=== PATIENT | female | born 1940 | race Caucasian/White ===

== ENCOUNTER → 2017-01-12 | Outpatient (CLI) | payer OTHER ==
--- NOTE | 2017-01-13 07:55 | MAMMOGRAPHY REPORT ---
BILATERAL DIGITAL SCREENING MAMMOGRAM WITH CAD: 01/12/2017 CLINICAL HISTORY: Routine screening. Patient has no complaints. TECHNIQUE: Bilateral CC and MLO views were obtained. Current study was also evaluated with a Comput er Aided Detection (CAD) system. COMPARISON: Comparison is made to exams dated: 11/05/2015 ultrasound, 11/05/2015 mammogram, 10/29/2015 mammogram, 10/28/2014 ultrasound, 10/28/2014 mammogram, and 05/17/2014 mammogram - [facility]. BREAST COMPOSITION: There are scattered areas of fibroglandular density in both breasts. FINDINGS: There is a possible 8 mm mass in the lower inner middle one third of the left breast, for which additional spot compression tomosynthesis views and possibly ultrasound are recommended. Thi s is seen in an area of prior cyst aspiration and could possibly represent reaccumulation, however a dditional workup is needed. There is a stable ribbon shaped metallic biopsy marker in the upper outer anterior left breast. A f ew scattered benign-appearing microcalcifications. No other suspicious mass, architectural distortio n or cluster of microcalcifications is seen. IMPRESSION: ACR BI-RADS CATEGORY 0: INCOMPLETE EVALUATION: NEED ADDITIONAL IMAGING EVALUATION The possible 8 mm mass in the left breast needs additional evaluation. The patient will be called to schedule an appointment. Approximately 10% of breast cancers are not detected with mammography. A negative mammographic repor t should not delay biopsy if a clinically suggestive mass is present. Eusebia Silveira M.D. ay/:01/12/2017 17:07:12 Water Resource Manager: Hayde LOPEZ(Lavelle)([place]), [facility] letter sent: Addl Imaging 0 BI-RADS Code: ACR BI-RADS Category 0: Incomplete Evaluation: Need Additional Imaging Evaluation
== END | disposition home or self-care (01) ==
LOC: C.MAMM 10:28
PROVIDERS: ATTEND Family Medicine
DX: Z12.31 Encounter for screening mammogram for malignant neoplasm of breast (principal); R92.8 Other abnormal and inconclusive findings on diagnostic imaging of breast

== ENCOUNTER → 2017-01-24 | Outpatient (CLI) | payer OTHER ==
--- NOTE | 2017-01-24 15:16 | MAMMOGRAPHY REPORT ---
UNILATERAL LEFT DIGITAL DIAGNOSTIC MAMMOGRAM TOMOSYNTHESIS AND TARGETED LEFT ULTRASOUND: 01/24/2017 CLINICAL HISTORY: 76 year-old woman called back from screening mammography for an increasingly promi nent mass in the 6:00 to 7:00 left breast. Patient has a history of previous left breast cyst aspir ation and ultrasound-guided core biopsy. TECHNIQUE: Spot compression CC and MLO 2-D digital and tomosynthesis images of the left breast were obtained. Full field left CC and MLO 2-D digital and tomosynthesis images were also obtained. COMPARISON: Comparison is made to exams dated: 01/12/2017 mammogram, 11/13/2015 aspiration, 11/05/2015 u ltrasound, 11/05/2015 mammogram, 10/29/2015 mammogram, and 10/28/2014 ultrasound - [facility]. BREAST COMPOSITION: There are scattered areas of fibroglandular density in the left breast. FINDINGS: Spot compression views of the left breast demonstrate persistence of an oval circumscribe d 8.6 x 6.1 x 7.2 mm mass in the 6:30 to 7:00 middle one third of the left breast. No associated ar chitectural distortion or microcalcification. Further characterization with ultrasound was performe d. Also incidentally seen in the anterior left breast on the additional tomosynthesis views are ano ther round circumscribed 7.7 x 7.3 x 6.9 mm mass in the approximate 3:00 anterior breast. No other definite mass or focal area of architectural distortion is seen. Real-time high-resolution ultrasound was performed in the left breast. In the 7:00 axis, 2 cm from the nipple in the area of previously aspirated cyst, a predominantly anechoic benign cyst is again i dentified measuring 8.3 x 4.3 x 5.6 mm. This is compatible with reaccumulation of the previously as pirated cyst and is benign. In the 5:00 periareolar left breast, another anechoic simple cyst is id entified measuring 5.6 x 4.8 x 5.9 mm. This likely correlates with the other circumscribed mass ruma ser to the nipple seen on the spot compression views. There is an isoechoic to slightly hypoechoic area in the 3:00 periareolar left breast that is conspicuous in real-time scanning. It has slightly angular borders measuring approximately 5.4 x 4.0 x 6.9 mm. This partially effaces in the cinegrap hic video clip and could represent stromal fibrosis. I did not initially think that this correlated with the biopsied lesion in the 1:30 left breast. However, for confirmation a skin BB was placed o verlying this abnormality and repeat full field left CC and MLO views were obtained. The skin BB do es not align with the biopsy marker clip. Then additional ultrasound was performed in the 1:30 left breast and the previously biopsied microlobulated hypoechoic lesion is again seen and does not appe ar significantly different compared to the time the ultrasound, which yielded benign pathology resul ts. Overall, given the partial effacement of this 3:00 lesion and real-time ultrasound, and lack of a suspicious mammographic correlate, a short interval follow-up is recommended to ensure stability in 6 months. IMPRESSION: ACR-BI-RADS CATEGORY 3: PROBABLY BENIGN, TARGETED ULTRASOUND ACR-BI-RADS CATEGORY 3: OK OBABLY BENIGN 1. The increasingly prominent circumscribed oval mass in the 7:00 left breast correlates with a olamide ign cyst on ultrasound. This was previously aspirated to resolution and represents reaccumulation o f the cyst. No further workup is needed at this time. 2. Incidentally seen is a subcentimeter isoechoic to hypoechoic lesion in the 3:00 periareolar left breast that could represent stromal fibrosis are normal breast tissue given partial effacement in r eal-time scanning. However, a short interval follow-up diagnostic left mammogram and repeat targete d ultrasound is recommended to ensure stability in 6 months. These results and recommendations were discussed with the patient at the time of the exam. She tent atively scheduled the follow-up appointment prior to leaving our department. Approximately 10% of breast cancers are not detected with mammography. A negative mammographic repor t should not delay biopsy if a clinically suggestive mass is present. Eusebia Silveira M.D. ay/:01/24/2017 14:32:22 Radiation Therapist: Kylee Lopez, [facility] letter sent: Follow Up Recommended 3 BI-RADS Code: ACR-BI-RADS Category 3: Probably Benign Ultrasound BI-RADS: ACR-BI-RADS Category 3: P robably Benign
== END | disposition home or self-care (01) ==
LOC: C.MAMM 09:30
PROVIDERS: ATTEND Family Medicine
DX: N63 Unspecified lump in breast (principal)

== ENCOUNTER → 2017-07-27 | Outpatient (CLI) | payer OTHER ==
--- NOTE | 2017-07-28 07:49 | MAMMOGRAPHY REPORT ---
UNILATERAL LEFT DIGITAL DIAGNOSTIC MAMMOGRAM TOMOSYNTHESIS WITH CAD AND TARGETED LEFT ULTRASOUND: CLINICAL HISTORY: Six-month follow-up of left 3:00 lesion seen on ultrasound. The patient reports no current complaints. TECHNIQUE: Breast tomosynthesis in addition to standard 2D mammography was performed. Current study was also evaluated with a Computer Aided Detection (CAD) system. Left CC and MLO 2-D and tomosynthes is images were obtained. COMPARISON: Comparison is made to exams dated: 01/24/2017 ultrasound, 01/24/2017 mammogram, 01/12/2017 m ammogram, 11/13/2015 aspiration, 11/05/2015 ultrasound, and 11/05/2015 mammogram - [facility]. BREAST COMPOSITION: There are scattered areas of fibroglandular density in the left breast. FINDINGS: In the left slightly medial breast on the cc view middle depth, there is an area of subtle architectural distortion with an associated coarse calcification (slice 28/57), which likely project s slightly superiorly on the MLO view (slice 3363). The remainder of the left breast is stable mamm ographically compared to prior exams, without suspicious masses, calcifications, or areas of architec tural distortion noted. The previously seen circumscribed masses in the left lower inner quadrant an d left lateral anterior breast are stable and were shown to represent benign cysts on a prior ultraso und exam. A biopsy marker clip is again noted in the left upper outer quadrant. Targeted ultrasound was performed of the area of the previously seen lesion for which follow-up was r ecommended. In the left 3:00 periareolar breast, again noted is a circumscribed anechoic 7 mm mass, consistent with a benign cyst. In the left 3:00 periareolar breast, there is also an isoechoic to sl ightly hypoechoic ill-defined region which largely effaces on radial scanning, and does not appear si gnificantly changed compared to the January 2017 exam, and may represent normal breast tissue or stroma l fibrosis. Targeted ultrasound was performed of the region of the questionable architectural distor tion, in the left central and slightly medial breast, which shows no clear sonographic correlate. IMPRESSION: ACR BI-RADS CATEGORY 4: SUSPICIOUS, TARGETED ULTRASOUND ACR BI-RADS CATEGORY 4: SUSPICIO US 1. Area of focal architectural distortion in the left medial breast mammographically, with an associ ated coarse calcification. No clear sonographic correlate is evident. The distortion is indetermina te and stereotactic biopsy is recommended for further evaluation. This likely represents a radial sc ar although malignancy is not entirely excluded. 2. Stable isoechoic to slightly hypoechoic lesion in the left 3:00 periareolar breast, that is proba celso benign and may represent normal breast tissue or stromal fibrosis. Recommend follow-up diagnosti c tomosynthesis and possible ultrasound of the left breast in 6 months to confirm longer stability. Routine mammography of the right breast will be due at that time. A phone call was made to the physician's office to confirm faxed results were received. The patient has been verbally notified of the results. She tentatively scheduled the biopsy before leaving the d epartment. I will leave it up to her referring physician if she can safely discontinue Coumadin prio r to the procedure. Approximately 10% of breast cancers are not detected with mammography. A negative mammographic report should not delay biopsy if a clinically suggestive mass is present. Clover Rhodes M.D. ah/:07/27/2017 12:16:25 Director Of Casino Marketing: Kylee LOPEZ(Lavelle)(Thomas), [facility] letter sent: Abnormal 4/5 BI-RADS Code: ACR BI-RADS Category 4: Suspicious Ultrasound BI-RADS: ACR BI-RADS Category 4: Suspici ous
== END | disposition home or self-care (01) ==
LOC: C.MAMM 10:27
PROVIDERS: ATTEND Family Medicine
DX: N64.89 Other specified disorders of breast (principal); R92.1 Mammographic calcification found on diagnostic imaging of breast

== ENCOUNTER 2023-04-20 12:40 | Inpatient (IN) ==
--- NOTE | 2023-04-20 13:42 | Emergency Department Note ---
Impression & Plan Acute hyponatremia, Nausea ED Provider Note NAME: JENI JAVIER AGE: 83 SEX: F : 1940 ARRIVES VIA: Walk-In INFORMANT: Patient, ED PROVIDER(S): Kelvin Patricia MD CHIEF COMPLAINT: Nausea, low sodium, outpatient referral MEDICAL DECISION MAKING: Patient was an outpatient referral due to concern for nausea and low sodium. IV was established blood work is obtained along with urine and serum awesome's as well as urine electrolytes. Patient was ordered IV fluids and Zofran. The patient's sodium was 118. I did reassess the patient the patient was feeling improved after Zofran and small mount of IV fluids. I did speak with Vaishali Jones PA-C and the patient was admitted by [facility] Dr. Berny Mendosa. Prior /Outside records reviewed: Did review a wound care visit note with Dahlia Montesnios from April 14. Patient does have a history of chronic venous insufficiency and delayed wound healing from a traumatic wound. Patient had 2 wounds 1 of which has healed the other which was stable to improved. I did review the patient's blood work from April 18 and which showed hyponatremia of 123 and 120 respectively. Also associated hypochloremia. This is an acute change from January with the patient's sodium was 136. Differential diagnosis: Infection, dehydration, metabolic abnormality, hypo/hyperglycemia, electrolyte disturbance, anemia, SIADH, medication side effect among others were considered Diagnostics, as interpreted by me: ECG: Sinus with pacing, rate of 64 wide QRS left bundle branch block pattern. Cardiac monitoring: An order was placed for continuous cardiac monitoring. The monitor shows a rate of 72 with paced rhythm. Patient was placed on pulse oximetry Medical decision rules: None Imaging studies: See below HPI: patient presents due to concern for this fatigue nausea and low sodium and she did have blood work completed yesterday and the day before. Patient was t old about her results and referred here for further evaluation treatment. The patient had been on Lasix up until Tuesday. The patient did seeing her outpatient physician due to concerns for weakness associated fatigue and nausea. No vomiting or diarrhea. Patient denies any chest pains or shortness of breath. No falls or trauma. Patient does admit to decreased appetite. The patient does follow with wound care for chronic left lower extremity wounds. Patient denies any acute issues with that at this time PAST MEDICAL HISTORY: See Below PAST SURGICAL HISTORY: See Below SOCIAL HISTORY: See Below HOME MEDICATIONS: See Below ALLERGIES: See Below VITALS: See Below PHYSICAL EXAMINATION: GENERAL: NAD, non-toxic. EYE EXAM: Normal conjunctiva. PERRL, no anisocoria and EOM's grossly intact w/o pain. NECK: Supple, no nuchal rigidity, no adenopathy, non-tender. No signs of meningismus. FROM of the neck with good chin to chest and neck extension. No stridor. LUNGS: Clear to auscultation. Normal chest wall mechanics. HEART: NSR, no MRG. ABDOMEN: Abdomen soft, non-tender, no masses, no rebound or guarding. BACK: No CVA TTP. SKIN: No rashes and no bruising. UPPER EXTREMITIES: Upper extremities are grossly normal. LOWER EXTREMITIES: Left greater than right lower extremity edema currently wrapped in a dressing. NEURO EXAM: A&O x3, cranial nerves II-XII grossly intact, normal speech, moves all 4 extremities. Past Med/Surg History Medical History Artificial cardiac pacemaker Atrial fibrillation on warfarin Chronic anticoagulation FHx: mitral valve repair GERD (gastroesophageal reflux disease) Hyperlipidemia Hypertension Mitral valve prolapse Osteoporosis Pathologic fracture Pericarditis age 18 Pulmonary HTN PASP 47mmhg Tachy-gomez syndrome Tricuspid valve prolapse Surgical History H/O tricuspid valve repair History of appendectomy History of bilateral tubal ligation History of breast biopsy left (benign) History of cardiac cath 30 YEARS AGO= NO STENTS History of cholecystectomy History of colonoscopy History of open reduction and internal fixation (ORIF) procedure LEFT WRIST History of tonsillectomy Status post endovenous radiofrequency ablation of saphenous vein [place] teeth removed Family History Brother Family hx of colon cancer Daughter FHx: breast cancer Mother FHx: breast cancer Grandmother FHx: breast cancer Aunt FHx: breast cancer Social History Smoking Status: Never smoker Second Hand Exposure: Yes ( A CHILD); Do You Dip or Chew Tobacco: No; Hx Alcohol Use: No Hx Substance Use: No Preferred Language: Armenian Communication Ability: Effective Visual Impairment: No Limitations Hearing Ability: Normal [place] Former Machine Operator Required: No Beliefs That Will Affect Care: None Current Living Situation: Spouse Feels Safe at Home: Yes Safety Concerns: Feels Safe At This Time Diet Comment: Low fat caffeine: No Do you think of yourself as: straight/heterosexual Gender Identity: Female Assistive Devices: CPAP Allergies Allergies Allergy/AdvReac Type Severity Reaction Status Date / Time Penicillins Allergy Severe RASH, RESP Verified 04/20/23 14:36 DISTRESS codeine Allergy Intermediate LIPS Verified 04/20/23 14:36 NUMBNESS hoff Allergy Mild Nausea = Verified 04/20/23 18:26 GARBANZO HOFF sulfamethoxazole Allergy Mild Nausea Unverified 04/20/23 14:42 [From Bactrim] trimethoprim [From Bactrim] Allergy Mild Nausea Unverified 04/20/23 14:42 Iodinated Contrast Media Allergy Rash Verified 04/20/23 14:36 Home Meds Home Medications Medication Instructions Recorded Confirmed cholecalciferol (vitamin D3) 50 2,000 unit PO [facility] 01/16/19 04/20/23 mcg (2,000 unit) capsule (Vitamin D3) rosuvastatin 5 mg tablet 5 mg PO 01/16/19 04/20/23 losartan 50 mg tablet 50 mg PO [facility] 05/05/20 04/20/23 clindamycin HCl 300 mg capsule 600 mg PO DIRECTED PRN Other 05/27/20 04/20/23 aspirin 81 mg tablet,delayed 81 mg PO MOWEFR 03/10/22 04/20/23 release famotidine 20 mg tablet 20 mg PO 03/10/22 04/20/23 calcium carbonate 500 mg calcium 500 mg PO [facility] 02/21/23 04/20/23 (1,250 mg) tablet warfarin 5 mg tablet 5 mg PO SUMOTUWETHFR@1600 02/21/23 04/20/23 metoprolol succinate 25 mg 25 mg PO 04/20/23 04/20/23 tablet,extended release 24 hr warfarin 2.5 mg tablet 2.5 mg PO SA@1600 04/20/23 04/20/23 Results & Data (ED) Vital Signs Vital Signs - 24 hr 04/20/23 14:15 Pulse Rate 60 Home Medications Current Medication List: was personally reviewed by me Laboratory Data Attestation: I reviewed the patient's lab results. 04/20/23 13:50 04/20/23 13:50 Lab Results 04/20/23 04/20/23 04/20/23 Range/Units 13:50 13:50 13:50 WBC 6.38 (4.8-10.8) K/ul RBC 4.51 (4.20-5.40) M/uL Hgb 13.4 (12.0-16.0) g/dl Hct 38.2 (37.0-47.0) % MCV 84.7 (80.0-100.0) fL MCH 29.7 (25.0-34.0) pg MCHC 35.1 (32.0-36.0) g/dL RDW Std Deviation 44.8 (36.4-46.3) fL RDW Coeff of Demarco 14.6 H (11.5-14.5) % Plt Count 201 (130-400) K/uL MPV 11.3 (9.4-12.4) fL Immature Gran % (Auto) 0.5 % Neut % (Auto) 65.8 % Lymph % (Auto) 21.3 % Leake % (Auto) 11.8 % Eos % (Auto) 0.3 % Baso % (Auto) 0.3 % Neut # (Auto) 4.20 (1.40-6.50) K/uL Lymph # (Auto) 1.36 (1.2-3.4) K/uL Leake # (Auto) 0.75 H (0.11-0.59) K/uL Eos # (Auto) 0.02 (0-0.50) K/uL Baso # (Auto) 0.02 (0-0.2) K/uL Immature Gran # (Auto) 0.03 (0.01-0.20) K/uL PT (9.0-12.0) Seconds INR (0.9-1.1) Sodium 118 L* (136-145) mmol/L Potassium 4.2 (3.5-5.1) mmol/L Chloride 87 L (98-107) mmol/L Carbon Dioxide 24 (21-32) mmol/L Anion Gap 7 (3-11) BUN 24 H (6-23) mg/dl Creatinine 1.19 (0.6-1.2) mg/dl Est Cr Clr Drug Dosing 34.7 ml/min Est GFR ( Amer) 49.6 ml/min Est GFR (Non-Af Amer) 42.8 ml/min BUN/Creatinine Ratio 20.2 H (10-20) Glucose 107 H (70-99(Fasting)) mg/dl Osmolality 258 L (280-300) mOsm/kg Calcium 9.5 (8.6-10.3) mg/dl Magnesium 1.8 (1.7-2.4) mg/dl Total Bilirubin 1.5 H (0.2-1.0) mg/dl AST 25 (13-39) U/L ALT 16 (7-52) U/L Alkaline Phosphatase 60 (34-104) U/L Total Protein 7.7 (6.0-8.3) gm/dl Albumin 4.5 (3.4-5.0) gm/dl Globulin 3.2 (2.5-4.0) gm/dl Albumin/Globulin Ratio 1.4 (0.9-2) Urine Osmolality (500-800) mOsm/kg Urine Sodium mmol/L Urine Potassium mmol/L Urine Chloride mmol/L 04/20/23 04/20/23 04/20/23 Range/Units 13:50 14:06 14:06 WBC (4.8-10.8) K/ul RBC (4.20-5.40) M/uL Hgb (12.0-16.0) g/dl Hct (37.0-47.0) % MCV (80.0-100.0) fL MCH (25.0-34.0) pg MCHC (32.0-36.0) g/dL RDW Std Deviation (36.4-46.3) fL RDW Coeff of Demarco (11.5-14.5) % Plt Count (130-400) K/uL MPV (9.4-12.4) fL Immature Gran % (Auto) % Neut % (Auto) % Lymph % (Auto) % Leake % (Auto) % Eos % (Auto) % Baso % (Auto) % Neut # (Auto) (1.40-6.50) K/uL Lymph # (Auto) (1.2-3.4) K/uL Leake # (Auto) (0.11-0.59) K/uL Eos # (Auto) (0-0.50) K/uL Baso # (Auto) (0-0.2) K/uL Immature Gran # (Auto) (0.01-0.20) K/uL PT 18.8 H (9.0-12.0) Seconds INR 1.8 H (0.9-1.1) Sodium (136-145) mmol/L Potassium (3.5-5.1) mmol/L Chloride (98-107) mmol/L Carbon Dioxide (21-32) mmol/L Anion Gap (3-11) BUN (6-23) mg/dl Creatinine (0.6-1.2) mg/dl Est Cr Clr Drug Dosing ml/min Est GFR ( Amer) ml/min Est GFR (Non-Af Amer) ml/min BUN/Creatinine Ratio (10-20) Glucose (70-99(Fasting)) mg/dl Osmolality (280-300) mOsm/kg Calcium (8.6-10.3) mg/dl Magnesium (1.7-2.4) mg/dl Total Bilirubin (0.2-1.0) mg/dl AST (13-39) U/L ALT (7-52) U/L Alkaline Phosphatase (34-104) U/L Total Protein (6.0-8.3) gm/dl Albumin (3.4-5.0) gm/dl Globulin (2.5-4.0) gm/dl Albumin/Globulin Ratio (0.9-2) Urine Osmolality 425 L (500-800) mOsm/kg Urine Sodium 31 mmol/L Urine Potassium 51.3 mmol/L Urine Chloride 35 mmol/L Administered Medications Aspirin (Aspirin 81 Mg Ectab) 81 mg PO MoWeFr@0900 [facility] Stop: 05/20/23 18:18 Last Admin: 04/20/23 20:19 Dose: 81 mg Documented By: LMP Calcium Carbonate (Calcium Carbonate 1250mg Tab) 1,250 mg PO QA NORMA Stop: 05/21/23 08:59 Last Admin: 04/21/23 08:32 Dose: 1,250 mg Documented By: JLA Famotidine (Famotidine 20 Mg Tab) 20 mg PO HS [facility] Stop: 05/20/23 20:59 Last Admin: 04/20/23 20:21 Dose: 20 mg Documented By: PAULA Dextrose (D5w) 1,000 mls @ 80 mls/hr IV .[id number] [facility] Stop: 05/21/23 10:14 Last Admin: 04/21/23 10:13 Dose: 80 mls/hr Documented By: AMIRA Losartan Potassium (Losartan Potassium 50 Mg Tab) [facility]: 05/21/23 08:59 Last Admin: 04/21/23 08:32 Dose: 50 mg Documented By: AMIRA Metoprolol Succinate (Metoprolol Succ 25mg Ext Rel Tab) 25 mg PO [facility] Stop: 05/20/23 20:59 Last Admin: 04/20/23 20:19 Dose: 25 mg Documented By: PAULA Rosuvastatin Calcium (Rosuvastatin Calcium 5 Mg Tab) 5 mg PO [facility] Stop: 05/20/23 20:59 Last Admin: 04/20/23 20:21 Dose: 5 mg Documented By: PAULA Urea (Urea (Urea-Na) 15 Gm Pack) 15 gm PO BID [facility] Stop: 05/20/23 20:59 Last Admin: 04/21/23 08:32 Dose: 15 gm Documented By: Admin: 04/20/23 20:21 Dose: 15 gm Documented By: PAULA Vitamin D (Cholecalciferol 1,000 Units 25 Mcg Tab) 2,000 units PO [facility] Stop: 05/21/23 08:59 Last Admin: 04/21/23 08:32 Dose: 2,000 units Documented By: AMIRA Warfarin Sodium (Warfarin Sod 5 Mg Tab) 5 mg PO SUMOTUWETHFR@1600 [facility] Stop: 05/20/23 18:18 Last Admin: 04/20/23 20:18 Dose: 5 mg Documented By: PAULA Discontinued Medications Sodium Chloride (Nss 1000ml) 1,000 mls @ 999 mls/hr IV .Q1H1M ONE Stop: 04/20/23 14:52 Last Infusion: 04/20/23 15:04 Dose: 0 mls/hr Documented By: Admin: 04/20/23 14:03 Dose: 999 mls/hr Documented By: MATTHEW Sodium Chloride (Nss 1000ml) 1,000 mls @ 75 mls/hr IV .[id number] [facility] Stop: 05/20/23 18:18 Last Admin: 04/21/23 08:43 Dose: Not Given Documented By: Infusion: 04/21/23 08:32 Dose: 0 mls/hr Documented By: Admin: 04/20/23 20:24 Dose: 75 mls/hr Documented By: PAULA Dextrose (D5w) 500 mls @ 80 mls/hr IV .[id number] [facility] Stop: 05/21/23 09:59 Last Admin: 04/21/23 10:13 Dose: Not Given Documented By: AMIRA Ondansetron HCl (Ondansetron Inj 2 Mg/Ml 2 Ml Vial) 4 mg IV NOW STA Stop: 04/20/23 13:53 Last Admin: 04/20/23 14:03 Dose: 4 mg Documented By: MATTHEW Discharge Plan Visit Data Chief Complaint: Illness Stated Complaint: LOW SODIUM LEVELS ED Provider: Kelvin Patricia Discharge Problem: Acute hyponatremia, Nausea Patient Disposition: Admitted As Inpatient Discharge Instructions Interventions: ED Discharge Assessment Last Done: 04/20/23 17:49
[2023-04-20] MEDS ORDERED: SODIUM CHLORIDE 0.9% 1000ML 1,000 ML IV ONE (13:52)
[2023-04-20] MEDS ORDERED: ONDANSETRON INJ 2 MG/ML 2 ML VIAL IV STA (13:52)
[2023-04-20 14:06] LABS: Basophils # (auto) 0.02 K/uL (0-0.2); Basophils % (auto) 0.3 %; Eosinophils # (auto) 0.02 K/uL (0-0.50); Eosinophils % (auto) 0.3 %; Hematocrit (blood only) 38.2 % (37.0-47.0); Hemoglobin 13.4 g/dl (12.0-16.0); Immature Granulocytes # (auto) 0.03 K/uL (0.01-0.20); Immature Granulocytes % (auto) 0.5 %; Lymphocytes # (auto) 1.36 K/uL (1.2-3.4); Lymphocytes % (auto) 21.3 %; Mean Corpuscular Hemoglobin 29.7 pg (25.0-34.0); Mean Corpuscular Hgb Conc 35.1 g/dL (32.0-36.0); Mean Corpuscular Volume 84.7 fL (80.0-100.0); Mean Platelet Volume 11.3 fL (9.4-12.4); Monocytes # (auto) 0.75 K/uL (0.11-0.59); Monocytes % (auto) 11.8 %; Neutrophils % (auto) 65.8 %; Platelet Count 201 K/uL (130-400); RDW Coefficient of Variation 14.6 % (11.5-14.5); RDW Standard Deviation 44.8 fL (36.4-46.3); Red Blood Count 4.51 M/uL (4.20-5.40); White Blood Count 6.38 K/ul (4.8-10.8)
[2023-04-20 14:31] LABS: Albumin Globulin Ratio 1.4 (0.9-2); Albumin Level 4.5 gm/dl (3.4-5.0); BUN Creatinine Ratio 20.2 (10-20); Bilirubin,Total 1.5 mg/dl (0.2-1.0); Calcium 9.5 mg/dl (8.6-10.3); Creatinine Clr Calc Pharmacy 34.7 ml/min; Est GFR (African American) 49.6 ml/min; Est GFR (Non-African American) 42.8 ml/min; Globulin 3.2 gm/dl (2.5-4.0); Magnesium 1.8 mg/dl (1.7-2.4); Potassium 4.2 mmol/L (3.5-5.1); Total Protein 7.7 gm/dl (6.0-8.3)
--- NOTE | 2023-04-20 14:58 | History & Physical Report ---
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 Pt recently treated with oral Bactrim DS x 1 week 2/2 LLE wound. Completed on 04/18. 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 Goode will treat like SIADH urine/serum osm not helpful in setting of HCTZ use pt finished bactrim 04/11-04/18; also HCTZ was stopped, last dose 04/18 FR @ 1200ml IV NSS @ 75cc/hr UREA 15g bid if pt tolerates repeat bmp at 1700 and 2100 goal Na 124 by tomorrow a.m. Chronic Atrial Fib HTN S/P MV repair Pacemaker in place continue warfarin, INR 1.8 today continue metoprolol, losartan, statin follows [employer] daily INR BASSEM CPAP at HS DVT ppx: Warfarin Dispo: admit to tele, consult PT/OT, d/c to home when pt sodium improved FULL CODE PCP: Dr. De La Cruz Pt was seen and examined in collaboration with Dr. Diallo, please see addendum Insert A total of 85 was spent coordinating, documenting, and providing care for this patient excluding time spent in the performance of separately billed services. This included personally viewing all current laboratories and imaging studies, medication reconciliation, outpatient chart review, and discussion with specialists. History of Present Illness Chief Complaint: nausea x 1 week. 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 Patient has been following at the wound clinic secondary to a slow healing wound to her left lower extremity. She was recently started on Bactrim and completed a 7-day course which completed on 04/18/2023. The day after starting Bactrim she became significantly nauseated. She was still able to tolerate diet but nausea would wax and wane. The nausea became persistent for the past 2 days. She denies any vomiting. She has been drinking liquids as normal, approximately 4-5 8 ounce glasses daily. Her PCP darell labs in the outpatient clinic on 04/18 and her sodium was noted to be 123. Due to persistent nausea PCP repeated labs today and showed a sodium of 120. She did have mild elevation in creatinine in outpatient setting at 1.5 on 04/18 and today 1.2. Previously her sodium has been around 135 and creatinine around 1.0-1.1 she also complains of feeling lightheadedness, "off balance," and generally weak. She denies any other recent illness, fever, chills, sweats, presyncope, chest pain, shortness of breath, URI symptoms, vomiting, abdominal pain, dysuria, increased urgency or frequency with urination, melena or hematochezia. She otherwise has had no medication changes. Allergies Allergy/AdvReac Type Severity Reaction Status Date / Time Penicillins Allergy Severe RASH, RESP Verified 04/20/23 14:36 DISTRESS codeine Allergy Intermediate LIPS Verified 04/20/23 14:36 NUMBNESS hoff Allergy Mild Nausea = Verified 04/20/23 18:26 GARBANZO HOFF sulfamethoxazole Allergy Mild Nausea Unverified 04/20/23 14:42 [From Bactrim] trimethoprim [From Bactrim] Allergy Mild Nausea Unverified 04/20/23 14:42 Iodinated Contrast Media Allergy Rash Verified 04/20/23 14:36 Home Medications Medication Instructions Recorded Confirmed Type cholecalciferol (vitamin D3) 50 2,000 unit PO QAM 01/16/19 04/20/23 History mcg (2,000 unit) capsule (Vitamin D3) rosuvastatin 5 mg tablet 5 mg PO HS 01/16/19 04/20/23 History losartan 50 mg tablet 50 mg PO QAM 05/05/20 04/20/23 History clindamycin HCl 300 mg capsule 600 mg PO DIRECTED PRN Other 05/27/20 04/20/23 History aspirin 81 mg tablet,delayed 81 mg PO MOWEFR 03/10/22 04/20/23 History release famotidine 20 mg tablet 20 mg PO HS 03/10/22 04/20/23 History calcium carbonate 500 mg calcium 500 mg PO QAM 02/21/23 04/20/23 History (1,250 mg) tablet warfarin 5 mg tablet 5 mg PO SUMOTUWETHFR@1600 02/21/23 04/20/23 History metoprolol succinate 25 mg 25 mg PO HS 04/20/23 04/20/23 History tablet,extended release 24 hr warfarin 2.5 mg tablet 2.5 mg PO SA@1600 04/20/23 04/20/23 History Past Med/Surg History Medical History Artificial cardiac pacemaker Atrial fibrillation on warfarin Chronic anticoagulation FHx: mitral valve repair GERD (gastroesophageal reflux disease) Hyperlipidemia Hypertension Mitral valve prolapse Osteoporosis Pathologic fracture Pericarditis age 18 Pulmonary HTN PASP 47mmhg Tachy-gomez syndrome Tricuspid valve prolapse Surgical History H/O tricuspid valve repair History of appendectomy History of bilateral tubal ligation History of breast biopsy left (benign) History of cardiac cath 30 YEARS AGO= NO STENTS History of cholecystectomy History of colonoscopy History of open reduction and internal fixation (ORIF) procedure LEFT WRIST History of tonsillectomy Status post endovenous radiofrequency ablation of saphenous vein [place] teeth removed Family History Brother Family hx of colon cancer Daughter FHx: breast cancer Mother FHx: breast cancer Grandmother FHx: breast cancer Aunt FHx: breast cancer Social History Smoking Status: Never smoker Second Hand Exposure: Yes ( A CHILD); Do You Dip or Chew Tobacco: No; Hx Alcohol Use: No Hx Substance Use: No Preferred Language: Filipino Communication Ability: Effective Visual Impairment: No Limitations Hearing Ability: Normal Crematory Attendant Required: No Beliefs That Will Affect Care: None Current Living Situation: Spouse Feels Safe at Home: Yes Safety Concerns: Feels Safe At This Time Diet Comment: Low fat caffeine: No Do you think of yourself as: straight/heterosexual Gender Identity: Female Assistive Devices: CPAP Review of Systems Review of Systems: All systems reviewed & are unremarkable except as noted in HPI & below Physical Exam Physical Exam: Constitutional: WD/WN, vitals as above, NAD, sitting up in bed, pleasant, conversing easily Head: Normocephalic, Atraumatic Eyes: PERRL, conjunctivae normal, anicteric sclerae ENMT: external ear and nose normal, oropharynx normal Neck: trachea midline, no thyromegaly normal visual inspection Respiratory: normal respiratory effort, lungs clear to auscultation, no wheeze, rales, rhonchi. Normal insp/exp effort, no accessory muscle use Cardiovascular: RRR, no murmur, no edema, LLE dressing in place Vessels: no JVD or carotid bruit Chest: normal inspection of chest Abdomen: normal bowel sounds, soft, nontender, no hepatosplenomegaly Musculoskeletal: no cyanosis or clubbing, extremities motor strength 5/5 Skin: no rashes, warm and dry normal turgor Neurologic: PERRL, EOMI, accommodation nl, no face palsy, no dysarthria CN's II-XI intact bilaterally and moves all extremities Psychiatric: A+Ox3, euthymic affect Lymphatic: no cervical or axillary lymphadenopathy : deferred Results & Data Results & Data Vital Signs (Past 12 Hours) Vital Signs Temp Pulse Resp BP Pulse Ox O2 Del Method 04/20/23 14:15 60 04/20/23 12:51 36.4 C L 64 18 117/78 99 Room Air Medications Administered Medication List Discontinued Medications Sodium Chloride (Nss 1000ml) 1,000 mls @ 999 mls/hr IV .Q1H1M ONE Stop: 04/20/23 14:52 Last Admin: 04/20/23 14:03 Dose: 999 mls/hr Documented By: MATTHEW Ondansetron HCl (Ondansetron Inj 2 Mg/Ml 2 Ml Vial) 4 mg IV NOW STA Stop: 04/20/23 13:53 Last Admin: 04/20/23 14:03 Dose: 4 mg Documented By: MATTHEW ECG Rate (beats per minute): 64 Additional Comments: 64 SR, wide QRS, previous report noted ventricular pacemaker COVID-19 Results Results COVID-19 Adm Lab Results: RBC 4.51 M/uL (4.20-5.40) 04/20/23 WBC 6.38 K/ul (4.8-10.8) 04/20/23 Hgb 13.4 g/dl (12.0-16.0) 04/20/23 Hct 38.2 % (37.0-47.0) 04/20/23 Plt Count 201 K/uL (130-400) 04/20/23 Neutrophils (%) (Auto) 65.8 % 04/20/23 Lymphocytes (%) (Auto) 21.3 % 04/20/23 Monocytes # (Auto) 0.75 K/uL (0.11-0.59) H 04/20/23 Eosinophils # (Auto) 0.02 K/uL (0-0.50) 04/20/23 Immature Granulocyte % (Auto) 0.5 % 04/20/23 Neutrophils # (Auto) 4.20 K/uL (1.40-6.50) 04/20/23 Lymphocytes # (Auto) 1.36 K/uL (1.2-3.4) 04/20/23 Monocytes # (Auto) 0.75 K/uL (0.11-0.59) H 04/20/23 Eosinophils # (Auto) 0.02 K/uL (0-0.50) 04/20/23 Basophils # (Auto) 0.02 K/uL (0-0.2) 04/20/23 Immature Granulocyte # (Auto) 0.03 K/uL (0.01-0.20) 3 Na 120 mmol/L (136-145) L 04/20/23 K 4.7 mmol/L (3.5-5.1) 04/20/23 Cl 92 mmol/L (98-107) L 04/20/23 CO2 22 mmol/L (21-32) 04/20/23 Anion Gap 6 (3-11) 04/20/23 BUN 20 mg/dl (6-23) 04/20/23 Creatinine 1.02 mg/dl (0.6-1.2) 04/20/23 BUN/Creatinine Ratio 19.6 (10-20) 04/20/23 Glucose Level 106 mg/dl (70-99(Fasting)) H 04/20/23 Ca 8.6 mg/dl (8.6-10.3) 04/20/23 Total Bilirubin 1.5 mg/dl (0.2-1.0) H 04/20/23 AST/SGOT 25 U/L (13-39) 04/20/23 ALT/SGPT 16 U/L (7-52) 04/20/23 Alkaline Phosphatase 60 U/L (34-104) 04/20/23 Total Protein 7.7 gm/dl (6.0-8.3) 04/20/23 Albumin 4.5 gm/dl (3.4-5.0) 04/20/23 Globulin 3.2 gm/dl (2.5-4.0) 04/20/23 Albumin/Globulin Ratio 1.4 (0.9-2) 04/20/23 INR 1.8 (0.9-1.1) H 04/20/23 SARS-CoV-2, RNA, NAAT NEGATIVE (NEGATIVE) 04/20/23 Code Status & VTE Plan Code Status FULL CODE VTE Prophylaxis Plan VTE Prophylaxis will be ordered: Yes Supervising Physician Co-Signing Physician Notes Patient seen and examined independently. Discussed with above provider. Patient is a 83-year-old female with above-mentioned past medical history presented with nausea. Outpatient lab work showed her serum sodium to be 122 on April 18 Patient was on hydrochlorothiazide; recently started on Bactrim for wound infection in left lower extremity Presents with a sodium of 118. Discussed with nephrology; recommended fluid restriction of 1200 cc, normal saline at 75 cc/h and urea 15 mg twice daily. Goal of correction is 6-8 meq in 24 hours. Wound care consult for left lower extremity wound. No antibiotic as patient recently completed 1 week of Bactrim.
[2023-04-20 15:08] LABS: Urine Potassium 51.3 mmol/L
[2023-04-20 15:21] LABS: INR 1.8 (0.9-1.1); Prothrombin Time 18.8 Seconds (9.0-12.0)
[2023-04-20 17:18] LABS: BUN Creatinine Ratio 19.6 (10-20); Calcium 8.6 mg/dl (8.6-10.3); Creatinine Clr Calc Pharmacy 40.5 ml/min; Est GFR (African American) 59.7 ml/min; Est GFR (Non-African American) 51.5 ml/min; Potassium 4.7 mmol/L (3.5-5.1)
[2023-04-20] MEDS ORDERED: ALUMINUM/MAGNESIUM SUSP 30 ML UDC PO PRN (18:19)
[2023-04-20] MEDS ORDERED: ACETAMINOPHEN 325 MG TAB PO PRN (18:19)
[2023-04-20] MEDS ORDERED: POLYETHYLENE (MIRALAX) 17 GM PACK PO PRN (18:19)
[2023-04-20] MEDS ORDERED: ONDANSETRON INJ 2 MG/ML 2 ML VIAL IV PRN (18:19)
[2023-04-20] MEDS ORDERED: MAGNESIUM HYDROXIDE SUSP 30 ML UDC PO PRN (18:19)
[2023-04-20] MEDS: WARFARIN SOD 5 MG TAB PO SCH (20:18)
[2023-04-20] MEDS: ASPIRIN 81 MG ECTAB PO SCH (20:19)
[2023-04-20] MEDS: METOPROLOL SUCC 25MG EXT REL TAB PO SCH (20:19)
[2023-04-20] MEDS: UREA (UREA-NA) 15 GM PACK PO SCH (20:21)
[2023-04-20] MEDS: ROSUVASTATIN CALCIUM 5 MG TAB PO SCH (20:21)
[2023-04-20] MEDS: FAMOTIDINE 20 MG TAB PO SCH (20:21)
[2023-04-20] MEDS: SODIUM CHLORIDE 0.9% 1000ML 1,000 ML IV SCH (20:24)
[2023-04-20 21:20] LABS: BUN Creatinine Ratio 24.1 (10-20); Calcium 9.2 mg/dl (8.6-10.3); Creatinine Clr Calc Pharmacy 49.8 ml/min; Est GFR (African American) 76.6 ml/min; Est GFR (Non-African American) 66.1 ml/min; Potassium 4.3 mmol/L (3.5-5.1)
[2023-04-21 01:54] LABS: BUN Creatinine Ratio 42.7 (10-20); Calcium 9.2 mg/dl (8.6-10.3); Creatinine Clr Calc Pharmacy 55.1 ml/min; Est GFR (African American) 86.6 ml/min; Est GFR (Non-African American) 74.8 ml/min; Potassium 4.2 mmol/L (3.5-5.1)
[2023-04-21 08:04] LABS: Basophils # (auto) 0.03 K/uL (0-0.2); Basophils % (auto) 0.8 %; Eosinophils # (auto) 0.03 K/uL (0-0.50); Eosinophils % (auto) 0.8 %; Hematocrit (blood only) 37.9 % (37.0-47.0); Hemoglobin 13.2 g/dl (12.0-16.0); Immature Granulocytes # (auto) 0.02 K/uL (0.01-0.20); Immature Granulocytes % (auto) 0.5 %; Lymphocytes # (auto) 0.93 K/uL (1.2-3.4); Lymphocytes % (auto) 23.5 %; Mean Corpuscular Hemoglobin 29.4 pg (25.0-34.0); Mean Corpuscular Hgb Conc 34.8 g/dL (32.0-36.0); Mean Corpuscular Volume 84.4 fL (80.0-100.0); Mean Platelet Volume 11.5 fL (9.4-12.4); Monocytes # (auto) 0.51 K/uL (0.11-0.59); Monocytes % (auto) 12.9 %; Neutrophils # (auto) 2.44 K/uL (1.40-6.50); Neutrophils % (auto) 61.5 %; Platelet Count 175 K/uL (130-400); RDW Coefficient of Variation 14.3 % (11.5-14.5); RDW Standard Deviation 44.1 fL (36.4-46.3); Red Blood Count 4.49 M/uL (4.20-5.40); White Blood Count 3.96 K/ul (4.8-10.8)
[2023-04-21 08:23] LABS: Albumin Globulin Ratio 1.5 (0.9-2); Albumin Level 3.9 gm/dl (3.4-5.0); BUN Creatinine Ratio 31.5 (10-20); Bilirubin,Total 1.3 mg/dl (0.2-1.0); Calcium 8.9 mg/dl (8.6-10.3); Creatinine Clr Calc Pharmacy 56.6 ml/min; Est GFR (African American) 89.5 ml/min; Est GFR (Non-African American) 77.2 ml/min; Globulin 2.6 gm/dl (2.5-4.0); Magnesium 1.8 mg/dl (1.7-2.4); Potassium 4.4 mmol/L (3.5-5.1); Total Protein 6.5 gm/dl (6.0-8.3)
[2023-04-21] MEDS: CALCIUM CARBONATE 1250MG TAB PO SCH (08:32)
[2023-04-21] MEDS: CHOLECALCIFEROL 1,000 UNITS 25 MCG TAB PO SCH (08:32)
[2023-04-21] MEDS: UREA (UREA-NA) 15 GM PACK PO SCH (08:32)
[2023-04-21] MEDS: LOSARTAN POTASSIUM 50 MG TAB PO SCH (08:32)
[2023-04-21 08:39] LABS: Prothrombin Time 20.8 Seconds (9.0-12.0)
[2023-04-21] MEDS: SODIUM CHLORIDE 0.9% 1000ML 1,000 ML IV SCH (08:43)
[2023-04-21] MEDS ORDERED: DEXTROSE 5% 500 ML IV SCH (10:00)
[2023-04-21] MEDS ORDERED: DEXTROSE 5% 1,000 ML IV SCH (10:15)
[2023-04-21 10:28] LABS: BUN Creatinine Ratio 31.5 (10-20); Calcium 8.9 mg/dl (8.6-10.3); Creatinine Clr Calc Pharmacy 56.6 ml/min; Est GFR (African American) 89.5 ml/min; Est GFR (Non-African American) 77.2 ml/min; Potassium 4.4 mmol/L (3.5-5.1)
--- NOTE | 2023-04-21 11:08 | Nephrology Consultation ---
Date of Consultation April 21, 2023 Assessment & Plan (1) Acute hyponatremia: Hyponatremia in the setting of nausea and chronic hydrochlorothiazide use. However it is worth noting that she has been on hydrochlorothiazide for many years and did not have hyponatremia so I would not call this as caused by hydr ochlorothiazide. 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 However the sodium improved really fast with normal saline and some fluid restrict so could just be a case of hypovolemic hyponatremia. The rate of sodium correction is somewhat faster than ideal so we will give her 500 mL of D5 water and check her sodium again in she might need more D5 water after the result of the laboratory test. The goal is to correct about 18 mEq in around 48 hours and about 9 mEq in 24 hours. Continue to hold Bactrim and hydrochlorothiazide In fact I would not use hydrochlorothiazide even as an outpatient and would consider using alternate blood pressure regimen. For now blood pressure seems perfectly fine (2) Nausea: Triggered by Bactrim. Currently feels better History of Present Illness Reason for Consultation: Hyponatremia Attending Physician: Woodrow Benavides MD History of Present Illness 83-year-old female who was sent over to the hospital by her PCP because of abnormal outpatient labs showing hyponatremia. On admission serum sodium was 118 and since then has received normal saline and in about 15 hours time sodium has gone up to 129. Patient felt weak yesterday but feels significantly stronger today. She had wound infection and was prescribed Bactrim recently after which she has been having nausea poor appetite. Patient has been on hydrochlorothiazide for multiple years and did not have significant hyponatremia in the past. Nausea seems to be less today. Patient is otherwise asymptomatic and was admitted exclusively for abnormal lab. Review of system-----positive for nausea poor appetite since Bactrim started. However denied any diarrhea or abdominal pain. Denies chest pain shortness of breath orthopnea PND headache body ache pain or any other symptoms. Total of 12 systems reviewed Allergies Allergy/AdvReac Type Severity Reaction Status Date / Time Penicillins Allergy Severe RASH, RESP Verified 04/20/23 14:36 DISTRESS codeine Allergy Intermediate LIPS Verified 04/20/23 14:36 NUMBNESS hoff Allergy Mild Nausea = Verified 04/20/23 18:26 GARBANZO HOFF sulfamethoxazole Allergy Mild Nausea Unverified 04/20/23 14:42 [From Bactrim] trimethoprim [From Bactrim] Allergy Mild Nausea Unverified 04/20/23 14:42 Iodinated Contrast Media Allergy Rash Verified 04/20/23 14:36 Home Medications Medication Instructions Recorded Confirmed Type cholecalciferol (vitamin D3) 50 2,000 unit PO QAM 01/16/19 04/20/23 History mcg (2,000 unit) capsule (Vitamin D3) rosuvastatin 5 mg tablet 5 mg PO HS 01/16/19 04/20/23 History losartan 50 mg tablet 50 mg PO QAM 05/05/20 04/20/23 History clindamycin HCl 300 mg capsule 600 mg PO DIRECTED PRN Other 05/27/20 04/20/23 History aspirin 81 mg tablet,delayed 81 mg PO MOWEFR 03/10/22 04/20/23 History release famotidine 20 mg tablet 20 mg PO HS 03/10/22 04/20/23 History calcium carbonate 500 mg calcium 500 mg PO QAM 02/21/23 04/20/23 History (1,250 mg) tablet warfarin 5 mg tablet 5 mg PO SUMOTUWETHFR@1600 02/21/23 04/20/23 History metoprolol succinate 25 mg 25 mg PO HS 04/20/23 04/20/23 History tablet,extended release 24 hr warfarin 2.5 mg tablet 2.5 mg PO SA@1600 04/20/23 04/20/23 History Patient History Medical History Artificial cardiac pacemaker Atrial fibrillation on warfarin Chronic anticoagulation FHx: mitral valve repair GERD (gastroesophageal reflux disease) Hyperlipidemia Hypertension Mitral valve prolapse Osteoporosis Pathologic fracture Pericarditis age 18 Pulmonary HTN PASP 47mmhg Tachy-gomez syndrome Tricuspid valve prolapse Surgical History H/O tricuspid valve repair History of appendectomy History of bilateral tubal ligation History of breast biopsy left (benign) History of cardiac cath 30 YEARS AGO= NO STENTS History of cholecystectomy History of colonoscopy History of open reduction and internal fixation (ORIF) procedure LEFT WRIST History of tonsillectomy Status post endovenous radiofrequency ablation of saphenous vein [place] teeth removed Family History Brother Family hx of colon cancer Daughter FHx: breast cancer Mother FHx: breast cancer Grandmother FHx: breast cancer Aunt FHx: breast cancer Social History Smoking Status: Never smoker Second Hand Exposure: Yes ( A CHILD); Do You Dip or Chew Tobacco: No; Hx Alcohol Use: No Hx Substance Use: No Preferred Language: Croatian Communication Ability: Effective Visual Impairment: No Limitations Hearing Ability: Normal Ruffling Machine Operator Required: No Beliefs That Will Affect Care: None Current Living Situation: Spouse Feels Safe at Home: Yes Safety Concerns: Feels Safe At This Time Diet Comment: Low fat caffeine: No Do you think of yourself as: straight/heterosexual Gender Identity: Female Assistive Devices: CPAP Physical Exam Physical Exam: Very pleasant elderly female who looks quite vibrant and healthy. Awake alert oriented x3. Normal speech Neck: Supple. No JVD Respiratory: Bilateral clear to auscultation Cardiovascular: Regular rate and rhythm no murmurs rubs or gallop Gastrointestinal (Abdomen): Soft nontender Skin: No rash Results & Data Vital Signs (Past 12 Hours) Vital Signs Temp Pulse Pulse Pulse Resp BP Pulse Ox 04/21/23 06:32 60 04/21/23 07:45 36.5 C 60 18 125/78 96 04/21/23 03:37 36.4 C L 64 18 108/68 98 04/21/23 00:00 67 04/20/23 23:29 36.4 C L 60 18 115/73 96 O2 Del Method 04/21/23 06:32 04/21/23 07:45 Room Air 04/21/23 03:37 Room Air 04/21/23 00:00 04/20/23 23:29 Room Air Laboratory Results Sodium on admission 118 and after 15 hours it was 129 this morning. Diagnostic Findings Urine osmolarity urine sodium reviewed
--- NOTE | 2023-04-21 12:11 | Electrocardiogram Report ---
Test Reason : Blood Pressure : / mmHG Vent. Rate : 064 BPM Atrial Rate : 104 BPM P-R Int : 000 ms QRS Dur : 140 ms QT Int : 428 ms P-R-T Axes : 000 -01 076 degrees QTc Int : 441 ms Sinus tachycardia with AV sequential pacing Abnormal ECG Confirmed by Julio Cash ([id number]) on 04/21/2023 12:11:00 PM Referred By: Confirmed By:Russel Cash
[2023-04-21 13:47] LABS: BUN Creatinine Ratio 45.5 (10-20); Calcium 9.8 mg/dl (8.6-10.3); Creatinine Clr Calc Pharmacy 46.9 ml/min; Est GFR (African American) 71.4 ml/min; Est GFR (Non-African American) 61.6 ml/min; Potassium 4.5 mmol/L (3.5-5.1)
[2023-04-21] MEDS: WARFARIN SOD 5 MG TAB PO SCH (15:13)
[2023-04-21 16:05] LABS: Albumin Level 4.4 gm/dl (3.4-5.0); BUN Creatinine Ratio 39.2 (10-20); Calcium 10.1 mg/dl (8.6-10.3); Creatinine Clr Calc Pharmacy 40.5 ml/min; Est GFR (African American) 59.7 ml/min; Est GFR (Non-African American) 51.5 ml/min; Phosphorus 2.7 mg/dl (2.5-4.9); Potassium 4.4 mmol/L (3.5-5.1)
--- NOTE | 2023-04-21 16:18 | Electrocardiogram Report ---
Test Reason : Blood Pressure : / mmHG Vent. Rate : 061 BPM Atrial Rate : 277 BPM P-R Int : 000 ms QRS Dur : 138 ms QT Int : 458 ms P-R-T Axes : 000 -43 042 degrees QTc Int : 461 ms Ventricular-paced rhythm Abnormal ECG When compared with ECG of 20-APR-2023 13:19, (unconfirmed) Electronic ventricular pacemaker has replaced Wide QRS rhythm Confirmed by Julio Cash ([id number]) on 04/21/2023 4:17:25 PM Referred By: Henrik De La Cruz Confirmed By:Russel Cash
--- NOTE | 2023-04-21 16:52 | Hospitalist Progress Note ---
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 Pt recently treated with oral Bactrim DS x 1 week 2/ LLE wound. Completed on 04/18. Na on 04/18 was 122 and Cr 1.5 Acute hyponatremia Likely SIADH due to nausea/Bactrim/HCTZ use -Sodium 118>129>126 Serum osmolality 258 Urine osmolality 45, urine sodium 31 IV normal saline, urea discontinued Continue to hold HCTZ Received D5 water to prevent overcorrection Appreciate nephrology input Monitor sodium levels Left leg wound Completed Bactrim course Continue wound care Follows with wound clinic as outpatient Chronic Atrial Fib Continue metoprolol On Coumadin for anticoagulation Monitor INR 2.0 today HTN Continue losartan, metoprolol HCTZ discontinued S/P MV repair Pacemaker in place Continue home medications Hyperlipidemia Continue statin BASSEM CPAP at HS DVT px: Warfarin CODE STATUS FULL CODE Admission and Anticipated Discharge Date Admission Date: April 20, 2023 Subjective Patient is seen and examined at bedside Nausea, confusion resolved Denies any leg wound pain Also denies any chest pain, dyspnea, dizziness, abdominal pain No other complaints Family at bedside Review of Systems Review of Systems: All systems reviewed & are unremarkable except as noted in Subjective Physical Exam Physical Exam: Physical Exam: Vitals signs as noted above General Appearance:Thin, no apparent distress Head: normocephalic, Atraumatic Eyes: normal inspection, EOMI Neck: supple, Trachea midline Respiratory/Chest: Normal breath sounds, CTA, No accessory muscle use Cardiovascular: S1, S2, No murmur Abdomen/GI:Soft, Non tender, Bowel sounds present Extremities/Musculoskeletal:normal inspection, no edema, Left leg wound in dressing Neurologic/Psych:AAOX3, grossly no focal neurological deficits Skin: normal color, warm Results & Data Results & Data Vital Signs (Past 12 Hours) Vital Signs Temp Pulse Pulse Resp BP Pulse Ox O2 Del Method 04/21/23 16:15 37.0 C 74 16 155/65 H 90 Room Air 04/21/23 14:01 61 04/21/23 11:25 36.4 C L 70 18 122/74 96 Room Air 04/21/23 06:32 60 04/21/23 07:45 36.5 C 60 18 125/78 96 Room Air Laboratory Results Short CBC 04/21/23 Range/Units 07:07 WBC 3.96 L (4.8-10.8) K/ul Hgb 13.2 (12.0-16.0) g/dl Hct 37.9 (37.0-47.0) % Plt Count 175 (130-400) K/uL BMP 04/20/23 04/20/23 04/21/23 16:41 20:43 01:19 Sodium 120 L 121 L 126 L Potassium 4.7 4.3 4.2 Chloride 92 L 92 L 97 L Carbon Dioxide 22 24 23 BUN 20 20 32 H Creatinine 1.02 0.83 0.75 Glucose 106 H 128 H 96 Calcium 8.6 9.2 9.2 04/21/23 04/21/23 04/21/23 07:07 07:10 12:59 Sodium 129 L 129 L 127 L Potassium 4.4 4.4 4.5 Chloride 101 101 95 L Carbon Dioxide 23 24 27 BUN 23 23 40 H Creatinine 0.73 0.73 0.88 Glucose 93 94 113 H Calcium 8.9 8.9 9.8 04/21/23 15:12 Sodium 126 L Potassium 4.4 Chloride 94 L Carbon Dioxide 26 BUN 40 H Creatinine 1.02 Glucose 115 H Calcium 10.1 Liver Function 04/21/23 04/21/23 Range/Units 07:07 15:12 Total Bilirubin 1.3 H (0.2-1.0) mg/dl AST 22 (13-39) U/L ALT 13 (7-52) U/L Alkaline Phosphatase 46 (34-104) U/L Albumin 3.9 4.4 (3.4-5.0) gm/dl
[2023-04-21] MEDS ORDERED: SODIUM CHLORIDE 0.9% 1000ML 1,000 ML IV SCH (17:15)
[2023-04-21 20:43] LABS: Calcium 9.6 mg/dl (8.6-10.3); Creatinine Clr Calc Pharmacy 31.8 ml/min; Est GFR (African American) 44.6 ml/min; Est GFR (Non-African American) 38.4 ml/min; Potassium 4.9 mmol/L (3.5-5.1)
[2023-04-21] MEDS: FAMOTIDINE 20 MG TAB PO SCH (21:44)
[2023-04-21] MEDS: ROSUVASTATIN CALCIUM 5 MG TAB PO SCH (21:44)
[2023-04-21] MEDS: METOPROLOL SUCC 25MG EXT REL TAB PO SCH (21:44)
[2023-04-22 07:57] LABS: Hematocrit (blood only) 37.4 % (37.0-47.0); Hemoglobin 12.8 g/dl (12.0-16.0); Mean Corpuscular Hemoglobin 28.9 pg (25.0-34.0); Mean Corpuscular Hgb Conc 34.2 g/dL (32.0-36.0); Mean Corpuscular Volume 84.4 fL (80.0-100.0); Mean Platelet Volume 10.8 fL (9.4-12.4); Platelet Count 161 K/uL (130-400); RDW Coefficient of Variation 14.5 % (11.5-14.5); RDW Standard Deviation 44.5 fL (36.4-46.3); Red Blood Count 4.43 M/uL (4.20-5.40); White Blood Count 4.22 K/ul (4.8-10.8)
[2023-04-22 08:14] LABS: BUN Creatinine Ratio 32.4 (10-20); Calcium 9.1 mg/dl (8.6-10.3); Creatinine Clr Calc Pharmacy 55.8 ml/min; Est GFR (African American) 88.1 ml/min; Potassium 4.2 mmol/L (3.5-5.1)
[2023-04-22 08:21] LABS: INR 2.3 (0.9-1.1); Prothrombin Time 23.8 Seconds (9.0-12.0)
[2023-04-22] MEDS: ASPIRIN 81 MG ECTAB PO SCH (08:29)
[2023-04-22] MEDS: CALCIUM CARBONATE 1250MG TAB PO SCH (08:29)
[2023-04-22] MEDS: LOSARTAN POTASSIUM 50 MG TAB PO SCH (08:29)
[2023-04-22] MEDS: CHOLECALCIFEROL 1,000 UNITS 25 MCG TAB PO SCH (08:29)
--- NOTE | 2023-04-22 09:44 | Nephrology Progress Note ---
Date of Service April 22, 2023 Assessment & Plan Admission and Anticipated Discharge Date Admission Date: April 20, 2023 Subjective Assessment & Plan (1) Acute hyponatremia: Hyponatremia in the setting of nausea and chronic hydrochlorothiazide use. However it is worth noting that she has been on hydrochlorothiazide for many years and did not have hyponatremia so I would not call this as caused by hydrochlorothiazide. 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 The rate of sodium correction was somewhat faster than ideal but after some D5 water back to appropriate rate. D/c NS--na is now 131. at this point can be managed outpt. Continue to hold Bactrim and hydrochlorothiazide at discharge also. FFR of 1500 ml per day. high protein diet. labs to be done on Tuesday outpt--nephrology nurse will put in. In fact I would not use hydrochlorothiazide even as an outpatient and would consider using alternate blood pressure regimen. For now blood pressure seems reasonable. (2) Nausea: Triggered by Bactrim. Currently feels better S--no new issues. feels fine. nauesea is less. Physical Exam Physical Exam: Very pleasant elderly female who looks quite vibrant and healthy. Awake alert oriented x3. Normal speech Neck: Supple. No JVD Respiratory: Bilateral clear to auscultation Cardiovascular: Regular rate and rhythm no murmurs rubs or gallop Gastrointestinal (Abdomen): Soft nontender Skin: No rash Results & Data Vital Signs (Past 12 Hours) Vital Signs Temp Pulse Pulse Resp BP Pulse Ox O2 Del Method 04/22/23 06:00 60 04/22/23 07:44 36.4 C L 64 18 141/73 H 97 Room Air 04/22/23 02:54 36.4 C L 60 18 126/79 96 Room Air 04/21/23 22:00 36.9 C 59 L 18 123/79 96 Room Air
--- NOTE | 2023-04-22 13:18 | Hospitalist Progress Note ---
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 Pt recently treated with oral Bactrim DS x 1 week 2/ LLE wound. Completed on 04/18. Na on 04/18 was 122 and Cr 1.5 Acute hyponatremia Likely SIADH due to nausea/Bactrim/HCTZ use -Sodium 118>129>126>131 Serum osmolality 258 Urine osmolality 45, urine sodium 31 IV normal saline, urea discontinued Continue to hold HCTZ Received D5 water to prevent overcorrection Appreciate nephrology input Monitor sodium levels Advised to get BMP on 04/25/2023 and follow-up with nephrology upon discharge Continue fluid restriction 1500 mL/day Left leg wound Completed Bactrim course Continue wound care Follows with wound clinic as outpatient Chronic Atrial Fib Continue metoprolol On Coumadin for anticoagulation Monitor INR 2.3 today HTN Continue losartan, metoprolol HCTZ discontinued S/P MV repair Pacemaker in place Continue home medications Hyperlipidemia Continue statin BASSEM CPAP at HS DVT px: Warfarin CODE STATUS FULL CODE Disposition PT OT recommends home Admission and Anticipated Discharge Date Admission Date: April 20, 2023 Subjective Patient is seen and examined at bedside States feeling tired, Otherwise feels well Sodium levels improved to 131 today No recurrence of nausea, confusion Denies any chest pain, dyspnea, dizziness, abdominal pain Plan to be discharged home today Review of Systems Review of Systems: All systems reviewed & are unremarkable except as noted in Subjective Physical Exam Physical Exam: Physical Exam: Vitals signs as noted above General Appearance:Thin, no apparent distress Head: normocephalic, Atraumatic Eyes: normal inspection, EOMI Neck: supple, Trachea midline Respiratory/Chest: Normal breath sounds, CTA, No accessory muscle use Cardiovascular: S1, S2, No murmur Abdomen/GI:Soft, Non tender, Bowel sounds present Extremities/Musculoskeletal:normal inspection, no edema, Left leg wound in dressing Neurologic/Psych:AAOX3, grossly no focal neurological deficits Skin: normal color, warm Results & Data Results & Data Vital Signs (Past 12 Hours) Vital Signs Temp Pulse Pulse Resp BP Pulse Ox O2 Del Method 04/22/23 11:02 36.6 C 61 18 113/76 96 Room Air 04/22/23 06:00 60 04/22/23 07:44 36.4 C L 64 18 141/73 H 97 Room Air 04/22/23 02:54 36.4 C L 60 18 126/79 96 Room Air Laboratory Results Short CBC 04/22/23 Range/Units 07:24 WBC 4.22 L (4.8-10.8) K/ul Hgb 12.8 (12.0-16.0) g/dl Hct 37.4 (37.0-47.0) % Plt Count 161 (130-400) K/uL BMP 04/21/23 04/21/23 04/21/23 12:59 15:12 19:56 Sodium 127 L 126 L 128 L Potassium 4.5 4.4 4.9 Chloride 95 L 94 L 94 L Carbon Dioxide 27 26 30 BUN 40 H 40 H 39 H Creatinine 0.88 1.02 1.30 H Glucose 113 H 115 H 114 H Calcium 9.8 10.1 9.6 04/22/23 07:24 Sodium 131 L Potassium 4.2 Chloride 101 Carbon Dioxide 25 BUN 24 H Creatinine 0.74 D Glucose 99 Calcium 9.1 Liver Function 04/21/23 Range/Units 15:12 Albumin 4.4 (3.4-5.0) gm/dl
--- NOTE | 2023-04-22 13:26 | Discharge Summary ---
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 Patient has been following at the wound clinic secondary to a slow healing wound to her left lower extremity. She was recently started on Bactrim and completed a 7-day course which completed on 04/18/2023. The day after starting Bactrim she became significantly nauseated. She was still able to tolerate diet but nausea would wax and wane. The nausea became persistent for the past 2 days. She denies any vomiting. She has been drinking liquids as normal, approximately 4-5 8 ounce glasses daily. Her PCP darell labs in the outpatient clinic on 04/18 and her sodium was noted to be 123. Due to persistent nausea PCP repeated labs today and showed a sodium of 120. She did have mild elevation in creatinine in outpatient setting at 1.5 on 04/18 and today 1.2. Previously her sodium has been around 135 and creatinine around 1.0-1.1 she also complains of feeling lightheadedness, "off balance," and generally weak. She denies any other recent illness, fever, chills, sweats, presyncope, chest pain, shortness of breath, URI symptoms, vomiting, abdominal pain, dysuria, increased urgency or frequency with urination, melena or hematochezia. She otherwise has had no medication changes. Admission Exam Per Admitting Provider Constitutional: WD/WN, vitals as above, NAD, sitting up in bed, pleasant, conv ersing easily Head: Normocephalic, Atraumatic Eyes: PERRL, conjunctivae normal, anicteric sclerae ENMT: external ear and nose normal, oropharynx normal Neck: trachea midline, no thyromegaly normal visual inspection Respiratory: normal respiratory effort, lungs clear to auscultation, no wheeze, rales, rhonchi. Normal insp/exp effort, no accessory muscle use Cardiovascular: RRR, no murmur, no edema, LLE dressing in place Vessels: no JVD or carotid bruit Chest: normal inspection of chest Abdomen: normal bowel sounds, soft, nontender, no hepatosplenomegaly Musculoskeletal: no cyanosis or clubbing, extremities motor strength 5/5 Skin: no rashes, warm and dry normal turgor Neurologic: PERRL, EOMI, accommodation nl, no face palsy, no dysarthria CN's II-XI intact bilaterally and moves all extremities Psychiatric: A+Ox3, euthymic affect Lymphatic: no cervical or axillary lymphadenopathy : deferred Principal Diagnosis Acute hyponatremia Left leg wound Discharge Data Allergies Allergy/AdvReac Type Severity Reaction Status Date / Time Penicillins Allergy Severe RASH, RESP Verified 04/20/23 14:36 DISTRESS codeine Allergy Intermediate LIPS Verified 04/20/23 14:36 NUMBNESS hoff Allergy Mild Nausea = Verified 04/20/23 18:26 GARBANZO HOFF sulfamethoxazole Allergy Mild Nausea Unverified 04/20/23 14:42 [From Bactrim] trimethoprim [From Bactrim] Allergy Mild Nausea Unverified 04/20/23 14:42 Iodinated Contrast Media Allergy Rash Verified 04/20/23 14:36 Consultations 04/20/23 14:18 ED Decision to Admit Stat 04/20/23 14:43 Consult Nephrology Routine Procedures Performed Laboratory Results WBC 4.22 K/ul (4.8-10.8) L 04/22/23 07:24 RBC 4.43 M/uL (4.20-5.40) 04/22/23 07:24 Hgb 12.8 g/dl (12.0-16.0) 04/22/23 07:24 Hct 37.4 % (37.0-47.0) 04/22/23 07:24 MCV 84.4 fL (80.0-100.0) 04/22/23 07:24 MCH 28.9 pg (25.0-34.0) 04/22/23 07:24 MCHC 34.2 g/dL (32.0-36.0) 04/22/23 07:24 RDW Std Deviation 44.5 fL (36.4-46.3) 04/22/23 07:24 RDW Coeff of Demarco 14.5 % (11.5-14.5) 04/22/23 07:24 Plt Count 161 K/uL (130-400) 04/22/23 07:24 MPV 10.8 fL (9.4-12.4) 04/22/23 07:24 Immature Gran % (Auto) 0.5 % 04/21/23 07:07 Neut % (Auto) 61.5 % 04/21/23 07:07 Lymph % (Auto) 23.5 % 04/21/23 07:07 Camas % (Auto) 12.9 % 04/21/23 07:07 Eos % (Auto) 0.8 % 04/21/23 07:07 Baso % (Auto) 0.8 % 04/21/23 07:07 Neut # (Auto) 2.44 K/uL (1.40-6.50) 04/21/23 07:07 Lymph # (Auto) 0.93 K/uL (1.2-3.4) L 04/21/23 07:07 Camas # (Auto) 0.51 K/uL (0.11-0.59) 04/21/23 07:07 Eos # (Auto) 0.03 K/uL (0-0.50) 04/21/23 07:07 Baso # (Auto) 0.03 K/uL (0-0.2) 04/21/23 07:07 Immature Gran # (Auto) 0.02 K/uL (0.01-0.20) 04/21/23 07:07 PT 23.8 Seconds (9.0-12.0) H 04/22/23 07:24 INR 2.3 (0.9-1.1) H 04/22/23 07:24 Sodium 131 mmol/L (136-145) L 04/22/23 07:24 Potassium 4.2 mmol/L (3.5-5.1) 04/22/23 07:24 Chloride 101 mmol/L (98-107) 04/22/23 07:24 Carbon Dioxide 25 mmol/L (21-32) 04/22/23 07:24 Anion Gap 5 (3-11) 04/22/23 07:24 BUN 24 mg/dl (6-23) H 04/22/23 07:24 Creatinine 0.74 mg/dl (0.6-1.2) D 04/22/23 07:24 Est Cr Clr Drug Dosing 55.8 ml/min 04/22/23 07:24 Est GFR ( Amer) 88.1 ml/min 04/22/23 07:24 Est GFR (Non-Af Amer) 76.0 ml/min 04/22/23 07:24 BUN/Creatinine Ratio 32.4 (10-20) H 04/22/23 07:24 Glucose 99 mg/dl (70-99(Fasting)) 04/22/23 07:24 Osmolality 258 mOsm/kg (280-300) L 04/20/23 13:50 Calcium 9.1 mg/dl (8.6-10.3) 04/22/23 07:24 Phosphorus 2.7 mg/dl (2.5-4.9) 04/21/23 15:12 Magnesium 1.8 mg/dl (1.7-2.4) 04/21/23 07:07 Total Bilirubin 1.3 mg/dl (0.2-1.0) H 04/21/23 07:07 AST 22 U/L (13-39) 04/21/23 07:07 ALT 13 U/L (7-52) 04/21/23 07:07 Alkaline Phosphatase 46 U/L (34-104) 04/21/23 07:07 Total Protein 6.5 gm/dl (6.0-8.3) 04/21/23 07:07 Albumin 4.4 gm/dl (3.4-5.0) 04/21/23 15:12 Globulin 2.6 gm/dl (2.5-4.0) 04/21/23 07:07 Albumin/Globulin Ratio 1.5 (0.9-2) 04/21/23 07:07 Urine Osmolality 425 mOsm/kg (500-800) L 04/20/23 14:06 Urine Sodium 31 mmol/L 04/20/23 14:06 Urine Potassium 51.3 mmol/L 04/20/23 14:06 Urine Chloride 35 mmol/L 04/20/23 14:06 SARS-CoV-2, RNA, NAAT NEGATIVE (NEGATIVE) 04/20/23 14:44 Hospital Course (1) Acute hyponatremia: (2) Nausea: Plan Patient is an 83 yr female who has a significant past medical history of nonobstructive coronary artery disease, severe mitral insufficiency 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 Pt recently treated with oral Bactrim DS x 1 week 2/2 LLE wound. Completed on 04/18. Na on 04/18 was 122 and Cr 1.5 Acute hyponatremia Likely SIADH due to nausea/Bactrim/HCTZ use -Sodium 118>129>126>131 Serum osmolality 258 Urine osmolality 45, urine sodium 31 IV normal saline, urea discontinued Continue to hold HCTZ Received D5 water to prevent overcorrection Appreciate nephrology input Monitor sodium levels Advised to get BMP on 04/25/2023 and follow-up with nephrology upon discharge Continue fluid restriction 1500 mL/day Left leg wound Completed Bactrim course Continue wound care Follows with wound clinic as outpatient Chronic Atrial Fib Continue metoprolol On Coumadin for anticoagulation Monitor INR 2.3 today HTN Continue losartan, metoprolol HCTZ discontinued S/P MV repair Pacemaker in place Continue home medications Hyperlipidemia Continue statin BASSEM CPAP at HS DVT px: Warfarin CODE STATUS FULL CODE Disposition PT OT recommends home Total Time Total Time Spent Total Time Spent (In Minutes): 54 minutes Discharge Plan Discharge Items Patient Disposition: Home - Self-Care Reason For Visit: HYPONATREMIA Discharge Diagnosis: Acute hyponatremia Left leg wound Activity: Per Instructions section Exercise/Sports: Gradually increase as tolerated Non-emergency contact: Primary Care Provider Call non-emergency contact if: you have any medication questions, your symptoms worsen, your pain is concerning for you and you have a fever Follow-up/Referrals: Henrik De La Cruz, [Primary Care Provider] - (Dr De La Cruz's office will call you with an appointment for follow up. ) Diet: Heart Healthy Fluids: 1500ml (6 cups) Addtl Attending Provider Instructions: Follow-up with your primary care physician Dr. De La Cruz in 1 week as advised Follow-up with your clay maker Dr. Goode as per his recommendations Follow-up with wound clinic for managing your leg wound. --- Obtain blood test (basic metabolic panel) on 04/25/2023 and follow-up with your clay maker for further recommendations. --- Continue fluid restriction 1500 mL/day as recommended by your clay maker. --Your medication-hydrochlorothiazide is discontinued as likely contributing to hyponatremia. Monitor your blood pressure regularly at home. Discuss with your primary care physician for further adjustment of blood pressure medications as needed. Seek immediate medical attention if your symptoms reoccur or worsen Please take all medications as instructed on discharge list below. Please call if you have any questions or problems. You can reach a [facility] hospitalist on duty at [facility] 24 hours a day by calling [phone] Pending Studies at Discharge: No Stand-Alone Forms: [facility], Smoking Cessation Medications and DC Order Prescriptions: Continued calcium carbonate 500 mg calcium (1,250 mg) tablet 500 mg PO QAM clindamycin HCl 300 mg Capsule 600 mg PO DIRECTED PRN (Reason: Other) Rx Instructions: take prior to denal procedure rosuvastatin 5 mg Tablet 5 mg PO HS cholecalciferol (vitamin D3) [Vitamin D3] 2,000 unit Capsule 2,000 unit PO QAM warfarin 5 mg tablet 5 mg PO SUMOTUWETHFR@1600 Rx Instructions: Sun/Mon//Wed//Fri losartan 50 mg Tablet 50 mg PO QAM warfarin 2.5 mg Tablet 2.5 mg PO SA@1600 metoprolol succinate 25 mg Tablet Extended Release 24 Hr 25 mg PO HS aspirin 81 mg Tablet,Delayed Release (Dr/Ec) 81 mg PO MOWEFR famotidine 20 mg Tablet 20 mg PO HS Discharge Orders: Discharge Order (Routine); Ordered 04/22/23 Ordered By: Woodrow Benavides Admission Data Admit Date/Time: 04/20/23 14:43 Attending Provider: Woodrow Benavides Admit Provider: Norm Diallo Primary Care Provider: Henrik De La Cruz Other Providers: Rock Goode ; Norm Diallo
--- NOTE | 2023-04-23 12:34 | Communication Note ---
Date of Service: April 23, 2023 Received a call back from patient stating that she has dizziness. Advised to check her blood pressure which she states to be low. Advised to increase oral fluids and recheck in a couple of hours, if remains low advised to come back to ED for further evaluation. Also advised to hold losartan till follow-up with primary care physician and monitor blood pressure regularly.
[2023-04-23] MEDS ORDERED: WARFARIN SOD 2.5 MG TAB PO SCH (16:00)
== END 2023-04-22 14:26 | disposition home or self-care (01) | DRG 644 ==
LOC: ED 12:40 → SUATTDRO 14:43 → EDINP 14:43 → 2W 17:49

== ENCOUNTER 2024-08-14 06:18 | Observation (INO) ==
--- NOTE | 2024-07-04 14:59 | PAT Medication Instructions ---
Medication Instructions Date of Service July 04, 2024 Home Medications cholecalciferol (vitamin D3) 50 mcg (2,000 unit) capsule (Vitamin D3) 2,000 unit PO PM rosuvastatin 5 mg tablet 5 mg PO HS losartan 50 mg tablet 25 mg PO QAM clindamycin HCl 300 mg capsule 600 mg PO DIRECTED PRN Other famotidine 20 mg tablet 20 mg PO HS calcium carbonate 500 mg PO QAM metoprolol succinate 25 mg tablet,extended release 24 hr 25 mg PO PM warfarin 2.5 mg tablet 2.5 mg PO SA@1600 warfarin 5 mg tablet 5 mg PO SUMOTUWETHFR@1600 Germanium Oil 1 dose topical BID acetaminophen 325 mg tablet (Tylenol) 325 mg PO QID PRN Pain conjugated estrogens 0.625 mg/gram vaginal cream 0.625 mg vaginal 3XWK glucosamine sulf dipot chlr,msm,chond 550 mg-C 30 mg-cyndee 1 mg capsule (Glucosamine Chondroitin) 1 cap PO DAILY MEDICATION INSTRUCTIONS: Continue as directed clindamycin HCl 300 mg capsule 600 mg PO DIRECTED PRN Other conjugated estrogens 0.625 mg/gram vaginal cream 0.625 mg vaginal 3XWK ASK your prescriber and surgeon warfarin 2.5 mg tablet 2.5 mg PO SA@1600 warfarin 5 mg tablet 5 mg PO SUMOTUWETHFR@1600 STOP taking 2 weeks before surgery glucosamine sulf dipot chlr,msm,chond 550 mg-C 30 mg-cyndee 1 mg capsule (Glucosamine Chondroitin) 1 cap PO DAILY Germanium Oil 1 dose topical BID DO NOT take the morning of surgery losartan 50 mg tablet 25 mg PO QAM calcium carbonate 500 mg PO QAM Take morning of surgery With a small sip of water, OTHERWISE NOTHING TO EAT OR DRINK AFTER MIDNIGHT: acetaminophen 325 mg tablet (Tylenol) 325 mg PO QID PRN Pain Take evening before surgery metoprolol succinate 25 mg tablet,extended release 24 hr 25 mg PO PM famotidine 20 mg tablet 20 mg PO HS cholecalciferol (vitamin D3) 50 mcg (2,000 unit) capsule (Vitamin D3) 2,000 unit PO PM rosuvastatin 5 mg tablet 5 mg PO HS acetaminophen 325 mg tablet (Tylenol) 325 mg PO QID PRN Pain Other Notes If you have any questions please call us at [phone] or [phone] or [phone] or [phone]
--- NOTE | 2024-07-13 10:43 | Anesthesiology Consultation ---
Date of Service July 13, 2024 Assessment & Plan (1) Encounter for pre-operative examination: - Check coags AM DOS (Perioperative warfarin instructions provided by [facility] AC clinic to patient- "Lovenox bridge is not indicated") - Infectious disease screening: Per assessment on 07/13/24: No known recent infectious disease contacts or current infectious disease symptoms. - Outpatient joint assessment: Pt currently scheduled for inpatient pathway. If surgeon requests review for outpatient joint pathway, patient is not recommended candidate for outpatient joint program from anesthesia standpoint based on available information. - Cardiology visit (06/01/2024): "Nonobstructive coronary artery disease. May 27, 2020 coronary angiography at [facility] (Dr. Wallace) with mild luminal irregularities. Asymptomatic. Continue appropriate medical management. 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 Status post 07/22/2020 mitral valve repair with quadrangular resection of P2 and 28 mm Physio 2 annuloplasty ring (Serial number [id number]), tricuspid valve repair with annuloplasty Tri-Ad 30 mm band (Serial number [id number]), Maze procedure with left atrial appendage clip by Dr. Foley. Peripheral edema. Multifactorial in etiology. Options of management discussed. Via shared decision-making, we will continue furosemide as prescribed for now. Amlodipine will be decreased from 5 mg/day to 2.5 mg/day. We will resume losartan at 25 mg/day for blood pressure. Patient to update me via [employer] in a couple of weeks at which time we may consider stopping amlodipine and increasing losartan to 50 mg/day.. Chronic atrial fibrillation. Rate controlled. Chronic coumadin anticoagulation.. Easy bruising, epistaxis, transient thrombocytopenia. ASA discontinued in December 2023 with considerable improvement. Referral for [facility] at [facility] with Dr. Lara to look at the left atrial appendage clip and consider discontinuation of anticoagulation discussed once again and deferred by the patient for now. Risks and benefits of anticoagulation discussed today in detail. Recommend resumption of aspirin if/when anticoagulation discontinued.. Status post March 10, 2022 single chamber rate responsive permanent pacemaker.. Device interrogation on May 28, 2024 demonstrated appropriate function. Remaining longevity: 11.9 years. Mode: VVIR. Lower rate 60 bpm, upper sensor rate 130 bpm. Ventricular paced 99.1% of the time.. History of pulmonary hypertension. No evidence of pulmonary hypertension via October 07, 2023 resting echocardiogram. Mild to moderate obstructive sleep apnea, CPAP use encouraged.. Preoperative cardiology consultation. Options discussed. Risks explained. Patient felt to be a moderate acceptable risk. Further cardiac testing at this time would not likely reduce perioperative risk.. Ok to hold anticoagulation without Lovenox bridge. Standard pacemaker precautions" Chart Review Chart Review: Acceptable Risk for Surgery and Patient seen in Pre Admission Testing Teaching & Discussion Pre-Anesthesia Teaching/Discussion Notes: Instructed NPO after midnight before surgery,except medications with 15 cc of water. Medication instructions provided according to the PAT guidelines. History Surgery Operation Date: 08/01/24 10:40 Proposed Procedures p Left Total Knee Arthroplasty - Servando Cramer MD Height/Weight Height: 5 ft 6 in Weight: 63.3 kg Allergies Allergy/AdvReac Type Severity Reaction Status Date / Time Penicillins Allergy Severe Rash, Verified 07/10/24 09:21 respiratory distress codeine Allergy Intermediate Lip Verified 07/10/24 09:21 numbness Iodinated Contrast Media Allergy Intermediate Rash Verified 07/04/24 12:18 hoff Allergy Mild Nausea Verified 07/10/24 09:21 (Garbanzo hoff) sulfamethoxazole Allergy Mild Nausea Verified 07/04/24 12:18 [From Bactrim] trimethoprim [From Bactrim] Allergy Mild Nausea Verified 07/04/24 12:18 Medications Home Medications Medication Instructions Recorded Confirmed Last Taken cholecalciferol (vitamin D3) 50 2,000 unit PO PM 01/16/19 07/04/24 04/19/23 mcg (2,000 unit) capsule (Vitamin D3) rosuvastatin 5 mg tablet 5 mg PO HS 01/16/19 07/04/24 04/19/23 losartan 50 mg tablet 25 mg PO QAM 05/05/20 07/04/24 04/20/23 clindamycin HCl 300 mg capsule 600 mg PO DIRECTED PRN Other 05/27/20 07/04/24 Unknown famotidine 20 mg tablet 20 mg PO HS 03/10/22 07/04/24 04/19/23 calcium carbonate 500 mg PO QAM 02/21/23 07/04/24 04/19/23 metoprolol succinate 25 mg 25 mg PO PM 04/20/23 07/04/24 Unknown tablet,extended release 24 hr warfarin 2.5 mg tablet 2.5 mg PO SA@1600 05/20/23 07/04/24 Unknown warfarin 5 mg tablet 5 mg PO SUMOTUWETHFR@1600 05/20/23 07/04/24 Unknown Germanium Oil 1 dose topical BID 07/04/24 07/04/24 Unknown acetaminophen 325 mg tablet 325 mg PO QID PRN Pain 07/04/24 07/04/24 Unknown (Tylenol) conjugated estrogens 0.625 mg/gram 0.625 mg vaginal 3XWK 07/04/24 07/04/24 Unknown vaginal cream glucosamine sulf dipot 1 cap PO DAILY 07/04/24 07/04/24 Unknown chlr,msm,chond 550 mg-C 30 mg-cyndee 1 mg capsule (Glucosamine Chondroitin) meclizine 1 tab PO DAILY PRN Dizziness 07/13/24 07/13/24 Unknown Past Medical History Medical History Presence of pessary Valvular heart disease MV repair + TV repair (2019) Echo 09/2023 Coronary artery disease Non-obstructive (per [facility] cardio records) Chronic venous insufficiency Bilateral primary osteoarthritis of knee Pulmonary HTN Noted per remote records Most recent Echo 09/2023: "There is no evidence of pulmonary hypertension" History of pericarditis age 18 Hypertension Atrial fibrillation Follows with [facility] cardio Artificial cardiac pacemaker Implanted 2022, Medtronic per [facility] cardio records Follows with [facility] cardio Tachy-gomez syndrome Osteoporosis GERD (gastroesophageal reflux disease) Hyperlipidemia Exercise / Class Metabolic Activity II 4-5 Yardwork/Stairs/Walk up hill (one FS: No CP, no SOB) Past Family History Family History Brother Family hx of colon cancer Daughter FHx: breast cancer Mother FHx: breast cancer Grandmother FHx: breast cancer Aunt FHx: breast cancer Past Surgical History Surgical History Hx of mitral valve repair 2019 > [place] H/O tricuspid valve repair 2019 > [place] Status post endovenous radiofrequency ablation of saphenous vein left leg [place] teeth removed History of open reduction and internal fixation (ORIF) procedure Left wrist History of cholecystectomy History of breast biopsy left (benign) History of bilateral tubal ligation History of appendectomy History of colonoscopy History of tonsillectomy History of cardiac cath 2019- no stents Past Anesthesia History No Hx of Anesthesia Complications and No Family Hx of Anesthesia Complications History of PONV No Hx of PONV and Hx of Motion Sickness (Mild) Social History Smoking Status: Never smoker Do You Dip or Chew Tobacco: No Hx Alcohol Use: No Hx Substance Use: No substance use type: does not use Review of Systems Patient denies chest pain, shortness of breath, dyspnea on exertion, fever, chills, cough, wheezing, palpitations. Physical Exam Vital Signs BP 114/68 P 70 TEMP 98.1 SP02 97%RA RESP 18 Physical Full cervical extension range of motion. Full TMJ range of motion. TMD 3 finger breaths Mallampati Score II Dentition: intact Lungs: clear throughout to auscultation Cardiac: regular rate and rhythm, no murmurs noted Spine: normal Carotid arteries: negative bruit Extremities: no LE edema Lab Results Anesthesia Preop Results Results Anesthesia Widget: PT 18.9 Seconds (9.0-12.0) H 07/13/24 PTT 35 Seconds (21-31) H 07/13/24 INR 1.8 (0.9-1.1) H 07/13/24 Blood Type O Negative 07/13/24 Antibody Screen NEGATIVE 07/13/24 Testing Laboratory Results 06/18/24 WBC 4.48 H/H 12.8/40.9 PLATELETS 130 07/03/24 SODIUM 140 POTASSIUM 3.9 CHLORIDE 101 CO2 28 BUN 20 CREATININE 0.9 GLUCOSE 100 Electrocardiogram Date: 07/13/24 Ventricular-paced rhythm at 64bpm. Chest X-Ray Date: 07/13/24 FINDINGS: A left subclavian pacer, prosthetic cardiac valves and left atrial appendage occluder device are noted. There is moderate cardiomegaly without evidence for pulmonary edema. No pneumothorax or pleural effusion is present. There is no consolidation to suggest pneumonia. IMPRESSION: No acute cardiopulmonary findings. Cardiomegaly. Echocardiogram Date: 10/07/23 LVEF 55-59%. LV wall motion is normal. Atrial fibrillation during the exam. AllSevere LAE. Mild LESLY. There is evidence of prior mitral valve repair and ring annuloplasty. Mitral stenosis is absent. Significant MR is absent. Mild TR. No evidence of pulmonary hypertension. Stress Test Date: 03/31/20 Type: exercise (Stress echo) Resting EF: 55 to 59% Resting LV Function: normal A. fib was present at rest and persisted throughout the study. Her response was bluntedMPHR =82% (target heart rate was not achieved). Flattening of the intraventricular septum during diastole was noted at rest suggestive of right ventricular pressure/volume overload. LV wall motion was otherwise normal at rest. Post exercise there was appropriate increase in the left ventricular systolic function without regional wall motion abnormalities. Equivocal 0.5 [address] segment depression was noted in the inferior and lateral leads at peak exercise. Estimated RVSP =50 mmHg at rest and increased to 70 mmHg post exercise. Resting echo: Left atrium severely enlarged. Right atrium moderately enlarged. At least moderate bileaflet mitral valve prolapse present. Moderate to severe MR. Moderate to severe TR. Severe pulmonary hypertension presentestimated PASP 65 mmHg. Trivial posterior loculated pericardial effusion is present. Cardiac tamponade is absent. Cardiac Catheterization Date: 05/27/20 Coronary Anatomy Dominant: Right Left Main (% Stenosis): Mid (Mild luminal irregularities) LAD (% Stenosis): Normal D1 (% Stenosis): Proximal (Large high diagonal vessel with mild luminal irregularities) Circumflex (% Stenosis): Normal OM1 (% Stenosis): Normal L PL1 (% Stenosis): Normal (Small) RCA (% Stenosis): Ostial (Upward takeoff without disease) and Normal R PDA (% Stenosis): Normal R PL1 (% Stenosis): Normal (Small) Ramus (% Stenosis): Proximal (Modest caliber vessel which bifurcates with mild luminal irregularities at its origin) Left Ventricular Angiography: EF (%): 65-70. Mitral Regurgitation: 3+. Recommendations: Valve Replacement (Referral for possible mitral valve repair) > Subsequent MV + TV repair performed. Other Testing Pacer check Date: 05/28/24 [employer]. Battery longevity 11.9 years. Mode VVIR. Lower rate 60 bpm, upper sensor rate 130 bpm. Ventricular paced 99.1% of the time. Per 06/01/24 cardiology office visit note, "Device interrogation on May 28, 2024 demonstrated appropriate function."
--- NOTE | 2024-07-23 19:15 | History & Physical Report ---
Date of Service July 23, 2024 Assessment & Plan (1) Bilateral primary osteoarthritis of knee: 84-year-old female with advanced bilateral knee DJD left side more symptomatic than the right. She has failed conservative measures. She would like to proceed with a left knee replacement. Plan: Orgran proceed with left total knee replacement. The risk and benefit of this procedure have been explained. He is on Coumadin she will need to hold that 5 days preop. She apparently does not need to be on a Lovenox bridge. She is planned be discharged to home with her 's assistance. She will home health as well. DVT prophylaxis will be thigh-high teds, SCDs, Coumadin. (2) Chronic venous insufficiency: (3) Coronary artery disease: (4) Valvular heart disease: (5) Hypertension: (6) Chronic venous insufficiency: History of Present Illness Chief Complaint: . Bilateral knee pain and discomfort left side greater than the right. Primary Care Provider: Henrik De La Cruz DO . The patient is an 84-year-old female who presents for surgical treatment of her left knee. The she has a several year history increasing bilateral knee pain discomfort left side greater than the right. He has been managed through [facility]. Describes mostly medial sided knee pain. She has been through extensive conservative treatment which just been unsuccessful. She had multiple shots of which become less successful over time. She is ready to have her left knee replaced. Allergies Allergy/AdvReac Type Severity Reaction Status Date / Time Penicillins Allergy Severe Rash, Verified 07/10/24 09:21 respiratory distress codeine Allergy Intermediate Lip Verified 07/10/24 09:21 numbness Iodinated Contrast Media Allergy Intermediate Rash Verified 07/04/24 12:18 hoff Allergy Mild Nausea Verified 07/10/24 09:21 (Garbanzo hoff) sulfamethoxazole Allergy Mild Nausea Verified 07/04/24 12:18 [From Bactrim] trimethoprim [From Bactrim] Allergy Mild Nausea Verified 07/04/24 12:18 Home Medications Medication Instructions Recorded Confirmed Type cholecalciferol (vitamin D3) 50 2,000 unit PO PM 01/16/19 07/04/24 History mcg (2,000 unit) capsule (Vitamin D3) rosuvastatin 5 mg tablet 5 mg PO HS 01/16/19 07/04/24 History losartan 50 mg tablet 25 mg PO QAM 05/05/20 07/04/24 History clindamycin HCl 300 mg capsule 600 mg PO DIRECTED PRN Other 05/27/20 07/04/24 History famotidine 20 mg tablet 20 mg PO HS 03/10/22 07/04/24 History calcium carbonate 500 mg PO QAM 02/21/23 07/04/24 History metoprolol succinate 25 mg 25 mg PO PM 04/20/23 07/04/24 History tablet,extended release 24 hr warfarin 2.5 mg tablet 2.5 mg PO SA@1600 05/20/23 07/04/24 History warfarin 5 mg tablet 5 mg PO SUMOTUWETHFR@1600 05/20/23 07/04/24 History Germanium Oil 1 dose topical BID 07/04/24 07/04/24 History acetaminophen 325 mg tablet 325 mg PO QID PRN Pain 07/04/24 07/04/24 History (Tylenol) conjugated estrogens 0.625 mg/gram 0.625 mg vaginal 3XWK 07/04/24 07/04/24 History vaginal cream glucosamine sulf dipot 1 cap PO DAILY 07/04/24 07/04/24 History chlr,msm,chond 550 mg-C 30 mg-cyndee 1 mg capsule (Glucosamine Chondroitin) meclizine 1 tab PO DAILY PRN Dizziness 07/13/24 07/13/24 History Past Med/Surg History Problem List Chronic venous insufficiency (Chronic) Abnormal ankle brachial index ([place]) (Acute) Encounter for pre-operative examination Hypertension (Acute) Medical History Presence of pessary Valvular heart disease MV repair + TV repair (2019) Echo 09/2023 Coronary artery disease Non-obstructive (per [facility] cardio records) Chronic venous insufficiency Bilateral primary osteoarthritis of knee Pulmonary HTN Noted per remote records Most recent Echo 09/2023: "There is no evidence of pulmonary hypertension" History of pericarditis age 18 Hypertension Atrial fibrillation Follows with [facility] cardio Artificial cardiac pacemaker Implanted 2022, [employer]tr[employer] per [facility] cardio records Follows with [facility] cardio Tachy-gomez syndrome Osteoporosis GERD (gastroesophageal reflux disease) Hyperlipidemia Surgical History Hx of mitral valve repair 2019 > [place]ian[place] H/O tricuspid valve repair 2019 > [place] Status post endovenous radiofrequency ablation of saphenous vein left leg [place] teeth removed History of open reduction and internal fixation (ORIF) procedure Left wrist History of cholecystectomy History of breast biopsy left (benign) History of bilateral tubal ligation History of appendectomy History of colonoscopy History of tonsillectomy History of cardiac cath 2020- no stents Family History Brother Family hx of colon cancer Daughter FHx: breast cancer Mother FHx: breast cancer Grandmother FHx: breast cancer Aunt FHx: breast cancer Social History Smoking Status: Never smoker Second Hand Exposure: No; Do You Dip or Chew Tobacco: No; Hx Alcohol Use: No Hx Substance Use: No Preferred Language: Estonian Communication Ability: Effective Visual Impairment: No Limitations Hearing Ability: Normal Finding Fastener Required: No Beliefs That Will Affect Care: None Current Living Situation: Spouse Feels Safe at Home: Yes Diet Comment: Low fat caffeine: No Do you think of yourself as: straight/heterosexual Gender Identity: Female Assistive Devices: Glasses Review of Systems All systems reviewed & are unremarkable except as noted in HPI & below. Physical Exam . Physical examination is a pleasant healthy-appearing female. Examination of both knees reveal patient ambulates independently. Examination of left knee reveals a varus aligned knee. She is tender with medial joint line. Small knee effusion. Range of motion is 10 degrees short of full extension about 115 degrees of flexion. There is no instability. No particular pain with hip motion. Constitutional WD/WN, vitals as above Neck trachea midline, no thyromegaly Respiratory normal respiratory effort, lungs clear to auscultation Cardiovascular RRR, no murmur, no edema Gastrointestinal (Abdomen) normal bowel sounds, soft, nontender, no hepatosplenomegaly Results & Data Results & Data Laboratory Results . Diagnostic Findings . PG Care Time/CCT Total # of Minutes Spent Total Time Spent with Patient: Total time spent is greater than 50% in coordination of care (as documented) at patient's floor/unit and/or counseling patient: Coding Level of Care Code None Diagnoses Bilateral primary osteoarthritis of knee M17.0 Chronic venous insufficiency I87.2 Coronary artery disease I25.10 Valvular heart disease I38 Hypertension I10
[~2024-08-14 06:18] MED LIST: ACETAMINOPHEN 500 MG TAB PO SCH; CeleBREX 200 MG CAP PO SCH; FAMOTIDINE 20 MG TAB PO SCH; LR 500ML BOLUS, THEN 15ML/HR IV SCH; LR 60ML/HR IV SCH; METOCLOPRAMIDE HCL 10 MG TABLET PO SCH; ROPIV 0.5% 246mg, Ketorolac 30mg, EPINEPHrine 0.5mg in NSS INFIL SCH; TRANEXAMIC ACID 1,000 MG **IV Intra-op IV SCH; ceFAZolin 2000MG 2,000 MG/15 ML SYR IV SCH
--- NOTE | 2024-08-14 06:37 | History & Physical Bridge Note ---
Date of Service August 14, 2024 History & Physical Bridge Note I have examined the patient, reviewed the History & Physical and in the interval since the performance of the History & Physical I have noted the following changes of clinical significance: no changes noted
[2024-08-14] MEDS: LR 500ML BOLUS, THEN 15ML/HR IV SCH (07:03)
[2024-08-14] MEDS: LR 60ML/HR IV SCH (07:05)
[2024-08-14] MEDS ORDERED: ROPIVACAINE 0.5% 5 MG/ML 30 ML VIAL ONE (07:17)
[2024-08-14] MEDS ORDERED: BUPIVACAINE 0.5 % 5 MG/1 ML PF 10ML VIAL ONE (07:17)
[2024-08-14] MEDS ORDERED: MIDAZOLAM HCL 1 MG/ML 2ML VIAL ONE (07:24)
[2024-08-14] MEDS ORDERED: fentaNYL citrate PF 100 MCG/2 ML VIAL ONE (07:24)
[2024-08-14] MEDS ORDERED: PROPOFOL IV EMULSION 10 MG/ML 20 ML VIAL IV ONE (07:24)
[2024-08-14] MEDS: METOCLOPRAMIDE HCL 10 MG TABLET PO SCH (07:28)
[2024-08-14] MEDS: ACETAMINOPHEN 500 MG TAB PO SCH ×2 (07:28→13:30)
[2024-08-14] MEDS: CeleBREX 200 MG CAP PO SCH (07:28)
[2024-08-14] MEDS: FAMOTIDINE 20 MG TAB PO SCH ×2 (07:28→20:32)
[2024-08-14] MEDS: dexAMETHasone**PF** 10 MG/ML VIAL IV ONE (07:29)
[2024-08-14] MEDS ORDERED: fentaNYL citrate PF 100 MCG/2 ML VIAL IV PRN (07:53)
[2024-08-14] MEDS ORDERED: ePHEDrine sulfate 50 MG/ML AMP IV PRN (07:53)
[2024-08-14] MEDS ORDERED: ATROPINE SULFATE 0.1 MG/ML 10ML SYR IV PRN (07:53)
[2024-08-14] MEDS ORDERED: ONDANSETRON INJ 2 MG/ML 2 ML VIAL IV PRN ×2 (07:53→12:17)
[2024-08-14 08:23] LABS: INR 1.1 (0.9-1.1); Partial Thromboplastin Time 27 Seconds (21-31); Prothrombin Time 11.4 Seconds (9.0-12.0)
[2024-08-14] MEDS ORDERED: BUPIVACAINE 0.25% PF 30 ML VIAL ONE (08:41)
[2024-08-14] MEDS: ceFAZolin 2000MG 2,000 MG/15 ML SYR IV SCH (08:59)
[2024-08-14] MEDS ORDERED: DEXAMETHASONE SOD INJ 4 MG/ML VIAL ONE (09:26)
[2024-08-14] MEDS ORDERED: ONDANSETRON INJ 2 MG/ML 2 ML VIAL ONE (09:26)
[2024-08-14] MEDS: ROPIV 0.5% 246mg, Ketorolac 30mg, EPINEPHrine 0.5mg in NSS INFIL SCH (09:39)
[2024-08-14] MEDS: ORTHO JOINT ANESTHETIC ONE (09:39)
[2024-08-14] MEDS: TRANEXAMIC ACID 1,000 MG **IV Intra-op IV SCH (09:55)
--- NOTE | 2024-08-14 11:01 | Operative Report ---
PG Post Operative Report Pre & Post Diagnosis Operation Date: 08/14/24 08:50 Pre-Op Diagnosis: Left Knee Degenerative Joint Disease Post-Op Diagnosis: Left Knee Degenerative Joint Disease I identified the patient and participated in the time-out.: Yes Procedure Operation Date: 08/14/24 08:50 Actual Procedures p Left Total Knee Arthroplasty, Cemented(Left) - Servando Cramer MD Surgeon Servando Cramer MD Surgical Assistant Mich Holcomb PA-C Estimated Blood Loss 50 Findings Consistent with Post-Op Diagnosis Operative findings revealed advanced left knee tricompartment DJD. She had extensive grade 4 wcsq-oz-xwza disease in all 3 compartments. She had a fairly stiff knee with about 105 degrees of flexion. She had osteophytes in all 3 compartments. Fairly diffuse osteopenia. Large varicose veins. Specimens Left knee sent for pathology. Anesthesia Type Spinal MAC Complications none Disposition Accompanied Patient To Recovery: No Indications The patient is an 84-year-old female whose had a long history of bilateral knee pain discomfort left side greater than the right. She been through extensive conservative treatments became less successful over time. She became more more limited by her knee pain and discomfort. She elected proceed with left total knee arthroplasty. Description of Procedure Operative implants consists of: 1 Biomet Vanguard size 65 left posterior stabilized femoral component. 2. Biomet size 67 tibial tray. 3. 14 mm post stabilized polyethylene insert. 4. 28 x 8 all poly patella. The patient was taken to the operating, identified, placed on the operating table in the supine position. All conductors were appropriately padded. IV antibiotics fibra anesthesia team. Spinal anesthetic and adductor canal block had been Weida in the holding area. A Valenzuela catheter was placed in sterile fashion for the left side turn was then placed in the left lower extremity was then prepped and draped in usual sterile fashion. The left leg was elevated and exsanguinated with use of an Esmarch and the tourniquet was placed at 300 mmHg. An anterior approach left knee was then performed to longitudinal incision centered over the patella. Sharp dissection was Through subcutaneous tissue down the extensor mechanism. A medial parapatellar arthrotomy incision was made. Some subperiosteal dissection was ca rried out medially. The fat pad was resected from Neath patella tendon. Lateral patellofemoral ligament was released. Patella subluxated laterally. The knee was flexed. The osteophytes taken off distal femur. The ACL and PCL were then released from distal femur and the tibia subluxated anteriorly. The external tibial alignment jig was then placed on the anterior face the tibia and adjusted 14 mm medially. Proximal tibial cut was made in about 2 mm of bone from the medial side. Tibia sized to size 67. Attention drawn the femur. The distal femur was entered with a sharp drill. Intramedullary canal was suction. A left 5 degree valgus cutting guide was placed. This femoral cutting block was pinned in place. This femoral cut was made to take an additional 3 mm of bone off distal femur. The femur was then sized to a size 65. The AP cutting block was pinned parallel to the epicondylar axis which was 5 degrees of external rotation. The anterior cut, anterior chamfer, posterior cut, posterior chamfer cuts were made. The box cutting guide was placed and just slight lateral and the box cut was made. The knee was flexed. The remnants of the medial and lateral menisci were excised. The osteophytes taken off the posterior aspect the femur. A trial femoral component was placed. The tibial tray was pinned in Sadaf external rotation and the drill and stem punch were used to create defect in proximal tibia for the tibial tray. The knee was then trialed and the 14 mm insert fit most appropriately. Attention drawn the patella. The patella was cleaned of all soft tissues. Some large osteophytes were removed. The patella thickness measured 16 mm in thickness and was cut down to 11. That she had quite a bit of wear of the patella. The patella was sized to a size 28. The locals were drilled for the 28 patella. The lateral osteophytes removed. Patella button was placed. Knee was taken through range of motion patella tracked nicely with no thumbs test. Attention was then drawn toward placing the permanent components. All trial components were removed. Bone plug was placed in the distal femur limit blood loss. A double batch Palacos G cement was mixed. A Biomet Vanguard size 65 left posterior stabilized femoral component, a size 67 tibial tray, 14 mm posterior stabilized polyethylene insert, and a 28 x 8 all poly patella was then cemented in place. The knee was brought out into full extension till cement hardened. Final cement check was then performed. The pericapsular tissues were injected with a total of 100 cc of Ortho mix. Patient did receive 1 g tranexamic acid. The tourniquet was then let down for final tourniquet time of 53 minutes. Hemostasis assured with electrocautery. Extensor Metros then closed with combination 1 PDS suture #1 Vicryl suture in a sspkha-cd-pwhpi fashion. Extensor mechanism were checked and found to be intact. She did have several large varicose veins that we spent quite a bit of time coagulating near the surface of the skin. In doing this I created a little bit of skin necrosis. We debrided this slightly. We then closed the subcutaneous tissues and the majority the wound with 2-0 Dexon suture in a buried interrupted fashion. In this area of skin necrosis we reapproximated the skin edges with #1 Prolene suture in a simple fashion. Leg was then cleaned and dried and sterile dressed with Xeroform, 4 x 4's, ABD, sterile cast padding, Lee bandage. The patient was then transferred to the recovery room in stable condition. Patient tolerated the procedure well and there were no complications. Mich Holcomb, my physician marketing assistant, was present for the entire procedure. His assistance was essential and required for appropriate patient positioning, prepping and draping, surgical exposure, performing the technical details of the operation, placement the implants, closure of the wound, and placement of the sterile bandage. I attest to the content of the Intraoperative Record and any orders documented therein. Any exceptions are noted below.
--- OUTSIDE RECORDS SUMMARY | 2024-08-14 12:16 | External Medical Summary | Summary of Care ---
Author Name Unknown Organization [facility] Address [address] [place] [address] Phone [phone] Care Team Providers Care Face Hardener Name Role Phone Henrik De La Cruz DO Primary Care Provider [phone] Reason for Visit * Reason Onset Date Comments Advice 08/03/2024 Coumadin Encounter Details Date Type Department Care Team (Late st Contact Info) Description 08/03/2024 Telephone Family Practice [address] [facility] [address] [place] [id number] Henrik De La Cruz DO [address] [place], [place] [id number] Advice (Coumadin) Allergies Active Allergy Reactions Criticality Noted Date Comments Sulfamethoxazole-Trimethopri m Other (Please comment) High 05/02/2023 Hyponatremia Codeine Nausea/vomiting Low 10/27/2000 Food (See Comments) Other (Please comment) Medium 10/19/2012 Garbanzo beans cause lip numbness Hydrochlorothiazide Other (Please comment) High 05/02/2023 Hyponatremia Iodinated Contrast Media Rash Medium 05/29/[address] Lara, 05/29/20 Nitrofurantoin Rash Medium 12/14/2021 Penicillins Rash Medium 07/27/2000 documented as of this encounter (statuses as of 08/06/2024) Medications Medication Sig Dispensed Refills Start Date End Date Status VITAMIN D 2000 UNIT PO CAPS 1 CAPSULE DAILY 09/14/2010 Active CALCIUM 500 500 MG PO TABS Take 1 Tablet by mouth in the morning. Active GLUCOSAMINE SULFATE 1000 MG PO CAPS Take 1 Tablet by mouth in the morning. Active Acetaminophen 500 MG Oral Tablet (TYLENOL) Take 1 Tablet by mouth every 4 hours as needed for Pain, Moderate. 07/26/2020 Active Furosemide 20 MG Oral Tablet (Lasix)Indications: Bilateral leg edema Take 1 Tablet by mouth in the morning. 100 Tablet 3 07/18/2023 Active Geranium Oil Oil Administer into nostril 2 times a day. Active Rosuvastatin Calcium 5 MG Oral Tablet (Crestor)Indication s:Dyslipidemia, goal to be determined TAKE ONE TABLET BY MOUTH EVERY DAY 90 Tablet 3 09/12/2023 09/14/2024 Active Clindamycin HCl 300 MG Oral CapsuleIndications: Mitral valve prolapse,SBE (subacute bacterial endocarditis) prophylaxis candidate Two capsules by mouth 30-60 minutes prior to dental work. 2 Capsule 4 11/23/2023 Active Famotidine 20 MG Oral Tablet (Pepcid) TAKE ONE TABLET BY MOUTH AT BEDTIME 90 Tablet 3 01/09/2024 01/08/2025 Active Estrogens Conjugated 0.625 MG/GM Vaginal Cream (Premarin)Indicatio ns:Vaginal atrophy,Uterine procidentia Administer into the vagina daily. 60 g 1 02/06/2024 Active Metoprolol Succinate ER 25 MG Oral Tablet Extended Release 24 Hour (toPROL XL)Indications:Athe rosclerosis of [place] coronary artery of [place] heart without angina pectoris,S/P mitral valve repair,S/P tricuspid valve repair,Permanent atrial fibrillation (HCC),HTN, goal below 140/90 TAKE ONE TABLET BY MOUTH EVERY DAY IN THE MORNING 90 Tablet 3 06/05/2024 06/05/2025 Active Losartan Potassium 50 MG Oral Tablet (Cozaar)Indications :S/P mitral valve repair,S/P tricuspid valve repair,HTN, goal below 140/90,Atherosclero sis of [place] coronary artery of [place] heart without angina pectoris Take 1 Tablet by mouth in the morning. 100 Tablet 3 06/21/2024 Active Warfarin Sodium 5 MG Oral Tablet (Coumadin)Indicatio ns:Permanent atrial fibrillation (HCC) TAKE ONE-HALF TABLET BY MOUTH ON TUESDAY AND TUESDAY AND ONE WHOLE TABLET ALL OTHER DAYS 100 Tablet 4 07/03/2024 07/03/2025 Active Meclizine HCl 25 MG Oral Tablet (Antivert)Indicatio ns:Vertigo Take 1 Tablet by mouth daily as needed for Dizziness. 100 Tablet 1 07/17/2024 Active documented as of this encounter (statuses as of 08/06/2024) Active Problems Problem Noted Date Diagnosed Date Primary osteoarthritis of one knee, left 024 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 pacemaker in situ 03/10/2022 S/P mitral valve repair 01/05/2022 S/P tricuspid valve repair 01/05/2022 Pulmonary hypertension 12/03/2021 Atherosclerosis of [place] co ronary artery without angina pectoris 06/02/2021 Gastro-esophageal reflux disease without esophag itis 02/09/2021 Mitral valve regurgitation 07/22/2020 Tricuspid valve disease 07/22/2020 Age-related osteoporosis wit hout current pathological fracture 06/13/2019 HTN, goal below 140/90 10/19/2018 Dyslipidemia 10/19/2018 Uterovaginal prolapse 01/10/2007 [facility] current use of anticoagulant therapy 0 11/01/2003 Permanent atrial fibrillation 04/26/2002 Rosacea 03/27/2002 Mitral valve prolapse documented as of this encounter (statuses as of 08/06/2024) Resolved Problems Problem Noted Date Diagnosed Date Resolved Date Skin ulcer of calf, limited to breakdown of skin, left 01/25/2023 10/26/2023 Prediabetes 08/17/2021 02/22/2024 Overview: Per Prediabetes protocol Other atherosclerosis of donato anca arteries of extremities, bilateral legs 02/09/2021 12/03/2021 Hypertensive kidney disease with stage 3a chronic kidney disease 01/30/2021 05/16/2023 Major depressive disorder, s darryl episode, unspecified 10/17/2019 07/31/2020 Fracture, Colles, left, closed 06/27/2019 09/02/2020 SBE (subacute bacterial endo carditis) prophylaxis candidate 08/11/2015 10/19/2018 Other osteoporosis without c urrent pathological fracture 06/22/2011 06/13/2019 Overview: ICD-10 update of inactive term HTN, goal below 130/80 09/01/200910/19 Overview: Modified per [facility] protocol #16. Benign neoplasm of colon 06/10/200907/2019 Overview: hyperplastic polyps, f/u in 5 yrs Primary localized osteoarthrosis, lower leg 04/16/2008 02/06/2019 HYPERLIPIDEMIA NEC/NOS(aka LIPIDS) 07/28/2004 10/19/2018 lesion --rt muslim 05/31/2002 9 Anticoagulation management encounter 04/26/2002 09/02/2020 Other dermatitis due to solar radiation 03/27/2002 10/19/2018 Herpes simplex virus infection 03/27/2002 10/19/2018 HYPERTENSION NOS 09/01/2009 Overview: Modified per [facility] protocol #16. FEM STRESS INCONTINENCE 10/10 Esophagitis 09/01/2021 Overview: ICD-10 update of inactive term documented as of this encounter (statuses as of 08/06/2024) Immunizations Name Administration Dates Next Due COVID-19 mRNA, LNP-s, No Pre serve, 2-Dose Series (Moderna) 12/10/2020,11/12/2020 COVID-19, LNP-s, No Preserve , Blue-sucrose, Ages 12+ (Pfizer) 03/02/2022 COVID-19, MRNA-LNP, 23-24, P F, 30 MCG/0.3 mL, 12 YRS AND ABOVE, IM (Med-Tek-Comirnaty) 08/02/2023 COVID-19, MRNA-LNP, 24-25, P R, 30MCG/0.3ML, IM, 12YRS AND ABOVE (Fundera-Comirnaty) 07/17/2024 COVID-19, mRNA, LNP-s, PF, B ooster, 100mcg/0.5mg (Moderna) 08/15/2021 Covid-19, Mrna, Lnp-s, Pf, B ivalent, 30 Mcg, IM, 12 yrs and above (Pfizer) 01/28/2023,09/07/2022 Pneumococcal Conjugate Vacc, 13 Valent (Prevnar) 04/25/2015 Pneumococcal Conjugate Vacci ne, 20-valent (Ndtomac05) 07/17/2024 Pneumococcal Polysaccharide PPV23 (Pneumovax) 08/13/2008,08/13/2008 RSV Vac., Bivalent, Perfusio n F, Pf,0.5 Ml (Abrysvo) 12/08/2023 Season Influenza, Quad, PF, Adjuvanted, 65+ Yrs, IM (FLUAD) 06/19/2020 Seasonal Influenza Vac., MDV , IM, 0.5 mL (Fluzone) 07/13/2014,06/25/2013,07/05/2012,07/01,07/22/2010,06/20/2009,08/13/2008 ,08/13/2008,08/14/2007,09/06/2006 Seasonal Influenza, High Dos e, Trivalent, PF, IM (Fluzone HD) 06/14/2024 Seasonal Influenza, PF, 6 M & above, IM , (FluLaval or Fluzone) 07/13/2018,07/19/2017 Seasonal Influenza, Quadriva lent Hd (Fluzone Hd) 07/21/2023,08/03/2022,07/08/2021 Seasonal Influenza, Quadriva lent, No Preserve, IM 07/05/2016 Seasonal Influenza, Trivalen t, Adjuvanted, 65+ YRS, PF, (Fluad) 07/23/2019 TDAP (age 10 and older)(Boostrix) 08/24/2022, Varicella Zoster Vaccine (Adult) 07/12/2007 Zoster Vaccine Recombinant (Shingrix) 06/11/2020 ,08/15/2019 documented as of this encounter Social History Tobacco Use Types Packs/Day Years Used Date Smoking Tobacco: Never Passive Smoke Exposure: Past Smokeless Tobacco: Never Alcohol Use Standard Drinks/Week Comments No 0 (1 standard drink = 0.6 oz pur e alcohol) PHQ-2 Answer Date Recorded PHQ Adult Total Score 0 10/26/2023 Hunger Vital Sign Answer Date Recorded Within the past 12 months, y ou worried that your food would run out before you got the money to buy more. Never true 09/15/20 23 Within the past 12 months, t he food you bought just didn't last and you didn't have money to get more. Never true 09/15/2023 Sex and Gender Information Value Date Recorded Sex Assigned at Female 02/06/2019 8:54 AM EDT Gender Identity Female 02/06/2019 8:54 AM EDT Sexual Orientation Straight 02/06/2019 8: 54 AM EDT Job Start Date Occupation Industry Not on file Not on file Not on file documented as of this encounter Functional Status Functional Status Response Date of Assess ment Are you deaf or do you have serious difficulty h earing? No 07/22/2020 Are you blind or do you have serious difficulty seeing, even when wearing glasses? No 07/22/2020 Do you have serious difficul ty walking or climbing stairs? (5 years old or older) No 07/22/2020 Do you have difficulty dress ing or bathing? (5 years old or older) No 07/22/2020 Because of a physical, menta l, or emotional condition, do you have difficulty doing errands alone such as visiting a doctor s office or shopping? (15 years old or older) No 07/22/20 20 Cognitive Status Response Date of Assessm ent Because of a physical, menta l, or emotional condition, do you have serious difficulty concentrating, remembering, or making decisions? (5 years old or older) No 07/22/2020 documented as of this encounter Miscellaneous Notes * Telephone Encounter - Sandra Peterson RPh - 08/06/2024 12:00 PM EDT Returned patient's call. Reviewed anticoagulation plan with patient previously outlined by pharmacist, as patient wanted to confirm last date of warfarin, and when/how to resume after her TKA. Next INR is scheduled for 08/17, however patient does not think she will be able to make that appt due to the surgery. Appreciate clinic pharmacist to when to schedule and follow-up with patient. Sandra Peterson, PharmD, BCPS Clinical Pharmacist- Motor Patrol Operator Medication Therapy Disease Management 08/06/2024 12:03 PM * Telephone Encounter - Maryse Suero OSA - 08/06/2024 10:17 AM EDT Pt called back and lmom to talk to Eusebia * Telephone Encounter - Eusebia Zarco [facility] - 08/03/2024 3:22 PM EDT Patient is having a TKA on 08/14/24. Diagosis for coumadin therapy is atrial fibrillation. No hx of recent DVT, PE, MVR, OK or CVA. CHADS-VASc score of 5 (Age, HTN, Vasc, Female). Lovenox bridge is not indicated. Patient will take their last dose of coumadin 08/08, then restart coumadin the evening after the procedure with 7.5 mg for 2 days, then resume previous dose 2.5mg MWF, 5 mg all other days. Patient to be admitted for 1 night - so no instructions given for 08/01. Repeat pt/inr 2 weeks after procedure. Contacts Contact Date/Time Type Contact Phone/Fax 08/03/2024 03:23 PM EDT Phone (Outgoing) Kiran Moreno (Self) [phone] (H) Left Message No answer. Left message on VM requesting patient call the clinic to discuss upcoming surgery. Eusebia Zarco, Pharm D, [facility] Clinical Pharmacist Megan [address] [facility] 08/03/2024, 3:25 PM * Telephone Encounter - Liz Vicente OSA - 08/03/2024 2:22 PM EDT Surgery is 5th will need off coumadin Wants to speak to Ellie Please call documented in this encounter Plan of Treatment Upcoming Encounters Date Type Department Care Team (Late st Contact Info) Description 08/17/2024 11:00 AM EST Anticoagulation Family Practice [address] [place] [phone] College, Pharmacist [address], [place] [address] 08/22/2024 11:30 AM EST Office Visit Otolaryngology [facility] [address] [facility] [place] [address] Melyssa Paris PA-C [address] [facility] [place] [address] 11/19/2024 11:20 AM EST Office Visit Family Practice [address] [place] [address] [address] [facility], [place] [address] Henrik De La Cruz DO [address] [facility], [place] [address] 12/07/2024 2:00 PM EST Office Visit Cardiology, [facility] [address] [facility] [place] [address] Khurram Mcbride, PAMaryuriC [address] [facility] [place] [address] 02/14/2025 1:40 PM EDT Office Visit Dermatology [facility] [address] [facility] [place] [address] Dina Wong PA-C [address] [facility] [place] [address] Scheduled Procedures Name Priority Associated Diagnoses Date/Ti va ROBOTIC ARTHROPLASTY KNEE TOTAL Primary osteoarthritis of one knee, left Health Maintenance Due Date Last Done Comments DXA Scan 11/10/2023 11/10/2021, 10/2021, 11/06/2018, Additional history exists Adult Wellness Visit 03/26/2025 03/26/2024, 03/24/2023, 03/23/2022 Depression Screening 03/26/2025 03/26/2024, 05/25/2016 (Discussed) GFR 07/17/2025 07/17/2024, 06/11, 09/15/2023, Additional history exists Albumin/Creatinine Ratio 01/15/2027 024, 09/07/2022, 08/13/2021 DTap/Tdap Vaccines (3 - Td or Tdap) 08/24/2032 08/24/2022, 08/23/2012, 01/14/2003, Additional history exists RETIRED - COLONOSCOPY-EVERY 5 YRS AGES 18-100 Discontinued 10/31/2014, 10/31/2014, 07/09/2009, Additional history exists *BISPHONATE OR OTHER ACCEPTABLE MEDICATION NEEDED FOR OSTEOPOROSIS (REFER TO SMARTSET #1146) Addressed 05/25/2016 (Not indicated) Overridden with the intention of not completing the topic Zoster Vaccines Completed 06/11/2020, 03/2019, 07/12/2007 VITAMIN D LEVEL ONCE IN A LIFETIME-USE SMARTSET# 18148 Completed 11/11/2021, 06/13/2019, 06/05/2012, Additional history exists Influenza Vaccine (FLU shot) Completed 06/14/2024, 06/14/2024, 07/21/2023, Additional history exists COVID-19 Vaccine Completed 07/17/2024, , 01/28/2023, Additional history exists Pneumococcal Vaccine: 65+ Years Completed 07/17/2024, 04/25/2015, 08/13/2008, Additional history exists HPV (Gardasil) Vaccine Aged Out No lo nger eligible based on patient's age to complete this topic Hepatitis B Vaccine Aged Out No longe r eligible based on patient's age to complete this topic MENINGOCOCCAL (MENACTRA/MENVEO) Aged Out No longer eligible based on patient's age to complete this topic documented as of this encounter Medical Devices Implanted Type Area Celery Wrapper Device Identifier Shelf Expiration Date Model / Serial / Lot Jayden Variax 2 Wrist Tray: Volar Distal Radius Plate 49mm Intermediate Implanted:Qty: 1 on 07/06/2019 by Sawyer Garcia MD at OR [facility] Left: Wrist [id number] / / Description:left radius [place] Variax 2 Wrist Tray: 2.7mm Non-Locking Screw 16mm Implanted:Qty: 1 on 07/06/2019 by Sawyer Garcia MD at OR [facility] Left: Wrist [id number] / / [place] Variax 2 Wrist Tray: 2.7mm Locking Screw 12mm Implanted:Qty: 1 on 07/06/2019 by Sawyer Garcia MD at OR [facility] Left: Wrist [id number] / / Jayden Variax 2 Wrist Tray: 2.7mm Locking Screw 16mm Implanted:Qty: 1 on 07/06/2019 by Sawyer Garcia MD at OR [facility] Left: Wrist [id number] / / Jayden Variax 2 Wrist Tray: 2.7mm Locking Screw Implanted:Qty: 2 on 07/06/2019 by Sawyer Garcia MD at OR [facility] Left: Wrist [id number] / / Description:18mm [place] Variax 2 Wrist Tray: 2.7mm Locking Screw 20mm Implanted:Qty: 2 on 07/06/2019 by Sawyer Garcia MD at OR [facility] Left: Wrist [id number] / / [place] Variax 2 Wrist Tray: 2.7mm Non-Locking Screw 14mm Implanted:Qty: 1 on 07/06/2019 by Sawyer Garcia MD at OR [facility] Left: Wrist [id number] / / Ring Ewa Physioii 28mm [id number] - [id number] - [id number] Implanted:Qty: 1 on 07/22/2020 by Rui Foley MD [place] [facility] [place]A: Heart [employer] 12/09/2024 [id number] / [id number] / [id number] 30mm Ats Tri-Ad 2.0 Adrian Tricuspid Band Implanted:Qty: 1 on 07/22/2020 by Rui Foley MD [place] [facility] [place]: Heart [employer] : CARDIAC SURGERY [id number] 09/20/2024 [id number] / [id number] / [id number] Suture Steel 6 B&S19 M654g - [id number] Implanted:Qty: 4 on 07/22/2020 by Rui Foley MD [place] [facility] [place]/A: Sternum JNJ : [employer] 02/06/2025 [id number] / / [id number] Clip Occl Atri Flex V 40mm - [id number] Implanted:Qty: 1 on 07/22/2020 by Rui Foley MD [place] [facility] [place]/A: Heart [employer] [id number] 11/10/2022 [id number] documented as of this encounter Advance Directives * Full Code (Latest Code Status on File) Date Activated Date Inactivated Comments 07/22/2020 12:27 PM 07/26/2020 4:43 PM This orde r reflects the patients wishes and were consensually agreed upon. Care Teams Face Hardener Relationship Specialty Start Date End Date Henrik De La Cruz DO [address] [place] [address] PCP - General Internal Medicine 03/22/24 documented as of this encounter
--- OUTSIDE RECORDS SUMMARY | 2024-08-14 12:16 | External Medical Summary | Summary of Care ---
Author Name Unknown Organization [facility] Address [address] [place] [address] Phone [phone] Care Team Providers Care Home Security Alarm Installer Name Role Phone Henrik De La Cruz DO Primary Care Provider [phone] Reason for Visit * Reason Onset Date Comments Advice 08/03/2024 Coumadin Encounter Details Date Type Department Care Team (Late st Contact Info) Description 08/03/2024 Telephone Family Practice 65 [facility] [address] [place] [phone] Henrik De La Cruz DO [address] [place], [place] [phone] Advice (Coumadin) Allergies Active Allergy Reactions Criticality [...] as of this encounter (statuses as of 08/07/2024) Medications Medication Sig Dispensed Refills Start Date [...] Release 24 Hour (toPROL XL)Indications:Athe rosclerosis of [place] coronary artery of [place] heart without angina pectoris,S/P mitral valve repair,S/P tricuspid valve repair,Permanent atrial fibrillation (HCC),HTN, goal below 140/90 TAKE ONE TABLET BY MOUTH EVERY DAY IN THE MORNING 90 Tablet 3 06/05/2024 06/05/2025 Active Losartan Potassium 50 MG Oral Tablet (Cozaar)Indications :S/P mitral valve repair,S/P tricuspid valve repair,HTN, goal below 140/90,Atherosclero sis of [place] coronary artery of [place] heart without angina pectoris Take 1 Tablet [...] as of this encounter (statuses as of 08/07/2024) Active Problems Problem Noted Date Diagnosed Date Primary osteoarthritis of one knee, left 024 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 pacemaker in situ 03/10/2022 S/P mitral valve repair 01/05/2022 S/P tricuspid valve repair 01/05/2022 Pulmonary hypertension 12/03/2021 Atherosclerosis of [place] co ronary artery without angina pectoris 06/02/2021 Gastro-esophageal reflux disease without esophag itis 02/09/2021 Mitral valve regurgitation 07/22/2020 Tricuspid valve disease 07/22/2020 Age-related osteoporosis wit hout current pathological fracture 06/13/2019 HTN, goal below 140/90 10/19/2018 Dyslipidemia 10/19/2018 Uterovaginal prolapse 01/10/2007 retirement current use of anticoagulant therapy 0 11/01/2003 Permanent atrial fibrillation 04/26/2002 Rosacea 03/27/2002 Mitral valve prolapse documented as of this encounter (statuses as of 08/07/2024) Resolved Problems Problem Noted Date Diagnosed Date [...] goal below 130/80 09/01/200910/19 Overview: Modified per [facility] protocol #16. Benign neoplasm of colon 06/10/200907/2019 Overview: hyperplastic polyps, f/u in 5 yrs Primary localized osteoarthrosis, lower leg 04/16/2008 02/06/2019 HYPERLIPIDEMIA NEC/NOS(aka LIPIDS) 07/28/2004 10/19/2018 lesion --rt taoism 05/31/2002 9 Anticoagulation management encounter 04/26/2002 09/02/2020 Other dermatitis due to solar radiation 03/27/2002 10/19/2018 Herpes simplex virus infection 03/27/2002 10/19/2018 HYPERTENSION NOS 09/01/2009 Overview: Modified per [facility] protocol #16. FEM STRESS INCONTINENCE 10/10 Esophagitis 09/01/2021 Overview: ICD-10 update of inactive term documented as of this encounter (statuses as of 08/07/2024) Immunizations Name Administration Dates Next Due COVID-19 mRNA, LNP-s, No Pre serve, 2-Dose Series (Moderna) 12/10/2020,11/12/2020 COVID-19, LNP-s, No Preserve , Blue-sucrose, Ages 12+ (Pfizer) 03/02/2022 COVID-19, MRNA-LNP, 23-24, P F, 30 MCG/0.3 mL, 12 YRS AND ABOVE, IM (Sensulin-Comirnaty) 08/02/2023 COVID-19, MRNA-LNP, 24-25, P R, 30MCG/0.3ML, IM, 12YRS AND ABOVE (TechPepper-Comirnaty) 07/17/2024 COVID-19, mRNA, LNP-s, PF, B ooster, 100mcg/0.5mg (Moderna) 08/15/2021 Covid-19, Mrna, Lnp-s, Pf, B ivalent, 30 Mcg, IM, 12 yrs and above (Pfizer) 01/28/2023,09/07/2022 Pneumococcal Conjugate Vacc, 13 Valent (Prevnar) 04/25/2015 Pneumococcal Conjugate Vacci ne, 20-valent (Ejrgumv16) 07/17/2024 Pneumococcal Polysaccharide PPV23 (Pneumovax) 08/13/2008,08/13/2008,01/12/2002 RSV Vac., Bivalent, Perfusio n F, Pf,0.5 Ml (Abrysvo) 12/08/2023 Season Influenza, Quad, PF, Adjuvanted, 65+ Yrs, IM (FLUAD) 06/19/2020 Seasonal Influenza Vac., MDV , IM, 0.5 mL (Fluzone) 07/13/2014,06/25/2013,07/05/2012,07/01,07/22/2010,06/20/2009,08/13/2008 ,08/13/2008,08/14/2007,09/06/2006,05/2005,08/15/2003,08/22/2002, 1 Seasonal Influenza, High Dos e, Trivalent, PF, IM (Fluzone HD) 06/14/2024 Seasonal Influenza, PF, 6 M & above, IM , (FluLaval or Fluzone) 07/13/2018,07/19/2017 Seasonal Influenza, Quadriva lent Hd (Fluzone Hd) 07/21/2023,08/03/2022,07/08/2021 Seasonal Influenza, Quadriva lent, No Preserve, IM 07/05/2016 Seasonal Influenza, Trivalen t, Adjuvanted, 65+ YRS, PF, (Fluad) 07/23/2019 TD - Tetanus/Diptheria (ADULT) 01/14/2003,1992 TDAP (age 10 and older)(Boostrix) 08/24/2022, Varicella [...] patient. Sandra Peterson, PharmD, BCPS Clinical Pharmacist- Carbon Brush Maker Medication Therapy Disease Management 08/06/2024 12:03 PM * Telephone Encounter - Maryse Suero OSA - 08/06/2024 10:17 AM EDT Pt called back and lmom to talk to Eusebia * Telephone Encounter - Eusebia Zarco RPh - 08/03/2024 3:22 PM EDT Patient is having a TKA on 08/14/24. Diagosis for coumadin therapy is atrial fibrillation. No hx of recent DVT, PE, MVR, W[place] or CVA. CHADS-VASc score of 5 (Age, [...] PM EDT Phone (Outgoing) Kiran Moreno (Self) [phone] (H) Left Message No answer. Left message on VM requesting patient call the clinic to discuss upcoming surgery. Eusebia Zarco, Pharm D, [facility] Clinical Pharmacist Megan Tucker 08/03/2024, 3:25 PM * Telephone Encounter - Liz Vicente OSA - 08/03/2024 2:22 PM EDT Surgery is 5th will need off coumadin Wants to speak to Ellie Please call documented in this encounter Plan of Treatment Upcoming Encounters Date Type Department Care Team (Late st Contact Info) Description 08/17/2024 11:00 AM EST Anticoagulation Family Practice 65 [facility] 293 [place] [address] College, Pharmacist [address] [place] [address] 08/22/2024 11:30 AM EST Office Visit Otolaryngology [facility] 132 [facility] [place] [address] Melyssa Paris PA-C [facility] [place] [address] 11/19/2024 11:20 AM EST Office Visit Family Practice [address] [place] [address] 293 [facility], [place] [address] Henrik De La Cruz DO 293 [facility], [place] [address] 12/07/2024 2:00 PM EST Office Visit [facility], [facility] [place] [address] Khurram Mcbride PAMaryuriC 132 [facility] [place] [address] 02/14/2025 1:40 PM EDT [facility] [address] [place], [place] [address] Dina Wong PA-C [address] [place] [address] Scheduled Procedures Name Priority Associated Diagnoses Date/Ti me ROBOTIC ARTHROPLASTY KNEE TOTAL Primary osteoarthritis of one knee, left Health Maintenance Due Date Last Done Comments DXA Scan 11/10/2023 11/10/2021, 020 10/2021, 11/06/2018, Additional history exists Adult Wellness [...] D LEVEL ONCE IN A LIFETIME-USE SMARTSET# [id number] Completed 11/11/2021, 06/13/2019, 06/05/2012, Additional history exists [...] this encounter Medical Devices Implanted Type Area Manager Commercial Device Identifier Shelf Expiration Date Model / Serial / Lot [place] Variax 2 Wrist Tray: Volar Distal Radius Plate 49mm Intermediate Implanted:Qty: 1 on 07/06/2019 by Sawyer Garcia MD at OR [facility] Left: Wrist [id number] / / Description:left radius Jayden Variax 2 Wrist Tray: 2.7mm Non-Locking Screw 16mm Implanted:Qty: 1 on 07/06/2019 by Sawyer Garcia MD at OR [facility] Left: Wrist [id number] / / [place] Variax 2 Wrist Tray: 2.7mm Locking Screw 12mm Implanted:Qty: 1 on 07/06/2019 by Sawyer Garcia MD at OR [facility] Left: Wrist [id number] / / Jayden Variax 2 Wrist Tray: 2.7mm Locking Screw 16mm Implanted:Qty: 1 on 07/06/2019 by Sawyer Garcia MD at OR [facility] Left: Wrist [id number] / / Jayden Variax 2 Wrist Tray: 2.7mm Locking Screw Implanted:Qty: 2 on 07/06/2019 by Sawyer Garcia MD at OR [facility] Left: Wrist [id number] / / Description:18mm [place] Variax 2 Wrist Tray: 2.7mm Locking Screw 20mm Implanted:Qty: 2 on 07/06/2019 by Sawyer Garcia MD at OR [facility] Left: Wrist [id number] / / Jayden Variax 2 Wrist Tray: 2.7mm Non-Locking Screw 14mm Implanted:Qty: 1 on 07/06/2019 by Sawyer Garcia MD at OR [facility] Left: Wrist [id number] / / Ring Ewa Physioii 28mm [id number] - [id number] - [id number] Implanted:Qty: 1 on 07/22/2020 by Rui Foley MD at OR [facility] N/A: Heart [employer] 12/09/2024 [id number] / [id number] / [id number] 30mm Ats Tri-Ad 2.0 Adrian Tricuspid Band Implanted:Qty: 1 on 07/22/2020 by Rui Foley MD at OR [facility] N/A: Heart [employer] : CARDIAC SURGERY [id number] 09/20/2024 [id number] / [id number] / [id number] Suture Steel 6 B&S19 M654g - [id number] Implanted:Qty: 4 on 07/22/2020 by Rui Foley MD at OR [facility] N/A: Sternum JNJ : [employer] 02/06/2025 [id number] / / [id number] Clip Occl Atri Flex V 40mm - [id number] Implanted:Qty: 1 on 07/22/2020 by Rui Foley MD at OR [facility] N/A: Heart ATRICURE [id number] 11/10/2022 [id number] documented as of this encounter Visit Diagnoses Diagnosis Permanent atrial fibrillation (HCC)- Primary Atrial fibrillation documented in this encounter Advance Directives * Full Code (Latest Code Status on File) Date Activated Date Inactivated Comments 07/22/2020 12:27 PM 07/26/2020 4:43 PM This orde r reflects the patients wishes and were consensually agreed upon. Care Teams Home Security Alarm Installer Relationship Specialty Start Date End Date Henrik De La Cruz DO [address] [place] [address] PCP - General Internal Medicine 03/22/24 documented as of this encounter
--- OUTSIDE RECORDS SUMMARY | 2024-08-14 12:16 | External Medical Summary | Summary of Care ---
Author Name Unknown Organization [facility] Address [address] [place] [address] Phone [phone] Care Team Providers Care Policy Cancellation Clerk Name Role Phone Henrik De La Cruz DO Primary Care Provider [phone] Encounter Details Date Type Department Care Team (Late st Contact Info) Description 07/27/2024 Orders Only Family Practice 65 [facility] [address] [place] [address] Henrik De La Cruz DO [address] [place] [address] Allergies Active Allergy Reactions Criticality Noted Date [...] as of this encounter (statuses as of 07/27/2024) Medications Medication Sig Dispensed Refills Start Date [...] Release 24 Hour (toPROL XL)Indications:Athe rosclerosis of [place] coronary artery of [place] heart without angina pectoris,S/P mitral valve repair,S/P tricuspid valve repair,Permanent atrial fibrillation (HCC),HTN, goal below 140/90 TAKE ONE TABLET BY MOUTH EVERY DAY IN THE MORNING 90 Tablet 3 06/05/2024 06/05/2025 Active Losartan Potassium 50 MG Oral Tablet (Cozaar)Indications :S/P mitral valve repair,S/P tricuspid valve repair,HTN, goal below 140/90,Atherosclero sis of [place] coronary artery of [place] heart without angina pectoris Take 1 Tablet [...] as of this encounter (statuses as of 07/27/2024) Active Problems Problem Noted Date Diagnosed Date Primary osteoarthritis of one knee, left 024 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 pacemaker in situ 03/10/2022 S/P mitral valve repair 01/05/2022 S/P tricuspid valve repair 01/05/2022 Pulmonary hypertension 12/03/2021 Atherosclerosis of [place] co ronary artery without angina pectoris 06/02/2021 Gastro-esophageal reflux disease without esophag itis 02/09/2021 Mitral valve regurgitation 07/22/2020 Tricuspid valve disease 07/22/2020 Age-related osteoporosis wit hout current pathological fracture 06/13/2019 HTN, goal below 140/90 10/19/2018 Dyslipidemia 10/19/2018 Uterovaginal prolapse 01/10/2007 correction current use of anticoagulant therapy 0 11/01/2003 Permanent atrial fibrillation 04/26/2002 Rosacea 03/27/2002 Mitral valve prolapse documented as of this encounter (statuses as of 07/27/2024) Resolved Problems Problem Noted Date Diagnosed Date [...] goal below 130/80 09/01/200910/19 Overview: Modified per [facility] protocol #16. Benign neoplasm of colon 06/10/200907/2019 Overview: hyperplastic polyps, f/u in 5 yrs Primary localized osteoarthrosis, lower leg 04/16/2008 02/06/2019 HYPERLIPIDEMIA NEC/NOS(aka LIPIDS) 07/28/2004 10/19/2018 lesion --rt faith 05/31/2002 9 Anticoagulation management encounter 04/26/2002 09/02/2020 Other dermatitis due to solar radiation 03/27/2002 10/19/2018 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 FEM STRESS INCONTINENCE 10/10 Esophagitis 09/01/2021 Overview: ICD-10 update of inactive term documented as of this encounter (statuses as of 07/27/2024) Immunizations Name Administration Dates Next Due COVID-19 mRNA, LNP-s, No Pre serve, 2-Dose Series (Moderna) 12/10/2020,11/12/2020 COVID-19, LNP-s, No Preserve , Blue-sucrose, Ages 12+ (Pfizer) 03/02/2022 COVID-19, MRNA-LNP, 23-24, P F, 30 MCG/0.3 mL, 12 YRS AND ABOVE, IM (Yulex-ComirnatLETSGROOP) 08/02/2023 COVID-19, MRNA-LNP, 24-25, P R, 30MCG/0.3ML, IM, 12YRS AND ABOVE (LearnBop-Comirnaty) 07/17/2024 COVID-19, mRNA, LNP-s, PF, B ooster, 100mcg/0.5mg (Moderna) 08/15/2021 Covid-19, Mrna, Lnp-s, Pf, B ivalent, 30 Mcg, IM, 12 yrs and above (Pfizer) 01/28/2023,09/07/2022 Pneumococcal Conjugate Vacc, 13 Valent (Prevnar) 04/25/2015 Pneumococcal Conjugate Vacci ne, 20-valent ([id number]) 07/17/2024 Pneumococcal Polysaccharide PPV23 (Pneumovax) 08/13/2008,08/13/2008 RSV [...] (15 years old or older) No 07/22/20 Cognitive Status Response Date of Assessm ent Because of a physical, menta l, or emotional condition, do you have serious difficulty concentrating, remembering, or making decisions? (5 years old or older) No 07/22/2020 documented as of this encounter Plan of Treatment Upcoming Encounters Date Type Department Care Team (Late st Contact Info) Description 08/17/2024 11:00 AM EST Anticoagulation Family Practice [address] [place] [address] 293 [facility], [place] [phone] College, Pharmacist [address] [address] 08/22/2024 11:30 AM EST Office Visit Otolaryngology [facility] [address] [place] [address] Melyssa Paris PA-C [address] [place] [address] 11/19/2024 11:20 AM EST Office Visit Family Practice [address] [place] [address] 293 [place] [address] Henrik De La Cruz, DO 293 [facility], [place] [address] 12/07/2024 2:00 PM EST Office Visit Cardiology, [facility] [address] [place] [address] Khurram Mcbride PA-C [address] [place] [address] 02/14/2025 1:40 PM EDT Office Visit Dermatology [facility] [address] [place] [address] Dina Wong PA-C [address] [place] [address] Scheduled Procedures Name Priority Associated Diagnoses Date/Ti [...] D LEVEL ONCE IN A LIFETIME-USE SMARTSET# [id number] Completed 11/11/2021, 06/13/2019, 06/05/2012, Additional history exists [...] this encounter Medical Devices Implanted Type Area Service Department Manager Device Identifier Shelf Expiration Date Model / Serial / Lot [place] Variax 2 Wrist Tray: Volar Distal Radius Plate 49mm Intermediate Implanted:Qty: 1 on 07/06/2019 by Sawyer Garcia MD at OR [facility] Left: Wrist [id number] / / Description:left radius [place] Variax 2 Wrist Tray: 2.7mm Non-Locking Screw 16mm Implanted:Qty: 1 on 07/06/2019 by Sawyer Garcia MD at OR [facility] Left: Wrist [id number] / / Jayden Variax 2 Wrist Tray: 2.7mm Locking Screw 12mm Implanted:Qty: 1 on 07/06/2019 by Sawyer Garcia MD at OR [facility] Left: Wrist [id number] / / Jayden Variax 2 Wrist Tray: 2.7mm Locking Screw 16mm Implanted:Qty: 1 on 07/06/2019 by Sawyer Garcia MD at OR [facility] Left: Wrist [id number] / / [place] Variax 2 Wrist Tray: 2.7mm Locking Screw Implanted:Qty: 2 on 07/06/2019 by Sawyer Garcia MD at OR [facility] Left: Wrist [id number] / / Description:18mm Jayden Variax 2 Wrist Tray: 2.7mm Locking Screw 20mm Implanted:Qty: 2 on 07/06/2019 by Sawyer Garcia MD at OR [facility] Left: Wrist [id number] / / [place] Variax 2 Wrist Tray: 2.7mm Non-Locking Screw 14mm Implanted:Qty: 1 on 07/06/2019 by Sawyer Garcia MD at OR [facility] Left: Wrist [id number] / / Ring Ewa Physioii 28mm [id number] - [id number] - [id number] Implanted:Qty: 1 on 07/22/2020 by Rui Foley MD at [place] [facility] N/A: Heart [employer] 12/09/2024 [id number] / [id number] / [id number] 30mm Ats Tri-Ad 2.0 Adrian Tricuspid Band Implanted:Qty: 1 on 07/22/2020 by Rui Foley MD at [place] [facility] N/A: Heart [employer] : CARDIAC SURGERY [id number] 09/20/2024 [id number] / [id number] / [id number] Suture Steel 6 B&S19 M654g - [id number] Implanted:Qty: 4 on 07/22/2020 by Rui Foley MD at OR [facility] N/A: Sternum JNJ : [employer] 02/06/2025 [id number] / / [id number] Clip Occl Atri Flex V 40mm - [id number] Implanted:Qty: 1 on 07/22/2020 by Rui Foley MD at [place] [facility] N/A: Heart ATRICURE [id number] 11/10/2022 [id number] documented as of this encounter Procedures Procedure Name Priority Date/Time Associated Diagnosis Comments XR CHEST 2 VIEWS Routine 07/13/2024 documented in this encounter Results * XR CHEST 2 VIEWS (07/13/2024) Anatomical Region Laterality Modality Chest Other 07/13/2024 Servando Cramer MD RADIOLOGY (RAD G ENERAL) documented in this encounter Advance Directives * Full Code (Latest Code Status on File) Date Activated Date Inactivated Comments 07/22/2020 12:27 PM 07/26/2020 4:43 PM This orde r reflects the patients wishes and were consensually agreed upon. Care Teams Policy Cancellation Clerk Relationship Specialty Start Date End Date Henrik De La Cruz DO [address] [place] [address] PCP - General Internal Medicine 03/22/24 documented as of this encounter
--- OUTSIDE RECORDS SUMMARY | 2024-08-14 12:16 | External Medical Summary | Summary of Care ---
Author Name Unknown Organization [facility] Address [address] [place] [address] Phone [phone] Care Team Providers Care Sales Secretary Name Role Phone Henrik De La Cruz DO Primary Care Provider [phone] Reason for Visit * Reason Onset Date Comments Advice 08/03/2024 Coumadin Encounter Details Date Type Department Care Team (Late st Contact Info) Description 08/03/2024 Telephone Family Practice [facility] [address] [place] [phone] Henrik De La Cruz DO [address] [place], [place] [id number] Advice (Coumadin) Allergies Active Allergy Reactions Criticality [...] Release 24 Hour (toPROL XL)Indications:Athe rosclerosis of [place] coronary artery of [place] heart without angina pectoris,S/P mitral valve repair,S/P tricuspid valve repair,Permanent atrial fibrillation (HCC),HTN, goal below 140/90 TAKE ONE TABLET BY MOUTH EVERY DAY IN THE MORNING 90 Tablet 3 06/05/2024 06/05/2025 Active Losartan Potassium 50 MG Oral Tablet (Cozaar)Indications :S/P mitral valve repair,S/P tricuspid valve repair,HTN, goal below 140/90,Atherosclero sis of [place] coronary artery of [place] heart without angina pectoris Take 1 Tablet [...] repair 01/05/2022 Pulmonary hypertension 12/03/2021 Atherosclerosis of [place] co ronary artery without angina pectoris 06/02/2021 Gastro-esophageal reflux disease without esophag itis 02/09/2021 Mitral valve regurgitation 07/22/2020 Tricuspid valve disease 07/22/2020 Age-related osteoporosis wit hout current pathological fracture 06/13/2019 HTN, goal below 140/90 10/19/2018 Dyslipidemia 10/19/2018 Uterovaginal prolapse 01/10/2007 USP current use of anticoagulant therapy 0 11/01/2003 [...] goal below 130/80 09/01/200910/19 Overview: Modified per [facility] protocol #16. Benign neoplasm of colon 06/10/200907/2019 Overview: hyperplastic polyps, f/u in 5 yrs Primary localized osteoarthrosis, lower leg 04/16/2008 02/06/2019 HYPERLIPIDEMIA NEC/NOS(aka LIPIDS) 07/28/2004 10/19/2018 lesion --rt scientologist 05/31/2002 9 Anticoagulation management encounter 04/26/2002 09/02/2020 Other dermatitis due to solar radiation 03/27/2002 10/19/2018 Herpes simplex virus infection 03/27/2002 10/19/2018 HYPERTENSION NOS 09/01/2009 Overview: Modified per [facility] protocol #16. FEM STRESS INCONTINENCE 10/10 Esophagitis 09/01/2021 Overview: ICD-10 update of inactive term documented as of this encounter (statuses as of 08/07/2024) Immunizations Name Administration Dates Next Due COVID-19 mRNA, LNP-s, No Pre serve, 2-Dose Series (Moderna) 12/10/2020,11/12/2020 COVID-19, LNP-s, No Preserve , Blue-sucrose, Ages 12+ (Pfizer) 03/02/2022 COVID-19, MRNA-LNP, 23-24, P F, 30 MCG/0.3 mL, 12 YRS AND ABOVE, IM (Synapse-Comirnaty) 08/02/2023 COVID-19, MRNA-LNP, 24-25, P R, 30MCG/0.3ML, IM, 12YRS AND ABOVE (WebTeb-Comirnaty) 07/17/2024 COVID-19, mRNA, LNP-s, PF, B ooster, 100mcg/0.5mg (Moderna) 08/15/2021 Covid-19, Mrna, Lnp-s, Pf, B ivalent, 30 Mcg, IM, 12 yrs and above (Pfizer) 01/28/2023,09/07/2022 Pneumococcal Conjugate Vacc, 13 Valent (Prevnar) 04/25/2015 Pneumococcal Conjugate Vacci ne, 20-valent ([id number]) 07/17/2024 Pneumococcal Polysaccharide PPV23 (Pneumovax) 08/13/2008,08/13/2008,01/12/2002 RSV [...] encounter Miscellaneous Notes * Telephone Encounter - Ellie Warner RPh - 08/07/2024 8:35 AM EDT Called and reiterated schedule with patient. [place] [facility] [place] Ellie Hill, Pharm D, BCACP Clinical Pharmacist [address] [facility] 08/07/2024, 8:55 AM Ph. [phone] * Telephone Encounter - Sandra Peterson RPh [...] schedule and follow-up with patient. Sandra Peterson, [place], [facility] Clinical Pharmacist- Resource Teacher Medication Therapy Disease Management 08/06/2024 12:03 PM * Telephone Encounter - Maryse Suero OSA - 08/06/2024 10:17 AM EDT Pt called back and lmom to talk to Eusebia * Telephone Encounter - Eusebia Zarco [facility] - 08/03/2024 3:22 PM EDT Patient is having a TKA on 08/14/24. Diagosis for coumadin therapy is atrial fibrillation. No hx of recent DVT, PE, MVR, [place] or CVA. CHADS-VASc score of 5 (Age, [...] PM EDT Phone (Outgoing) Kiran Moreno (Self) [phone] (H) Left Message No answer. Left message on VM requesting patient call the clinic to discuss upcoming surgery. Jamshid Marques, [facility] Clinical Pharmacist Megan Tucker 08/03/2024, 3:25 PM * Telephone Encounter - Liz Vicente OSA - 08/03/2024 2:22 PM EDT Surgery is 5th will need off coumadin Wants to speak to Ellie Please call documented in this encounter Plan of Treatment Upcoming Encounters Date Type Department Care Team (Late st Contact Info) Description 08/22/2024 11:30 AM EST Office Visit Otolaryngology [facility] [address] [place] [address] Melyssa Paris PA-C [address] [place] [address] 08/27/2024 11:00 AM EST Anticoagulation Family Practice 65 [facility] [address] [facility], [place] [address] College, Pharmacist [address], [place] [address] 11/19/2024 11:20 AM EST Office Visit Family Practice [facility] [address] [facility], [place] [phone] Henrik De La Cruz, [address] [facility], [place] [address] 12/07/2024 2:00 PM EST Office Visit Cardiology, [facility] [address] [place] [address] Khurram Mcbride PA-C [address] [address] 02/14/2025 1:40 PM EDT Office [facility] [address] [facility] [address] Dina Wong PA-C [address] [facility] [place] [address] Scheduled Procedures Name Priority Associated Diagnoses Date/Ti [...] D LEVEL ONCE IN A LIFETIME-USE SMARTSET# [id number] Completed 11/11/2021, 06/13/2019, 06/05/2012, Additional history exists [...] this encounter Medical Devices Implanted Type Area Hose Turner Device Identifier Shelf Expiration Date Model / Serial / Lot Fries Variax 2 Wrist Tray: Volar Distal Radius Plate 49mm Intermediate Implanted:Qty: 1 on 07/06/2019 by Sawyer Garcia MD at OR [facility] Left: Wrist [id number] / / Description:left radius Fries Variax 2 Wrist Tray: 2.7mm Non-Locking Screw 16mm Implanted:Qty: 1 on 07/06/2019 by Sawyer Garcia MD at OR [facility] Left: Wrist [id number] / / Jayden Variax 2 Wrist Tray: 2.7mm Locking Screw 12mm Implanted:Qty: 1 on 07/06/2019 by Sawyer Garcia MD at OR [facility] Left: Wrist [id number] / / Jayden Variax 2 Wrist Tray: 2.7mm Locking Screw 16mm Implanted:Qty: 1 on 07/06/2019 by Sawyer Garcia MD at OR [facility] Left: Wrist [id number] / / Fries Variax 2 Wrist Tray: 2.7mm Locking Screw Implanted:Qty: 2 on 07/06/2019 by Sawyer Garcia MD at OR [facility] Left: Wrist [id number] / / Description:18mm Jayden Variax 2 Wrist Tray: 2.7mm Locking Screw 20mm Implanted:Qty: 2 on 07/06/2019 by Sawyer Garcia MD at OR [facility] Left: Wrist [id number] / / Fries Variax 2 Wrist Tray: 2.7mm Non-Locking Screw 14mm Implanted:Qty: 1 on 07/06/2019 by Sawyer Garcia MD at OR [facility] Left: Wrist [id number] / / Ring Ewa Physioii 28mm [id number] - [id number] - [id number] Implanted:Qty: 1 on 07/22/2020 by Rui Foley MD at OR [facility] N/A: Heart [employer] 12/09/2024 [id number] / [id number] / [id number] 30mm Ats Tri-Ad 2.0 Adrian Tricuspid Band Implanted:Qty: 1 on 07/22/2020 by Rui Foley MD at OR [facility] N/A: Heart [employer] : CARDIAC SURGERY [id number] 09/20/2024 [id number] / [id number] / [id number] Suture Steel 6 B&S19 M654g - [id number] Implanted:Qty: 4 on 07/22/2020 by Rui Foley MD at OR [facility] N/A: Sternum JNJ : [employer] 02/06/2025 [id number] / / [id number] Clip Occl Atri Flex V 40mm - [id number] Implanted:Qty: 1 on 07/22/2020 by Rui Foley MD at OR [facility] N/A: Heart [employer] [id number] 11/10/2022 [id number] / / [id number] documented as of this encounter Visit Diagnoses Diagnosis Anticoagulation management encounter- Primary Encounter for therapeutic drug monitoring Permanent atrial fibrillation (HCC) Atrial fibrillation documented in this encounter Advance Directives * Full Code (Latest Code Status on File) Date Activated Date Inactivated Comments 07/22/2020 12:27 PM 07/26/2020 4:43 PM This orde r reflects the patients wishes and were consensually agreed upon. Care Teams Sales Secretary Relationship Specialty Start Date End Date Henrik De La Cruz DO [address] [place] [address] PCP - General Internal Medicine 03/22/24 documented as of this encounter
[2024-08-14] MEDS ORDERED: MECLIZINE HCL 25 MG TAB PO PRN (12:17)
[2024-08-14] MEDS ORDERED: MAGNESIUM HYDROXIDE SUSP 30 ML UDC PO PRN (12:17)
[2024-08-14] MEDS ORDERED: bisacodyL 10 MG SUPP PR PRN (12:17)
[2024-08-14] MEDS ORDERED: PREMARIN VAG CRM 14 APPLN/30 GM TUBE PV SCH (12:17)
[2024-08-14] MEDS ORDERED: HYDROmorphone INJ 0.5 MG/0.5 ML SYR IV PRN (12:17)
[2024-08-14] MEDS ORDERED: METOCLOPRAMIDE HCL INJ 5 MG/ML 2 ML VIAL IV PRN (12:17)
[2024-08-14] MEDS ORDERED: ALUMINUM/MAGNESIUM SUSP 30 ML UDC PO PRN (12:17)
[2024-08-14] MEDS ORDERED: NALOXONE HCL 0.4 MG/1 ML VIAL/CARP IV PRN (12:17)
--- OUTSIDE RECORDS SUMMARY | 2024-08-14 12:17 | External Medical Summary | Summary of Care ---
Author Name Unknown Organization [facility] Address [address] [place] [address] Phone [phone] Care Team Providers Care Assembler Faucets Name Role Phone Henrik De La Cruz DO Primary Care Provider [phone] Reason for Visit * Reason Comments Follow Up Encounter Details Date Type Department Care Team (Latest Contact Info) Description 07/17/2024 1:00 PM EDT Office Visit Family Practice [address] [place] [address] [address] [place] [address] Henrik De La Cruz DO [address] [place] [address] Preoperative general physical examination*; Primary osteoarthritis of one knee, left; Permanent atrial fibrillation (HCC); HTN, goal below 140/90; Dyslipidemia; Age-related osteoporosis without current pathological fracture; S/P mitral valve repair; S/P tricuspid valve repair; Cardiac pacemaker in situ; Pulmonary hypertension (HCC); Need for pneumococcal vaccination; Vertigo; Risk and functional assessment Allergies Active Allergy Reactions Criticality Noted Date [...] as of this encounter (statuses as of 07/19/2024) Medications Medication Sig Dispensed Refills Start Date [...] 07/26/2020 Active Furosemide 20 MG Oral Tablet (Lasix)Indication s:Bilateral leg edema Take 1 Tablet by mouth in the morning. 100 Tablet 3 07/18/2023 Active Geranium Oil Oil Administer into nostril 2 times a day. Active Rosuvastatin Calcium 5 MG Oral Tablet (Crestor)Indicati ons:Dyslipidemia, goal to be determined TAKE ONE TABLET BY MOUTH EVERY DAY 90 Tablet 3 09/12/2023 4 Active Clindamycin HCl 300 MG Oral CapsuleIndication s:Mitral valve prolapse,SBE (subacute bacterial endocarditis) prophylaxis candidate Two capsules by mouth 30-60 minutes prior to dental work. 2 Capsule 4 11/23/2023 Active Famotidine 20 MG Oral Tablet (Pepcid) TAKE ONE TABLET BY MOUTH AT BEDTIME 90 Tablet 3 01/09/2024 5 Active Estrogens Conjugated 0.625 MG/GM Vaginal Cream (Premarin)Indicat ions:Vaginal atrophy,Uterine procidentia Administer into the vagina daily. 60 g 1 02/06/2024 Active Metoprolol Succinate ER 25 MG Oral Tablet Extended Release 24 Hour (toPROL XL)Indications:At herosclerosis of [place] coronary artery of [place] heart without angina pectoris,S/P mitral valve repair,S/P tricuspid valve repair,Permanent atrial fibrillation (HCC),HTN, goal below 140/90 TAKE ONE TABLET BY MOUTH EVERY DAY IN THE MORNING 90 Tablet 3 06/05/2024 5 Active Losartan Potassium 50 MG Oral Tablet (Cozaar)Indicatio ns:S/P mitral valve repair,S/P tricuspid valve repair,HTN, goal below 140/90,Atheroscle rosis of [place] coronary artery of [place] heart without angina pectoris Take 1 Tablet by mouth in the morning. 100 Tablet 3 06/21/2024 Active Warfarin Sodium 5 MG Oral Tablet (Coumadin)Indicat ions:Permanent atrial fibrillation (HCC) TAKE ONE-HALF TABLET BY MOUTH ON TUESDAY AND TUESDAY AND ONE WHOLE TABLET ALL OTHER DAYS 100 Tablet 4 07/03/2024 5 Active Meclizine HCl 25 MG Oral Tablet (Antivert)Indicat ions:Vertigo Take 1 Tablet by mouth daily as needed for Dizziness. 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 pacemaker in situ 03/10/2022 S/P mitral valve repair 01/05/2022 S/P tricuspid valve repair 01/05/2022 Pulmonary hypertension 12/03/2021 Atherosclerosis of [place] co ronary artery without angina pectoris 06/02/2021 [...] as of this encounter (statuses as of 07/19/2024) Resolved Problems Problem Noted Date Diagnosed Date [...] HYPERLIPIDEMIA NEC/NOS(aka LIPIDS) 07/28/2004 10/19/2018 lesion --rt adventism 05/31/2002 9 Anticoagulation management encounter 04/26/2002 09/02/2020 Other dermatitis due to solar radiation 03/27/2002 10/19/2018 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 FEM STRESS INCONTINENCE 10/10 Esophagitis 09/01/2021 Overview: ICD-10 update of inactive term documented as of this encounter (statuses as of 07/19/2024) Immunizations Name Administration Dates Next Due COVID-19 mRNA, LNP-s, No Pre serve, 2-Dose Series (Moderna) 12/10/2020,11/12/2020 COVID-19, LNP-s, No Preserve , Blue-sucrose, Ages 12+ (Pfizer) 03/02/2022 COVID-19, MRNA-LNP, 23-24, P F, 30 MCG/0.3 mL, 12 YRS AND ABOVE, IM (Softricity-Comirnaty) 08/02/2023 COVID-19, MRNA-LNP, 24-25, P R, 30MCG/0.3ML, IM, 12YRS AND ABOVE (Parcel-Comirnat) 07/17/2024 COVID-19, mRNA, LNP-s, PF, B ooster, 100mcg/0.5mg (Moderna) 08/15/2021 Covid-19, Mrna, Lnp-s, Pf, B ivalent, 30 Mcg, IM, 12 yrs and above (Pfizer) 01/28/2023,09/07/2022 Pneumococcal Conjugate Vacc, 13 Valent (Prevnar) 04/25/2015 Pneumococcal Conjugate Vacci ne, 20-valent ([id number]) 07/17/2024 Pneumococcal Polysaccharide PPV23 (Pneumovax) 08/13/2008,08/13/2008 RSV [...] Passive Smoke Exposure: Past Smokeless Tobacco: Never Tobacco Cessation:Counseling Given: Yes Alcohol Use Standard Drinks/Week Comments No 0 (1 standard drink = 0.6 oz pur e alcohol) PHQ-2 Answer Date Recorded PHQ Adult Total Score 0 10/26/2023 Hunger Vital Sign Answer Date Recorded Within the past 12 months, y ou worried that your food would run out before you got the money to buy more. Never true 09/15/20 Within the past 12 months, t he [...] on file documented as of this encounter Last Filed Vital Signs Vital Sign Reading Time Taken Comments Blood Pressure 110/60 07/17/2024 1:08 PM EDT Pulse 60 07/17/2024 1:08 PM EDT Temperature 36.3 C (97.4 F) 07/17/2024 1:08 PM ED T Respiratory Rate 14 07/17/2024 1:08 PM EDT Oxygen Saturation 98% 07/17/2024 1:08 PM EDT Inhaled Oxygen Concentration - - Weight 63.1 kg (139 lb 3.2 oz) 07/17/2024 1:08 P M EDT Height 165.1 cm (5' 5") 07/17/2024 1:08 PM EDT Body Mass Index 23.16 07/17/2024 1:08 PM EDT documented in this encounter Functional Status Functional Status Response [...] No 07/22/2020 documented as of this encounter Patient Instructions * Patient Instructions* Ambika Desir, CORRECTIONS IDENTIFICATION TECHNICIAN - 07/17/2024 1:05 PM EDT Patient Instructions - Fall Prevention (This education is for all patients over 65 regardless of symptoms) Remember to take your current medications as prescribed. In order to prevent falls, you are encouraged to: Exercise Utilize assistive/adaptive devices Avoid multifocal lenses when walking Avoid hazards in home Maintain a regular toileting schedule Any questions please contact our office. Preventing Falls in the Home (This education is for all patients over 65 regardless of symptoms) As you get older, falls are more likely. Thats because your reaction time slows. Your muscles and joints may also get stiffer, making them less flexible. Illness, medications, and vision changes can also affect your balance. A fall could leave you unable to live on your own. To make your home safer, follow these tips: Floors Put nonskid pads under area rugs Remove throw rugs Replace worn floor coverings Tack carpets firmly to each step on carpeted stairs. Put nonskid strips on the edges of uncarpeted stairs Keep floors and stairs free of clutter and cords Arrange furniture so there are clear pathways Clean up any spills right away Bathrooms Install grab bars in the tub or shower Apply nonskid strips or put a nonskid rubber mat in the tub or shower Sit on a bath chair to bathe Use bathmats with nonskid backing Lighting Keep a flashlight in each room Put a nightlight along the pathway between the bedroom and the bathroom [facility] Patient Education Copyright 2009 - 2010 [facility] except where otherwise noted Preventing Falls: Exercises to Improve Balance, Flexibility, Strength, and Staying Power (This education is for all patients over 65 regardless of symptoms) Certain types of exercises may help make you less likely to fall. Try the ones below. Or do other exercises that your healthcare provider suggests. Depending on your health, you may need to start slowly. Dont let that stop you. Even small amounts of exercise can help you. Be sure to talk to yourhealthcare provider before starting any exercise program. Improve Balance Many types of exercise can help improve balance. Patrick chi and yoga are good examples. Heres another one to try. You can do it anytime and almost anywhere. Stand next to a counter or solid support. Push yourself up onto your tiptoes. Hold for 5 seconds. If you start to lose your balance, hold on to the counter. Rest and repeat 5 times. Work up to holding for 20 to 30 seconds, if you can. Increase Flexibility Being more flexible makes it easier for you to move around safely. Try exercises like the seated hamstring stretch. Sit in a chair and put one foot on a stool. Straighten your leg and reach with both hands down either side of your leg. Reach as far down your leg as you can. Hold for about 20 seconds. Go back to the starting position. Then repeat 5 times. Switch legs. Build Strength Resistance exercises help build strength. You can do them without equipment. Or you can use weights, elastic bands, or special machines. One such exercise is called the biceps curl. You can hold a 1 pound weight or even a can of soup. Do this exercise at least 3 times a week. Strive for everyday. Sit up straight in a chair. Keep your elbow close to your body and your wrist straight. Bend your arm, moving your hand up to your shoulder. Then slowly lower your arm. Repeat 5 times. Switch to the other arm. Build Your Staying Power Aerobic exercises make your heart and lungs stronger so you can keep moving longer. Walking and swimming are two of the best types of exercises you can do. Using a stationary bike is great, too. Find an aerobic exercise that you enjoy. Start slowly and build up. Even 5 minutes is helpful. Aimfor a goal of 30 minutes, at least 3 times a week. You dont have to do 30 minutes in one session. Break it up and walk a little throughout the day. More Helpful Tips Start easy. Slowly work up to doing more. Talk with your healthcare provider about the best exercises for you. Call senior centers or health clubs about exercise programs. If needed, have a family member watch you walk every so often to check your stability. Exercise with a friend. Choose an activity you both enjoy. Try exercises that you can do anytime, anywhere. Here are two examples. Have someone with you when you first try these: Practice walking by placing one foot right in front of the other. Stand up and sit down 10 times. Repeat this throughout the day. [facility] Patient Education Copyright 2008 [facility] except where otherwise noted. Preventing Falls: Moving Safely Using a Cane or Walker (This education is for all patients over 65 regardless of symptoms) Keep the cane away from your feet so you dont trip. A walking aid, such as a cane or walker, can help you stay more independent and avoid falls. Remember to keep your walking aid within easy reach when youre in a chair or in bed. And learn how to use it safely so you dont injure yourself. Using a Cane If you have a stronger side, hold the cane on that side. Get your balance. Move the cane and your weaker leg forward. Support your weight on both the cane and your weaker side. Step with your stronger leg. Start again from step 1. If youre using a folding walker, be sure you know how to lock it open. Check that its locked open before each use. Using a Walker Roll the walker (or lift it, if youre using one without wheels) forward about 12 inches. Step forward with your weaker leg first. Use the walker to help keep your balance. Bring your other foot forward to the center of the walker. Start again from step 1. Helpful Tips Check with your healthcare provider about the right walking aid to use. Ask about a walker with a seat attached. Check the tips of your cane or walker to make sure they have nonskid covers. Move slowly from room to room. Dont wang. Sit down to get dressed. Use a samara pack or backpack to keep your hands free. Get help for jobs that mean climbing, even on a stepstool. [facility] Patient Education Copyright 2008 - 2010 [facility] except where otherwise noted. Urinary Incontinence Plan of Care Documentation: (This education is for all patients over 65 regardless of symptoms) Current medications reconciled. Patient encouraged to: Practice kegal exercises Provide education materials Use the restroom every 2 hours throughout the day Limit caffeine, alcohol, spicy foods and acidic foods Keep a bladder diary Limit fluid intake 3-4 hours before bed Lose weight Prevent constipation Take fluid pills at a time when you can get to the bathroom quickly Control sugar better if diabetic Limit fluid intake to 60 oz. per day Wear support stockings (TEDs)if you have edema Ambika Ray Thang, FRANK 07/17/2024 Kegel Exercises Kegel exercises dont require special clothing or equipment. Theyre easy to learn and simple to do. And if you do them right, no one can tell youre doing them, so they can be done almost anywhere. Your doctor, nurse, or physical therapist can answer any questions you have and help you get started. A Weak Pelvic Floor The pelvic floor muscles may weaken due to aging, and vaginal childbirth, injury, surgery, chronic cough, or lack of exercise. If the pelvic floor is weak, your bladder and other pelvic organs may sag out of place. The urethra may also open too easily and allow urine to leak out. Kegel exercises can help you strengthen your pelvic floor muscles so they can better support the pelvic organs and control urine flow. How Kegel Exercises Are Done Try each of the Kegel exercises described below. When youre doing them, try not to move your leg, buttock, or stomach muscles. While youre urinating, try to stop the flow of urine. Start and stop it as often as you can. Contract as if you were stopping your urine stream, but do it when youre not urinating. Tighten your rectum as if trying not to pass gas. Contract your anus, but dont move your buttocks. Helpful Hints Do your Kegels as often as you can. The more you do them, the faster youll feel the results. Pick an activity you do often as a reminder. For instance, do your Kegels every time you sit down. Tighten your pelvic floor before you sneeze, get up from a chair, cough, laugh, or lift. This protects your pelvic floor from injury and can help prevent urine leakage. Try to hold each Kegel for a slow count to five. You probably wont be able to hold them for thatlong at first, but keep practicing. It will get easier as your pelvic floor gets stronger. Eventually, special weights that you place in your vagina may be recommended to help make your Kegels even more effective. [facility] Patient Education Copyright 2008 - 2010 [facility] except where otherwise noted. Here are some helpful tips for your urinary incontinence: (This education is for all patients over 65 regardless of symptoms) Practice Kegel exercises Use the restroom every 2 hours throughout the day Limit caffeine, alcohol, spicy foods, and acidic foods Keep a bladder diary Limit fluid intake 3-4 hours before bed Lose weight Prevent constipation Take fluid pills at a time when can get to the bathroom quickly Control sugar better if diabetic Limit fluid intake to 60 oz. per day Any questions, please feel free to contact our office. documented in this encounter Progress Notes * Henrik De La Cruz, - 07/19/2024 1:32 PM EDT SUBJECTIVE: Kiran Moreno is a 84 year old female. Chief Complaint Patient presents with Follow Up HPI: Patient is an 84 year old female with a history of HTN, Atrial Fibrillation, Mitral Valve Repair, Tricuspid Valve Repair, Left Atrial Appendage Clip, Hyperlipidemia, Osteoporosis, Prediabetes, bilateral Knee Osteoarthritis, Hyponatremia due to HCTZ, and GERD that is seen for medical evaluation prior to left knee replacement. No chest pain or shortness of breath are present. Weight is stable and appetite is good. 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 GLUCOSAMINE SULFATE 1000 MG PO CAPS Take 1 Tablet by mouth in the morning. Acetaminophen 500 MG Oral Tablet (TYLENOL) Take 1 Tablet by mouth every 4 hours as needed for Pain,Moderate. Furosemide 20 MG Oral Tablet (Lasix) Take 1 Tablet by mouth in the morning. 100 Tablet 3 Geranium Oil Oil Administer into nostril 2 times a day. Rosuvastatin Calcium 5 MG Oral Tablet (Crestor) TAKE ONE TABLET BY MOUTH EVERY DAY 90 Tablet 3 Clindamycin HCl 300 MG Oral Capsule Two capsules by mouth 30-60 minutes prior to dental work. 2 Capsule 4 Famotidine 20 MG Oral Tablet (Pepcid) TAKE ONE TABLET BY MOUTH AT BEDTIME 90 Tablet 3 Estrogens Conjugated 0.625 MG/GM Vaginal Cream (Premarin) Administer into the vagina daily. 60 g 1 Metoprolol Succinate ER 25 MG Oral Tablet Extended Release 24 Hour (toPROL XL) TAKE ONE TABLET BY MOUTH EVERY DAY IN THE MORNING 90 Tablet 3 Losartan Potassium 50 MG Oral Tablet (Cozaar) Take 1 Tablet by mouth in the morning. 100 Tablet 3 Warfarin Sodium 5 MG Oral Tablet (Coumadin) TAKE ONE-HALF TABLET BY MOUTH ON TUESDAY AND TUESDAY AND ONE WHOLE TABLET ALL OTHER DAYS 100 Tablet 4 Meclizine HCl 25 MG Oral Tablet (Antivert) Take 1 Tablet by mouth daily as needed for Dizziness. 100 Tablet 1 No current facility-administered medications for this visit. The patient's medication list was reviewed and updated as needed. Past Medical History: Diagnosis Date Atrial fibrillation (HCC) A-Fib Benign neoplasm of colon 06/2009 hyperplastic polyps, f/u in 5 yrs Cystocele, lateral Esophagitis, unspecified Female stress incontinence HTN, goal to be determined lesion --rt adventism Other Mitral valve prolapse Rosacea Varicose veins of lower extremities with complications Past Surgical History: Procedure Laterality Date BIOPSY OF BREAST, OPEN Left 08/23/2017 Excision of Radial Scar BREAST BIOPSY Left 05/17/2014 fibrocystic change with usual ductal hyperplasia - [facility] BREAST BIOPSY Left 08/05/2017 Radial Scar COLONOSCOPY 04/22/2003 Dr Nam, diverticuli COLONOSCOPY W/ BIOPSY (RECTUM) 07/09/09 done hyperplastic polyps, f/u in 5 yrs COLONOSCOPY W/ LESION REMOVAL, SNARE 07/09/09 done polyps x2, diverticulosis, path pending repeat 3-5 years COLONOSCOPY, DIAGNOSTIC (RECTUM) 10/31/2014 hyperplastic polyp & inflammatory tissue on bx, diverticulosis, repeat 5 yrs/COLONOSCOPY FLEXIBLE PROXIMAL DIAGNOSTIC performed by Roseanna Allen MD at ENDOSCOPY [facility] EXC BREAST LESION RADMARK Left 08/23/2017 08/23/2017 EXCISION OF BREAST LESION RADIOLOGICAL MARKER performed by Isidra Coley MD at OR [facility] dx fibrofatty breast tissue with focal sclerosing adenosis, previous biopsy site changes, fibrocystic changes fat necrdosis , and associated microcalcifications EXERCISE ECHO 04/23/2002 Afib, MVP, 2+ mitral regurgitation FX/DIS,RADIAL,OPN,INTRAARTIC,INT FIX,2 FRAG Left 07/06/2019 OPEN TREATMENT DISTAL RADIAL INTRA-ARTICULAR FRACTURE OR EPIPHYSEAL SEPARATION INTERNAL FIXATION 2 FRAGMENTS performed by Sawyer Garcia MD at OR [facility] INFORMATION 09/01/2010 Incisional biopsy, right silveira - Dr. Michele INFORMATION 1989?? 1989 left breast aspiration , Dr. Renea León in [facility] LAPAROSCOPY; CHOLECYSTECTOMY N/A 04/30/2019 laparoscopic cholecystectomy [facility] Dr. Saini 04/30/19 LIGATE/CUT OVIDUCT(S) Tubal Ligation MAMMOGRAM - BILATERAL 04/02/2002 birad code 2 MAMMOGRAM - BILATERAL 10/28/2003 birad code MAMMOGRAM - BILATERAL 01/11/2007 birad 2 MAMMOGRAM OUTSIDE PROCEDURE 02/26/2010 normal per patient MAMMOGRAM SCREENING BILATERAL 03/17/2012 birad 2 MAMMOGRAM SCREENING-BILATERAL 12/21/2004 birac code 2/yearly MAMMOGRAM SCREENING-BILATERAL 12/24/2005 benign findings, yearly mammograms appropriate, birad code 2 MAMMOGRAM SCREENING-BILATERAL 01/15/2008 birad 2 MAMMOGRAM SCREENING-BILATERAL 02/24/2009 birad code 2 PACEMAKER INSERTION PER N/A 03/10/2022 PUNCTURE DRAINAGE BREAST CYST Left 1989 RECONSTRUCT MITRAL VALVE W/RING N/A 07/22/2020 VALVULOPLASTY MITRAL VALVE WITH PROSTHETIC RING AND BYPASS performed by Rui Foley MD at [facility] REMOVAL OF APPENDIX 06/08/2004 [facility] REMOVE TONSILS & ADENOIDS, UNDER 12 Tonsillectomy/Adenoids,<12 Y/O REPAIR TRICUSPID VALVE, W/RING N/A 07/22/2020 VALVULOPLASTY TRICUSPID VALVE WITH RING performed by Rui Foley MD at OR [facility] STAB PHLEB VARICOSE;ABOVE 20 Left 04/06/2017 STAB PHLEBECTOMY VARICOSE VEINS MORE THAN 20, ONE EXTREMITY performed by Eugenio Valentine MD at [facility] STEREOTAXIC BIOPSY/SURGERY Left 08/05/2017 08/05/2017 stereotactic left breast [facility] dx left medial stereotactic core bx dx adeosis and fibroelastotic stroma consistent with a radial scar US - BREAST(S) 04/24/2003 decrease in density, repeat mammo in 6 months VAGINAL DELIVERY ONLY Vaginal Delivery VAGINAL DELIVERY ONLY Vaginal Delivery VAGINAL DELIVERY ONLY Vaginal Delivery VEIN ABLATION EXTREMITY,ENDOVEN,1ST Left 04/06/2017 ENDOVENOUS RADIOFREQUENCY ABLATION THERAPY FIRST VEIN performed by Eugenio Valentine MD at OR [facility] WRIST ARTHROSCOPY/SURGERY Family History Problem Relation Name Age of Onset Breast Cancer Mother post menopausal Ear Problems Mother meiners Hypertension Mother Heart Disorder Mother pacemaker Cancer Mother breast, thyroid, bone Atrial fibrillation Mother Hypertension Father Lung Disorder Father emphysema Heart Disorder Father irregular heartbeat Osteoporosis Father hip fracture Atrial fibrillation Father Cancer Sister Franca skin cancer Hypertension Sister Franca Cancer Brother Shabbir colon,liver Alcohol and Other Disorders Associated Brother Shabbir Breast Cancer Grandmother (Maternal) post menopausal Breast Cancer Daughter Vero 43 double mastectomy BRCA1 Negative Daughter Vero BRCA2 Negative Daughter Vero Arthritis Daughter Vero Cancer Daughter Vero No Past Hx Daughter Negra Other (esophageal stricture) Son Jorge 40 Breast Cancer Cousin (Maternal) multiple cousins-post menopausal Breast Cancer Aunt (Maternal) post menopausal Breast Cancer Aunt (Maternal) post menopausal Breast Cancer Aunt (Maternal) post menopausal Social History Tobacco Use Smoking status: Never Passive exposure: Past Smokeless tobacco: Never Vaping Use Vaping status: Never Used Substance Use Topics Alcohol use: No Drug use: No Review of patient's allergies indicates: Allergen Reactions Bactrim [Sulfamethoxazole-Trimethoprim] Other (Please comment) Hyponatremia Hydrochlorothiazide Other (Please comment) Hyponatremia Food (See Comments) Other (Please comment) Garbanzo beans cause lip numbness Iodinated Contrast Media Rash Observed by Dr Lara, 05/29/20 Nitrofurantoin Rash Penicillins Rash Codeine Nausea/vomiting Review of Systems Constitutional: Negative for appetite change, diaphoresis, fatigue and unexpected weight change. HENT: Negative for congestion, sore throat and trouble swallowing. Respiratory: Negative for cough, shortness of breath and wheezing. Cardiovascular: Negative for chest pain, palpitations and leg swelling. Gastrointestinal: Negative for abdominal pain, blood in stool, constipation, diarrhea, nausea and vomiting. Genitourinary: Negative for dysuria, frequency and hematuria. Musculoskeletal: Positive for gait problem. Negative for back pain. Worsening bilateral knee pain Neurological: Negative for dizziness, syncope and headaches. Psychiatric/Behavioral: Negative for confusion, decreased concentration and sleep disturbance. OBJECTIVE: BP 110/60 | Pulse 60 | Temp 36.3 C (97.4 F) | Resp 14 | Ht 1.651 m (5' 5") | Wt 63.1 kg (139 lb3.2 oz) | SpO2 98% | BMI 23.16 kg/m | BSA 1.7 m Physical Exam Vitals and nursing note reviewed. Constitutional: General: She is not in acute distress. Appearance: Normal appearance. She is not toxic-appearing. HENT: Head: Normocephalic and atraumatic. Cardiovascular: Rate and Rhythm: Normal rate and regular rhythm. Heart sounds: Normal heart sounds. No murmur heard. No gallop. Pulmonary: Effort: Pulmonary effort is normal. Breath sounds: Normal breath sounds. No wheezing or rales. Abdominal: General: Bowel sounds are normal. There is no distension. Palpations: Abdomen is soft. Tenderness: There is no abdominal tenderness. Musculoskeletal: Right lower leg: No edema. Left lower leg: No edema. Neurological: Mental Status: She is alert and oriented to person, place, and time. Mental status is at baseline. Motor: No weakness. Gait: Gait abnormal. Psychiatric: Mood and Affect: Mood normal. Behavior: Behavior normal. Thought Content: Thought content normal. Component Latest Ref Rn 07/17/2024 BUN 6 - 20 mg/dL 26 (H) CREATININE 0.5 - 1.0 mg/dL 1.0 EGFR >=60 mL/min 58 (L) SODIUM 135 - 146 mmol/L 141 POTASSIUM 3.5 - 5.1 mmol/L 4.5 CHLORIDE 98 - 107 mmol/L 102 CO2 22 - 32 mmol/L 28 ANION GAP 7 - 15 mmol/L 11 GLUCOSE 70 - 120 mg/dL 87 Albumin 3.8 - 5.0 g/dL 4.5 AST 10 - 35 U/L 27 Alkaline Phosphatase 35 - 130 U/L 79 Bilirubin, Total <=1.2 mg/dL 0.8 CALCIUM 8.4 - 10.2 mg/dL 10.0 Protein 6.0 - 8.3 g/dL 7.6 ALT 10 - 35 U/L 13 WBC 4.00 - 10.80 K/uL 5.03 Neutrophils % 40.0 - 75.0 % 58.9 Lymphocytes % 18.0 - 42.0 % 28.0 Monocytes % 1.0 - 11.0 % 11.9 (H) Eosinophils % 0.0 - 6.0 % 0.8 Basophils % 0.0 - 2.0 % 0.4 Absolute Neutrophils 1.80 - 7.70 K/uL 2.96 Absolute Lymphocytes 1.00 - 4.80 K/ul 1.41 Absolute Monocytes 0.00 - 1.10 K/uL 0.60 Absolute Eosinophils 0.00 - 0.70 K/uL 0.04 Absolute Basophils 0.00 - 0.20 K/uL 0.02 WBC 4.00 - 10.80 K/uL 5.03 RBC 3.85 - 5.15 M/uL 4.53 HGB 12.0 - 15.3 g/dL 13.2 HCT 36.0 - 45.2 % 41.3 MCV 81.5 - 97.5 fL 91.2 MCH 27.0 - 34.0 pg 29.1 MCHC 32.0 - 36.0 g/dL 32.0 RDW 11.5 - 15.5 % 15.1 PLT 140 - 400 K/uL 120 (L) MPV 6.6 - 11.1 fL 12.5 Fingerstick INR INR 2.5 ECG - [facility] 07/13/2024: Ventricular paced rhythm CXR - [facility] 07/13/2024: No acute cardiopulmonary findings, Cardiomegaly Surgical Risk Scoring Revised Cardiac Risk Index (RCRI) High-risk type of surgery (examples include vascular and any open intraperitoneal or intrathoracic procedures): 0=No History of ischemic heart disease (history of myocardial infarction or positive exercise test, current compliant of chest pain considered to be secondary to myocardia ischemia, use of nitrate therapy, or ECG with pathological Q waves; do not count prior coronary revascularization procedure unless one of the other criteria for ischemic heart disease is present): 0=No History of heart failure: 0=No History of cerebrovascular disease: 0=No Diabetes mellitus requiring treatment with insulin: 0=No Preoperative serum creatinine >2.0 mg/dL (177 micromol/L): 0=No Pt has revised cardiac index score of: No Risk Factors- 0.4% (95% CI: 0.1-0.8) Score 0-2:low risk BASSEM, 3-4: intermediate risk of BASSEM, 5-8: high risk BASSEM 0 Surgical Risk Assessment Patient is low medical risk for the listed procedure. Medication adjustments: Preoperative Warfarin instructions reviewed by MTM Patient instructed to hold Warfarin 5 days prior to surgery PLAN AND ASSESSMENT: Preoperative general physical examination (Primary) No additional testing necessary prior to Knee Replacement Patient is low risk Primary osteoarthritis of one knee, left Permanent atrial fibrillation (HCC) - CBC WITH WBC DIFFERENTIAL; Future; Expected date: 07/17/2024 - COMPREHENSIVE METABOLIC PANEL; Future; Expected date: 07/17/2024 Continue Metoprolol ER and Warfarin as instructed above HTN, goal below 140/90 - CBC WITH WBC DIFFERENTIAL; Future; Expected date: 07/17/2024 - COMPREHENSIVE METABOLIC PANEL; Future; Expected date: 07/17/2024 Continue Losartan and Metoprolol ER Dyslipidemia Continue Rosuvastatin Age-related osteoporosis without current pathological fracture 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 No current Vertigo is present. Patient requests refill of Meclizine to have in her home for Vertigoepisodes. Risk and functional assessment Follow Up: Return in about 4 months (around 11/17/2024), or if symptoms worsen or fail to improve. Henrik De La Cruz DO 1:32 PM 07/19/2024 documented in this encounter Nursing Notes * Ambika Desir LPN - 07/17/2024 1:07 PM EDT Left knee is being replaced on 08/[address] Cramer. Had pre op labs etc done at [facility] documented in this encounter Plan of Treatment Upcoming Encounters Date Type Department Care Team (Late st Contact Info) Description 08/16/2024 11:00 AM EST Anticoagulation Family Practice 65 [facility] 293 [facility], [place] [address] College, Pharmacist [address], [place] [address] 08/22/2024 11:30 AM EST Office Visit Otolaryngology [facility] [address] [place] [address] Melyssa Paris PA-C [address] [place] [address] 11/19/2024 11:20 AM EST Office Visit Family Practice [address] [place] [address] 293 [facility], [place] [address] Henrik De La Cruz, 293 [place] [address] 12/07/2024 2:00 PM EST Office Visit Cardiology, [facility] [address] [place] [address] Khurram Mcbride PA-C [address] [place] [address] 02/14/2025 1:40 PM EDT Office Visit Dermatology [facility] 200 [facility] [place] [address] Dina Wong PA-C 200 [facility] [place] [address] Scheduled Procedures Name Priority Associated Diagnoses Date/Ti [...] D LEVEL ONCE IN A LIFETIME-USE SMARTSET# 54007 Completed 11/11/2021, 06/13/2019, 06/05/2012, Additional history exists [...] this encounter Medical Devices Implanted Type Area Receivable Clerk Device Identifier Shelf Expiration Date Model / Serial / Lot Henryetta Variax 2 Wrist Tray: Volar Distal Radius Plate 49mm Intermediate Implanted:Qty: 1 on 07/06/2019 by Sawyer Garcia MD at OR [facility] Left: Wrist [id number] / / Description:left radius Jayden Variax 2 Wrist Tray: 2.7mm Non-Locking Screw 16mm Implanted:Qty: 1 on 07/06/2019 by Sawyer Garcia MD at OR [facility] Left: Wrist [id number] / / Henryetta Variax 2 Wrist Tray: 2.7mm Locking Screw 12mm Implanted:Qty: 1 on 07/06/2019 by Sawyer Garcia MD at OR [facility] Left: Wrist [id number] / / Henryetta Variax 2 Wrist Tray: 2.7mm Locking Screw 16mm Implanted:Qty: 1 on 07/06/2019 by Sawyer Garcia MD at OR [facility] Left: Wrist [id number] / / Henryetta Variax 2 Wrist Tray: 2.7mm Locking Screw Implanted:Qty: 2 on 07/06/2019 by Sawyer Garcia MD at OR [facility] Left: Wrist [id number] / / Description:18mm Henryetta Variax 2 Wrist Tray: 2.7mm Locking Screw 20mm Implanted:Qty: 2 on 07/06/2019 by Sawyer Garcia MD at OR [facility] Left: Wrist [id number] / / Henryetta Variax 2 Wrist Tray: 2.7mm Non-Locking Screw 14mm Implanted:Qty: 1 on 07/06/2019 by Sawyer Garcia MD at OR [facility] Left: Wrist [id number] / / Ring Ewa Physioii 28mm [id number] - [id number] - [id number] Implanted:Qty: 1 on 07/22/2020 by Rui Foley MD at OR [facility] N/A: Heart [employer] 12/09/2024 [id number] / [id number] / [id number] 30mm Ats Tri-Ad 2.0 Adrian Tricuspid Band Implanted:Qty: 1 on 07/22/2020 by Rui Foley MD at OR [facility] N/A: Heart [employer] : CARDIAC SURGERY [id number] 09/20/2024 [id number] / [id number] / [id number] Suture Steel 6 B&S19 M654g - [id number] Implanted:Qty: 4 on 07/22/2020 by Rui Foley MD at OR [facility] N/A: Sternum JNJ : [employer] 02/06/2025 [id number] / / [id number] Clip Occl Atri Flex V 40mm - [id number] Implanted:Qty: 1 on 07/22/2020 by Rui Foley MD at OR [facility] N/A: Heart ATR[employer] [id number] 11/10/2022 [id number] / / [id number] documented as of this encounter Results * (ABNORMAL) COMPREHENSIVE METABOLIC PANEL (07/17/2024 3:16 PM EDT) BUN 26(H) 6 - 20 mg/dL 07/17/2024 4:38 PM EDT [facility] 57-10 CREATININE 1.0 0.5 - 1.0 mg/dL 07/17/2024 4:38 PM EDT [facility] [place] 57-10 EGFR 58(L) >=60 mL/min 07/17/2024 4:38 PM EDT [facility] [place] 57-10 Comment:eGFR is calculated b ased on the CKD-EPI 2020 equation. SODIUM 141 135 - 146 mmol/L 07/17/2024 4:38 PM EDT [facility] [place] 57-10 POTASSIUM 4.5 3.5 - 5.1 mmol/L 07/17/2024 4:38 PM EDT [facility] 57-10 CHLORIDE 102 98 - 107 mmol/L 07/17/2024 4:38 PM EDT [facility] 57-10 CO2 28 22 - 32 mmol/L 07/17/2024 4:38 PM EDT [facility] [place] 57-10 ANION GAP 11 7 - 15 mmol/L 07/17/2024 4:38 PM EDT [facility] [place] 57-10 GLUCOSE 87 70 - 120 mg/dL 07/17/2024 4:38 PM EDT [facility] [place] 57-10 Albumin 4.5 3.8 - 5.0 g/dL 07/17/2024 4:38 PM EDT [facility] [place] 57-10 AST 27 10 - 35 U/L 07/17/2024 4:38 PM EDT [facility] [place] 57-10 Alkaline Phosphatase 79 35 - 130 U/L 07/17/2024 4:38 PM EDT [facility] [place] 57-10 Bilirubin, Total 0.8 <=1.2 mg/dL 07/17/2024 4:38 PM EDT [facility] [place] 57-10 CALCIUM 10.0 8.4 - 10.2 mg/dL 07/17/2024 4:38 PM EDT [facility] [place] 57-10 Protein 7.6 6.0 - 8.3 g/dL 07/17/2024 4:38 PM EDT [facility] [place] 57-10 ALT 13 10 - 35 U/L 07/17/2024 4:38 PM EDT [facility] [place] 57-10 Blood Venous blood specimen / Unknown Venipuncture / Unknown 07/17/2024 3:16 PM EDT 07/17/2024 3:16 PM EDT Henrik De La Cruz DO LAB BLOOD ORDERABLES [facility] [place] 57-10 [address] [facility] [address] documented in this encounter Visit Diagnoses Diagnosis Preoperative general physical examination- Primary Other specified pre-operative examination Primary osteoarthritis of one knee, left Permanent atrial fibrillation (HCC) Atrial fibrillation HTN, goal below 140/90 Unspecified essential hypertension Dyslipidemia Other and unspecified hyperlipidemia Age-related osteoporosis without current pathological fracture Senile osteoporosis S/P mitral valve repair Other postprocedural status S/P tricuspid valve repair Other postprocedural status Cardiac pacemaker in situ Pulmonary hypertension (HCC) Other chronic pulmonary heart diseases Need for pneumococcal vaccination Need for prophylactic vaccination against streptococcus pneumoniae (pneumococcus) Vertigo Dizziness and giddiness Risk and functional assessment Screening for unspecified condition documented in this encounter Advance Directives * Full Code (Latest Code Status on File) Date Activated Date Inactivated Comments 07/22/2020 12:27 PM 07/26/2020 4:43 PM This orde r reflects the patients wishes and were consensually agreed upon. Care Teams Assembler Faucets Relationship Specialty Start Date End Date Henrik De La Cruz DO [address] [place] [address] PCP - General Internal Medicine 03/22/24 documented as of this encounter
--- OUTSIDE RECORDS SUMMARY | 2024-08-14 12:17 | External Medical Summary | Summary of Care ---
Author Name Unknown Organization [facility] Address [address] [place] [address] Phone [phone] Care Team Providers Care Face Burler Name Role Phone Henrik De La Cruz Krysta ZAZUETA Primary Care Provider [phone] Encounter Details Date Type Department Care Team (Late st Contact Info) Description 07/25/2024 Documentation HEALTH & WELLNESS Audelia Velez, Health Gas Engine Repairer Allergies Active Allergy Reactions Criticality Noted Date [...] as of this encounter (statuses as of 07/25/2024) Medications Medication Sig Dispensed Refills Start Date [...] Release 24 Hour (toPROL XL)Indications:Athe rosclerosis of [place] coronary artery of [place] heart without angina pectoris,S/P mitral valve repair,S/P tricuspid valve repair,Permanent atrial fibrillation (HCC),HTN, goal below 140/90 TAKE ONE TABLET BY MOUTH EVERY DAY IN THE MORNING 90 Tablet 3 06/05/2024 06/05/2025 Active Losartan Potassium 50 MG Oral Tablet (Cozaar)Indications :S/P mitral valve repair,S/P tricuspid valve repair,HTN, goal below 140/90,Atherosclero sis of [place] coronary artery of [place] heart without angina pectoris Take 1 Tablet [...] as of this encounter (statuses as of 07/25/2024) Active Problems Problem Noted Date Diagnosed Date Primary osteoarthritis of one knee, left 024 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 pacemaker in situ 03/10/2022 S/P mitral valve repair 01/05/2022 S/P tricuspid valve repair 01/05/2022 Pulmonary hypertension 12/03/2021 Atherosclerosis of [place] co ronary artery without angina pectoris 06/02/2021 Gastro-esophageal reflux disease without esophag itis 02/09/2021 Mitral valve regurgitation 07/22/2020 Tricuspid valve disease 07/22/2020 Age-related osteoporosis wit hout current pathological fracture 06/13/2019 HTN, goal below 140/90 10/19/2018 Dyslipidemia 10/19/2018 Uterovaginal prolapse 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 FEM STRESS INCONTINENCE 10/10 Esophagitis 09/01/2021 Overview: ICD-10 update of inactive term documented as of this encounter (statuses as of 07/25/2024) Immunizations Name Administration Dates Next Due COVID-19 mRNA, LNP-s, No Pre serve, 2-Dose Series (Moderna) 12/10/2020,11/12/2020 COVID-19, LNP-s, No Preserve , Blue-sucrose, Ages 12+ (Pfizer) 03/02/2022 COVID-19, MRNA-LNP, 23-24, P F, 30 MCG/0.3 mL, 12 YRS AND ABOVE, IM ([email or web address] (Wayin)) 08/02/2023 COVID-19, MRNA-LNP, 24-25, P R, 30MCG/0.3ML, IM, 12YRS AND ABOVE ([employer] (Wayin)) 07/17/2024 COVID-19, mRNA, LNP-s, PF, B ooster, 100mcg/0.5mg (Moderna) 08/15/2021 Covid-19, Mrna, Lnp-s, Pf, B ivalent, 30 Mcg, IM, 12 yrs and above (Pfizer) 01/28/2023,09/07/2022 Pneumococcal Conjugate Vacc, 13 Valent (Prevnar) 04/25/2015 Pneumococcal Conjugate Vacci ne, 20-valent ([id number]) 07/17/2024 Pneumococcal Polysaccharide PPV23 (Pneumovax) 08/13/2008,08/13/2008 RSV [...] No 07/22/2020 documented as of this encounter Progress Notes * Audelia Velez Health Gas Engine Repairer - 07/25/2024 3:44 PM EDT Visit Type: Return Ortho Knee Left Knee Replacement Ortho Visit: Session 7 Ongoing for another session documented in this encounter Plan of Treatment Upcoming Encounters Date Type Department Care Team (Late st Contact Info) Description 07/27/2024 12:30 PM EDT Office Visit Family Practice [address] [place] [address] 293 [facility] [id number] College, Health Gas Engine Repairer [facility] [address] [address] 08/17/2024 11:00 AM EST Anticoagulation Family Practice 65 [facility] 293 [facility] [phone] College, Pharmacist [address] [address] 08/22/2024 11:30 AM EST Office Visit Otolaryngology [facility] 132 [facility] [place] [address] Melyssa Paris PA-C [address] [place] [address] 11/19/2024 11:20 AM EST Office Visit Family Practice [address] [place] [address] 293 [facility] [place] [address] Henrik De La Cruz DO 293 [place] [address] 12/07/2024 2:00 PM EST Office Visit Cardiology, [facility] [address] [place] [address] Khurram Mcbride, [place] [address] [place] [address] 02/14/2025 1:40 PM EDT Office Visit Dermat[facility] [place] [address] Dina Wong PA-C [facility] [place] [address] Scheduled Procedures Name Priority Associated Diagnoses Date/Ti [...] D LEVEL ONCE IN A LIFETIME-USE SMARTSET# 11238 Completed 11/11/2021, 06/13/2019, 06/05/2012, Additional history exists [...] this encounter Medical Devices Implanted Type Area Wet Char Conveyor Tender Device Identifier Shelf Expiration Date Model / Serial / Lot [place] Variax 2 Wrist Tray: Volar Distal Radius Plate 49mm Intermediate Implanted:Qty: 1 on 07/06/2019 by Sawyer Garcia MD at OR [facility] Left: Wrist [id number] / / Description:left radius Jayden Variax 2 Wrist Tray: 2.7mm Non-Locking Screw 16mm Implanted:Qty: 1 on 07/06/2019 by Sawyer Garcia MD at OR [facility] Left: Wrist [id number] / / [place] Variax 2 Wrist Tray: 2.7mm Locking Screw 12mm Implanted:Qty: 1 on 07/06/2019 by Sawyer Garcia MD at OR [facility] Left: Wrist [id number] / / Jayden Variax 2 Wrist Tray: 2.7mm Locking Screw 16mm Implanted:Qty: 1 on 07/06/2019 by Sawyer Garcia MD at OR [facility] Left: Wrist [id number] / / Jayden Variax 2 Wrist Tray: 2.7mm Locking Screw Implanted:Qty: 2 on 07/06/2019 by Sawyer Garcia MD at OR [facility] Left: Wrist [id number] / / Description:18mm [place] Variax 2 Wrist Tray: 2.7mm Locking Screw 20mm Implanted:Qty: 2 on 07/06/2019 by Sawyer Garcia MD at OR [facility] Left: Wrist [id number] / / [place] Variax 2 Wrist Tray: 2.7mm Non-Locking Screw 14mm Implanted:Qty: 1 on 07/06/2019 by Sawyer Garcia MD at OR [facility] Left: Wrist [id number] / / Ring Ewa Physioii 28mm [id number] - [id number] - [id number] Implanted:Qty: 1 on 07/22/2020 by Rui Foley MD at OR [facility] [place] [place] N/A: Heart [employer] 12/09/2024 [id number] / [id number] / [id number] 30mm Ats Tri-Ad 2.0 Adrian Tricuspid Band Implanted:Qty: 1 on 07/22/2020 by Rui Foley MD at OR [facility] [place] [place] N/A: Heart [employer] : CARDIAC SURGERY [id number] 09/20/2024 [id number] / [id number] / [id number] Suture Steel 6 B&S19 M654g - [id number] Implanted:Qty: 4 on 07/22/2020 by Rui Foley MD at OR [facility] [place] [place] N/A: Sternum JNJ : [employer] 02/06/2025 [id number] / / [id number] Clip Occl Atri Flex V 40mm - [id number] Implanted:Qty: 1 on 07/22/2020 by Rui Foley MD at OR [facility] [place] [place] N/A: Heart ATRICURE [id number] 11/10/2022 ACHV4 0 / / [id number] documented as of this encounter Advance Directives * Full Code (Latest Code Status on File) Date Activated Date Inactivated Comments 07/22/2020 12:27 PM 07/26/2020 4:43 PM This orde r reflects the patients wishes and were consensually agreed upon. Care Teams Face Burler Relationship Specialty Start Date End Date Henrik De La Cruz DO [address] [facility] [place] [address] PCP - General Internal Medicine 03/22/24 documented as of this encounter
--- OUTSIDE RECORDS SUMMARY | 2024-08-14 12:17 | External Medical Summary | Summary of Care ---
Author Name Unknown Organization [facility] Address [address] [place] [address] Phone [phone] Care Team Providers Care Health Specialist Name Role Phone ElizabethjamesHenrik DO Primary Care Provider [phone] Reason for Visit * Reason Comments Dosage Adjustment In Person (Anticoag Cl inic) Encounter Details Date Type Department Care Team (Late st Contact Info) Description 07/17/2024 1:40 PM EDT Anticoagulation Family Practice [address] [address] College, Pharmacist [address] [address] Anticoagulation management encounter*; Permanent atrial fibrillation (HCC); Need for COVID-19 vaccine Allergies Active Allergy Reactions Criticality Noted Date [...] as of this encounter (statuses as of 07/23/2024) Medications Medication Sig Dispensed Refills Start Date [...] Release 24 Hour (toPROL XL)Indications:Athe rosclerosis of de[place] coronary artery of de[place] heart without angina pectoris,S/P mitral valve repair,S/P tricuspid valve repair,Permanent atrial fibrillation (HCC),HTN, goal below 140/90 TAKE ONE TABLET BY MOUTH EVERY DAY IN THE MORNING 90 Tablet 3 06/05/2024 06/05/2025 Active Losartan Potassium 50 MG Oral Tablet (Cozaar)Indications :S/P mitral valve repair,S/P tricuspid valve repair,HTN, goal below 140/90,Atherosclero sis of de[place] coronary artery of de[place] heart without angina pectoris Take 1 Tablet by mouth in the morning. 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 pacemaker in situ 03/10/2022 S/P mitral valve repair 01/05/2022 S/P tricuspid valve repair 01/05/2022 Pulmonary hypertension 12/03/2021 Atherosclerosis of [place] co ronary artery without angina pectoris 06/02/2021 Gastro-esophageal reflux disease without esophag itis 02/09/2021 Mitral valve regurgitation 07/22/2020 Tricuspid valve disease 07/22/2020 Age-related osteoporosis wit hout current pathological fracture 06/13/2019 HTN, goal below 140/90 10/19/2018 Dyslipidemia 10/19/2018 Uterovaginal prolapse 01/10/2007 salvage determiner current use of anticoagulant therapy 0 11/01/2003 Permanent atrial fibrillation 04/26/2002 Rosacea 03/27/2002 Mitral valve prolapse documented as of this encounter (statuses as of 07/23/2024) Resolved Problems Problem Noted Date Diagnosed Date [...] HYPERLIPIDEMIA NEC/NOS(aka LIPIDS) 07/28/2004 10/19/2018 lesion --rt yarsanism 05/31/2002 9 Anticoagulation management encounter 04/26/2002 09/02/2020 Other dermatitis due to solar radiation 03/27/2002 10/19/2018 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 FEM STRESS INCONTINENCE 10/10 Esophagitis 09/01/2021 Overview: ICD-10 update of inactive term documented as of this encounter (statuses as of 07/23/2024) Immunizations Name Administration Dates Next Due COVID-19 mRNA, LNP-s, No Pre serve, 2-Dose Series (Moderna) 12/10/2020,11/12/2020 COVID-19, LNP-s, No Preserve , Blue-sucrose, Ages 12+ (Pfizer) 03/02/2022 COVID-19, MRNA-LNP, 23-24, P F, 30 MCG/0.3 mL, 12 YRS AND ABOVE, IM ([employer]-Comirnaty) 08/02/2023 COVID-19, MRNA-LNP, 24-25, P R, 30MCG/0.3ML, IM, 12YRS AND ABOVE ([employer]-Comirnaty) 07/17/2024 COVID-19, mRNA, LNP-s, PF, B ooster, 100mcg/0.5mg (Moderna) 08/15/2021 Covid-19, Mrna, Lnp-s, Pf, B ivalent, 30 Mcg, IM, 12 yrs and above (Pfizer) 01/28/2023,09/07/2022 Pneumococcal Conjugate Vacc, 13 Valent (Prevnar) 04/25/2015 Pneumococcal Conjugate Vacci ne, 20-valent ([id number]) 07/17/2024 Pneumococcal Polysaccharide PPV23 (Pneumovax) 08/13/2008,08/13/2008 RSV [...] as of this encounter Progress Notes * Mamie Hill, Ellie Chew, [facility] - 07/17/2024 1:18 PM EDT Medication Therapy Disease Management - Anticoagulation Patient: Kiran Moreno | : 1940 Subjective Patient-Reported Symptoms: Patient Findings Positives: Upcoming invasive procedure (knee surgery 08/01) Negatives: Signs/symptoms of thrombosis, Signs/symptoms of bleeding, Change in health, Change in alcohol use, Change in activity, Missed doses, Extra doses, Change in medications, Change in diet/appetite, Bruising Patient is having a TKA on 08/01. Diagosis for coumadin therapy is atrial fibrillation. No hx of recent DVT, PE, MVR, PA or CVA. CHADS-VASc score of 5 (Age, HTN, Vasc, Female). Lovenox bridge is not indicated. Patient will take their last dose of coumadin 07/26, then restart coumadin the evening after the procedure with 7.5 mg for 2 days, then resume previous dose 2.5mg MWF, 5 mg all other days. Patient to be admitted for 1 night - so no instructions given for 08/01. Repeat pt/inr 2 weeks afterprocedure. Ellie Torres [facility] Clinical Pharmacist 07/17/2024, 4:41 PM Objective Current Warfarin Dose As of 07/17/2024 Warfarin maintenance plan: 2.5 mg (5 mg x 0.5) every Mon, Wed, Fri; 5 mg (5 mg x 1) all other days INR Result As of 07/17/2024 INR goal: 2.0-3.0 INR used for dosin.5 (07/17/2024) Assessment & Plan Warfarin Plan As of 07/17/2024 Full warfarin instructions: 07/27: Hold; 07/28: Hold; 07/29: Hold; 07/30: Hold; 07/31: Hold; 08/01:Hold; 08/02: 7.5 mg; 08/03: 7.5 mg; Otherwise 2.5 mg every Mon, Wed, Fri; 5 mg all other days Next INR check: 08/06/2024 Repeat PT/INR in 4 week(s) Weekly dose: not changed Additional Dosing Information: I spent a total of 20-29 minutes (exact time 24 mins) on the date of service in preparation, delivery, and documentation of the care provided to Kiran Moreno excluding any time spent in the performance of separately billed services or time spent by another provider/QHP. Ellie Torres [facility] Clinical Pharmacist 07/17/2024, 1:18 PM Pre-Administration Time Out Procedure Performed: Yes Patient Identified (Ask Name/Date of ): Yes Does the patient have a fever greater than 101 degrees today? No Patient allergic to latex? No Has the patient ever fainted after receiving an injection? No VFC Stock: No Immunization(s) verified: Yes, Immunization Name: Flu and COVID, VIS Sheet(s) given: Yes Verified Side and Site: Yes Verified Shot(s) with Parent(s)/Patient: Yes documented in this encounter Plan of Treatment Upcoming Encounters Date Type Department Care Team (Late st Contact Info) Description 08/17/2024 11:00 AM EST Anticoagulation Family Practice 65 [facility] 293 [facility] [place] [address] College, Pharmacist [address] [place] [address] 08/22/2024 11:30 AM EST Office Visit Otolaryngology [facility] [address] [facility] [place] [address] Melyssa Paris PA-C [facility] [place] [address] 11/19/2024 11:20 AM EST Office Visit Family Practice [address] [place] [address] 293 [facility], [place] [address] Henrik De La Cruz DO 293 [facility], [place] [address] 12/07/2024 2:00 PM EST Office Visit Cardiology, [facility] 132 [facility] [place] [address] Khurram Mcbride, PA-C 132 [facility] [place] [address] 02/14/2025 1:40 PM EDT [facility] [address] [place], [place] [address] Dina Wong PA-C [address] [place], [place] [address] Scheduled Procedures Name Priority Associated Diagnoses Date/Ti [...] D LEVEL ONCE IN A LIFETIME-USE SMARTSET# 97693 Completed 11/11/2021, 06/13/2019, 06/05/2012, Additional history exists [...] this encounter Medical Devices Implanted Type Area Software Product Specialist Device Identifier Shelf Expiration Date Model / Serial / Lot Jayden Variax 2 Wrist Tray: Volar Distal Radius Plate 49mm Intermediate Implanted:Qty: 1 on 07/06/2019 by Sawyer Gacria MD at OR [facility] Left: Wrist [id number] / / Description:left radius Jayden Variax 2 Wrist Tray: 2.7mm Non-Locking Screw 16mm Implanted:Qty: 1 on 07/06/2019 by Sawyer Garcia MD at OR [facility] Left: Wrist [id number] / / Ragland Variax 2 Wrist Tray: 2.7mm Locking Screw 12mm Implanted:Qty: 1 on 07/06/2019 by Sawyer Garcia MD at OR [facility] Left: Wrist [id number] / / Jayden Variax 2 Wrist Tray: 2.7mm Locking Screw 16mm Implanted:Qty: 1 on 07/06/2019 by Sawyer Garcia MD at OR [facility] Left: Wrist [id number] / / Ragland Variax 2 Wrist Tray: 2.7mm Locking Screw Implanted:Qty: 2 on 07/06/2019 by Sawyer Garcia MD at OR [facility] Left: Wrist [id number] / / Description:18mm Ragland Variax 2 Wrist Tray: 2.7mm Locking Screw 20mm Implanted:Qty: 2 on 07/06/2019 by Sawyer Garcia MD at OR [facility] Left: Wrist [id number] / / Jayden Variax 2 Wrist Tray: 2.7mm Non-Locking Screw 14mm Implanted:Qty: 1 on 07/06/2019 by Sawyer Garcia MD at OR [facility] Left: Wrist [id number] / / Ring Ewa Physioii 28mm [id number] - [id number] - [id number] Implanted:Qty: 1 on 07/22/2020 [place] Rui [place] [facility] [place]: Heart [employer] 12/09/2024 [id number] / [id number] / [id number] 30mm Ats Tri-Ad 2.0 Adrian Tricuspid Band Implanted:Qty: 1 on 07/22/2020 by Rui Foley MD [place] [facility] [place]A: Heart [employer] : CARDIAC SURGERY [id number] 09/20/2024 [id number] / [id number] / [id number] Suture Steel 6 B&S19 M654g - [id number] Implanted:Qty: 4 on 07/22/2020 by Rui Foley MD [place] [facility] [place]A: Sternum JNJ : [employer] 02/06/2025 [id number] / / [id number] Clip Occl Atri Flex V 40mm - [id number] Implanted:Qty: 1 on 07/22/2020 by Rui Foley MD at [facility] N/A: Heart ATRICURE [id number] 11/10/2022 [id number] documented as of this encounter Procedures Procedure Name Priority Date/Time Associated Diagnosis Comments INR FINGERSTICK, POINT OF CARE HAYDE 07/17/2024 1:46 PM EDT documented in this encounter Results * INR FINGERSTICK, POINT OF CARE (07/17/2024 1:46 PM EDT) Fingerstick INR 2.5 INR 8:00 AM EDT [facility] Blood 07/17/2024 1:46 PM EDT 07/18/2024 8:00 AM EDT Narrative [facility] 56-21 - 07/18/2024 8:00 AM EDT Therapeutic ranges for non-operative patients: Prophylaxsis/treatment of DVT: (Range:2.0-3.0) Treatment of pulmonary embolism:(Range:2.0-3.0) Prevention of systemic embolism from: -tissue heart valves -acute myocardial infarction -valvular heart disease -atrial fibrillation (Range: 2.0-3.0) Mechanical prosthetic valves: (Range: 2.5-3.5) Pharmacist 65 [facility] LAB POINT OF CARE TEST DOCKED DEVICE UNSOLICITED RESULTS [facility] 293 [place] [address], [facility] documented in this encounter Visit Diagnoses Diagnosis Anticoagulation management encounter- Primary Encounter for therapeutic drug monitoring Permanent atrial fibrillation (HCC) Atrial fibrillation Need for COVID-19 vaccine documented in this encounter Advance Directives * Full Code (Latest Code Status on File) Date Activated Date Inactivated Comments 07/22/2020 12:27 PM 07/26/2020 4:43 PM This orde r reflects the patients wishes and were consensually agreed upon. Care Teams Health Specialist Relationship Specialty Start Date End Date Henrik De La Cruz DO [address] [place] [address] PCP - General Internal Medicine 03/22/24 documented as of this encounter"
--- OUTSIDE RECORDS SUMMARY | 2024-08-14 12:17 | External Medical Summary | Summary of Care ---
Author Name Unknown Organization [facility] Address [address] [place] [address] Phone [phone] Care Team Providers Care Sugar Mixer Name Role Phone Henrik De La Cruz Krysta ZAZUETA Primary Care Provider [phone] Encounter Details Date Type Department Care Team (Late st Contact Info) Description 07/19/2024 Documentation HEALTH & WELLNESS Audelia Velez, Health Director Of Community Services Allergies Active Allergy Reactions Criticality Noted Date [...] Release 24 Hour (toPROL XL)Indications:Athe rosclerosis of [place] coronary artery of [place] heart without angina pectoris,S/P mitral valve repair,S/P tricuspid valve repair,Permanent atrial fibrillation (HCC),HTN, goal below 140/90 TAKE ONE TABLET BY MOUTH EVERY DAY IN THE MORNING 90 Tablet 3 06/05/2024 06/05/2025 Active Losartan Potassium 50 MG Oral Tablet (Cozaar)Indications :S/P mitral valve repair,S/P tricuspid valve repair,HTN, goal below 140/90,Atherosclero sis of [place] coronary artery of [place] heart without angina pectoris Take 1 Tablet [...] repair 01/05/2022 Pulmonary hypertension 12/03/2021 Atherosclerosis of [place] co ronary artery without angina pectoris 06/02/2021 Gastro-esophageal reflux disease without esophag itis 02/09/2021 Mitral valve regurgitation 07/22/2020 Tricuspid valve disease 07/22/2020 Age-related osteoporosis wit hout current pathological fracture 06/13/2019 HTN, goal below 140/90 10/19/2018 Dyslipidemia 10/19/2018 Uterovaginal prolapse 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/2007 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 therapy 0 11/01/2003 [...] HYPERLIPIDEMIA NEC/NOS(aka LIPIDS) 07/28/2004 10/19/2018 lesion --rt episcopalian 05/31/2002 9 Anticoagulation management encounter 04/26/2002 09/02/2020 [...] MCG/0.3 mL, 12 YRS AND ABOVE, IM ([employer]) 08/02/2023 COVID-19, MRNA-LNP, 24-25, P R, 30MCG/0.3ML, IM, 12YRS AND ABOVE ([employer]-Comirnat[employer]able Local) 07/17/2024 COVID-19, mRNA, LNP-s, PF, B ooster, 100mcg/0.5mg (Moderna) 08/15/2021 Covid-19, Mrna, Lnp-s, Pf, B ivalent, 30 Mcg, IM, 12 yrs and above (Pfizer) 01/28/2023,09/07/2022 Pneumococcal Conjugate Vacc, 13 Valent (Prevnar) 04/25/2015 Pneumococcal Conjugate Vacci ne, 20-valent ([id number]) 07/17/2024 Pneumococcal Polysaccharide PPV23 (Pneumovax) 08/13/2008,08/13/2008 RSV [...] encounter Progress Notes * Audelia Velez Health Director Of Community Services - 07/19/2024 2:02 PM EDT SESSION TYPE: One-on-one exercise session: Exercise Subtype or Modality: Resistance Training Weight: Blood pressure: Planned Exercise Routine: Flexibility/ROM: calf stretch and Lower Body Strength: seated knee raises, seated knee extensions, plantar flexion with resistance band, dorsiflexion with resistance band, quad sets with ball, heel raises, standing hip abduction, hamstring curls with resistance band Frequency: 2x week Duration: 30-45 minutes Patient completed 1v1 exercise session and tolerated exercise well. documented in this encounter Plan of Treatment Upcoming Encounters Date Type Department Care Team (Late st Contact Info) Description 08/16/2024 11:00 AM EST Anticoagulation Family Practice 65 [facility] [address] College, Pharmacist 65 [facility] [address] 08/22/2024 11:30 AM EST Office Visit Otolaryngology [facility] 132 [facility] [place] [address] Melyssa Paris PA-C [address] [place] [address] 11/19/2024 11:20 AM EST Office Visit Family Practice [address] [place] [address] 293 [place] [address] Henrik De La Cruz DO 293 [facility] [place] [address] 12/07/2024 2:00 PM EST Office Visit Cardiology, [facility] [address] [place] [address] Khurram Mcbride PA-C [address] [place] [address] 02/14/2025 1:40 PM EDT Office Visit Dermatology [facility] [address] [facility] [place] [address] Dina Wong PA-C 200 [facility] [place] [address] Scheduled Procedures Name Priority Associated Diagnoses Date/Ti me ROBOTIC ARTHROPLASTY KNEE TOTAL Primary osteoarthritis of one knee, left Health Maintenance Due Date Last Done Comments DXA Scan 11/10/2023 11/10/2021, 02/0 10/2021, 11/06/2018, Additional history exists Adult Wellness [...] D LEVEL ONCE IN A LIFETIME-USE SMARTSET# 75107 Completed 11/11/2021, 06/13/2019, 06/05/2012, Additional history exists [...] this encounter Medical Devices Implanted Type Area Clean Out Driller Device Identifier Shelf Expiration Date Model / Serial / Lot Belfair Variax 2 Wrist Tray: Volar Distal Radius Plate 49mm Intermediate Implanted:Qty: 1 on 07/06/2019 by Sawyer Garcia MD at [place] [facility] Left: Wrist [id number] / / Description:left radius Belfair Variax 2 Wrist Tray: 2.7mm Non-Locking Screw 16mm Implanted:Qty: 1 on 07/06/2019 by Sawyer Garcia MD at [place] [facility] Left: Wrist [id number] / / Belfair Variax 2 Wrist Tray: 2.7mm Locking Screw 12mm Implanted:Qty: 1 on 07/06/2019 by Sawyer Garcia MD at [place] [facility] Left: Wrist [id number] / / Jayden Variax 2 Wrist Tray: 2.7mm Locking Screw 16mm Implanted:Qty: 1 on 07/06/2019 by Sawyer Garcia MD at OR [facility] Left: Wrist [id number] / / Belfair Variax 2 Wrist Tray: 2.7mm Locking Screw Implanted:Qty: 2 on 07/06/2019 by Sawyer Garcia MD at [place] [facility] Left: Wrist [id number] / / Description:18mm Jayden Variax 2 Wrist Tray: 2.7mm Locking Screw 20mm Implanted:Qty: 2 on 07/06/2019 by Sawyer Garcia MD at OR [facility] Left: Wrist [id number] / / Jayden Variax 2 Wrist Tray: 2.7mm Non-Locking Screw 14mm Implanted:Qty: 1 on 07/06/2019 by Sawyer Garcia MD at [place] [facility] Left: Wrist [id number] / / Ring Ewa Physioii 28mm [id number] - [id number] - [id number] Implanted:Qty: 1 on 07/22/2020 by Rui Foley MD [place] [facility] [place]: Heart [employer] 12/09/2024 [id number] / [id number] / [id number] 30mm Ats Tri-Ad 2.0 Adrian Tricuspid Band Implanted:Qty: 1 on 07/22/2020 by Rui Foley MD [place] [facility] [place]: Heart [employer] : CARDIAC SURGERY [id number] 09/20/2024 [id number] / [id number] / [id number] Suture Steel 6 B&S19 M654g - [id number] Implanted:Qty: 4 on 07/22/2020 by Rui Foley MD [place] [facility] [place]/A: Sternum JNJ : [employer] 02/06/2025 [id number] / / [id number] Clip Occl Atri Flex V 40mm - [id number] Implanted:Qty: 1 on 07/22/2020 by Rui Foley MD [place] [facility] [place]/A: Heart ATRICURE [id number] 11/10/2022 [id number] / / [id number] documented as of this encounter Advance Directives * Full Code (Latest Code Status on File) Date Activated Date Inactivated Comments 07/22/2020 12:27 PM 07/26/2020 4:43 PM This orde r reflects the patients wishes and were consensually agreed upon. Care Teams Sugar Mixer Relationship Specialty Start Date End Date Henrik De La Cruz DO [address] [place] [address] PCP - General Internal Medicine 03/22/24 documented as of this encounter
--- OUTSIDE RECORDS SUMMARY | 2024-08-14 12:17 | External Medical Summary | Summary of Care ---
Author Name Unknown Organization [facility] Address [address] [place] [address] Phone [phone] Care Team Providers Care Gas Producer Name Role Phone Henrik De La Cruz Krysta ZAZUETA Primary Care Provider [phone] Encounter Details Date Type Department Care Team (Late st Contact Info) Description 07/27/2024 Documentation HEALTH & WELLNESS Audelia Velez, Health Painter Rough Allergies Active Allergy Reactions Criticality Noted Date [...] Release 24 Hour (toPROL XL)Indications:Athe rosclerosis of [place] coronary artery of [place] heart without angina pectoris,S/P mitral valve repair,S/P tricuspid valve repair,Permanent atrial fibrillation (HCC),HTN, goal below 140/90 TAKE ONE TABLET BY MOUTH EVERY DAY IN THE MORNING 90 Tablet 3 06/05/2024 06/05/2025 Active Losartan Potassium 50 MG Oral Tablet (Cozaar)Indications :S/P mitral valve repair,S/P tricuspid valve repair,HTN, goal below 140/90,Atherosclero sis of [place] coronary artery of [place] heart without angina pectoris Take 1 Tablet [...] repair 01/05/2022 Pulmonary hypertension 12/03/2021 Atherosclerosis of [place] co ronary artery without angina pectoris 06/02/2021 Gastro-esophageal reflux disease without esophag itis 02/09/2021 Mitral valve regurgitation 07/22/2020 Tricuspid valve disease 07/22/2020 Age-related osteoporosis wit hout current pathological fracture 06/13/2019 HTN, goal below 140/90 10/19/2018 Dyslipidemia 10/19/2018 Uterovaginal prolapse 01/10/2007 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 0 11/01/2003 [...] HYPERLIPIDEMIA NEC/NOS(aka LIPIDS) 07/28/2004 10/19/2018 lesion --rt protestant 05/31/2002 9 Anticoagulation management encounter 04/26/2002 09/02/2020 [...] MCG/0.3 mL, 12 YRS AND ABOVE, IM ([employer]-Munet[employer]natInnalabs [employer]) 08/02/2023 COVID-19, MRNA-LNP, 24-25, P R, 30MCG/0.3ML, IM, 12YRS AND ABOVE ([employer]Comirnat[employer]) 07/17/2024 COVID-19, mRNA, LNP-s, PF, B ooster, 100mcg/0.5mg (Moderna) 08/15/2021 Covid-19, Mrna, Lnp-s, Pf, B ivalent, 30 Mcg, IM, 12 yrs and above (Pfizer) 01/28/2023,09/07/2022 Pneumococcal Conjugate Vacc, 13 Valent (Prevnar) 04/25/2015 Pneumococcal Conjugate Vacci ne, 20-valent ([id number]) 07/17/2024 Pneumococcal Polysaccharide PPV23 (Pneumovax) 08/13/2008,08/13/2008 RSV [...] encounter Progress Notes * Audelia Velez Health Painter Rough - 07/27/2024 1:44 PM EDT Visit Type: Return Ortho Knee Left Knee Replacement Last ortho session Completed Program documented in this encounter Plan of Treatment Upcoming Encounters Date Type Department Care Team (Late st Contact Info) Description 08/17/2024 11:00 AM EST Anticoagulation Family Practice [address] [place] [address] [place] [address] College, Pharmacist [address] [place] [address] 08/22/2024 11:30 AM EST Office Visit Otolaryngology [facility] [address] [place] [address] Melyssa Paris PA-C [address] [place] [address] 11/19/2024 11:20 AM EST Office Visit Family Practice [address] [place] [address] [address] [facility] [address] Henrik De La Cruz, [address] [place] [address] 12/07/2024 2:00 PM EST Office Visit Cardiology, [facility] [address] [place] [address] Khurram Mcbride PA-C [address] [place] [address] 02/14/2025 1:40 PM EDT Office Visit Dermatology [facility] [address] [place] [address] Dina Wong PA-C [address] [place] [address] Scheduled Procedures Name Priority Associated Diagnoses Date/Ti [...] D LEVEL ONCE IN A LIFETIME-USE SMARTSET# [id number] Completed 11/11/2021, 06/13/2019, 06/05/2012, Additional history exists [...] this encounter Medical Devices Implanted Type Area Goal Umpire Device Identifier Shelf Expiration Date Model / Serial / Lot [place] Variax 2 Wrist Tray: Volar Distal Radius Plate 49mm Intermediate Implanted:Qty: 1 on 07/06/2019 by Sawyer Garcia MD at OR [facility] Left: Wrist [id number] / / Description:left radius [place] Variax 2 Wrist Tray: 2.7mm Non-Locking Screw 16mm Implanted:Qty: 1 on 07/06/2019 by Sawyer Garcia MD at OR [facility] Left: Wrist [id number] / / [place] Variax 2 Wrist Tray: 2.7mm Locking Screw 12mm Implanted:Qty: 1 on 07/06/2019 by Sawyer Garcia MD at OR [facility] Left: Wrist [id number] / / Jayden Variax 2 Wrist Tray: 2.7mm Locking Screw 16mm Implanted:Qty: 1 on 07/06/2019 by Sawyer Garcia MD at OR [facility] Left: Wrist [id number] / / Jayden Variax 2 Wrist Tray: 2.7mm Locking Screw Implanted:Qty: 2 on 07/06/2019 by Sawyer Garcia MD at OR [facility] Left: Wrist [id number] / / Description:18mm [place] Variax 2 Wrist Tray: 2.7mm Locking Screw 20mm Implanted:Qty: 2 on 07/06/2019 by Sawyer Garcia MD at OR [facility] Left: Wrist [id number] / / [place] Variax 2 Wrist Tray: 2.7mm Non-Locking Screw 14mm Implanted:Qty: 1 on 07/06/2019 by Sawyer Garcia MD at OR [facility] Left: Wrist [id number] / / Ring Ewa Physioii 28mm [id number] - [id number] - [id number] Implanted:Qty: 1 on 07/22/2020 by Rui Foley MD [place] [facility] N/A: Heart [employer] 12/09/2024 [id number] / [id number] / [id number] 30mm Ats Tri-Ad 2.0 Adrian Tricuspid Band Implanted:Qty: 1 on 07/22/2020 by Rui Foley MD at [place] [facility] N/A: Heart [employer] : CARDIAC SURGERY [id number] 09/20/2024 [id number] / [id number] / [id number] Suture Steel 6 B&S19 M654g - [id number] Implanted:Qty: 4 on 07/22/2020 by Rui Foley MD at OR [facility] N/A: Sternum JNJ : [employer] 02/06/2025 [id number] / / [id number] Clip Occl Atri Flex V 40mm - [id number] Implanted:Qty: 1 on 07/22/2020 by Rui Foley MD at [place] [facility] N/A: Heart ATRICURE [id number] 11/10/2022 [id number] / / [id number] documented as of this encounter Advance Directives * Full Code (Latest Code Status on File) Date Activated Date Inactivated Comments 07/22/2020 12:27 PM 07/26/2020 4:43 PM This orde r reflects the patients wishes and were consensually agreed upon. Care Teams Gas Producer Relationship Specialty Start Date End Date Henrik De La Cruz DO [address] [place] [address] PCP - General Internal Medicine 03/22/24 documented as of this encounter
--- OUTSIDE RECORDS SUMMARY | 2024-08-14 12:17 | External Medical Summary | Summary of Care ---
Author Name Unknown Organization [facility] Address [address] [place] [address] Phone [phone] Care Team Providers Care Sap Solutions Architect Name Role Phone Henrik De La Cruz DO Primary Care Provider [phone] Reason for Visit * Reason Comments Follow Up Encounter Details Date Type Department Care Team (Latest Contact Info) Description 07/17/2024 1:00 PM EDT Office Visit Family Practice [address] [place] [address] [address] [place] [address] Henrik De La Cruz DO [address] [place] [address] Preoperative general physical examination*; Primary osteoarthritis of [...] Release 24 Hour (toPROL XL)Indications:At herosclerosis of [place] coronary artery of [place] heart without angina pectoris,S/P mitral valve repair,S/P tricuspid valve repair,Permanent atrial fibrillation (HCC),HTN, goal below 140/90 TAKE ONE TABLET BY MOUTH EVERY DAY IN THE MORNING 90 Tablet 3 06/05/2024 5 Active Losartan Potassium 50 MG Oral Tablet (Cozaar)Indicatio ns:S/P mitral valve repair,S/P tricuspid valve repair,HTN, goal below 140/90,Atheroscle rosis of [place] coronary artery of [place] heart without angina pectoris Take 1 Tablet [...] repair 01/05/2022 Pulmonary hypertension 12/03/2021 Atherosclerosis of [place] co ronary artery without angina pectoris 06/02/2021 Gastro-esophageal reflux disease without esophag itis 02/09/2021 Mitral valve regurgitation 07/22/2020 Tricuspid valve disease 07/22/2020 Age-related osteoporosis wit hout current pathological fracture 06/13/2019 HTN, goal below 140/90 10/19/2018 Dyslipidemia 10/19/2018 Uterovaginal prolapse 01/10/2007 [facility] current use of anticoagulant therapy 0 11/01/2003 Permanent atrial fibrillation 04/26/2002 Rosacea 03/27/2002 Mitral valve prolapse documented as of this encounter (statuses as of 07/19/2024) Resolved Problems Problem Noted Date Diagnosed Date Resolved Date Skin ulcer of calf, limited to breakdown of skin, left 01/25/2023 10/26/2023 Prediabetes 08/17/2021 02/22/2024 Overview: Per Prediabetes protocol Other atherosclerosis of [place] arteries of extremities, bilateral legs 02/09/2021 [...] HYPERLIPIDEMIA NEC/NOS(aka LIPIDS) 07/28/2004 10/19/2018 lesion --rt methodist 05/31/2002 9 Anticoagulation management encounter 04/26/2002 09/02/2020 [...] MCG/0.3 mL, 12 YRS AND ABOVE, IM ([employer]-Comirnaty) 08/02/2023 COVID-19, MRNA-LNP, 24-25, P R, 30MCG/0.3ML, IM, 12YRS AND ABOVE ([employer]-Comirnat) 07/17/2024 COVID-19, mRNA, LNP-s, PF, B ooster, 100mcg/0.5mg (Moderna) 08/15/2021 Covid-19, Mrna, Lnp-s, Pf, B ivalent, 30 Mcg, IM, 12 yrs and above (Pfizer) 01/28/2023,09/07/2022 Pneumococcal Conjugate Vacc, 13 Valent (Prevnar) 04/25/2015 Pneumococcal Conjugate Vacci ne, 20-valent ([id number]) 07/17/2024 Pneumococcal Polysaccharide PPV23 (Pneumovax) 08/13/2008,08/13/2008 RSV [...] Patient Instructions * Patient Instructions* Ambika Desir, STEAMBLASTER - 07/17/2024 1:05 PM EDT Patient Instructions [...] 10 times. Repeat this throughout the day. [employer] Patient Education Copyright 2008 [employer] except where otherwise noted. Preventing Falls: Moving [...] that mean climbing, even on a stepstool. [employer] Patient Education Copyright 2008 - 2010 [employer] except where otherwise noted. Urinary Incontinence Plan [...] valve prolapse Rosacea Permanent atrial fibrillation (HCC) parts counterman current use of anticoagulant therapy Uterovaginal prolapse HTN, goal below 140/90 Dyslipidemia Age-related osteoporosis without current pathological fracture Mitral valve regurgitation Tricuspid valve disease Gastro-esophageal reflux disease without esophagitis Atherosclerosis of [place] coronary artery without angina pectoris Pulmonary hypertension [...] HTN, goal to be determined lesion --rt methodist Other Mitral valve prolapse Rosacea Varicose veins of lower extremities with complications Past Surgical History: Procedure Laterality Date BIOPSY OF BREAST, OPEN Left 08/23/2017 Excision of Radial Scar BREAST BIOPSY Left 05/17/2014 fibrocystic change with usual ductal hyperplasia - [facility] BREAST BIOPSY Left 08/05/2017 Radial Scar COLONOSCOPY 04/22/2003 Dr Nam, diverticuli COLONOSCOPY W/ BIOPSY (RECTUM) 07/09/09 done hyperplastic polyps, f/u in 5 yrs COLONOSCOPY W/ LESION REMOVAL, SNARE 07/09/09 done polyps x2, diverticulosis, path pending repeat 3-5 years COLONOSCOPY, DIAGNOSTIC (RECTUM) 10/31/2014 hyperplastic polyp & inflammatory tissue on bx, diverticulosis, repeat 5 yrs/COLONOSCOPY FLEXIBLE PROXIMAL DIAGNOSTIC performed by Roseanna Allen MD at ENDOSCOPY [facility] EXC BREAST LESION RADMARK Left 08/23/2017 08/23/2017 EXCISION OF BREAST LESION RADIOLOGICAL MARKER performed by Isidra Coley MD at OR [facility] dx fibrofatty breast tissue with focal sclerosing adenosis, previous biopsy site changes, fibrocystic changes fat necrdosis , and associated microcalcifications EXERCISE ECHO 04/23/2002 Afib, MVP, 2+ mitral regurgitation FX/DIS,RADIAL,OPN,INTRAARTIC,INT FIX,2 FRAG Left 07/06/2019 OPEN TREATMENT DISTAL RADIAL INTRA-ARTICULAR FRACTURE OR EPIPHYSEAL SEPARATION INTERNAL FIXATION 2 FRAGMENTS performed by Sawyer Garcia MD at OR [facility] INFORMATION 09/01/2010 Incisional biopsy, right silveira - Dr. Michele INFORMATION 1989?? 1989 left breast aspiration , Dr. Renea León in [facility] LAPAROSCOPY; CHOLECYSTECTOMY N/A 04/30/2019 laparoscopic cholecystectomy [facility] Dr. Saini 04/30/19 LIGATE/CUT OVIDUCT(S) Tubal Ligation [...] BYPASS performed by Rui Foley MD at [facility] REMOVAL OF APPENDIX 06/08/2004 [facility] REMOVE TONSILS & ADENOIDS, UNDER 12 Tonsillectomy/Adenoids,<12 Y/O REPAIR TRICUSPID VALVE, W/RING N/A 07/22/2020 VALVULOPLASTY TRICUSPID VALVE WITH RING performed by Rui Foley MD at [place] [facility] STAB PHLEB VARICOSE;ABOVE 20 Left 04/06/2017 STAB PHLEBECTOMY VARICOSE VEINS MORE THAN 20, ONE EXTREMITY performed by Eugenio Valentine MD at [facility] STEREOTAXIC BIOPSY/SURGERY Left 08/05/2017 08/05/2017 stereotactic left breast [facility] dx left medial stereotactic core bx dx adeosis and fibroelastotic stroma consistent with a radial scar US - BREAST(S) 04/24/2003 decrease in density, repeat mammo in 6 months VAGINAL DELIVERY ONLY Vaginal Delivery VAGINAL DELIVERY ONLY Vaginal Delivery VAGINAL DELIVERY ONLY Vaginal Delivery VEIN ABLATION EXTREMITY,ENDOVEN,1ST Left 04/06/2017 ENDOVENOUS RADIOFREQUENCY ABLATION THERAPY FIRST VEIN performed by Eugenio Valentine MD at [place] [facility] WRIST ARTHROSCOPY/SURGERY Family History Problem Relation Name [...] 12.5 Fingerstick INR INR 2.5 ECG - [facility] 07/13/2024: Ventricular paced rhythm CXR - [facility] 07/13/2024: No acute cardiopulmonary findings, Cardiomegaly Surgical [...] pneumococcal vaccination - PNEUMOCOCCAL VACC, PCV20, IM ([id number]) Vertigo - Meclizine HCl 25 MG Oral [...] Had pre op labs etc done at [facility] documented in this encounter Plan of Treatment Upcoming Encounters Date Type Department Care Team (Late st Contact Info) Description 08/17/2024 11:00 AM EST Anticoagulation Family Practice [address] [facility] [address] [facility], [place] [address] College, Pharmacist [address], [place] [address] 08/22/2024 11:30 AM EST Office Visit Otolaryngology [facility] [address] [place] [address] Melyssa Paris PA-C [address] [place] [address] 11/19/2024 11:20 AM EST Office Visit Family Practice [address] [place] [address] [address] [facility], [place] [address] Henrik De La Cruz, [address] [place] [address] 12/07/2024 2:00 PM EST Office Visit Cardiology, [facility] [address] [place] [address] Khurram Mcbride PA-C [address] [place] [address] 02/14/2025 1:40 PM EDT Office Visit Dermatology [facility] [address] [facility] [place] [address] Dina Wong PA-C [address] [facility] [place] [address] Scheduled Procedures Name Priority Associated Diagnoses Date/Ti [...] D LEVEL ONCE IN A LIFETIME-USE SMARTSET# [id number] Completed 11/11/2021, 06/13/2019, 06/05/2012, Additional history exists [...] this encounter Medical Devices Implanted Type Area Sql Engineer Device Identifier Shelf Expiration Date Model / Serial / Lot [place] Variax 2 Wrist Tray: Volar Distal Radius Plate 49mm Intermediate Implanted:Qty: 1 on 07/06/2019 by Sawyer Garcia MD at OR [facility] Left: Wrist [id number] / / Description:left radius Jayden Variax 2 Wrist Tray: 2.7mm Non-Locking Screw 16mm Implanted:Qty: 1 on 07/06/2019 by Sawyer Garcia MD at OR [facility] Left: Wrist [id number] / / [place] Variax 2 Wrist Tray: 2.7mm Locking Screw 12mm Implanted:Qty: 1 on 07/06/2019 by Sawyer Garcia MD at OR [facility] Left: Wrist [id number] / / [place] Variax 2 Wrist Tray: 2.7mm Locking Screw 16mm Implanted:Qty: 1 on 07/06/2019 by Sawyer Garcia MD at OR [facility] Left: Wrist [id number] / / [place] Variax 2 Wrist Tray: 2.7mm Locking Screw Implanted:Qty: 2 on 07/06/2019 by Sawyer Garcia MD at OR [facility] Left: Wrist [id number] / / Description:18mm [place] Variax 2 Wrist Tray: 2.7mm Locking Screw 20mm Implanted:Qty: 2 on 07/06/2019 by Sawyer Garcia MD at OR [facility] Left: Wrist [id number] / / [place] Variax 2 Wrist Tray: 2.7mm Non-Locking Screw 14mm Implanted:Qty: 1 on 07/06/2019 by Sawyer Garcia MD at OR [facility] Left: Wrist [id number] / / Ring Ewa Physioii 28mm [id number] - [id number] - [id number] Implanted:Qty: 1 on 07/22/2020 by Rui Foley MD at [place] [facility] N/A: Heart [employer] 12/09/2024 [id number] / [id number] / [id number] 30mm Ats Tri-Ad 2.0 Adrian Tricuspid Band Implanted:Qty: 1 on 07/22/2020 by Rui Foley MD at [place] [facility] N/A: Heart [employer] : CARDIAC SURGERY [id number] 09/20/2024 [id number] / [id number] / [id number] Suture Steel 6 B&S19 M654g - [id number] Implanted:Qty: 4 on 07/22/2020 by Rui Foley MD at [place] [facility] N/A: Sternum JNJ : [employer] 02/06/2025 M654G / / [id number] Clip Occl Atri Flex V 40mm - [id number] Implanted:Qty: 1 on 07/22/2020 by Rui Foley MD at [place] [facility] N/A: Heart ATRICURE [id number] 11/10/2022 ACHV4 0 / / [id number] documented as of this encounter Results * (ABNORMAL) COMPREHENSIVE METABOLIC PANEL (07/17/2024 3:16 PM EDT) BUN 26(H) 6 - 20 mg/dL 07/17/2024 4:38 PM EDT LABORATORY [facility] 57-10 CREATININE 1.0 0.5 - 1.0 [...] mmol/L 07/17/2024 4:38 PM EDT LABORATORY [facility] 57-10 CHLORIDE 102 98 - 107 mmol/L 07/17/2024 4:38 PM EDT LABORATORY [facility] 57-10 CO2 28 22 - 32 [...] ORDERABLES [facility] [place] [address] [place] [place] [address] documented in this encounter Visit Diagnoses Diagnosis [...] and were consensually agreed upon. Care Teams Sap Solutions Architect Relationship Specialty Start Date End Date Henrik De La Cruz DO [address] [place] [address] PCP - General Internal Medicine 03/22/24 documented as of this encounter
--- OUTSIDE RECORDS SUMMARY | 2024-08-14 12:18 | External Medical Summary ---
Author Name Unknown Address Unknown Organization [id number] [address] [place] [address] Laboratory Report Ordering Provider Test Date Status MASHA KRISHNA 07/17/2024 15:16:49 Final Observation Date Value Abnormality Reference (Units ) Status SYNC LEUKOCYTES IN BLOOD BY AUTOMATED COUNT 07/17/2024 15:16:49 5.03 4.00-10.80 (K/uL) Final Segs 07/17/2024 15:16:49 58.9 40.0-75.0 (%) Final Lymphs % 07/17/2024 15:16:49 28.0 18.0-42.0 (%) Final Monos 07/17/2024 15:16:49 11.9 Above high normal 1.0-11.0 (%) Final Eosinophils 07/17/2024 15:16:49 0.8 0.0-6.0 (%) Final Basos 07/17/2024 15:16:49 0.4 0.0-2.0 (%) Final Absolute Segs 07/17/2024 15:16:49 2.96 1.80-7.70 (K/uL) Final Lymphs, absolute 07/17/2024 15:16:49 1.41 1.00-4.80 (K/ul) Final Monos, Abs 07/17/2024 15:16:49 0.60 0.00-1.10 (K/uL) Final Eos, Abs 07/17/2024 15:16:49 0.04 0.00-0.70 (K/uL) Final Basos, Abs 07/17/2024 15:16:49 0.02 0.00-0.20 (K/uL) Final Performing Location [facility] [place] [address]
--- OUTSIDE RECORDS SUMMARY | 2024-08-14 12:18 | External Medical Summary ---
Author Name Unknown Address Unknown Organization [id number]:[facility] [address] [place] [address] Laboratory Report Ordering Provider Test Date Status MASHA KRISHNA 07/17/2024 15:16:49 Final Observation Date Value Abnormality Reference (Units ) Status WBC, Total 07/17/2024 15:16:49 5.03 4.00-10.8 0 (K/uL) Final RBC 07/17/2024 15:16:49 4.53 3.85-5.15 (M/uL) Final Hemoglobin 07/17/2024 15:16:49 13.2 12.0-15.3 (g/dL) Final HCT 07/17/2024 15:16:49 41.3 36.0-45.2 (%) Final MCV 07/17/2024 15:16:49 91.2 81.5-97.5 (fL) Final MCH 07/17/2024 15:16:49 29.1 27.0-34.0 (pg) Final MCHC 07/17/2024 15:16:49 32.0 32.0-36.0 (g/dL) Final RDW 07/17/2024 15:16:49 15.1 11.5-15.5 (%) Final Platelets 07/17/2024 15:16:49 120 Below low normal 140 -400 (K/uL) Final MPV 07/17/2024 15:16:49 12.5 6.6-11.1 ( fL) Final Performing Location [facility] [address] [place] [address]
--- OUTSIDE RECORDS SUMMARY | 2024-08-14 12:18 | External Medical Summary ---
Author Name Unknown Address Unknown Organization : Laboratory Report Ordering Provider Test Date [facility] 07/17/2024 13:46:54 Final Therapeutic ranges for non-o perative patients:
Prophylaxsis/treatment of DVT: (Range:2.0-3.0)
Treatment of pulmonary embolism:(Range:2.0-3.0)
Prevention of systemic embolism from:
-tissue heart valves
-acute myocardial infarction
-valvular heart disease
-atrial fibrillation
(Range: 2.0-3.0)
Mechanical prosthetic valves: (Range: 2.5-3.5) Observation Date Value Abnormality Reference (Units ) Status INR in Capillary blood by Coagulation assay 07/17/2024 13:46:54 2.5 (INR) Final Performing Location
--- OUTSIDE RECORDS SUMMARY | 2024-08-14 12:18 | External Medical Summary ---
Author Name Unknown Address Unknown Organization K0G:[facility] [place] [facility] [address] [place] [address] Laboratory Report Ordering Provider Test Date Status MASHA KRISHNA 07/17/2024 15:16:49 Final Observation Date Value Abnormality Reference (Units ) Status BUN 07/17/2024 15:16:49 26 Above high normal 6-20 (mg/dL) Final Creatinine 07/17/2024 15:16:49 1.0 0.5-1.0 (mg/dL) Final Glomerular filtration rate/1.73 sq M.predicted [Volume Rate/Area] in Serum, Plasma or Blood by Creatinine-based formula (CKD-EPI) 07/17/2024 15:16:49 58 Below low normal >=60 (mL/min) Final eGFR is calculated based on the CKD-EPI 2020 equation. Sodium 07/17/2024 15:16:49 141 135-146 (m mol/L) Final Potassium 07/17/2024 15:16:49 4.5 3.5-5.1 (m mol/L) Final Cl 07/17/2024 15:16:49 102 98-107 (mm ol/L) Final CO2 07/17/2024 15:16:49 28 22-32 (mmo l/L) Final Anion gap 07/17/2024 15:16:49 11 7-15 (mmol /L) Final Glucose 07/17/2024 15:16:49 87 70-120 (mg /dL) Final Albumin 07/17/2024 15:16:49 4.5 3.8-5.0 (g /dL) Final AST (Aspartate aminotransferase) 07/17/2024 15:16:49 27 10-35 (U/L) Final Alk Phos 07/17/2024 15:16:49 79 35-130 (U/ L) Final Bilirubin, Total 07/17/2024 15:16:49 0.8 <=1 .2 (mg/dL) Final Calcium 07/17/2024 15:16:49 10.0 8.4-10.2 ( mg/dL) Final Protein 07/17/2024 15:16:49 7.6 6.0-8.3 (g /dL) Final ALT (Alanine aminotransferase) 07/17/2024 15:16:49 13 10-35 (U/L) Final Performing Location LAB[facility]ATORY [place] [address] [facility] [address]
--- OUTSIDE RECORDS SUMMARY | 2024-08-14 12:18 | External Medical Summary | Summary of Care ---
Author Name Unknown Organization [facility] Address [address] [place] [address] Phone [phone] Care Team Providers Care Brake Linings Coater Name Role Phone ElizabethHenrik ramirez Krysta ZAZUETA Primary Care Provider [phone] Encounter Details Date Type Department Care Team (Late st Contact Info) Description 07/17/2024 Documentation HEALTH & WELLNESS Audelia Velez, Health Principal Technical Architect Allergies Active Allergy Reactions Criticality Noted Date [...] as of this encounter (statuses as of 07/17/2024) Medications Medication Sig Dispensed Refills Start Date [...] Release 24 Hour (toPROL XL)Indications:Athe rosclerosis of [place] coronary artery of [place] heart without angina pectoris,S/P mitral valve repair,S/P tricuspid valve repair,Permanent atrial fibrillation (HCC),HTN, goal below 140/90 TAKE ONE TABLET BY MOUTH EVERY DAY IN THE MORNING 90 Tablet 3 06/05/2024 06/05/2025 Active Losartan Potassium 50 MG Oral Tablet (Cozaar)Indications :S/P mitral valve repair,S/P tricuspid valve repair,HTN, goal below 140/90,Atherosclero sis of [place] coronary artery of [place] heart without angina pectoris Take 1 Tablet [...] as of this encounter (statuses as of 07/17/2024) Active Problems Problem Noted Date Diagnosed Date Primary osteoarthritis of one knee, left 024 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 pacemaker in situ 03/10/2022 S/P mitral valve repair 01/05/2022 S/P tricuspid valve repair 01/05/2022 Pulmonary hypertension 12/03/2021 Atherosclerosis of [place] co ronary artery without angina pectoris 06/02/2021 [...] as of this encounter (statuses as of 07/17/2024) Resolved Problems Problem Noted Date Diagnosed Date [...] HYPERLIPIDEMIA NEC/NOS(aka LIPIDS) 07/28/2004 10/19/2018 lesion --rt shinto 05/31/2002 9 Anticoagulation management encounter 04/26/2002 09/02/2020 Other dermatitis due to solar radiation 03/27/2002 10/19/2018 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 FEM STRESS INCONTINENCE 10/10 Esophagitis 09/01/2021 Overview: ICD-10 update of inactive term documented as of this encounter (statuses as of 07/17/2024) Immunizations Name Administration Dates Next Due COVID-19 mRNA, LNP-s, No Pre serve, 2-Dose Series (Moderna) 12/10/2020,11/12/2020 COVID-19, LNP-s, No Preserve , Blue-sucrose, Ages 12+ (Pfizer) 03/02/2022 COVID-19, MRNA-LNP, 23-24, P F, 30 MCG/0.3 mL, 12 YRS AND ABOVE, IM (Azimuth Systems-ComirnatClaim Maps) 08/02/2023 COVID-19, MRNA-LNP, 24-25, P R, 30MCG/0.3ML, IM, 12YRS AND ABOVE (SigFig-ComirnatClaim Maps) 07/17/2024 COVID-19, mRNA, LNP-s, PF, B ooster, 100mcg/0.5mg (Moderna) 08/15/2021 Covid-19, Mrna, Lnp-s, Pf, B ivalent, 30 Mcg, IM, 12 yrs and above (Pfizer) 01/28/2023,09/07/2022 Pneumococcal Conjugate Vacc, 13 Valent (Prevnar) 04/25/2015 Pneumococcal Conjugate Vacci ne, 20-valent ([id number]) 07/17/2024 Pneumococcal Polysaccharide PPV23 (Pneumovax) 08/13/2008,08/13/2008 RSV [...] encounter Progress Notes * Audelia Velez Health Principal Technical Architect - 07/17/2024 3:33 PM EDT SESSION TYPE: One-on-one exercise session: Exercise Subtype or Modality: Resistance Training Weight: Blood pressure: Planned Exercise Routine: Flexibility/ROM: calf stretch and Lower Body Strength: seated knee raises, seated knee extensions, plantar flexion with resistance band, dorsiflexion with resistance band, quad sets with ball, heel raises, standing hip abduction Frequency: 2x week Duration: 30-45 minutes Patient completed 1v1 exercise session and tolerated exercise well. documented in this encounter Plan of Treatment Upcoming Encounters Date Type Department Care Team (Late st Contact Info) Description 07/19/2024 12:30 PM EDT Office Visit Family Practice [facility] [phone] [facility], Health Principal Technical Architect Fam Prac [address] [address] 08/16/2024 11:00 AM EST Anticoagulation Family Practice [facility] [address] [facility] [phone] College, Pharmacist [address] [address] [place] [address] 08/22/2024 11:30 AM EST Office Visit [facility]ology [facility] [place] [address] Melyssa Paris PA-C 132 [facility] [place] [address] 11/19/2024 11:20 AM EST Office Visit Family Practice [address] [place] [address] 293 [facility], [place] [phone] Henrik De La Cruz DO 293 [facility], [place] [address] 12/07/2024 2:00 PM EST Office Visit Cardiology, [facility] 132 [facility] [place] [address] Khurram Mcbride PA-C 132 [facility] [place] [address] 02/14/2025 1:40 PM EDT Office Visit Dermatology [facility] [address] [facility] [place] [address] Dina Wong PA-C [address] [facility] [place] [address] Scheduled Procedures Name Priority Associated Diagnoses Date/Ti la ROBOTIC ARTHROPLASTY KNEE TOTAL Primary osteoarthritis of one knee, left Health Maintenance Due Date Last Done Comments DXA Scan 11/10/2023 11/10/2021, 10/2021, 11/06/2018, Additional history exists Adult Wellness Visit 03/26/2025 03/26/2024, 03/24/2023, 03/23/2022 Depression Screening 03/26/2025 03/26/2024, 05/25/2016 (Discussed) GFR 07/03/2025 07/03/2024, 04/2023, 07/25/2023, Additional history exists Albumin/Creatinine Ratio 01/15/2027 024, [...] D LEVEL ONCE IN A LIFETIME-USE SMARTSET# [id number] Completed 11/11/2021, 06/13/2019, 06/05/2012, Additional history exists [...] this encounter Medical Devices Implanted Type Area Terrazzo Polisher Device Identifier Shelf Expiration Date Model / Serial / Lot [place] Variax 2 Wrist Tray: Volar Distal Radius Plate 49mm Intermediate Implanted:Qty: 1 on 07/06/2019 by Sawyer Garcia MD at OR [facility] Left: Wrist [id number] / / Description:left radius [place] Variax 2 Wrist Tray: 2.7mm Non-Locking Screw 16mm Implanted:Qty: 1 on 07/06/2019 by Sawyer Garcia MD at OR [facility] Left: Wrist [id number] / / [place] Variax 2 Wrist Tray: 2.7mm Locking Screw 12mm Implanted:Qty: 1 on 07/06/2019 by Sawyer Garcia MD at OR [facility] Left: Wrist [id number] / / Jayden Variax 2 Wrist Tray: 2.7mm Locking Screw 16mm Implanted:Qty: 1 on 07/06/2019 by Sawyer Garcia MD at OR [facility] Left: Wrist [id number] / / [place] Variax 2 Wrist Tray: 2.7mm Locking Screw Implanted:Qty: 2 on 07/06/2019 by Sawyer Garcia MD at OR [facility] Left: Wrist [id number] / / Description:18mm [place] Variax 2 Wrist Tray: 2.7mm Locking Screw 20mm Implanted:Qty: 2 on 07/06/2019 by Sawyer Garcia MD at OR [facility] Left: Wrist [id number] / / [place] Variax 2 Wrist Tray: 2.7mm Non-Locking Screw 14mm Implanted:Qty: 1 on 07/06/2019 by Sawyer Garcia MD at OR [facility] Left: Wrist [id number] / / Ring Ewa Physioii 28mm [id number] - [id number] - [id number] Implanted:Qty: 1 on 07/22/2020 by Rui Foley MD at OR [facility] N/A: Heart [employer] 12/09/2024 [id number] / [id number] / [id number] 30mm Ats Tri-Ad 2.0 Adrian Tricuspid Band Implanted:Qty: 1 on 07/22/2020 by Rui Foley MD at OR [facility] N/A: Heart [employer] : CARDIAC SURGERY [id number] 09/20/2024 [id number] / [id number] / [id number] Suture Steel 6 B&S19 M654g - [id number] Implanted:Qty: 4 on 07/22/2020 by Rui Foley MD at OR [facility] N/A: Sternum JNJ : [employer] 02/06/2025 [id number] / / [id number] Clip Occl Atri Flex V 40mm - [id number] Implanted:Qty: 1 on 07/22/2020 by Rui Foley MD at OR [facility] N/A: Heart ATRICURE [id number] 11/10/2022 [id number] documented as of this encounter Advance Directives * Full Code (Latest Code Status on File) Date Activated Date Inactivated Comments 07/22/2020 12:27 PM 07/26/2020 4:43 PM This orde r reflects the patients wishes and were consensually agreed upon. Care Teams Brake Linings Coater Relationship Specialty Start Date End Date Henrik De La Cruz DO [address] [facility] [address] PCP - General Internal Medicine 03/22/24 documented as of this encounter
--- OUTSIDE RECORDS SUMMARY | 2024-08-14 12:18 | External Medical Summary | Summary of Care ---
Author Name Unknown Organization [facility] Address [address] [place] [address] Phone [phone] Care Team Providers Care Stud Beef Cattle Farmer Name Role Phone Elizabethjames Henrik Chaparro DO Primary Care Provider [phone] Reason for Visit * Reason Comments Outpatient Testing Encounter Details Date Type Department Care Team (Late st Contact Info) Description 07/17/2024 3:20 PM EDT Laboratory Laboratory, [facility] [address] [place] [phone] [facility] [address] [place] [address] Permanent atrial fibrillation (HCC); HTN, goal below 140/90 Allergies Active Allergy Reactions Criticality Noted Date [...] Release 24 Hour (toPROL XL)Indications:Athe rosclerosis of [place] coronary artery of [place] heart without angina pectoris,S/P mitral valve repair,S/P tricuspid valve repair,Permanent atrial fibrillation (HCC),HTN, goal below 140/90 TAKE ONE TABLET BY MOUTH EVERY DAY IN THE MORNING 90 Tablet 3 06/05/2024 06/05/2025 Active Losartan Potassium 50 MG Oral Tablet (Cozaar)Indications :S/P mitral valve repair,S/P tricuspid valve repair,HTN, goal below 140/90,Atherosclero sis of [place] coronary artery of [place] heart without angina pectoris Take 1 Tablet [...] repair 01/05/2022 Pulmonary hypertension 12/03/2021 Atherosclerosis of [place] co ronary artery without angina pectoris 06/02/2021 Gastro-esophageal reflux disease without esophag itis 02/09/2021 Mitral valve regurgitation 07/22/2020 Tricuspid valve disease 07/22/2020 Age-related osteoporosis wit hout current pathological fracture 06/13/2019 HTN, goal below 140/90 10/19/2018 Dyslipidemia 10/19/2018 Uterovaginal prolapse 01/10/2007 ocean transportation intermediary current use of anticoagulant therapy 0 11/01/2003 [...] HYPERLIPIDEMIA NEC/NOS(aka LIPIDS) 07/28/2004 10/19/2018 lesion --rt hinduism 05/31/2002 9 Anticoagulation management encounter 04/26/2002 09/02/2020 [...] MCG/0.3 mL, 12 YRS AND ABOVE, IM ([employer].-ComirnatThreatMetrix) 08/02/2023 COVID-19, MRNA-LNP, 24-25, P R, 30MCG/0.3ML, IM, 12YRS AND ABOVE (Chunyu-Comirnaty) 07/17/2024 COVID-19, mRNA, LNP-s, PF, B ooster, 100mcg/0.5mg (Moderna) 08/15/2021 Covid-19, Mrna, Lnp-s, Pf, B ivalent, 30 Mcg, IM, 12 yrs and above (Chunyu) 01/28/2023,09/07/2022 Pneumococcal Conjugate Vacc, 13 Valent (Prevnar) 04/25/2015 Pneumococcal Conjugate Vacci ne, 20-valent ([id number]) 07/17/2024 Pneumococcal Polysaccharide PPV23 (Pneumovax) 08/13/2008,08/13/2008 RSV [...] PM EDT Office Visit Family Practice 65 [facility] [phone] College, Health Application Packaging Consultant Fam Prac [address] [address] 08/16/2024 11:00 AM EST Anticoagulation Family Practice 65 [facility] [address] [facility] [address] College, Pharmacist [address] [address] 08/22/2024 11:30 AM EST Office Visit Otolaryngology [facility] 132 [facility] [place] [address] Melyssa Paris PA-C [address] [place] [address] 11/19/2024 11:20 AM EST Office Visit Family Practice [address] [place] [address] 293 [place] [address] Henrik De La Cruz DO 293 [place] [address] 12/07/2024 2:00 PM EST Office Visit Cardiology, [facility] [address] [place] [address] Khurram Mcbride PA-C [address] [place] [address] 02/14/2025 1:40 PM EDT Office [facility] [address] Dina Wong PA-C 200 [facility], [place] [address] Pending Results Name Type Priority Associated Diagnoses Date /Time CBC WITH WBC DIFFERENTIAL Lab Routine Permanent atrial fibrillation (HCC) HTN, goal below 140/90 07/17/2024 3:16 PM EDT COMPREHENSIVE METABOLIC PANEL Lab Routine Permanent atrial fibrillation (HCC) HTN, goal below 140/90 07/17/2024 3:16 PM EDT CBC Lab Routine Permanent atrial fibrillation (HCC) HTN, goal below 140/90 07/17/2024 3:16 PM EDT DIFFERENTIAL, AUTOMATED Lab Routine Permanent atrial fibrillation (HCC) HTN, goal below 140/90 07/17/2024 3:16 PM EDT Scheduled Procedures Name Priority Associated Diagnoses Date/Ti [...] D LEVEL ONCE IN A LIFETIME-USE SMARTSET# [id number] Completed 11/11/2021, 06/13/2019, 06/05/2012, Additional history exists [...] this encounter Medical Devices Implanted Type Area Air Traffic [employer] Center Device Identifier Shelf Expiration Date Model / Serial / Lot [place] Variax 2 Wrist Tray: Volar Distal Radius Plate 49mm Intermediate Implanted:Qty: 1 on 07/06/2019 by Sawyer Garcia MD at OR [facility] Left: Wrist [id number] / / Description:left radius [place] Variax 2 Wrist Tray: 2.7mm Non-Locking Screw 16mm Implanted:Qty: 1 on 07/06/2019 by Sawyer Garcia MD at OR [facility] Left: Wrist [id number] / / [place] Variax 2 Wrist Tray: 2.7mm Locking Screw 12mm Implanted:Qty: 1 on 07/06/2019 by Sawyer Garcia MD at OR [facility] Left: Wrist [id number] / / [place] Variax 2 Wrist Tray: 2.7mm Locking Screw 16mm Implanted:Qty: 1 on 07/06/2019 by Sawyer Garcia MD at OR [facility] Left: Wrist [id number] / / [place]den Variax 2 Wrist Tray: 2.7mm Locking Screw Implanted:Qty: 2 on 07/06/2019 by Sawyer Garcia MD at OR [facility] Left: Wrist [id number] / / Description:18mm [place] Variax 2 Wrist Tray: 2.7mm Locking Screw 20mm Implanted:Qty: 2 on 07/06/2019 by Sawyer Garcia MD at OR [facility] Left: Wrist [id number] / / [place] Variax 2 Wrist Tray: 2.7mm Non-Locking Screw 14mm Implanted:Qty: 1 on 07/06/2019 by Sawyer Garcia MD at OR [facility] Left: Wrist [id number] / / Ring Ewa Physioii 28mm [id number] - [id number] - [id number] Implanted:Qty: 1 on 07/22/2020 by Rui Foley MD at OR [facility] [place] [place] N/A: Heart [employer] 12/09/2024 [id number] / [id number] / [id number] 30mm Ats Tri-Ad 2.0 Adrian Tricuspid Band Implanted:Qty: 1 on 07/22/2020 by Rui Foley MD at OR [facility] [place] [place] N/A: Heart [employer] : CARDIAC SURGERY [id number] 09/20/2024 [id number] / [id number] / [id number] Suture Steel 6 B&S19 M654g - [id number] Implanted:Qty: 4 on 07/22/2020 by Rui Foley MD at OR [facility] [place] [place] N/A: Sternum JNJ : [employer] 02/06/2025 [id number] / / [id number] Clip Occl Atri Flex V 40mm - [id number] Implanted:Qty: 1 on 07/22/2020 by Rui Foley MD at OR [facility] [place] [place] N/A: Heart ATRICURE [id number] 11/10/2022 [id number] documented as of this encounter Visit Diagnoses Diagnosis Permanent atrial fibrillation (HCC) Atrial fibrillation HTN, goal below 140/90 Unspecified essential hypertension documented in this encounter Advance Directives * Full Code (Latest Code Status on File) Date Activated Date Inactivated Comments 07/22/2020 12:27 PM 07/26/2020 4:43 PM This orde r reflects the patients wishes and were consensually agreed upon. Care Teams Stud Beef Cattle Farmer Relationship Specialty Start Date End Date Henrik De La Cruz DO [address] [place] [address] PCP - General Internal Medicine 03/22/24 documented as of this encounter
--- NOTE | 2024-08-14 13:12 | XRay Report ---
XR knee LT 1 or 2V routine HISTORY: 84 years-old Female Surgical Post Op COMPARISON: 06/22/2024 TECHNIQUE: 2 views of the left knee FINDINGS: Total joint arthroplasty with patellar resurfacing. Anterior midline skin mary with expected posto perative soft tissue swelling and deep tissue air with arterial calcifications. IMPRESSION: Total joint arthroplasty with expected postoperative changes. ACT 112: Negative or not required by law. The above report was generated using voice recognition software. It may contain grammatical, syntax o r spelling errors. Electronically signed by: Khang Parkinson M.D. 08/14/2024 1:11 PM
[2024-08-14] MEDS: KETOROLAC TROMETHAMINE 15 MG/ML VIAL IV SCH (13:30)
[2024-08-14] MEDS: WARFARIN SOD 6 MG TAB PO ONE (15:52)
[2024-08-14] MEDS: TRANEXAMIC ACID / 0.7% NACL 1,000 MG/100 ML BAG IV SCH (16:01)
[2024-08-14] MEDS: ceFAZolin 1000MG 1,000 MG/7.5 ML SYR IV SCH (16:01)
[2024-08-14] MEDS: ASCORBIC ACID 500 MG TAB PO SCH (16:01)
[2024-08-14] MEDS: oxyCODONE HCL IR 5 MG TAB (IMMEDIATE RELEASE) PO PRN (16:25)
[2024-08-14] MEDS: ALLERGY Noted to ORDERED Medication SCH (17:28)
[2024-08-14] MEDS: ROSUVASTATIN CALCIUM 5 MG TAB PO SCH (20:32)
[2024-08-14] MEDS: METOPROLOL SUCC 25MG EXT REL TAB PO SCH (20:32)
[2024-08-14] MEDS: DOCUSATE SODIUM 100 MG CAP PO SCH (20:32)
[2024-08-14] MEDS: SENNA 8.6 MG TAB PO SCH (20:33)
[2024-08-14] MEDS: CHOLECALCIFEROL 25 MCG (1000 UNITS) TAB PO SCH (20:33)
[2024-08-14] MEDS ORDERED: SENNA 8.6 MG TAB PO SCH (21:00)
[2024-08-14] MEDS ORDERED: [UNRECOGNIZED DRUG - OTHER] TOP SCH (21:00)
[2024-08-15 06:00] LABS: Hematocrit (blood only) 34.9 % (37.0-47.0); Hemoglobin 11.4 g/dl (12.0-16.0); Mean Corpuscular Hemoglobin 28.7 pg (25.0-34.0); Mean Corpuscular Hgb Conc 32.7 g/dL (32.0-36.0); Mean Corpuscular Volume 87.9 fL (80.0-100.0); Mean Platelet Volume 12.9 fL (9.4-12.4); Platelet Count 107 K/uL (130-400); RDW Coefficient of Variation 14.3 % (11.5-14.5); RDW Standard Deviation 46.3 fL (36.4-46.3); Red Blood Count 3.97 M/uL (4.20-5.40); White Blood Count 9.57 K/ul (4.8-10.8)
[2024-08-15 06:15] LABS: BUN Creatinine Ratio 29.3 (10-20); Calcium 9.1 mg/dl (8.6-10.3); Creatinine Clr Calc Pharmacy 44.1 ml/min; Potassium 4.3 mmol/L (3.5-5.1)
--- NOTE | 2024-08-15 07:02 | Orthopedic Progress Note ---
Date of Service August 15, 2024 Assessment & Plan (1) Status post total left knee replacement: Pain controlled with current plan PT/OT: wbat dvt prophylaxis: teds, scds, coumadin d/c planning: home with home health today after therapy follow up in approx 2 weeks will discuss with Dr. Shoaib Rios . 84 year old patient POD 1 from left tka. Doing well today. Not really having much pain. No other complaints. Review of Systems All systems reviewed & are unremarkable except as noted in HPI & below. Physical Exam . alert and oriented. NAD. VSS. Labs reviewed Left leg: dressing clean, dry, intact. Able to do straight leg raise. Able to dorsiflex and plantarflex. NVI Results & Data Results & Data Laboratory Results . Diagnostic Findings . PG Care Time/CCT Total # of Minutes Spent Total Time Spent with Patient: Total time spent is greater than 50% in coordination of care (as documented) at patient's floor/unit and/or counseling patient: Coding Level of Care Code 05519 Post Operative Follow-Up Diagnoses Status post total left knee replacement Z96.652
[2024-08-15] MEDS: CALCIUM CARBONATE 1250MG TAB PO SCH (07:29)
[2024-08-15] MEDS: LOSARTAN POTASSIUM 25 MG TAB PO SCH (07:29)
[2024-08-15] MEDS: dexAMETHasone 10 MG in SYRINGE 0 ML IV SCH (07:30)
[2024-08-15] MEDS: MULTIVITAMIN TAB PO SCH (07:34)
[2024-08-15] MEDS ORDERED: CALCIUM CARBONATE 500 MG CHEWABLE TAB PO SCH (09:00)
[2024-08-15] MEDS ORDERED: NON-FORMULARY MEDICATION (Glucos Sul 2kcl-Msm-Chond-C-Mn [Glucosamine Chondroitin] 550-30- PO SCH (09:00)
--- NOTE | 2024-08-17 06:37 | Discharge Summary ---
Date of Service August 17, 2024 Admission HPI (Per Admitting) . The patient is an 84-year-old female who presents for surgical treatment of her left knee. The she has a several year history increasing bilateral knee pain discomfort left side greater than the right. He has been managed through [facility]. Describes mostly medial sided knee pain. She has been through extensive conservative treatment which just been unsuccessful. She had multiple shots of which become less successful over time. She is ready to have her left knee replaced. Admission Exam (Per Admitting) . Physical examination is a pleasant healthy-appearing female. Examination of both knees reveal patient ambulates independently. Examination of left knee reveals a varus aligned knee. She is tender with medial joint line. Small knee effusion. Range of motion is 10 degrees short of full extension about 115 degrees of flexion. There is no instability. No particular pain with hip motion. Principal Diagnosis Same as "Discharge Diagnosis" noted below under Discharge Instructions. Discharge Exam . alert and oriented. NAD. VSS. Labs reviewed Left leg: dressing clean, dry, intact. Able to do straight leg raise. Able to dorsiflex and plantarflex. NVI Discharge Data Procedures Performed Operation Date: 08/14/24 08:50 Actual Procedures p Left Total Knee Arthroplasty, Cemented(Left) - Servando Cramer MD Ordered Studies 08/01/24 05:00 US - OR guided needle placemen Routine 08/14/24 08:56 US - OR guided needle placemen Routine Hospital Course (1) Status post total left knee replacement: This is a 84 year old patient admitted on 08/14/24 and underwent total knee arthroplasty. She tolerated the procedure well and there were no complications. Transferred to the PACU post op and later to the orthopedic floor for further care. She was given ancef for antibiotic prophylaxis. She was also given RENÉ stockings, SCDs, and coumadin for DVT prophylaxis. Hemoglobin, hematocrit, and vital signs were monitored during her hospital stay and remained stable. Did not require any blood transfusions. There were no complications during her hospital stay. By post op day #1 the patient was tolerating a regular diet, pain was reasonably controlled with oral pain medicine, and she was participating in physical therapy. On post op day #1 the patient was discharged home and set up with home health care. She was given printed discharge instructions including prescriptions for extra strength tylenol, cefadroxil, zofran, oxycodone, and senokot. Continue coumadin. Continue physical therapy, weight bearing as tolerated. Continue RENÉ stockings. Follow up approximately 2 weeks post op or sooner if there are problems or concerns. PG Care Time/CCT Total # of Minutes Spent Total Time Spent with Patient: Total time spent is greater than 50% in coordination of care (as documented) at patient's floor/unit and/or counseling patient: Discharge Plan Discharge Items Patient Disposition: Home - Home Health Services Reason For Visit: LEFT KNEE REPLACEMENT Discharge Diagnosis: Left Knee Replacement Activity: Per Instructions section Non-emergency contact: Surgeon Call non-emergency contact if: you have any medication questions Follow-up/Referrals: Henrik De La Cruz DO [Primary Care Provider] - Diet: Regular Addtl Attending Provider Instructions: ACTIVITY RECOMMENDATIONS: Diet: * You may resume previous diet. Physical Therapy: * You will go to physical therapy three times each week for four to six weeks after your surgery in order to regain your knee range of motion and to retrain your knee to work properly. * It is just as important to make sure you are getting your knee perfectly straight as it is to regain your knee bend. * Taking a pain pill an hour before therapy can help you have a more productive and comfortable therapy session. Home Exercise: * You were shown a series of exercises (heel props, heel slides, etc.) in the hospital. Do these exercises three to four times each day including the exercises you were shown in physical therapy. Walking: * Get up and walk several times each day. For the first four weeks, try not to stand or walk for more than one hour at a time. If you do stand or walk for more than one hour, you will not hurt anything, but your knee and leg will likely swell. * As you feel comfortable, you may change from the walker or crutches to a cane and then to independent walking. MEDICATIONS: New Medicine: * You will likely be taking one or more of these medications: 1. Oxycodone - A quick and shorter-acting pain medication. Take one to two tablets every six hours to lessen your pain. 2. Coumadin - Thins your blood to lessen the chance of forming a blood clot. * The most common side effects of pain medicine and iron are nausea and constipation. If nausea or constipation is too much of a problem or if you have any questions about your new medicines or doses, call [facility] at . We will try to help you manage these issues. "VERY IMPORTANT TO READ AND REVIEW" Pain: * The immediate post-operative period after knee replacement surgery is often quite painful. * You are given a prescription for pain medicine. You should take it, as directed, when you need it, especially before physical therapy and before going to bed. Pain that interferes with sleep is very common and can last several months. * You will likely need pain medicine for the first four to six weeks. It will not stop all of the pain. The pain will lessen and as you feel better, you may change to milder pain medicine such as Tylenol. * The most common side effects of pain medicine are nausea and constipation, so don't take more than you need. SPECIAL CARE INSTRUCTIONS: TEDs/Elastic Stockings: * The white elastic stockings help limit swelling and prevent blood clots from forming in your legs. The more you wear them, the more they work. * Wear them for six weeks after knee replacement surgery and four weeks after partial knee replacement. Incision Site Care: * Remove dressing postoperative day 2 and then shower. Keep direct shower pressure off the incision site. * After showering, cover mary with dry gauze and change daily or more frequently if the dressing is getting saturated with drainage. * Use the RENÉ stockings to hold dressing in place. DO NOT apply tape on the skin. * May completely stop using bandage if wound is dry and no drainage * [place] are removed between 2 and 3 weeks post-op. If your follow-up appointment is made before 2 weeks, please have your appointment re- scheduled. It is too early to remove the mary. Prevention of Infection: * Take antibiotics one hour before any dental cleaning, dental work, urological procedure, gastrointestinal procedure or any invasive surgery in order to prevent your new joint from getting infected. * You may get the antibiotics from the doctor performing the procedure or you may call our office at [phone] before and we will call in a prescription to the pharmacy of your choice. Things to Watch For: * Drainage from the incision site that occurs more than one week after your surgery. * Severely increased knee/leg pain or swelling. * Increased redness at the incision site. * Fever above 102 degrees Fahrenheit. * Unusual chest pain or shortness of breath. * Unusual pain or burning with urination. Call [facility] at [phone] with any of the above problems or if you have any questions about your medicines or recovery. FOLLOW UP VISIT: Make an appointment to see your doctor for approximately two weeks after surgery for a progress check and staple removal by calling the office at [phone]. Pending Studies at Discharge: No Stand-Alone Forms: My [facility], Smoking Cessation Medications and DC Order Prescriptions: Continued calcium carbonate [Oyster Shell Calcium] 500 mg calcium (1,250 mg) tablet 500 mg PO QAM oxycodone 5 mg tablet 5 mg PO Q4H PRN (Reason: pain) Qty: 40 0RF Rx Instructions: Take as needed for pain ondansetron 4 mg tablet,disintegrating 4 mg PO Q8 PRN (Reason: nausea) Qty: 20 1RF Rx Instructions: Take as needed for nausea sennosides [Senokot] 8.6 mg tablet 8.6 mg PO BID 14 Days Qty: 28 0RF Rx Instructions: Take two times a day to prevent/treat constipation acetaminophen [Tylenol Extra Strength] 500 mg tablet 1,000 mg PO TID 30 Days Qty: 180 0RF Rx Instructions: Take 3 times per day to lessen pain. cefadroxil 500 mg capsule 500 mg PO BID 7 Days Qty: 14 0RF Rx Instructions: Take 1 cap twice a day to prevent infection clindamycin HCl 300 mg Capsule 600 mg PO DIRECTED PRN (Reason: Other) Rx Instructions: take prior to denal procedure rosuvastatin [Crestor] 5 mg Tablet 5 mg PO HS cholecalciferol (vitamin D3) [Vitamin D3] 2,000 unit Capsule 2,000 unit PO PM warfarin 5 mg tablet 5 mg PO 4XWK Rx Instructions: Tuesday, Tuesday, Tuesday, losartan 50 mg Tablet 25 mg PO QAM metoprolol succinate 25 mg Tablet Extended Release 24 Hr 25 mg PO PM warfarin 2.5 mg tablet 2.5 mg PO 3XWK Rx Instructions: Tuesday, Tuesday, Tuesday famotidine 20 mg Tablet 20 mg PO HS Glucosamine Chondroitin 550-30-1 mg Capsule 1 cap PO DAILY Germanium Oil 1 dose topical BID Patient Comments: nasal bid for prevention of nose bleeds Rx Instructions: in nose conjugated estrogens 0.625 mg/gram Cream 0.625 mg VAGINAL 3XWK Rx Instructions: off 5 days; repeat cycle meclizine 1 tab PO DAILY PRN (Reason: Dizziness) Discontinued acetaminophen [Tylenol] 325 mg Tablet 325 mg PO QID PRN (Reason: Pain) Admission Data Admit Date/Time: 08/14/24 10:54 Attending Provider: Servando Cramer Admit Provider: Servando Cramer Primary Care Provider: Henrik De La Cruz Other Providers: [facility] Other Interventions: Discharge Summary Assessment (RN) Last Done: 08/15/24 08:37
--- NOTE | 2024-08-17 10:25 | Anesthesiology Progress Note ---
Date of Service August 14, 2024 Anesthesia Post Procedure Pain Intensity Left Knee: Pain Intensity: 2 Transfer of Care Handoff Completed per policy Notes Mental Status: alert / awake / arousable and participated in evaluation Patient Amnestic to Procedure: Yes Nausea / Vomiting: adequately controlled Pain: adequately controlled Airway Patency, RR, SpO2: stable & adequate BP & HR: stable & adequate Hydration State: stable & adequate Neuraxial Anesthesia: was administered and sensory block is resolving Anesthetic Complications: no major complications apparent and Pt Satisfied with anesthetic care
== END 2024-08-15 10:50 | disposition home health service (06) ==
LOC: 3E 06:18 → ASU 06:18

== ENCOUNTER 2025-06-11 08:32 | Observation (INO) ==
--- NOTE | 2025-05-15 09:42 | PAT Medication Instructions ---
Medication Instructions Date of Service May 15, 2025 Home Medications Medication Instructions Recorded acetaminophen 500 mg tablet 1,000 mg (2 x 500 mg) PO TID pain 07/30/24 (Tylenol Extra Strength) 30 days #180 tabs clindamycin HCl 300 mg capsule 600 mg (2 x 300 mg) PO ONCE #2 caps 05/03/25 cholecalciferol (vitamin D3) 50 mcg (2,000 unit) capsule (Vitamin D3) 2,000 unit PO PM rosuvastatin 5 mg tablet (Crestor) 5 mg PO HS famotidine 20 mg tablet 20 mg PO HS calcium carbonate (Oyster Shell Calcium) 500 mg PO QAM metoprolol succinate 25 mg tablet,extended release 24 hr 25 mg PO QPM warfarin 2.5 mg tablet 2.5 mg PO 3XWK warfarin 5 mg tablet 5 mg PO 4XWK Germanium Oil 1 dose topical BID conjugated estrogens 0.625 mg/gram vaginal cream 0.625 mg vaginal 3XWK glucosamine sulf dipot chlr,msm,chond 550 mg-C 30 mg-cyndee 1 mg capsule (Glucosam ine Chondroitin) 1 cap PO QAM acetaminophen 500 mg tablet (Tylenol Extra Strength) 1,000 mg (2 x 500 mg) PO TID losartan 50 mg tablet 50 mg PO QAM clindamycin HCl 300 mg capsule 600 mg (2 x 300 mg) PO ONCE furosemide 20 mg tablet 20 mg PO 3XWK meclizine 25 mg tablet 25 mg PO DAILY PRN Continue as directed clindamycin HCl 300 mg capsule 600 mg (2 x 300 mg) PO ONCE meclizine 25 mg tablet 25 mg PO DAILY PRN(if needed) ASK your prescriber and surgeon warfarin 2.5 mg tablet 2.5 mg PO 3XWK warfarin 5 mg tablet 5 mg PO 4XWK STOP taking 2 weeks before surgery (or as soon as possible if surgery is within 2 weeks) Germanium Oil 1 dose topical BID glucosamine sulf dipot chlr,msm,chond 550 mg-C 30 mg-cyndee 1 mg capsule (Glucosamine Chondroitin) 1 cap PO QAM STOP taking 24 hours before surgery conjugated estrogens 0.625 mg/gram vaginal cream 0.625 mg vaginal 3XWK DO NOT take the morning of surgery calcium carbonate (Oyster Shell Calcium) 500 mg PO QAM losartan 50 mg tablet 50 mg PO QAM furosemide 20 mg tablet 20 mg PO 3XWK Take morning of surgery With a small sip of water, OTHERWISE NOTHING TO EAT OR DRINK AFTER MIDNIGHT: acetaminophen 500 mg tablet (Tylenol Extra Strength) 1,000 mg (2 x 500 mg) PO TID Take evening before surgery cholecalciferol (vitamin D3) 50 mcg (2,000 unit) capsule (Vitamin D3) 2,000 unit PO PM rosuvastatin 5 mg tablet (Crestor) 5 mg PO HS famotidine 20 mg tablet 20 mg PO HS metoprolol succinate 25 mg tablet,extended release 24 hr 25 mg PO QPM acetaminophen 500 mg tablet (Tylenol Extra Strength) 1,000 mg (2 x 500 mg) PO TID Other Notes If you have any questions please call us at [phone] or [phone] or [phone] or [phone]
--- NOTE | 2025-05-20 13:57 | Anesthesiology Consultation ---
Date of Service May 20, 2025 Assessment & Plan (1) Encounter for pre-operative examination: - Check coags DOS (warfarin instructions per surgeon/prescriber- To hold warfarin x5 days, "not indicated for Lovenox bridge" per [facility] AC clinic notation) - Infectious disease screening: Per assessment on 05/20/25- No known recent infectious disease contacts or current infectious disease symptoms. - Outpatient joint assessment: Pt currently scheduled for inpatient pathway. If surgeon requests review for outpatient joint pathway, patient is not recommended candidate for outpatient joint program from anesthesia standpoint based on available information. - S/P Left TKA (08/14/24): SAB at L3-4 (1 attempt) + regional at [facility]. No issues noted per post-op anesthesia progress note. - Pending: * Awaiting upcoming PCP visit ([facility] [address], appt 06/03). * Awaiting most recent pacer check + cardiology preop evaluation ([facility] Poly coleman/Khurram Mcbride PAC, appt 05/24). Chart Review Chart Review: Patient seen in Pre Admission Testing Teaching & Discussion Pre-Anesthesia Teaching/Discussion Notes: Instructed NPO after midnight before surgery,except medications with 15 cc of water. Medication instructions provided according to the PAT guidelines. History Surgery Operation Date: 06/11/25 08:50 Proposed Procedures p Right Total Knee Arthroplasty - Servando Cramer MD Height/Weight Height: 5 ft 6 in Weight: 62.9 kg Allergies Allergy/AdvReac Type Severity Reaction Status Date / Time Penicillins Allergy Severe Rash, Verified 05/10/25 12:35 respiratory distress cefadroxil Allergy Intermediate Hives Verified 05/10/25 12:43 codeine Allergy Intermediate Lip Verified 05/10/25 12:35 numbness Iodinated Contrast Media Allergy Intermediate Rash Verified 05/10/25 12:35 hoff Allergy Mild Nausea Verified 05/10/25 12:35 (Garbanzo hoff) sulfamethoxazole Allergy Mild Nausea, Verified 05/10/25 12:35 [From Bactrim] decreased sodium level trimethoprim [From Bactrim] Allergy Mild Nausea, Verified 05/10/25 12:35 decreased sodium level Medications Home Medications Medication Instructions Recorded Confirmed Last Taken cholecalciferol (vitamin D3) 50 2,000 unit PO PM 01/16/19 05/10/25 08/13/24 18:00 mcg (2,000 unit) capsule (Vitamin D3) rosuvastatin 5 mg tablet (Crestor) 5 mg PO HS 01/16/19 05/10/25 08/13/24 18:00 famotidine 20 mg tablet 20 mg PO HS 03/10/22 05/10/25 08/13/24 18:00 calcium carbonate (Oyster Shell 500 mg PO QAM 02/21/23 05/10/25 08/06/24 09:00 Calcium) metoprolol succinate 25 mg 25 mg PO QPM 04/20/23 05/10/25 08/13/24 18:00 tablet,extended release 24 hr warfarin 2.5 mg tablet 2.5 mg PO 3XWK 05/20/23 05/10/25 08/08/24 18:00 warfarin 5 mg tablet 5 mg PO 4XWK 05/20/23 05/10/25 08/07/24 18:00 Germanium Oil 1 dose topical BID 07/04/24 05/10/25 08/05/24 09:00 conjugated estrogens 0.625 mg/gram 0.625 mg vaginal 3XWK 07/04/24 05/10/25 Unknown vaginal cream glucosamine sulf dipot 1 cap PO QAM 07/04/24 05/10/25 08/05/24 09:00 chlr,msm,chond 550 mg-C 30 mg-cyndee 1 mg capsule (Glucosamine Chondroitin) acetaminophen 500 mg tablet 1,000 mg (2 x 500 mg) PO TID pain 07/30/24 05/10/25 Unknown (Tylenol Extra Strength) 30 days #180 tabs losartan 50 mg tablet 50 mg PO QAM 11/14/24 05/10/25 Unknown clindamycin HCl 300 mg capsule 600 mg (2 x 300 mg) PO ONCE #2 caps 05/03/25 05/10/25 Unknown furosemide 20 mg tablet 20 mg PO 3XWK 05/10/25 05/10/25 Unknown meclizine 25 mg tablet 25 mg PO DAILY PRN 05/10/25 05/10/25 Unknown vertigo/dizziness Past Medical History Medical History Artificial cardiac pacemaker Implanted 2022, [employer] per [facility] cardio records Follows with [facility] cardio Atrial fibrillation Follows with [facility] cardio Bilateral primary osteoarthritis of knee Chronic venous insufficiency Coronary artery disease Non-obstructive (per [facility] cardio records) GERD (gastroesophageal reflux disease) History of pericarditis Age 18 History of skin cancer Nasal region Treated with "a cream" [facility] Dermatology History of surgical site infection Pseudomonas s/p left TKA, resolved s/p wound clinic treatment Hx of vertigo Occasional "I have crystals in my ears" Hyperlipidemia Hypertension Osteoporosis Presence of pessary Pulmonary HTN Echo 05/17/25: PASP 40-45mmhg Tachy-gomez syndrome Valvular heart disease MV repair + TV repair (2019) Echo 05/17/25: Evidence of prior mitral valve repair and ring annuloplasty. Posterior mitral valve leaflet is restricted in mobility but with free mobile anterior leaflet. Mitral stenosis absent. Evidence of previous tricuspid valve repair. Mild TR. Exercise / Class Metabolic Activity III < 4 Walking/Shop/Light housework Past Family History Family History Brother Family hx of colon cancer Daughter FHx: breast cancer Mother FHx: breast cancer Grandmother FHx: breast cancer Aunt FHx: breast cancer Other No family history of adverse response to anesthesia Past Surgical History Surgical History H/O tricuspid valve repair History of appendectomy History of arthroplasty of left knee Left TKA (08/14/24): SAB at L3-4 (1 attempt) + regional at [facility] History of bilateral tubal ligation History of breast biopsy Left (benign) History of cardiac cath 2019- no stents History of cholecystectomy History of colonoscopy History of open reduction and internal fixation (ORIF) procedure Left wrist History of tonsillectomy Hx of mitral valve repair Status post endovenous radiofrequency ablation of saphenous vein Left leg [place] teeth removed Past Anesthesia History No Hx of Anesthesia Complications and No Family Hx of Anesthesia Complications (except mother PONV) History of PONV No Hx of PONV and No Hx of Motion Sickness Social History Smoking Status: Never smoker Do You Dip or Chew Tobacco: No Hx Alcohol Use: No Hx Substance Use: No substance use type: does not use Review of Systems Patient denies chest pain, shortness of breath, fever, chills, cough, wheezing, palpitations. Physical Exam Vital Signs BP 117/71 P 65 TEMP 98.2 SP02 96%RA RESP 18 Physical Full cervical extension range of motion. Full TMJ range of motion. TMD 3 finger breaths Mallampati Score II Dentition: intact, + crown Lungs: clear throughout to auscultation Cardiac: regular rate and rhythm, no murmurs noted Spine: normal Carotid arteries: negative bruit Extremities: no LE edema Lab Results Anesthesia Preop Results Results Anesthesia Widget: WBC 4.78 K/ul (4.8-10.8) L 05/20/25 Hgb 11.7 g/dl (12.0-16.0) L 05/20/25 Hct 36.4 % (37.0-47.0) L 05/20/25 Plt 142 K/uL (130-400) 05/20/25 Na 139 mmol/L (136-145) 05/20/25 K 4.1 mmol/L (3.5-5.1) 05/20/25 Cl 104 mmol/L (98-107) 05/20/25 CO2 30 mmol/L (21-32) 05/20/25 BUN 19 mg/dl (6-23) 05/20/25 Creat 1.02 mg/dl (0.6-1.2) 05/20/25 Glucose Level 99 mg/dl (70-99(Fasting)) 05/20/25 PT 20.2 Seconds (9.0-12.0) H 05/20/25 PTT 36 Seconds (21-31) H 05/20/25 INR 2.0 (0.9-1.1) H 05/20/25 Urine Color Yellow 05/20/25 Urine Appearance Clear (Clear) 05/20/25 Urine pH 7.5 (4.5-7.5) 05/20/25 Urine Specific [place] 1.016 (1.000-1.030) 05/20/25 Urine Protein Negative (Negative) 05/20/25 Urine Glucose (UA) Negative (Negative) 05/20/25 Urine Ketones Negative (Negative) 05/20/25 Urine Blood Negative (Negative) 05/20/25 Urine Nitrite Negative (Negative) 05/20/25 Urine Bilirubin Negative (Negative) 05/20/25 Urine Urobilinogen Negative (Negative) 05/20/25 Urine Leukocyte Esterase 1+ (Negative) H 05/20/25 Urine WBC (Auto) 6-10 /hpf (0-5) H 05/20/25 Urine RBC (Auto) 3-5 /hpf (0-2) H 05/20/25 Urine Hyaline Casts (Auto) 0-2 /lpf (0-2) 05/20/25 Urine Epithelial Cells (Auto) 11-20 /hpf (0-2) H 05/20/25 Urine Bacteria (Auto) 1+ (None Seen) H 05/20/25 Blood Type O Negative 05/20/25 Antibody Screen NEGATIVE 05/20/25 Testing Laboratory Results *UA did not meet criteria for urine culture per report > "Current criteria for culture reflex: Nitrite Positive or > 10 WBC's on microscopic review."* Electrocardiogram Date: 07/13/24 Ventricular-paced rhythm at 64bpm. Chest X-Ray Date: 07/13/24 FINDINGS: A left subclavian pacer, prosthetic cardiac valves and left atrial appendage occluder device are noted. There is moderate cardiomegaly without evidence for pulmonary edema. No pneumothorax or pleural effusion is present. There is no consolidation to suggest pneumonia. IMPRESSION: No acute cardiopulmonary findings. Cardiomegaly. Echocardiogram Date: 05/17/25 LVEF 60-64%. Septal motion is abnormal consistent with RV pacemaker. The regional LV wall motion is otherwise normal. Severe LAE. Mild LESLY. Evidence of prior mitral valve repair and ring annuloplasty. Posterior mitral valve leaflet is restricted in mobility but with free mobile anterior leaflet. Mitral stenosis absent. Evidence of previous tricuspid valve repair. Mild TR. Estimated PASP 40-45%. Estimated PASP 40-45%.
--- NOTE | 2025-06-06 12:23 | History & Physical Report ---
Date of Service June 06, 2025 Assessment & Plan (1) Right knee DJD: 85-year-old female now 9 months out from a left knee replacement with advanced right knee DJD. She failed conservative measures. Very happy with the left knee and would like to have her right knee replaced. Plan: We are going to take her to the operating do a right total knee replacement but the risks met this procedure were explained. Informed consent was obtained. Will do all weekend to avoid any wound issues similar to last time but she does have thickened vascular disease which makes this more likely. She is planned to be discharged to home using [facility] home health program. She is on chronic Coumadin wept to hold that 5 days preop. No bridges needed. She will bring her own CPAP machine. (2) History of arthroplasty of left knee: (3) Chronic venous insufficiency: (4) Hypertension: History of Present Illness Chief Complaint: . Persistent right knee pain and discomfort. Primary Care Provider: Henrik De La Cruz DO . The patient is an 85-year-old female now about 9 months out from left knee replacement. Her left knee is doing great. She did have some wound healing problems initially due to some vascular calcification. She was treated and this is all healed in. She recovered quite nicely. She continues to be bothered by right knee pain discomfort. She been through extensive conservative treatment which have become less successful over time she is very happy with the left knee and would like to have her right knee replaced. Allergies Allergy/AdvReac Type Severity Reaction Status Date / Time Penicillins Allergy Severe Rash, Verified 05/10/25 12:35 respiratory distress cefadroxil Allergy Intermediate Hives Verified 05/10/25 12:43 codeine Allergy Intermediate Lip Verified 05/10/25 12:35 numbness Iodinated Contrast Media Allergy Intermediate Rash Verified 05/10/25 12:35 hoff Allergy Mild Nausea Verified 05/10/25 12:35 (Garbanzo hoff) sulfamethoxazole Allergy Mild Nausea, Verified 05/10/25 12:35 [From Bactrim] decreased sodium level trimethoprim [From Bactrim] Allergy Mild Nausea, Verified 05/10/25 12:35 decreased sodium level hydrochlorothiazide AdvReac Drug-induced Verified 06/05/25 09:53 hyponatremia (Per cardio records) Home Medications Medication Instructions Recorded Confirmed Type cholecalciferol (vitamin D3) 50 2,000 unit PO PM 01/16/19 05/10/25 History mcg (2,000 unit) capsule (Vitamin D3) rosuvastatin 5 mg tablet (Crestor) 5 mg PO HS 01/16/19 05/10/25 History famotidine 20 mg tablet 20 mg PO HS 03/10/22 05/10/25 History calcium carbonate (Oyster Shell 500 mg PO QAM 02/21/23 05/10/25 History Calcium) metoprolol succinate 25 mg 25 mg PO QPM 04/20/23 05/10/25 History tablet,extended release 24 hr warfarin 2.5 mg tablet 2.5 mg PO 3XWK 05/20/23 05/10/25 History warfarin 5 mg tablet 5 mg PO 4XWK 05/20/23 05/10/25 History Germanium Oil 1 dose topical BID 07/04/24 05/10/25 History conjugated estrogens 0.625 mg/gram 0.625 mg vaginal 3XWK 07/04/24 05/10/25 History vaginal cream glucosamine sulf dipot 1 cap PO QAM 07/04/24 05/10/25 History chlr,msm,chond 550 mg-C 30 mg-cyndee 1 mg capsule (Glucosamine Chondroitin) acetaminophen 500 mg tablet 1,000 mg (2 x 500 mg) PO TID pain 07/30/24 05/10/25 Rx (Tylenol Extra Strength) 30 days #180 tabs losartan 50 mg tablet 50 mg PO QAM 11/14/24 05/10/25 History clindamycin HCl 300 mg capsule 600 mg (2 x 300 mg) PO ONCE #2 caps 05/03/25 05/10/25 Rx furosemide 20 mg tablet 20 mg PO 3XWK 05/10/25 05/10/25 History meclizine 25 mg tablet 25 mg PO DAILY PRN 05/10/25 05/10/25 History vertigo/dizziness Past Med/Surg History Problem List Encounter for pre-operative examination Right knee DJD Chronic venous insufficiency (Chronic) Abnormal ankle brachial index ([place]) (Acute) Hypertension (Acute) Medical History History of surgical site infection Pseudomonas s/p left TKA, resolved s/p wound clinic treatment Hx of vertigo Occasional "I have crystals in my ears" History of skin cancer Nasal region Treated with "a cream" [facility] Dermatology Presence of pessary Valvular heart disease MV repair + TV repair (2019) Echo 05/17/25: Evidence of prior mitral valve repair and ring annuloplasty. Posterior mitral valve leaflet is restricted in mobility but with free mobile anterior leaflet. Mitral stenosis absent. Evidence of previous tricuspid valve repair. Mild TR. Coronary artery disease Non-obstructive (per [facility] cardio records) Chronic venous insufficiency Bilateral primary osteoarthritis of knee Pulmonary HTN Echo 05/17/25: PASP 40-45mmhg History of pericarditis Age 18 Hypertension Atrial fibrillation Follows with [facility] cardio Artificial cardiac pacemaker Implanted 2022, [employer] per [facility] cardio records Follows with [facility] cardio Tachy-gomez syndrome Osteoporosis GERD (gastroesophageal reflux disease) Hyperlipidemia Surgical History History of arthroplasty of left knee Left TKA (08/14/24): SAB at L3-4 (1 attempt) + regional at [facility] Hx of mitral valve repair [place] H/O tricuspid valve repair Status post endovenous radiofrequency ablation of saphenous vein Left leg [place] teeth removed History of open reduction and internal fixation (ORIF) procedure Left wrist History of cholecystectomy History of breast biopsy Left (benign) History of bilateral tubal ligation History of appendectomy History of colonoscopy History of tonsillectomy History of cardiac cath 2019- no stents Family History Brother Family hx of colon cancer Daughter FHx: breast cancer Mother FHx: breast cancer Grandmother FHx: breast cancer Aunt FHx: breast cancer Other No family history of adverse response to anesthesia Social History Smoking Status: Never smoker Second Hand Exposure: No; Do You Dip or Chew Tobacco: No; Hx Alcohol Use: No Hx Substance Use: No Preferred Language: Slovak Communication Ability: Effective Visual Impairment: No Limitations Hearing Ability: Normal Regulatory Agency Director Required: No Beliefs That Will Affect Care: None Current Living Situation: Spouse Feels Safe at Home: Yes Diet Comment: Low fat caffeine: No Do you think of yourself as: straight/heterosexual Gender Identity: Female Assistive Devices: None Review of Systems All systems reviewed & are unremarkable except as noted in HPI & below. Physical Exam . Physical examination was a thin healthy spry elderly female. She looks to be in good health. Examination of the knees reveal patient ambulates independently. Examination of the left knee reveals well-healed incision. The little bit of thickening of the scar distally. No effusion. Range of motion is 0-1 25. Examination the right knee Braille slight valgus deformity. She has got about a 10 degree flexion contracture and bends at about 120 degrees. Mildly tender. Small knee effusion. No pain with hip motion. She is neurologically intact. Constitutional WD/WN, vitals as above Respiratory normal respiratory effort, lungs clear to auscultation Gastrointestinal (Abdomen) normal bowel sounds, soft, nontender, no hepatosplenomegaly Results & Data Results & Data Laboratory Results . Diagnostic Findings . X-rays of the right knee were reviewed. It shows advanced right knee tricompartment DJD. She got valgus alignment to her knee. Diffuse osteopenia. The left knee replaced looks to be good position without problems. PG Care Time/CCT Total # of Minutes Spent Total Time Spent with Patient: Total time spent is greater than 50% in coordination of care (as documented) at patient's floor/unit and/or counseling patient: Coding Level of Care Code None Diagnoses Right knee DJD M17.11 History of arthroplasty of left knee Z96.652 Chronic venous insufficiency I87.2 Hypertension I10
[~2025-06-11 08:32] MED LIST changes: -ACETAMINOPHEN 500 MG TAB PO SCH; +BUPIVACAINE 0.25% PF 30 ML VIAL ONE; +BUPIVACAINE 0.5 % 5 MG/1 ML PF 10ML VIAL ONE; -CeleBREX 200 MG CAP PO SCH; -FAMOTIDINE 20 MG TAB PO SCH; -LR 500ML BOLUS, THEN 15ML/HR IV SCH; -LR 60ML/HR IV SCH; -METOCLOPRAMIDE HCL 10 MG TABLET PO SCH; -ROPIV 0.5% 246mg, Ketorolac 30mg, EPINEPHrine 0.5mg in NSS INFIL SCH; -TRANEXAMIC ACID 1,000 MG **IV Intra-op IV SCH; -ceFAZolin 2000MG 2,000 MG/15 ML SYR IV SCH
[2025-06-11] MEDS: LR 500ML BOLUS, THEN 15ML/HR IV SCH (09:02)
[2025-06-11] MEDS: dexAMETHasone**PF** 10 MG/ML VIAL IV SCH (09:03)
[2025-06-11] MEDS: VANCOMYCIN HCL / NSS 1,000 MG/270 ML BAG IV SCH (09:05)
--- NOTE | 2025-06-11 09:05 | History & Physical Bridge Note ---
Date of Service June 11, 2025 History & Physical Bridge Note I have examined the patient, reviewed the History & Physical and in the interval since the performance of the History & Physical I have noted the following changes of clinical significance: no changes noted
[2025-06-11] MEDS: ACETAMINOPHEN 500 MG TAB PO SCH ×2 (09:07→20:23)
[2025-06-11] MEDS: FAMOTIDINE 20 MG TAB PO SCH ×2 (09:23→20:24)
[2025-06-11] MEDS: METOCLOPRAMIDE HCL 10 MG TABLET PO SCH (09:23)
[2025-06-11] MEDS: LR 60ML/HR IV SCH (09:23)
[2025-06-11] MEDS: CeleBREX 200 MG CAP PO SCH (09:23)
[2025-06-11 09:24] LABS: INR 1.0 (0.9-1.1); Partial Thromboplastin Time 28 Seconds (21-31); Prothrombin Time 11.1 Seconds (9.0-12.0)
[2025-06-11] MEDS ORDERED: MIDAZOLAM HCL 1 MG/ML 2ML VIAL ONE (09:40)
[2025-06-11] MEDS ORDERED: PROPOFOL IV EMULSION 10 MG/ML 100 ML VIAL IV ONE (09:41)
[2025-06-11] MEDS ORDERED: LIDOCAINE 2% 2 ML VIAL/AMP(20MG/ML) INFIL ONE (09:41)
[2025-06-11] MEDS ORDERED: ONDANSETRON INJ 2 MG/ML 2 ML VIAL IV PRN ×2 (10:29→15:54)
[2025-06-11] MEDS ORDERED: ATROPINE SULFATE 0.1 MG/ML 10ML SYR IV PRN (10:29)
[2025-06-11] MEDS: ROPIV 0.5% 246mg, Ketorolac 30mg, EPINEPHrine 0.5mg in NSS INFIL SCH (12:30)
[2025-06-11] MEDS: ORTHO JOINT ANESTHETIC ONE (12:30)
[2025-06-11] MEDS ORDERED: ePHEDrine sulfate 50 MG/5 ML SYR ONE (13:00)
--- NOTE | 2025-06-11 13:44 | Operative Report ---
PG Post Operative Report Pre & Post Diagnosis Operation Date: 06/11/25 10:40 Pre-Op Diagnosis: Right Knee Degenerative Joint Disease Post-Op Diagnosis: Right Knee Degenerative Joint Disease I identified the patient and participated in the time-out.: Yes Procedure Operation Date: 06/11/25 10:40 Actual Procedures p Right Total Knee Arthroplasty(Right) - Servando Cramer MD Surgeon Servando Cramer MD Neighborhood Planner Claudio Mott PA-C Estimated Blood Loss 50 Findings Consistent with Post-Op Diagnosis Operative findings were advanced right knee tricompartment DJD. She had extensive grade 4 [id number]-ig-chpy disease in all 3 compartments most severe laterally. Specimens Right knee sent for pathology. Anesthesia Type Spinal MAC Complications none Disposition Accompanied Patient To Recovery: No Indications The patient is an 85-year-old female whose had a host of medical problems. That despite this she remains a very active person. Over the years she developed increased pain discomfort in both knees. She had a left knee replacement 10 months ago and is done well from this. She continue to be limited by right knee pain discomfort. She failed conservative measures. She elected proceed with right total knee arthroplasty. Description of Procedure Operative implants consist of: 1. Biomet Vanguard size 62.5 right posterior stabilized femoral component. 2. Biomet size 67 tibial tray. 3. 14 mm PS plus insert. 4. 31 x 8 all poly patella. The patient was taken to the op room, identified, placed on the operating table in the supine position. All conductors were appropriately padded. IV antibiotics fibra anesthesia team. Spinal anesthetic and adductor canal block had been provided in the holding area. A Valenzuela catheter was placed in sterile fashion. Right thigh tourniquet was then placed. The right lower extremity was then prepped and draped in the usual sterile fashion. The right leg was elevated and exsanguinated with use of an Esmarch and t ourniquet placed at 300 mmHg. An anterior approach to the right knee was then performed through a longitudinal incision centered over the patella. Sharp dissection was carried through subcutaneous tissue down the extensor mechanism. A medial parapatellar arthrotomy incision was made. Some subperiosteal dissection was carried out medially. The fat pad was resected from the patella tendon. The lateral patellofemoral ligament was released. Patella was subluxated laterally knee was flexed. The osteophytes taken off distal femur. The ACL PCL then released from distal femur the tibia subluxated anteriorly. The external treatment LYMErix then placed on the anterior face of the tibia and adjusted 12 mm medially. The proximal tibial cut was made remove about 3 to 4 mm of bone from the medial side. The tibia sized to a size 67. Attention drawn the femur. The distal femur was entered with a sharp drill. Intramedullary canal was suction. A right 5 degree valgus cutting guide was placed. This femoral cutting block was pinned in place. The distal femoral cut was made take an additional 3 mm of bone off distal femur. The knee was then brought out into full extension. I then did a release of the posterior lateral and the lateral capsule and IT band in order to equalize extension gap. Great care was taken to protect the peroneal nerve during this exposure. The femur was then sized to a size 62.5. The AP cutting block was pinned parallel to the epicondylar axis which was 5 degrees of external rotation. The anterior cut, anterior chamfer, posterior cut, posterior chamfer cuts were made. The box cutting guide was placed and just slight lateral box cut was made. The knee was flexed. The remnants of the medial and lateral menisci were excised. The osteophytes taken off the posterior aspect of femur. Trial femoral component was placed. The tibial tray was pinned in Sadaf external rotation and the drill and stem punch used to create defect in the proximal tibia for the tibial tray. The knee was then trialed and the 14 mm insert fit most appropriately. I did elect to place a PS plus insert due to her right significant preoperative valgus deformity. All trial implants were removed. A bone plug was placed into this femur limit blood loss. Double batch Palacos G cement was mixed. Biomet Vanguard size 62.5 right posterior stabilized femoral component, size 67 tibial tray, a 14 mm PS plus insert, and a 31 x 8 all poly patella then cemented in place. Knee was brought out into full extension till cement hardened. A final cement check was then performed. The pericapsular tissues were injected with total of 100 cc of Ortho mix. The patient did receive 1 g tranexamic acid. The tourniquet was then let down for final tourniquet time of 58 minutes. Hemostasis assured use electrocautery. I did place a little bit of bone wax on the anterior medial tibia where there was bleeding from the bone. The extensor Metros then closed with combination 1 PDS suture #1 Vicryl suture in a [id number] fashion. Extensor Meclomen checked found be intact. Subcutaneous tissue then closed with 2 Dexon suture in a buried interrupted fashion skin was closed skin mary. Leg was then cleaned and dried and sterile dressed with Xeroform, 4 fours, sterile cast padding, Lee bandage were applied. Patient then transferred to the recovery room in stable condition. Patient tolerated procedure well and there were no complications. Claudio Mott, my physician automotive service assistant, was present for the entire procedure. His assistance was required for proper patient positioning, prepping and draping, surgical exposure, retraction, perform the technical details of the operation, placement implants, and closure of the incision site and placement of postoperative sterile bandage. I attest to the content of the Intraoperative Record and any orders documented therein. Any exceptions are noted below.
--- NOTE | 2025-06-11 14:02 | XRay Report ---
XR knee RT 1 or 2V routine CLINICAL HISTORY: Surgical Post Op COMPARISON: None FINDINGS: There are postsurgical changes of a total right knee arthroplasty and patellar resurfacing . There is air within the soft tissues consistent with recent surgery. There are overlying anterior s kin mary. IMPRESSION: Postsurgical changes of a total right knee arthroplasty. No complicating features identif ied. ACT 112: Negative or not required by law. Electronically signed by: Joey Amaro M.D. 06/11/2025 2:01 PM
--- NOTE | 2025-06-11 14:21 | Anesthesiology Progress Note ---
Date of Service June 11, 2025 Anesthesia Post Procedure Vital Signs Vital Signs: Temp Pulse Resp BP Pulse Ox O2 Del Method O2 Flow Rate 06/11/25 14:10 80 13 155/87 H 98 Nasal Cannula 2 06/11/25 14:00 73 16 142/67 H 91 Room Air 06/11/25 13:50 80 15 143/78 H 92 Room Air 06/11/25 13:40 80 18 139/79 100 Oxymask 10 06/11/25 13:33 36.0 C L 96 H 16 129/75 98 Oxymask 10 06/11/25 09:13 36.6 C 60 18 171/93 H 97 Room Air Transfer of Care Handoff Completed per policy Notes Mental Status: alert / awake / arousable Patient Amnestic to Procedure: Yes Nausea / Vomiting: adequately controlled Pain: adequately controlled Airway Patency, RR, SpO2: stable & adequate BP & HR: stable & adequate Hydration State: stable & adequate Neuraxial Anesthesia: was administered and sensory block is resolving Anesthetic Complications: no major complications apparent and Pt Satisfied with anesthetic care
[2025-06-11] MEDS ORDERED: ACETAMINOPHEN 500 MG TAB PO SCH (15:54)
[2025-06-11] MEDS ORDERED: NALOXONE HCL 0.4 MG/1 ML VIAL/CARP IV PRN (15:54)
[2025-06-11] MEDS ORDERED: MECLIZINE HCL 25 MG TAB PO PRN (15:54)
[2025-06-11] MEDS ORDERED: METOCLOPRAMIDE HCL INJ 5 MG/ML 2 ML VIAL IV PRN (15:54)
[2025-06-11] MEDS ORDERED: ALUMINUM/MAGNESIUM SUSP 30 ML UDC PO PRN (15:54)
[2025-06-11] MEDS ORDERED: VANCOMYCIN CONSULT ACTIVE PRN (15:54)
[2025-06-11] MEDS ORDERED: HYDROmorphone INJ 0.5 MG/0.5 ML SYR IV PRN (15:54)
[2025-06-11] MEDS ORDERED: MAGNESIUM HYDROXIDE SUSP 30 ML UDC PO PRN (15:54)
[2025-06-11] MEDS: SODIUM CHLORIDE 0.9% 1,000 ML IV SCH (16:09)
[2025-06-11] MEDS: KETOROLAC TROMETHAMINE 15 MG/ML VIAL IV SCH (17:04)
[2025-06-11] MEDS: WARFARIN SOD 7.5 MG TAB PO ONE (18:19)
[2025-06-11] MEDS: TRANEXAMIC ACID / 0.7% NACL 1,000 MG/100 ML BAG IV SCH (20:22)
[2025-06-11] MEDS: CHOLECALCIFEROL 25 MCG (1000 UNITS) TAB PO SCH (20:24)
[2025-06-11] MEDS: DOCUSATE SODIUM 100 MG CAP PO SCH (20:24)
[2025-06-11] MEDS: SENNA 8.6 MG TAB PO SCH (20:24)
[2025-06-11] MEDS: ROSUVASTATIN CALCIUM 5 MG TAB PO SCH (20:25)
[2025-06-11] MEDS ORDERED: [UNRECOGNIZED DRUG - OTHER] TOP SCH (21:00)
[2025-06-11] MEDS ORDERED: SENNA 8.6 MG TAB PO SCH (21:00)
[2025-06-11] MEDS: METOPROLOL SUCC 25MG EXT REL TAB PO SCH (21:54)
[2025-06-11] MEDS: VANCOMYCIN HCL 1,000 MG in SODIUM CHLORIDE 0.9% 250 ML IV SCH (23:06)
[2025-06-12 07:28] VITALS: BP 145/73; PULSE 59; RESP 16; TEMP 98.1; O2SAT 96
[2025-06-12 07:41] LABS: Hematocrit (blood only) 32.4 % (37.0-47.0); Hemoglobin 10.5 g/dl (12.0-16.0); Mean Corpuscular Hemoglobin 28.3 pg (25.0-34.0); Mean Corpuscular Volume 87.3 fL (80.0-100.0); Platelet Count 107 K/uL (130-400); RDW Standard Deviation 47.4 fL (36.4-46.3); Red Blood Count 3.71 M/uL (4.20-5.40); White Blood Count 9.01 K/ul (4.8-10.8)
[2025-06-12 07:56] LABS: Anion Gap 4.0 (3-11); Blood Urea Nitrogen 20.0 mg/dl (6-23); Calcium 9.0 mg/dl (8.6-10.3); Carbon Dioxide 26.0 mmol/L (21-32); Chloride 109.0 mmol/L (98-107); Creatinine Clr Calc Pharmacy 47.9 ml/min; Glucose 119.0 mg/dl (70-99(Fasting)); Potassium 4.1 mmol/L (3.5-5.1); Sodium 139.0 mmol/L (136-145)
--- NOTE | 2025-06-12 07:59 | Orthopedic Progress Note ---
Date of Service June 12, 2025 Assessment & Plan (1) Status post total right knee replacement: * Continue Current Treatment * Disposition: home, PT * Daily treatment: Physical Therapy/ Occupational Therapy per protocol * Weight bearing status: WBAT * Continue to monitor for ABLA * Pain control * DVT prophylaxis, ASA * Office/hospital f/u 2 weeks for progress check and staple/suture removal * Plan for discharge today pending PT/OT clearance Subjective . Active Problems: S/p right tKA POD 1 85 y/o female s/p right TKA. Doing well overall, pain managed and improved function. Denies fever/chills, chest pain/SOB, nausea/vomiting. Otherwise no complaints. Review of Systems All systems reviewed & are unremarkable except as noted in HPI & below. Physical Exam . * General: Alert and oriented, no acute distress * Constitutional: well-developed, well-nourished. * Respiratory: Normal respiratory effort, no distress * Gastrointestinal: No tenderness to palpation, no rigidity or guarding. * Skin: No rash or lesion. * Neurologic: Grossly normal * Musculoskeletal: Right knee surgical dressing CDI, not removed for exam. Otherwise no obvious deformity or overlying skin changes RLE. Diffuse TTP distal thigh and knee region. Otherwise no specific tenderness of proximal thigh, lower leg, foot/ankle. AROM knee flexion 90 degrees. AROM foot/ankle intact. Sensation intact plantar/dorsal foot. Brisk capillary refill. Results & Data Results & Data Laboratory Results . Diagnostic Findings . Knee X-Ray 06/11/25 13:35 XR knee RT 1 or 2V routine CLINICAL HISTORY: Surgical Post Op COMPARISON: None FINDINGS: There are postsurgical changes of a total right knee arthroplasty and patellar resurfacing. There is air within the soft tissues consistent with recent surgery. There are overlying anterior skin mary. IMPRESSION: Postsurgical changes of a total right knee arthroplasty. No complicating features identified. ACT 112: Negative or not required by law. Electronically signed by: Joey Amaro M.D. 06/11/2025 2:01 PM PG Care Time/CCT Total # of Minutes Spent Total Time Spent with Patient: Total time spent is greater than 50% in coordination of care (as documented) at patient's floor/unit and/or counseling patient: Coding Level of Care Code 16044 Post Operative Follow-Up Diagnoses Status post total right knee replacement Z96.651
[2025-06-12 08:05] LABS: INR 1.1 (0.9-1.1); Prothrombin Time 11.9 Seconds (9.0-12.0)
[2025-06-12] MEDS: FUROSEMIDE 20 MG TAB PO SCH (08:23)
[2025-06-12] MEDS: CALCIUM CARBONATE 1250MG TAB PO SCH (08:23)
[2025-06-12] MEDS: dexAMETHasone 10 MG in SYRINGE 0 ML IV SCH (08:23)
[2025-06-12] MEDS: LOSARTAN POTASSIUM 50 MG TAB PO SCH (08:24)
[2025-06-12] MEDS: MULTIVITAMIN TAB PO SCH (08:24)
[2025-06-12] MEDS: ASCORBIC ACID 500 MG TAB PO SCH (08:24)
[2025-06-12] MEDS ORDERED: NON-FORMULARY MEDICATION (Glucos Sul 2kcl-Msm-Chond-C-Mn [Glucosamine Chondroitin] 550-30- PO SCH (09:00)
[2025-06-12] MEDS: WARFARIN SOD 5 MG TAB PO ONE (10:56)
[2025-06-12] MEDS ORDERED: WARFARIN SOD 2.5 MG TAB PO SCH (16:00)
== END 2025-06-12 11:10 | disposition home health service (06) ==
LOC: ASU 08:32 → 3W 08:32

== ENCOUNTER 2025-06-24 17:47 | Inpatient (IN) ==
[2025-06-24] MEDS: SODIUM CHLORIDE 0.9% 1,000 ML IV SCH (18:39)
[2025-06-24 18:51] LABS: Hematocrit (blood only) 37.8 % (37.0-47.0); Hemoglobin 12.0 g/dl (12.0-16.0); Immature Granulocytes # (auto) 0.01 K/uL (0.01-0.20); Immature Granulocytes % (auto) 0.2 %; Mean Corpuscular Hemoglobin 27.6 pg (25.0-34.0); Mean Corpuscular Volume 86.9 fL (80.0-100.0); Platelet Count 307 K/uL (130-400); RDW Standard Deviation 48.2 fL (36.4-46.3); Red Blood Count 4.35 M/uL (4.20-5.40); White Blood Count 6.01 K/ul (4.8-10.8)
[2025-06-24 19:08] LABS: Alanine Aminotransferase 12.0 U/L (7-52); Albumin Globulin Ratio 1.0 (0.9-2); Albumin Level 3.8 gm/dl (3.4-5.0); Alkaline Phosphatase 73.0 U/L (34-104); Anion Gap 7.0 (3-11); Bilirubin,Total 1.6 mg/dl (0.2-1.0); Blood Urea Nitrogen 15.0 mg/dl (6-23); Calcium 9.6 mg/dl (8.6-10.3); Carbon Dioxide 29.0 mmol/L (21-32); Chloride 100.0 mmol/L (98-107); Creatinine Clr Calc Pharmacy 57.0 ml/min; Globulin 4.0 gm/dl (2.5-4.0); Glucose 103.0 mg/dl (70-99(Fasting)); Magnesium 2.1 mg/dl (1.7-2.4); Potassium 4.1 mmol/L (3.5-5.1); Sodium 136.0 mmol/L (136-145); Total Protein 7.8 gm/dl (6.0-8.3)
[2025-06-24 19:23] LABS: Thyroid Stimulating Hormone 0.276 uIu/ml (0.300-4.500)
--- NOTE | 2025-06-24 19:36 | XRay Report ---
Chest radiograph, one view History: Weakness Comparison: 07/13/2024: Findings: Single AP view of the chest performed. No focal consolidation or pleural effusion. No pneumothorax. A left subclavian pacer, prosthetic cardiac valves and left atrial appendage occluder device are noted. There is moderate cardiomegaly without evidence for pulmonary edema. No pneumothorax or pleural effusion is present. There is no consolidation to suggest pneumonia. Median sternotomy wires. There is a cardiac valve annuloplasty. IMPRESSION: No acute cardiopulmonary findings. Cardiomegaly. Electronically signed by Julio Mott 06-24-2025 7:36 PM
--- NOTE | 2025-06-24 19:53 | CT Scan Report ---
CT head without contrast History: Trauma Comparison: None Technique: Using multidetector thin collimation helical acquisition technique, axial, coronal and sagittal CT images from the skull base to the vertex were obtained without intravenous contrast. Dose reduction techniques were achieved by using automatic exposure control and/or adjustment of mA and/or kV according to patient size and/or use of iterative reconstruction technique. Findings: No intracranial hemorrhage, mass-effect, or midline shift. The ventricles are proportionate to the cerebral sulci. The villafana to white matter differentiation of the cerebral hemispheres is preserved. The basal cisterns are patent. The visualized paranasal sinuses are clear. Mastoid air cells are clear. Impression: No acute intracranial pathology. Electronically signed by Julio Mott 06-24-2025 7:52 PM
[2025-06-24 20:04] LABS: T4 Free Thyroxine 1.65 ng/dl (0.61-1.60)
[2025-06-24 21:01] LABS: INR 4.9 (0.9-1.1); Prothrombin Time 46.4 Seconds (9.0-12.0)
--- NOTE | 2025-06-24 21:03 | XRay Report ---
2 views right knee Comparison made to prior exam dated06/20/2025 Impression: Redemonstration of postoperative changes right total knee arthroplasty with extensive soft tissue swelling and inflammatory change and knee effusion. There is a comminuted periprosthetic fracture of the distal femur about the femoral component. This appears unchanged when compared with the prior exam but compared to prior exam there appears to be interval increase in displacement of the medial condylar fracture fragment Electronically signed by Jared Snowden 06-24-2025 9:03 PM
[2025-06-24 21:09] LABS: Appearance Urine Clear (Clear); Bacteria Urine Automated None Seen (None Seen); Cast Urine Automated 0-2 /lpf (0-2); Epithelial Cell Urine Auto 0-2 /hpf (0-2); Glucose Urine UA Negative (Negative); WBC Urine Automated 0-5 /hpf (0-5)
[2025-06-24] MEDS ORDERED: MECLIZINE HCL 25 MG TAB PO PRN (23:56)
[2025-06-24] MEDS ORDERED: POLYETHYLENE (MIRALAX) 17 GM PACK PO PRN (23:56)
[2025-06-25] MEDS: LACTATED RINGER'S 1,000 ML IV SCH (00:09)
[2025-06-25] MEDS: DOCUSATE SODIUM/SENNA 50/8.6MG TAB PO ONE (00:25)
--- NOTE | 2025-06-25 00:59 | History & Physical Report ---
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 Patient had right total knee arthroplasty on 06/11/2025. She did fine after surgery. She ambulated in the hospital okay. Was discharged on 06/12/2025. After going home she was having trouble ambulating. On the same night after discharge patient tried to get up from the bed and fell down. had to help her to get into the bed. Since then she is having a lot of pain in the right leg and not getting out of the bed without help. She followed up with orthopedics on 06/20/2025 and x-rays were done which showed right distal periprosthetic femur fracture. As she is in significant pain and having ambulatory dysfunction she came back to the hospital today. Denies any fevers. Somewhat constipated. Micturating okay. No abdominal pain. No nausea. No chest pain or shortness of breath. No cough. No headache or runny nose. Hemodynamics are okay. Right femoral fracture Right distal femur periprosthetic fracture Recent right knee replacement Pain control Ortho consulted for further recommendation May need placement Atrial fibrillation Tachybradycardia syndrome Status post pacemaker History of mitral valve and tricuspid valve repair On metoprolol succinate Hold Coumadin as INR is 4.9 Follow PT/INR Hypertension On losartan and metoprolol succinate Will monitor Nonobstructive CAD On beta-roscoe, statin and Coumadin History of heart failure with preserved ejection fraction, mild pulmonary hypertension On Lasix 20 mg 3 times a week Monitor for volume overload Hyperlipidemia On statin Constipation Stool softeners GERD History of esophagitis On famotidine History of venous insufficiency Status post endovenous radiofrequency ablation of the left small saphenous vein and left greater saphenous vein History of status post left total knee replacement August 2024 complicated by nonhealing surgical wound with Pseudomonas infection treated with acetic acid soaks and wound VAC. Subacute bacterial endocarditis prophylaxis Clindamycin prior to dental work DVT prophylaxis INR supratherapeutic Disposition Medical floor Full code. 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 Patient had right total knee arthroplasty on 06/11/2025. She did fine after surgery. She ambulated in the hospital okay. Was discharged on 06/12/2025. After going home she was having trouble ambulating. On the same night after discharge patient tried to get up from the bed and fell down. had to help her to get into the bed. Since then she is having a lot of pain in the right leg and not getting out of the bed without help. She followed up with orthopedics on 06/20/2025 and x-rays were done which showed right distal periprosthetic femur fracture. As she is in significant pain and having ambulatory dysfunction she came back to the hospital today. Denies any fevers. Somewhat constipated. Micturating okay. No abdominal pain. No nausea. No chest pain or shortness of breath. No cough. No headache or runny nose. Hemodynamics are okay. Past medical history. As mentioned above. Past surgical history. Bilateral knee arthroplasty. Left breast biopsy. Colonoscopy. Colonoscopy with biopsy. Incision biopsy right silveira. Left breast aspiration 1989. Laparoscopic cholecystectomy. Ligation oviducts. Pacemaker placement. Valvuloplasty of mitral valve with prosthetic ring and bypass in 2019. Appendectomy. Tonsillectomy and adenoidectomy. Valvuloplasty tricuspid valve with ring in 2019. Vein ablation of left extremity. Wrist arthroscopy. Social history. . No smoking. No alcohol use. No drug use. Family history. Father had atrial fibrillation. Mother had atrial fibrillation. Maternal aunt breast cancer. Cousin had breast cancer. Daughter had breast cancer. Maternal grandmother had breast cancer. Mother had breast cancer. Brother had colon and liver cancer. Father had hypertension. Emphysema. Son had esophageal stricture. Allergies Allergy/AdvReac Type Severity Reaction Status Date / Time Penicillins Allergy Severe Rash, Verified 06/11/25 08:43 respiratory distress cefadroxil Allergy Intermediate Hives Verified 06/11/25 08:43 codeine Allergy Intermediate Lip Verified 06/11/25 08:43 numbness Iodinated Contrast Media Allergy Intermediate Rash Verified 06/11/25 08:43 hoff Allergy Mild Nausea Verified 06/11/25 08:43 (Garbanzo hoff) sulfamethoxazole Allergy Mild Nausea, Verified 06/11/25 08:43 [From Bactrim] decreased sodium level trimethoprim [From Bactrim] Allergy Mild Nausea, Verified 06/11/25 08:43 decreased sodium level hydrochlorothiazide AdvReac Drug-induced Verified 06/11/25 08:43 hyponatremia (Per cardio records) Home Medications Medication Instructions Recorded Confirmed Type cholecalciferol (vitamin D3) 50 2,000 unit PO PM 01/16/19 06/24/25 History mcg (2,000 unit) capsule (Vitamin D3) rosuvastatin 5 mg tablet (Crestor) 5 mg PO HS 01/16/19 06/24/25 History famotidine 20 mg tablet 20 mg PO HS 03/10/22 06/24/25 History calcium carbonate (Oyster Shell 500 mg PO QAM 02/21/23 06/24/25 History Calcium) metoprolol succinate 25 mg 25 mg PO QPM 04/20/23 06/24/25 History tablet,extended release 24 hr warfarin 2.5 mg tablet 2.5 mg PO 3XWK 05/20/23 06/24/25 History warfarin 5 mg tablet 5 mg PO 4XWK 05/20/23 06/24/25 History Germanium Oil 1 dose topical BID 07/04/24 06/24/25 History conjugated estrogens 0.625 mg/gram 0.625 mg vaginal 3XWK 07/04/24 06/24/25 History vaginal cream glucosamine sulf dipot 1 cap PO QAM 07/04/24 06/24/25 History chlr,msm,chond 550 mg-C 30 mg-cyndee 1 mg capsule (Glucosamine Chondroitin) losartan 50 mg tablet 50 mg PO QAM 11/14/24 06/24/25 History clindamycin HCl 300 mg capsule 600 mg (2 x 300 mg) PO ONCE #2 caps 05/03/25 06/24/25 Rx furosemide 20 mg tablet 20 mg PO 3XWK 05/10/25 06/24/25 History meclizine 25 mg tablet 25 mg PO DAILY PRN 05/10/25 06/24/25 History vertigo/dizziness polyethylene glycol 3350 17 17 g PO QDAY constipation 7 days 06/19/25 06/24/25 Rx gram/dose oral powder #119 grams acetaminophen 500 mg tablet 1,000 mg PO TID PRN pain 06/24/25 06/24/25 History (Tylenol Extra Strength) ondansetron 4 mg disintegrating 4 mg PO Q8H PRN nausea 06/24/25 06/24/25 History tablet oxycodone 5 mg tablet 5 - 10 mg PO Q6H PRN pain 06/24/25 06/24/25 History Past Med/Surg History Problem List (Updated 06/20/25 @ 08:37 by Servando Cramer MD) Right femoral fracture Status post total right knee replacement Chronic venous insufficiency (Chronic) Abnormal ankle brachial index ([place]) (Acute) Hypertension (Acute) Medical History History of surgical site infection Pseudomonas s/p left TKA, resolved s/p wound clinic treatment Hx of vertigo Occasional "I have crystals in my ears" History of skin cancer Nasal region Treated with "a cream" [facility] Dermatology Presence of pessary Valvular heart disease MV repair + TV repair (2019) Echo 05/17/25: Evidence of prior mitral valve repair and ring annuloplasty. Posterior mitral valve leaflet is restricted in mobility but with free mobile anterior leaflet. Mitral stenosis absent. Evidence of previous tricuspid valve repair. Mild TR. Coronary artery disease Non-obstructive (per [facility] cardio records) Chronic venous insufficiency Bilateral primary osteoarthritis of knee Pulmonary HTN Echo 05/17/25: PASP 40-45mmhg History of pericarditis Age 18 Hypertension Atrial fibrillation Follows with [facility] cardio Artificial cardiac pacemaker Implanted 2022, [employer] per [facility] cardio records Follows with [facility] cardio Tachy-gomez syndrome Osteoporosis GERD (gastroesophageal reflux disease) Hyperlipidemia Surgical History History of arthroplasty of left knee Left TKA (08/14/24): SAB at L3-4 (1 attempt) + regional at [facility] Hx of mitral valve repair H/O tricuspid valve repair Status post endovenous radiofrequency ablation of saphenous vein Left leg [place] teeth removed History of open reduction and internal fixation (ORIF) procedure Left wrist History of cholecystectomy History of breast biopsy Left (benign) History of bilateral tubal ligation History of appendectomy History of colonoscopy History of tonsillectomy History of cardiac cath 2019- no stents Family History Brother Family hx of colon cancer Daughter FHx: breast cancer Mother FHx: breast cancer Grandmother FHx: breast cancer Aunt FHx: breast cancer Other No family history of adverse response to anesthesia Social History Smoking Status: Never smoker Second Hand Exposure: No; Do You Dip or Chew Tobacco: No; Hx Alcohol Use: No Hx Substance Use: No Preferred Language: [place]uran Communication Ability: Effective Visual Impairment: No Limitations 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 ENT- oropharynx clear Neck- supple, no JVD. Lungs- clear to auscultation no wheezing or crackles Heart- regular rhythm; no murmur, no gallop. Abdomen- normal bowel sounds, soft, nontender, no distension Extremities-right knee surgery site no erythema or drainage seen. mary intact. right knee area somewhat swollen and some bruises seen Neuro- alert, oriented PERRL, no facial palsy; no dysarthria; moves extremities Results & Data Results & Data Vital Signs (Past 12 Hours) Vital Signs Temp Pulse Pulse Resp BP BP Pulse Ox 06/24/25 20:00 36.8 C 64 18 125/67 95 06/24/25 18:39 66 06/24/25 18:36 66 15 134/77 97 06/24/25 18:33 63 96 06/24/25 17:58 36.8 C 76 16 136/73 98 O2 Del Method 06/24/25 20:00 Room Air 06/24/25 18:39 06/24/25 18:36 Room Air 06/24/25 18:33 Room Air 06/24/25 17:58 Room Air Diagnostic Findings Laboratory Results WBC 6.01 K/ul (4.8-10.8) 06/24/25 18:31 RBC 4.35 M/uL (4.20-5.40) 06/24/25 18:31 Hgb 12.0 g/dl (12.0-16.0) 06/24/25 18:31 Hct 37.8 % (37.0-47.0) 06/24/25 18:31 MCV 86.9 fL (80.0-100.0) 06/24/25 18: MCH 27.6 pg (25.0-34.0) 06/24/25 18: MCHC 31.7 g/dL (32.0-36.0) L 06/24/25 18:31 RDW Std Deviation 48.2 fL (36.4-46.3) H 06/24/25 18: RDW Coeff of Demarco 15.3 % (11.5-14.5) H 06/24/25 18:31 Plt Count 307 K/uL (130-400) 06/24/25 18: MPV 10.6 fL (9.4-12.4) 06/24/25 18:31 Immature Gran % (Auto) 0.2 % 06/24/25 18:31 Neut % (Auto) 80.8 % 06/24/25 18:31 Lymph % (Auto) 10.0 % 06/24/25 18:31 Ceiba % (Auto) 6.3 % 06/24/25 18:31 Eos % (Auto) 2.2 % 06/24/25 18:31 Baso % (Auto) 0.5 % 06/24/25 18:31 Neut # (Auto) 4.86 K/uL (1.40-6.50) 06/24/25 18:31 Lymph # (Auto) 0.60 K/uL (1.20-3.40) L 06/24/25 18:31 Ceiba # (Auto) 0.38 K/uL (0.11-0.59) 06/24/25 18:31 Eos # (Auto) 0.13 K/uL (0.00-0.50) 06/24/25 18:31 Baso # (Auto) 0.03 K/uL (0.00-0.20) 06/24/25 18: Immature Gran # (Auto) 0.01 K/uL (0.01-0.20) 06/24/25 18:31 PT 46.4 Seconds (9.0-12.0) H 06/24/25 20:23 INR 4.9 (0.9-1.1) H 06/24/25 20:23 Sodium 136 mmol/L (136-145) 06/24/25 18: Potassium 4.1 mmol/L (3.5-5.1) 06/24/25 18: Chloride 100 mmol/L (98-107) 06/24/25 18:31 Carbon Dioxide 29 mmol/L (21-32) 06/24/25 18:31 Anion Gap 7 (3-11) 06/24/25 18: BUN 15 mg/dl (6-23) 06/24/25 18: Creatinine 0.70 mg/dl (0.6-1.2) 06/24/25 18: Est Cr Clr Drug Dosing 57.0 ml/min 06/24/25 18: eGFR 85.76 06/24/25 18: BUN/Creatinine Ratio 21.4 (10-20) H 06/24/25 18:31 Glucose 103 mg/dl (70-99(Fasting)) H 06/24/25 18:31 Calcium 9.6 mg/dl (8.6-10.3) 06/24/25 18: Magnesium 2.1 mg/dl (1.7-2.4) 06/24/25 18: Total Bilirubin 1.6 mg/dl (0.2-1.0) H 06/24/25 18:31 AST 26 U/L (13-39) 06/24/25 18: ALT 12 U/L (7-52) 06/24/25 18:31 Alkaline Phosphatase 73 U/L (34-104) 06/24/25 18:31 Total Protein 7.8 gm/dl (6.0-8.3) 06/24/25 18:31 Albumin 3.8 gm/dl (3.4-5.0) 06/24/25 18:31 Globulin 4.0 gm/dl (2.5-4.0) 06/24/25 18:31 Albumin/Globulin Ratio 1.0 (0.9-2) 06/24/25 18:31 TSH 0.276 uIu/ml (0.300-4.500) L 06/24/25 18: Free T4 1.65 ng/dl (0.61-1.60) H 06/24/25 18:31 Urine Color Dark Yellow 06/24/25 Unknown Urine Appearance Clear (Clear) 06/24/25 Unknown Urine pH 6.0 (4.5-7.5) 06/24/25 Unknown Ur Specific Joiner 1.024 (1.000-1.030) 06/24/25 Unknown Urine Protein Trace (Negative) H 06/24/25 Unknown Urine Glucose (UA) Negative (Negative) 06/24/25 Unknown Urine Ketones Trace (Negative) H 06/24/25 Unknown Urine Blood Negative (Negative) 06/24/25 Unknown Urine Nitrite Negative (Negative) 06/24/25 Unknown Urine Bilirubin Negative (Negative) 06/24/25 Unknown Urine Urobilinogen Negative (Negative) 06/24/25 Unknown Ur Leukocyte Esterase 1+ (Negative) H 06/24/25 Unknown Urine WBC (Auto) 0-5 /hpf (0-5) 06/24/25 Unknown Urine RBC (Auto) 6-10 /hpf (0-2) H 06/24/25 Unknown U Hyaline Cast (Auto) 0-2 /lpf (0-2) 06/24/25 Unknown U Epithel Cells (Auto) 0-2 /hpf (0-2) 06/24/25 Unknown Urine Bacteria (Auto) None Seen (None Seen) 06/24/25 Unknown Urine Comment 06/24/25 Unknown Impressions Knee X-Ray 06/24/25 18:14 2 views right knee Comparison made to prior exam dated06/20/2025 Impression: Redemonstration of postoperative changes right total knee arthroplasty with extensive soft tissue swelling and inflammatory change and knee effusion. There is a comminuted periprosthetic fracture of the distal femur about the femoral component. This appears unchanged when compared with the prior exam but compared to prior exam there appears to be interval increase in displacement of the medial condylar fracture fragment Electronically signed by Jared Snowden 06-24-2025 9:03 PM Chest X-Ray 06/24/25 18:15 Chest radiograph, one view History: Weakness Comparison: 07/13/2024: Findings: Single AP view of the chest performed. No focal consolidation or pleural effusion. No pneumothorax. A left subclavian pacer, prosthetic cardiac valves and left atrial appendage occluder device are noted. There is moderate cardiomegaly without evidence for pulmonary edema. No pneumothorax or pleural effusion is present. There is no consolidation to suggest pneumonia. Median sternotomy wires. There is a cardiac valve annuloplasty. IMPRESSION: No acute cardiopulmonary findings. Cardiomegaly. Electronically signed by Julio Mott 06-24-2025 7:[address] 06/24/25 18:17 CT head without contrast History: Trauma Comparison: None Technique: Using multidetector thin collimation helical acquisition technique, axial, coronal and sagittal CT images from the skull base to the vertex were obtained without intravenous contrast. Dose reduction techniques were achieved by using automatic exposure control and/or adjustment of mA and/or kV according to patient size and/or use of iterative reconstruction technique. Findings: No intracranial hemorrhage, mass-effect, or midline shift. The ventricles are proportionate to the cerebral sulci. The villafana to white matter differentiation of the cerebral hemispheres is preserved. The basal cisterns are patent. The visualized paranasal sinuses are clear. Mastoid air cells are clear. Impression: No acute intracranial pathology. Electronically signed by Julio Mott 06-24-2025 7:52 PM ECG Additional Comments: ECG atrial fibrillation occasional ventricular paced complexes and ventricular escape complexes with rate of 69. T wave inversion in lead V1 and V2 which was present in previous ECG Code Status & VTE Plan VTE Prophylaxis Plan VTE Prophylaxis will be ordered: Yes
[2025-06-25 07:19] LABS: Hematocrit (blood only) 32.2 % (37.0-47.0); Hemoglobin 10.7 g/dl (12.0-16.0); Immature Granulocytes # (auto) 0.02 K/uL (0.01-0.20); Immature Granulocytes % (auto) 0.4 %; Mean Corpuscular Hemoglobin 28.8 pg (25.0-34.0); Mean Corpuscular Volume 86.6 fL (80.0-100.0); Platelet Count 268 K/uL (130-400); RDW Standard Deviation 47.5 fL (36.4-46.3); Red Blood Count 3.72 M/uL (4.20-5.40); White Blood Count 5.65 K/ul (4.8-10.8)
[2025-06-25 07:36] LABS: Anion Gap 8.0 (3-11); Blood Urea Nitrogen 13.0 mg/dl (6-23); Calcium 8.7 mg/dl (8.6-10.3); Carbon Dioxide 25.0 mmol/L (21-32); Chloride 103.0 mmol/L (98-107); Creatinine Clr Calc Pharmacy 73.9 ml/min; Glucose 92.0 mg/dl (70-99(Fasting)); Magnesium 1.9 mg/dl (1.7-2.4); Potassium 3.9 mmol/L (3.5-5.1); Sodium 136.0 mmol/L (136-145)
[2025-06-25] MEDS: LACTULOSE SYRUP 20 GM/30 ML UDC PO ONE (07:46)
[2025-06-25] MEDS: ACETAMINOPHEN 325 MG TAB PO PRN (07:46)
[2025-06-25] MEDS: CALCIUM CARBONATE 1250MG TAB PO SCH (07:47)
[2025-06-25] MEDS: LOSARTAN POTASSIUM 50 MG TAB PO SCH (07:47)
[2025-06-25 08:11] LABS: INR 4.7 (0.9-1.1); Prothrombin Time 44.6 Seconds (9.0-12.0)
--- NOTE | 2025-06-25 08:46 | Hospitalist Progress Note ---
Date of Service June 25, 2025 Assessment & Plan (1) Right femoral fracture: Plan: 85-year-old female with past medical history significant for dyslipidemia, permanent atrial fibrillation, tachybradycardia syndrome status post pacemaker, mitral valve prolapse, mitral valve regurgitation status post mitral valve repair, tricuspid valve disease status post tricuspid valve repair, pulmonary hypertension, CAD, pulmonary hypertension, GERD, uterovaginal prolapse, osteoporosis, who recently had right total knee arthroplasty and after going home had a fall and having a lot of pain in her right leg and ambulatory dysfunction comes back today to the hospital. Patient had right total knee arthroplasty on 06/11/2025. She did fine after surgery. She ambulated in the hospital okay. Was discharged on 06/12/2025. After going home she was having trouble ambulating. On the same night after discharge patient tried to get up from the bed and fell down. had to help her to get into the bed. Since then she is having a lot of pain in the right leg and not getting out of the bed without help. She followed up with orthopedics on 06/20/2025 and x-rays were done which showed right distal periprosthetic femur fracture. As she is in significant pain and having ambulatory dysfunction she came back to the hospital today. Denies any fevers. Somewhat constipated. Micturating okay. No abdominal pain. No nausea. No chest pain or shortness of breath. No cough. No headache or runny nose. Hemodynamics are okay. Right femoral fracture Right distal femur periprosthetic fracture Recent right knee replacement Pain control Orthopedics consulted for further recommendation - pending May need placement Atrial fibrillation Tachybradycardia syndrome Status post pacemaker History of mitral valve and tricuspid valve repair On metoprolol succinate Hold Coumadin as INR 4.9 on admission, current INR 4.7 Goal INR 2-3 - per outpt cardiology note- reviewed on 06/25 Follow PT/INR Hypertension On losartan and metoprolol succinate Will monitor Nonobstructive CAD On beta-roscoe, statin and Coumadin History of heart failure with preserved ejection fraction, mild pulmonary hypertension On Lasix 20 mg 3 times a week Monitor for volume overload Hyperlipidemia On statin Constipation Stool softeners GERD History of esophagitis On famotidine History of venous insufficiency Status post endovenous radiofrequency ablation of the left small saphenous vein and left greater saphenous vein History of status post left total knee replacement August 2024 complicated by nonhealing surgical wound with Pseudomonas infection treated with acetic acid soaks and wound VAC. Subacute bacterial endocarditis prophylaxis Clindamycin prior to dental work DVT prophylaxis INR supratherapeutic Disposition Medical floor Full code. Admission and Anticipated Discharge Date Admission Date: June 24, 2025 Subjective Pt seen in follow up Recently had a R knee surgery w/ Dr. Cramer, then had a fall at home after and w/periprosthetic fracture of the distal femur Currently sitting up in bed in NAD, R leg in immobilizer - which was placed in Dr. Cramer's office Denies any fever, chills, chest pain, shortness of breath, abd. pain, n/v Reports pain in right leg Orthopedics consulted Review of Systems Review of Systems: All systems reviewed & are unremarkable except as noted in Subjective Physical Exam Physical Exam: General- WD/WN elderly F in NAD Head- atraumatic Eyes- PERRL. Neck- supple Lungs- clear to auscultation no wheezing or crackles Heart- regular rhythm; no murmur Abdomen- normal bowel sounds, soft, nontender, no distension Extremities-right knee surgery site no erythema or drainage seen. mary intact. right knee area somewhat swollen and some bruises noted - per admitting provider,R leg in immobilizer now Neuro- alert, oriented PERRL, no facial palsy; no dysarthria; moves extremities Results & Data Results & Data Vital Signs (Past 12 Hours) Vital Signs Temp Pulse Pulse Pulse Resp BP BP 06/25/25 07:05 36.3 C L 85 18 167/94 H 06/25/25 00:15 36.7 C 103 H 12 159/75 H 06/24/25 23:57 36.7 C 72 12 159/75 H 06/24/25 23:14 06/24/25 22:39 64 14 149/75 H 06/24/25 22:29 62 Pulse Ox O2 Del Method O2 Flow Rate 06/25/25 07:05 99 Nasal Cannula 2 06/25/25 00:15 97 Room Air 06/24/25 23:57 97 Room Air 06/24/25 23:14 Room Air 06/24/25 22:39 95 Room Air 06/24/25 22:29 Laboratory Results 06/25/25 06/24/25 06/24/25 Range/Units 06:49 Unknown 20:23 WBC 5.65 (4.8-10.8) K/ul RBC 3.72 L (4.20-5.40) M/uL Hgb 10.7 L (12.0-16.0) g/dl Hct 32.2 L (37.0-47.0) % MCV 86.6 (80.0-100.0) fL MCH 28.8 (25.0-34.0) pg MCHC 33.2 (32.0-36.0) g/dL RDW Std Deviation 47.5 H (36.4-46.3) fL RDW Coeff of Demarco 15.1 H (11.5-14.5) % Plt Count 268 (130-400) K/uL MPV 10.8 (9.4-12.4) fL Immature Gran % (Auto) 0.4 % Neut % (Auto) 75.7 % Lymph % (Auto) 11.9 % [place] % (Auto) 7.4 % Eos % (Auto) 4.2 % Baso % (Auto) 0.4 % Neut # (Auto) 4.28 (1.40-6.50) K/uL Lymph # (Auto) 0.67 L (1.20-3.40) K/uL [place] # (Auto) 0.42 (0.11-0.59) K/uL Eos # (Auto) 0.24 (0.00-0.50) K/uL Baso # (Auto) 0.02 (0.00-0.20) K/uL Immature Gran # (Auto) 0.02 (0.01-0.20) K/uL PT 44.6 H 46.4 H INR 4.7 H 4.9 H Sodium 136 (136-145) mmol/L Potassium 3.9 (3.5-5.1) mmol/L Chloride 103 (98-107) mmol/L Carbon Dioxide 25 (21-32) mmol/L Anion Gap 8 (3-11) BUN 13 (6-23) mg/dl Creatinine 0.54 L (0.6-1.2) mg/dl Est Cr Clr Drug Dosing 73.9 ml/min eGFR 91.29 BUN/Creatinine Ratio 24.1 H (10-20) Glucose 92 (70-99(Fasting)) mg/dl Calcium 8.7 (8.6-10.3) mg/dl Magnesium 1.9 (1.7-2.4) mg/dl Total Bilirubin (0.2-1.0) mg/dl AST (13-39) U/L ALT (7-52) U/L Alkaline Phosphatase (34-104) U/L Total Protein (6.0-8.3) gm/dl Albumin (3.4-5.0) gm/dl Globulin (2.5-4.0) gm/dl Albumin/Globulin Ratio (0.9-2) TSH (0.300-4.500) uIu/ml Free T4 (0.61-1.60) ng/dl Urine Color Dark Yellow Urine Appearance Clear (Clear) Urine pH 6.0 (4.5-7.5) Ur Specific Burney 1.024 (1.000-1.030) Urine Protein Trace H (Negative) Urine Glucose (UA) Negative (Negative) Urine Ketones Trace H (Negative) Urine Blood Negative (Negative) Urine Nitrite Negative (Negative) Urine Bilirubin Negative (Negative) Urine Urobilinogen Negative (Negative) Ur Leukocyte Esterase 1+ H (Negative) Urine WBC (Auto) 0-5 (0-5) /hpf Urine RBC (Auto) 6-10 H (0-2) /hpf U Hyaline Cast (Auto) 0-2 (0-2) /lpf U Epithel Cells (Auto) 0-2 (0-2) /hpf Urine Bacteria (Auto) None Seen (None Seen) Urine Comment 06/24/25 Range/Units 18:31 WBC 6.01 (4.8-10.8) K/ul RBC 4.35 (4.20-5.40) M/uL Hgb 12.0 (12.0-16.0) g/dl Hct 37.8 (37.0-47.0) % MCV 86.9 (80.0-100.0) fL MCH 27.6 (25.0-34.0) pg MCHC 31.7 L (32.0-36.0) g/dL RDW Std Deviation 48.2 H (36.4-46.3) fL RDW Coeff of Demarco 15.3 H (11.5-14.5) % Plt Count 307 (130-400) K/uL MPV 10.6 (9.4-12.4) fL Immature Gran % (Auto) 0.2 % Neut % (Auto) 80.8 % Lymph % (Auto) 10.0 % [place] % (Auto) 6.3 % Eos % (Auto) 2.2 % Baso % (Auto) 0.5 % Neut # (Auto) 4.86 (1.40-6.50) K/uL Lymph # (Auto) 0.60 L (1.20-3.40) K/uL [place] # (Auto) 0.38 (0.11-0.59) K/uL Eos # (Auto) 0.13 (0.00-0.50) K/uL Baso # (Auto) 0.03 (0.00-0.20) K/uL Immature Gran # (Auto) 0.01 (0.01-0.20) K/uL PT Cancelled INR Cancelled Sodium 136 (136-145) mmol/L Potassium 4.1 (3.5-5.1) mmol/L Chloride 100 (98-107) mmol/L Carbon Dioxide 29 (21-32) mmol/L Anion Gap 7 (3-11) BUN 15 (6-23) mg/dl Creatinine 0.70 (0.6-1.2) mg/dl Est Cr Clr Drug Dosing 57.0 ml/min eGFR 85.76 BUN/Creatinine Ratio 21.4 H (10-20) Glucose 103 H (70-99(Fasting)) mg/dl Calcium 9.6 (8.6-10.3) mg/dl Magnesium 2.1 (1.7-2.4) mg/dl Total Bilirubin 1.6 H (0.2-1.0) mg/dl AST 26 (13-39) U/L ALT 12 (7-52) U/L Alkaline Phosphatase 73 (34-104) U/L Total Protein 7.8 (6.0-8.3) gm/dl Albumin 3.8 (3.4-5.0) gm/dl Globulin 4.0 (2.5-4.0) gm/dl Albumin/Globulin Ratio 1.0 (0.9-2) TSH 0.276 L (0.300-4.500) uIu/ml Free T4 1.65 H (0.61-1.60) ng/dl Urine Color Urine Appearance (Clear) Urine pH (4.5-7.5) Ur Specific [place] (1.000-1.030) Urine Protein (Negative) Urine Glucose (UA) (Negative) Urine Ketones (Negative) Urine Blood (Negative) Urine Nitrite (Negative) Urine Bilirubin (Negative) Urine Urobilinogen (Negative) Ur Leukocyte Esterase (Negative) Urine WBC (Auto) (0-5) /hpf Urine RBC (Auto) (0-2) /hpf U Hyaline Cast (Auto) (0-2) /lpf U Epithel Cells (Auto) (0-2) /hpf Urine Bacteria (Auto) (None Seen) Urine Comment Medications Administered Current Inpatient Medications Acetaminophen (Acetaminophen 325 Mg Tab) 650 mg PO Q4H PRN PRN Reason: pain/fever Stop: 07/24/25 23:55 Last Admin: 06/25/25 07:46 Dose: 650 mg Calcium Carbonate (Calcium Carbonate 1250mg Tab) 1 tab PO QAM NORMA Stop: 07/25/25 08:59 Last Admin: 06/25/25 07:47 Dose: 1 tab Estrogens Conjugated (Premarin Vag Crm 14 Appln/30 Gm Tube) 1 appln PV MoWeFr NORMA Stop: 07/26/25 08:59 Famotidine (Famotidine 20 Mg Tab) 20 mg PO HS NORMA Stop: 07/25/25 20:59 Furosemide (Furosemide 20 Mg Tab) 20 mg PO MoWeFr NORMA Stop: 07/26/25 08:59 Lactated Ringer's (Lr) 1,000 mls @ 80 mls/hr IV .[id number] NORMA Stop: 06/25/25 12:25 Last Admin: 06/25/25 00:09 Dose: 80 mls/hr Losartan Potassium (Losartan Potassium 50 Mg Tab) 50 mg PO QAM NORMA Stop: 07/25/25 08:59 Last Admin: 06/25/25 07:47 Dose: 50 mg Meclizine HCl (Meclizine Hcl 25 Mg Tab) 25 mg PO DAILY PRN PRN Reason: vertigo/dizziness Stop: 07/24/25 23:55 Metoprolol Succinate (Metoprolol Succ 25mg Ext Rel Tab) 25 mg PO QPM NORMA Stop: 07/25/25 20:59 Oxycodone HCl (Oxycodone Hcl Ir 5 Mg Tab (Immediate Release)) 5 mg PO Q4H PRN PRN Reason: Mod-Sev Pain (Scale 4-10) Stop: 07/08/25 23:55 Last Admin: 06/25/25 00:27 Dose: 5 mg Polyethylene Glycol (Polyethylene (Miralax) 17 Gm Pack) 17 gm PO DAILY PRN PRN Reason: Constipation Stop: 07/24/25 23:55 Rosuvastatin Calcium (Rosuvastatin Calcium 5 Mg Tab) 5 mg PO HS NOMRA Stop: 07/25/25 20:59 Senna/Docusate Sodium (Docusate Sodium/Senna 50/8.6mg Tab) 2 tab PO HS NORMA Stop: 07/25/25 20:59 Vitamin D (Cholecalciferol 25 Mcg (1000 Units) Tab) 50 mcg PO PM NORMA Stop: 07/25/25 20:59
[2025-06-25] MEDS ORDERED: NON-FORMULARY MEDICATION (Glucos Sul 2kcl-Msm-Chond-C-Mn [Glucosamine Chondroitin] 550-30- PO SCH (09:00)
--- NOTE | 2025-06-25 10:23 | Orthopedic Progress Note ---
Date of Service June 25, 2025 Assessment & Plan (1) Right femoral fracture: Plan: 85-year-old female 2 weeks out from knee replacement complicated by a fall and a periprosthetic femur fracture. We tried to manage this without surgery not very successfully. We discussed treatment options with the patient today and in my opinion I think it be best to do a revision to a distal femoral replacement. She is going to consider this. In the meantime we will hold her Coumadin. Continue pain management. Knee immobilization. Nonweightbearing right leg. No knee range of motion. She is going to consider this and talk to her to give us a definite answer in the next day or so. Any orthopedic questions can be directed me [phone]. (2) Status post total right knee replacement: Admission and Anticipated Discharge Date Admission Date: June 24, 2025 Subjective 85-year-old female with multiple medical comorbidities now 2 weeks out from right total knee replacement. She sustained a fall shortly after discharge to home and has been having trouble ambulating since we saw her in clinic and diagnosed with a periprosthetic femur fracture. We talked about treatment options and with their alignment we decided to proceed with conservative care. She has had a lot of difficulty at home. Her state having trouble taking care of her. She has been miserable in pain. She been readmitted the hospital. No other new complaints other than just knee pain. Physical Exam Physical Exam: Physical examination is a pleasant elderly female. She is lying in bed looks pretty comfortable. Examination of the right leg reveals a well-healing incision. She got diffuse swelling and bruising throughout. She can do a straight leg raise with the knee immobilizer on with some effort. She can dorsiflex and plantarflex her foot appropriately. Results & Data Vital Signs (Past 12 Hours) Vital Signs Temp Pulse Pulse Pulse Resp BP BP 06/25/25 07:05 36.3 C L 85 18 167/94 H 06/25/25 00:15 36.7 C 103 H 12 159/75 H 06/24/25 23:57 36.7 C 72 12 159/75 H 06/24/25 23:14 06/24/25 22:39 64 14 149/75 H 06/24/25 22:29 62 Pulse Ox O2 Del Method O2 Flow Rate 06/25/25 07:05 99 Nasal Cannula 2 06/25/25 00:15 97 Room Air 06/24/25 23:57 97 Room Air 06/24/25 23:14 Room Air 06/24/25 22:39 95 Room Air 06/24/25 22:29 Laboratory Results Hemoglobin is 10.7. Macro 32.2. INR is 4.7.
[2025-06-25] MEDS: CHOLECALCIFEROL 25 MCG (1000 UNITS) TAB PO SCH (20:02)
[2025-06-25] MEDS: DOCUSATE SODIUM/SENNA 50/8.6MG TAB PO SCH (20:02)
[2025-06-25] MEDS: ROSUVASTATIN CALCIUM 5 MG TAB PO SCH (20:03)
[2025-06-25] MEDS: FAMOTIDINE 20 MG TAB PO SCH (20:09)
[2025-06-25] MEDS: METOPROLOL SUCC 25MG EXT REL TAB PO SCH (20:09)
[2025-06-26 07:39] LABS: Hematocrit (blood only) 34.3 % (37.0-47.0); Hemoglobin 11.4 g/dl (12.0-16.0); Mean Corpuscular Hemoglobin 28.4 pg (25.0-34.0); Mean Corpuscular Volume 85.5 fL (80.0-100.0); Platelet Count 287 K/uL (130-400); RDW Standard Deviation 47.1 fL (36.4-46.3); Red Blood Count 4.01 M/uL (4.20-5.40); White Blood Count 6.84 K/ul (4.8-10.8)
[2025-06-26 07:59] LABS: Anion Gap 7.0 (3-11); Blood Urea Nitrogen 10.0 mg/dl (6-23); Calcium 9.0 mg/dl (8.6-10.3); Carbon Dioxide 28.0 mmol/L (21-32); Chloride 101.0 mmol/L (98-107); Creatinine Clr Calc Pharmacy 61.4 ml/min; Glucose 103.0 mg/dl (70-99(Fasting)); Potassium 4.1 mmol/L (3.5-5.1); Sodium 136.0 mmol/L (136-145)
[2025-06-26] MEDS: FUROSEMIDE 20 MG TAB PO SCH (08:11)
[2025-06-26 08:14] LABS: Thyroid Stimulating Hormone 0.429 uIu/ml (0.300-4.500)
[2025-06-26 08:27] LABS: INR 3.0 (0.9-1.1); Prothrombin Time 29.6 Seconds (9.0-12.0)
[2025-06-26] MEDS: PREMARIN VAG CRM 14 APPLN/30 GM TUBE PV SCH (08:31)
--- NOTE | 2025-06-26 09:49 | Orthopedic Progress Note ---
Date of Service June 26, 2025 Assessment & Plan (1) Right femoral fracture: Case/imaging reviewed and discussed with Dr Cramer * Recommend revision of right total knee arthroplasty planned for Thursday 06/28 * Disposition: TBD * Daily treatment: Physical Therapy/ Occupational Therapy per protocol * Weight bearing status: non weight bearing right lower extremity * Continue knee immobilizer for support of right lower extremity * Pain control * Hold coumadin * Remainder care per primary team * Discussed with patient risks and benefits of surgery including pain, infection, bleeding, risk of anesthesia, prolonged healing time, incomplete relief of symptoms, injury to surrounding tissue and DVT. (2) Status post total right knee replacement: Subjective Patient is a 85 y/o female with right distal femur fracture she sustained after a fall at home shortly after discharger from her right TKA which was done on 06/11/25. Pt has tried to manage fracture without surgery but has been having difficulty managing and was readmitted to the hospital. Pt talked with Dr. Cramer yesterday regarding revision. Pt states her plans to be in this afternoon for her to finalize her decision but is leaning toward revision with Dr. Cramer on Tuesday. Review of Systems All systems reviewed & are unremarkable except as noted in HPI & below. Physical Exam . * General: Alert and oriented, no acute distress * Constitutional: well-developed, well-nourished. * Respiratory: Normal respiratory effort, no distress * Gastrointestinal: No tenderness to palpation, no rigidity or guarding. * Skin: No rash or lesion. * Neurologic: Grossly normal * Musculoskeletal: Right knee dressing and knee immobilizer in place and not removed for exam. Otherwise no obvious deformity or overlying skin changes RLE. Diffuse TTP distal thigh and knee region. Otherwise no specific tenderness of proximal thigh, lower leg, foot/ankle. AROM foot/ankle intact. Sensation intact plantar/dorsal foot. Brisk capillary refill. Results & Data Results & Data Laboratory Results . Laboratory Results - last 24 hr 06/26/25 07:11 WBC 6.84 RBC 4.01 L Hgb 11.4 L Hct 34.3 L MCV 85.5 MCH 28.4 MCHC 33.2 RDW Std Deviation 47.1 H RDW Coeff of Demarco 15.2 H Plt Count 287 MPV 10.8 PT 29.6 H INR 3.0 H Sodium 136 Potassium 4.1 Chloride 101 Carbon Dioxide 28 Anion Gap 7 BUN 10 Creatinine 0.65 Est Cr Clr Drug Dosing 61.4 eGFR 87.31 BUN/Creatinine Ratio 15.4 Glucose 103 H Calcium 9.0 TSH 0.429 Blood Type O Negative Antibody Screen NEGATIVE Diagnostic Findings Knee X-Ray 06/24/25 18:14 2 views right knee Comparison made to prior exam dated06/20/2025 Impression: Redemonstration of postoperative changes right total knee arthroplasty with extensive soft tissue swelling and inflammatory change and knee effusion. There is a comminuted periprosthetic fracture of the distal femur about the femoral component. This appears unchanged when compared with the prior exam but compared to prior exam there appears to be interval increase in displacement of the medial condylar fracture fragment Electronically signed by Jared Snowden 06-24-2025 9:03 PM Chest X-Ray 06/24/25 18:15 Chest radiograph, one view History: Weakness Comparison: 07/13/2024: Findings: Single AP view of the chest performed. No focal consolidation or pleural effusion. No pneumothorax. A left subclavian pacer, prosthetic cardiac valves and left atrial appendage occluder device are noted. There is moderate cardiomegaly without evidence for pulmonary edema. No pneumothorax or pleural effusion is present. There is no consolidation to suggest pneumonia. Median sternotomy wires. There is a cardiac valve annuloplasty. IMPRESSION: No acute cardiopulmonary findings. Cardiomegaly. Electronically signed by Julio Mott 06-24-2025 7:[address] 06/24/25 18:17 CT head without contrast History: Trauma Comparison: None Technique: Using multidetector thin collimation helical acquisition technique, axial, coronal and sagittal CT images from the skull base to the vertex were obtained without intravenous contrast. Dose reduction techniques were achieved by using automatic exposure control and/or adjustment of mA and/or kV according to patient size and/or use of iterative reconstruction technique. Findings: No intracranial hemorrhage, mass-effect, or midline shift. The ventricles are proportionate to the cerebral sulci. The villafana to white matter differentiation of the cerebral hemispheres is preserved. The basal cisterns are patent. The visualized paranasal sinuses are clear. Mastoid air cells are clear. Impression: No acute intracranial pathology. Electronically signed by Julio Mott 06-24-2025 7:52 PM . PG Care Time/CCT Total # of Minutes Spent Total Time Spent with Patient: Total time spent is greater than 50% in coordination of care (as documented) at patient's floor/unit and/or counseling patient: Coding Level of Care Code 33322 SUB INP/OBS CARE Diagnoses Right femoral fracture S72.91XA Status post total right knee replacement Z96.651
--- NOTE | 2025-06-26 16:35 | Hospitalist Progress Note ---
Date of Service June 26, 2025 Assessment & Plan (1) Right femoral fracture: Plan: 85-year-old female with past medical history significant for dyslipidemia, permanent atrial fibrillation, tachybradycardia syndrome status post pacemaker, mitral valve prolapse, mitral valve regurgitation status post mitral valve repair, tricuspid valve disease status post tricuspid valve repair, pulmonary hypertension, CAD, pulmonary hypertension, GERD, uterovaginal prolapse, osteoporosis, who recently had right total knee arthroplasty and after going home had a fall and having a lot of pain in her right leg and ambulatory dysfunction comes back today to the hospital. Patient had right total knee arthroplasty on 06/11/2025. She did fine after surgery. She ambulated in the hospital okay. Was discharged on 06/12/2025. After going home she was having trouble ambulating. On the same night after discharge patient tried to get up from the bed and fell down. had to help her to get into the bed. Since then she is having a lot of pain in the right leg and not getting out of the bed without help. She followed up with orthopedics on 06/20/2025 and x-rays were done which showed right distal periprosthetic femur fracture. As she is in significant pain and having ambulatory dysfunction she came back to the hospital today. Denies any fevers. Somewhat constipated. Micturating okay. No abdominal pain. No nausea. No chest pain or shortness of breath. No cough. No headache or runny nose. Hemodynamics are okay. Right femoral fracture Right distal femur periprosthetic fracture Recent right knee replacement --Knee X ray:Redemonstration of postoperative changes right total knee arthroplasty with extensive soft tissue swelling and inflammatory change and knee effusion. There is a comminuted periprosthetic fracture of the distal fe mur about the femoral component. This appears unchanged when compared with the prior exam but compared to prior exam there appears to be interval increase in displacement of the medial condylar fracture fragment -- Was scheduled to have revision of right total knee arthroplasty on 06/28/2025 Nonweightbearing right lower extremity for now Continue knee immobilizer Pain control as needed Coumadin on hold for surgery Appreciate orthopedics input Fall precautions Atrial fibrillation Tachybradycardia syndrome Status post pacemaker History of mitral valve and tricuspid valve repair Target INR 2-3 Supratherapeutic INR Continue metoprolol Hold Coumadin for now Monitor INR 3.0 today Hypertension Blood pressure variable Continue losartan, metoprolol with holding parameters Monitor blood pressure Nonobstructive CAD On beta-roscoe, statin History of heart failure with preserved ejection fraction, mild pulmonary hypertension On Lasix 20 mg 3 times a week Monitor volume status Hyperlipidemia On statin Constipation Continue bowel regimen GERD History of esophagitis On famotidine History of venous insufficiency Status post endovenous radiofrequency ablation of the left small saphenous vein and left greater saphenous vein History of status post left total knee replacement August 2024 complicated by nonhealing surgical wound with Pseudomonas infection treated with acetic acid soaks and wound VAC. Subacute bacterial endocarditis prophylaxis Clindamycin prior to dental work DVT prophylaxis INR supratherapeutic CODE STATUS Full code Disposition PT OT prior to discharge Admission and Anticipated Discharge Date Admission Date: June 24, 2025 Subjective Patient is seen and examined at bedside States having right knee pain Also reports having cough which she attributes to air conditioning Family at bedside Denies any chest pain, dyspnea, nausea, vomiting, abdominal pain Review of Systems Review of Systems: All systems reviewed & are unremarkable except as noted in Subjective Physical Exam Physical Exam: Physical Exam: Vitals signs as noted above General Appearance:Thin, frail, no apparent distress Head: normocephalic, Atraumatic Eyes: normal inspection, EOMI Neck: supple, Trachea midline Respiratory/Chest: Normal breath sounds, CTA, No accessory muscle use Cardiovascular: Irregularly irregular, faint murmur Abdomen/GI:Soft, Non tender, Bowel sounds present Extremities/Musculoskeletal:normal inspection, Trace edema, + right knee immobilizer Neurologic/Psych:AAOX3, grossly no focal neurological deficits Skin: normal color, warm Results & Data Results & Data Vital Signs (Past 12 Hours) Vital Signs Temp Pulse Resp BP Pulse Ox O2 Del Method 06/26/25 15:38 36.7 C 64 18 99/61 L 95 Room Air 06/26/25 08:16 37 C 65 18 123/75 94 Room Air Laboratory Results Short CBC 06/26/25 Range/Units 07:11 WBC 6.84 (4.8-10.8) K/ul Hgb 11.4 L (12.0-16.0) g/dl Hct 34.3 L (37.0-47.0) % Plt Count 287 (130-400) K/uL BMP 06/26/25 07:11 Sodium 136 Potassium 4.1 Chloride 101 Carbon Dioxide 28 BUN 10 Creatinine 0.65 Glucose 103 H Calcium 9.0
[2025-06-27 08:06] LABS: INR 2.0 (0.9-1.1); Prothrombin Time 20.2 Seconds (9.0-12.0)
--- NOTE | 2025-06-27 08:14 | XRay Report ---
EXAM: XR chest 1V portable CLINICAL HISTORY: Cough. TECHNIQUE: An X-ray image of the chest was obtained in AP projection. COMPARISON: 06/24/2025 CR. FINDINGS: Pulmonary Parenchyma: There are increased bronchovascular markings, due to vascular congestion. There is no evidence of consolidation, collapse, or focal opacities. No pulmonary nodules are identified. There is a minimally blunted left costophrenic angle. There is no evidence of right pleural effusion or pleural thickening. Heart and Mediastinum: Cardiomegaly is present. There is no mediastinal widening or masses. No hilar or mediastinal lymphadenopathy is identified. Aortic calcifications are present. Bony Thorax: Median sternotomy wires are present. Soft Tissues: A left pacemaker is present. A valve replacement is noted. IMPRESSION: 1. There is a blunted left costophrenic angle, suggesting a mild left effusion. Unchanged. 2. There is no focal consolidation or collapse. 3. A left ICD device with lead is in place. 4. No interval changes. Electronically signed by Osman Perez 06-27-2025 08:13 AM
--- NOTE | 2025-06-27 08:48 | Orthopedic Progress Note ---
Date of Service June 27, 2025 Assessment & Plan (1) Right femoral fracture: Case/imaging reviewed and discussed with Dr Craemr * Recommend revision of right total knee arthroplasty planned for Thursday 06/28 * Disposition: TBD * Daily treatment: Physical Therapy/ Occupational Therapy per protocol * Weight bearing status: non weight bearing right lower extremity * Continue knee immobilizer for support of right lower extremity * Pain control * Hold coumadin, INR 2.0 today, hospitalist to give Vitamin K to optimize for surgery tomorrow * Remainder care per primary team * Discussed with patient risks and benefits of surgery including pain, infection, bleeding, risk of anesthesia, prolonged healing time, incomplete relief of symptoms, injury to surrounding tissue and DVT. (2) Status post total right knee replacement: Subjective . Patient is a 85 y/o female with right distal femur fracture she sustained after a fall at home shortly after discharger from her right TKA which was done on 06/11/25. Pt has tried to manage fracture without surgery but has been having difficulty managing and was readmitted to the hospital. Pt talked with Dr. Cramer and her and would like to proceed with revision tomorrow. Review of Systems All systems reviewed & are unremarkable except as noted in HPI & below. Physical Exam * General: Alert and oriented, no acute distress * Constitutional: well-developed, well-nourished. * Respiratory: Normal respiratory effort, no distress * Gastrointestinal: No tenderness to palpation, no rigidity or guarding. * Skin: No rash or lesion. * Neurologic: Grossly normal * Musculoskeletal: Right knee dressing and knee immobilizer in place and not removed for exam. Otherwise no obvious deformity or overlying skin changes RLE. Diffuse TTP distal thigh and knee region. Otherwise no specific tenderness of proximal thigh, lower leg, foot/ankle. AROM foot/ankle intact. Sensation intact plantar/dorsal foot. Brisk capillary refill.. Results & Data Results & Data Laboratory Results . Laboratory Results - last 24 hr 06/27/25 07:20 PT 20.2 H INR 2.0 H Procalcitonin Pending Diagnostic Findings . PG Care Time/CCT Total # of Minutes Spent Total Time Spent with Patient: Total time spent is greater than 50% in coordination of care (as documented) at patient's floor/unit and/or counseling patient: Coding Level of Care Code 75672 Post Operative Follow-Up Diagnoses Right femoral fracture S72.91XA Status post total right knee replacement Z96.651
[2025-06-27] MEDS: PHYTONADIONE 5 MG TAB PO ONE (10:12)
--- NOTE | 2025-06-27 14:29 | Hospitalist Progress Note ---
Date of Service June 27, 2025 Assessment & Plan (1) Right femoral fracture: Plan: 85-year-old female with past medical history significant for dyslipidemia, permanent atrial fibrillation, tachybradycardia syndrome status post pacemaker, mitral valve prolapse, mitral valve regurgitation status post mitral valve repair, tricuspid valve disease status post tricuspid valve repair, pulmonary hypertension, CAD, pulmonary hypertension, GERD, uterovaginal prolapse, osteoporosis, who recently had right total knee arthroplasty and after going home had a fall and having a lot of pain in her right leg and ambulatory dysfunction comes back today to the hospital. Patient had right total knee arthroplasty on 06/11/2025. She did fine after surgery. She ambulated in the hospital okay. Was discharged on 06/12/2025. After going home she was having trouble ambulating. On the same night after discharge patient tried to get up from the bed and fell down. had to help her to get into the bed. Since then she is having a lot of pain in the right leg and not getting out of the bed without help. She followed up with orthopedics on 06/20/2025 and x-rays were done which showed right distal periprosthetic femur fracture. As she is in significant pain and having ambulatory dysfunction she came back to the hospital today. Denies any fevers. Somewhat constipated. Micturating okay. No abdominal pain. No nausea. No chest pain or shortness of breath. No cough. No headache or runny nose. Hemodynamics are okay. Right femoral fracture Right distal femur periprosthetic fracture Recent right knee replacement --Knee X ray:Redemonstration of postoperative changes right total knee arthroplasty with extensive soft tissue swelling and inflammatory change and knee effusion. There is a comminuted periprosthetic fracture of the distal fem ur about the femoral component. This appears unchanged when compared with the prior exam but compared to prior exam there appears to be interval increase in displacement of the medial condylar fracture fragment -- Was scheduled to have revision of right total knee arthroplasty on 06/28/2025 Nonweightbearing right lower extremity for now Continue knee immobilizer Pain control as needed Coumadin on hold for surgery Appreciate orthopedics input Fall precautions N.p.o. after midnight for surgery tomorrow Atrial fibrillation Tachybradycardia syndrome Status post pacemaker History of mitral valve and tricuspid valve repair Target INR 2-3 Supratherapeutic INR--resolved Continue metoprolol Hold Coumadin for now Monitor INR 2.0 today Given his small dose of vitamin K for surgery tomorrow Hypertension Blood pressure low Hold losartan for now Continue metoprolol Monitor blood pressure Nonobstructive CAD On beta-roscoe, statin History of heart failure with preserved ejection fraction, mild pulmonary hypertension On Lasix 20 mg 3 times a week Monitor volume status Hyperlipidemia On statin Constipation Continue bowel regimen GERD History of esophagitis On famotidine History of venous insufficiency Status post endovenous radiofrequency ablation of the left small saphenous vein and left greater saphenous vein History of status post left total knee replacement August 2024 complicated by nonhealing surgical wound with Pseudomonas infection treated with acetic acid soaks and wound VAC. Subacute bacterial endocarditis prophylaxis Clindamycin prior to dental work DVT prophylaxis INR therapeutic SCDs, resume Coumadin as able CODE STATUS Full code Disposition PT OT prior to discharge Admission and Anticipated Discharge Date Admission Date: June 24, 2025 Subjective Patient is seen and examined at bedside Less cough today Still has right knee pain which is controlled Family at bedside Updated patient's daughter over the phone No other new complaints today INR trending down 2.0 today Chest x-ray today showed no pneumonia Denies any chest pain, dyspnea, nausea, vomiting, abdominal pain Review of Systems Review of Systems: All systems reviewed & are unremarkable except as noted in Subjective Physical Exam Physical Exam: Physical Exam: Vitals signs as noted above General Appearance:Thin, frail, no apparent distress Head: normocephalic, Atraumatic Eyes: normal inspection, EOMI Neck: supple, Trachea midline Respiratory/Chest: Normal breath sounds, CTA, No accessory muscle use Cardiovascular: Irregularly irregular, faint murmur Abdomen/GI:Soft, Non tender, Bowel sounds present Extremities/Musculoskeletal:normal inspection, Trace edema, + right knee immobilizer Neurologic/Psych:AAOX3, grossly no focal neurological deficits Skin: normal color, warm Results & Data Results & Data Vital Signs (Past 12 Hours) Vital Signs Temp Pulse Resp BP Pulse Ox O2 Del Method 06/27/25 09:07 102/65 06/27/25 09:00 Room Air 06/27/25 08:39 36.9 C 63 18 94/57 L 97 Room Air
[2025-06-28] MEDS ORDERED: BUPIVACAINE 0.5 % 5 MG/1 ML PF 10ML VIAL ONE (06:25)
[2025-06-28] MEDS ORDERED: ROPIVACAINE 0.5% 5 MG/ML 30 ML VIAL ONE (06:25)
--- NOTE | 2025-06-28 07:55 | Orthopedic Progress Note ---
Date of Service June 28, 2025 Assessment & Plan (1) Right femoral fracture: Case/imaging reviewed and discussed with Dr Cramer * Recommend revision of right total knee arthroplasty planned for Today 06/28 * Disposition: TBD * Daily treatment: Physical Therapy/ Occupational Therapy per protocol * Weight bearing status: non weight bearing right lower extremity * Continue knee immobilizer for support of right lower extremity * Pain control * Hold coumadin, INR 2.0 yesterday, repeat today for surgery later. * Remainder care per primary team * Discussed with patient risks and benefits of surgery including pain, infection, bleeding, risk of anesthesia, prolonged healing time, incomplete relief of symptoms, injury to surrounding tissue and DVT. (2) Status post total right knee replacement: Subjective . Patient is a 85 y/o female with right distal femur fracture she sustained after a fall at home shortly after discharger from her right TKA which was done on 06/11/25. Pt has tried to manage fracture without surgery but has been having difficulty managing and was readmitted to the hospital. Pt talked with Dr. Cramer and her and would like to proceed with revision today. Review of Systems All systems reviewed & are unremarkable except as noted in HPI & below. Physical Exam . * General: Alert and oriented, no acute distress * Constitutional: well-developed, well-nourished. * Respiratory: Normal respiratory effort, no distress * Gastrointestinal: No tenderness to palpation, no rigidity or guarding. * Skin: No rash or lesion. * Neurologic: Grossly normal * Musculoskeletal: Right knee wound cleansed with alcohol mary removed and cleansed with betadine. Otherwise no obvious deformity or overlying skin changes RLE. Diffuse TTP distal thigh and knee region. Otherwise no specific tenderness of proximal thigh, lower leg, foot/ankle. AROM foot/ankle intact. Sensation intact plantar/dorsal foot. Brisk capillary refill. Results & Data Results & Data Laboratory Results Laboratory Results - last 24 hr 06/27/25 07:20 PT 20.2 H INR 2.0 H Procalcitonin 0.10 . Diagnostic Findings Knee X-Ray 06/24/25 18:14 2 views right knee Comparison made to prior exam dated06/20/2025 Impression: Redemonstration of postoperative changes right total knee arthroplasty with extensive soft tissue swelling and inflammatory change and knee effusion. There is a comminuted periprosthetic fracture of the distal femur about the femoral component. This appears unchanged when compared with the prior exam but compared to prior exam there appears to be interval increase in displacement of the medial condylar fracture fragment Electronically signed by Jared Snowden 06-24-2025 9:[address] 06/24/25 18:17 CT head without contrast History: Trauma Comparison: None Technique: Using multidetector thin collimation helical acquisition technique, axial, coronal and sagittal CT images from the skull base to the vertex were obtained without intravenous contrast. Dose reduction techniques were achieved by using automatic exposure control and/or adjustment of mA and/or kV according to patient size and/or use of iterative reconstruction technique. Findings: No intracranial hemorrhage, mass-effect, or midline shift. The ventricles are proportionate to the cerebral sulci. The villafana to white matter differentiation of the cerebral hemispheres is preserved. The basal cisterns are patent. The visualized paranasal sinuses are clear. Mastoid air cells are clear. Impression: No acute intracranial pathology. Electronically signed by Julio Mott 06-24-2025 7:52 PM Chest X-Ray 06/27/25 07:00 EXAM: XR chest 1V portable CLINICAL HISTORY: Cough. TECHNIQUE: An X-ray image of the chest was obtained in AP projection. COMPARISON: 06/24/2025 CR. FINDINGS: Pulmonary Parenchyma: There are increased bronchovascular markings, due to vascular congestion. There is no evidence of consolidation, collapse, or focal opacities. No pulmonary nodules are identified. There is a minimally blunted left costophrenic angle. There is no evidence of right pleural effusion or pleural thickening. Heart and Mediastinum: Cardiomegaly is present. There is no mediastinal widening or masses. No hilar or mediastinal lymphadenopathy is identified. Aortic calcifications are present. Bony Thorax: Median sternotomy wires are present. Soft Tissues: A left pacemaker is present. A valve replacement is noted. IMPRESSION: 1. There is a blunted left costophrenic angle, suggesting a mild left effusion. Unchanged. 2. There is no focal consolidation or collapse. 3. A left ICD device with lead is in place. 4. No interval changes. Electronically signed by Osman Perez 06-27-2025 08:13 AM . PG Care Time/CCT Total # of Minutes Spent Total Time Spent with Patient: Total time spent is greater than 50% in coordination of care (as documented) at patient's floor/unit and/or counseling patient: Coding Level of Care Code 35927 Post Operative Follow-Up Diagnoses Right femoral fracture S72.91XA Status post total right knee replacement Z96.651
[2025-06-28 08:32] LABS: Hematocrit (blood only) 33.2 % (37.0-47.0); Hemoglobin 10.7 g/dl (12.0-16.0); Mean Corpuscular Hemoglobin 27.9 pg (25.0-34.0); Mean Corpuscular Volume 86.5 fL (80.0-100.0); Platelet Count 258 K/uL (130-400); RDW Standard Deviation 48.8 fL (36.4-46.3); Red Blood Count 3.84 M/uL (4.20-5.40); White Blood Count 7.34 K/ul (4.8-10.8)
[2025-06-28 08:39] LABS: INR 1.1 (0.9-1.1); Prothrombin Time 12.2 Seconds (9.0-12.0)
[2025-06-28 08:48] LABS: Anion Gap 4.0 (3-11); Blood Urea Nitrogen 14.0 mg/dl (6-23); Calcium 9.0 mg/dl (8.6-10.3); Carbon Dioxide 32.0 mmol/L (21-32); Chloride 99.0 mmol/L (98-107); Creatinine Clr Calc Pharmacy 50.5 ml/min; Glucose 114.0 mg/dl (70-99(Fasting)); Potassium 4.2 mmol/L (3.5-5.1); Sodium 135.0 mmol/L (136-145)
--- NOTE | 2025-06-28 09:18 | History & Physical Bridge Note ---
Date of Service June 28, 2025 History & Physical Bridge Note I have examined the patient, reviewed the History & Physical and in the interval since the performance of the History & Physical I have noted the following changes of clinical significance: no changes noted
--- NOTE | 2025-06-28 09:48 | Hospitalist Progress Note ---
Date of Service June 28, 2025 Assessment & Plan (1) Right femoral fracture: Plan: 85-year-old female with past medical history significant for dyslipidemia, permanent atrial fibrillation, tachybradycardia syndrome status post pacemaker, mitral valve prolapse, mitral valve regurgitation status post mitral valve repair, tricuspid valve disease status post tricuspid valve repair, pulmonary hypertension, CAD, pulmonary hypertension, GERD, uterovaginal prolapse, osteoporosis, who recently had right total knee arthroplasty and after going home had a fall and having a lot of pain in her right leg and ambulatory dysfunction comes back today to the hospital. Patient had right total knee arthroplasty on 06/11/2025. She did fine after surgery. She ambulated in the hospital okay. Was discharged on 06/12/2025. After going home she was having trouble ambulating. On the same night after discharge patient tried to get up from the bed and fell down. had to help her to get into the bed. Since then she is having a lot of pain in the right leg and not getting out of the bed without help. She followed up with orthopedics on 06/20/2025 and x-rays were done which showed right distal periprosthetic femur fracture. As she is in significant pain and having ambulatory dysfunction she came back to the hospital today. Denies any fevers. Somewhat constipated. Micturating okay. No abdominal pain. No nausea. No chest pain or shortness of breath. No cough. No headache or runny nose. Hemodynamics are okay. Right femoral fracture Right distal femur periprosthetic fracture Recent right knee replacement --Knee X ray:Redemonstration of postoperative changes right total knee arthroplasty with extensive soft tissue swelling and inflammatory change and knee effusion. There is a comminuted periprosthetic fracture of the distal fem ur about the femoral component. This appears unchanged when compared with the prior exam but compared to prior exam there appears to be interval increase in displacement of the medial condylar fracture fragment Pain control as needed Coumadin on hold for surgery Appreciate orthopedics input Fall precautions Scheduled for revision of right total knee arthroplasty today Atrial fibrillation Tachybradycardia syndrome Status post pacemaker History of mitral valve and tricuspid valve repair Target INR 2-3 Supratherapeutic INR--resolved Received Vit K Continue metoprolol Hold Coumadin for now Monitor INR 1.1 today Likely plan to resume Coumadin tomorrow Hypertension Blood pressure relatively low Hold losartan for now Continue metoprolol Monitor blood pressure Nonobstructive CAD On beta-roscoe, statin History of heart failure with preserved ejection fraction, mild pulmonary hypertension On Lasix 20 mg 3 times a week Monitor volume status Hyperlipidemia On statin Constipation Continue bowel regimen GERD History of esophagitis On famotidine History of venous insufficiency Status post endovenous radiofrequency ablation of the left small saphenous vein and left greater saphenous vein History of status post left total knee replacement August 2024 complicated by nonhealing surgical wound with Pseudomonas infection treated with acetic acid soaks and wound VAC. Subacute bacterial endocarditis prophylaxis Clindamycin prior to dental work DVT prophylaxis SCDs, resume Coumadin as able CODE STATUS Full code Disposition PT OT prior to discharge Admission and Anticipated Discharge Date Admission Date: June 24, 2025 Subjective Patient is seen and examined at bedside Offers no new complaints Denies any significant right knee pain Plan for revision of right knee arthroplasty today Family at bedside Denies any chest pain, dyspnea, nausea, vomiting, abdominal pain Review of Systems Review of Systems: All systems reviewed & are unremarkable except as noted in Subjective Physical Exam Physical Exam: Physical Exam: Vitals signs as noted above General Appearance:Thin, frail, no apparent distress Head: normocephalic, Atraumatic Eyes: normal inspection, EOMI Neck: supple, Trachea midline Respiratory/Chest: Normal breath sounds, CTA, No accessory muscle use Cardiovascular: Irregularly irregular, faint murmur Abdomen/GI:Soft, Non tender, Bowel sounds present Extremities/Musculoskeletal:normal inspection, Trace edema, + right knee immobilizer Neurologic/Psych:AAOX3, grossly no focal neurological deficits Skin: normal color, warm Results & Data Results & Data Vital Signs (Past 12 Hours) Vital Signs Temp Pulse Resp BP Pulse Ox O2 Del Method 06/28/25 07:06 36.9 C 60 18 110/65 95 Room Air Laboratory Results Short CBC 06/28/25 Range/Units 08:17 WBC 7.34 (4.8-10.8) K/ul Hgb 10.7 L (12.0-16.0) g/dl Hct 33.2 L (37.0-47.0) % Plt Count 258 (130-400) K/uL BMP 06/28/25 08:17 Sodium 135 L Potassium 4.2 Chloride 99 Carbon Dioxide 32 BUN 14 Creatinine 0.79 Glucose 114 H Calcium 9.0
[2025-06-28] MEDS ORDERED: POLYETHYLENE (MIRALAX) 17 GM PACK PO PRN (09:50)
[2025-06-28] MEDS ORDERED: VANCOMYCIN CONSULT ACTIVE PRN ×2 (10:27→15:41)
--- NOTE | 2025-06-28 10:39 | Anesthesiology Consultation ---
Date of Service June 28, 2025 Assessment & Plan ASA ASA3 Proposed Anesthesia Anesthesia Type: MAC Spinal Regional Regional Laterality: Right Site: Adductor Canal Risk / Benefits Reviewed With: PT / POA / Parent / Guardian, Accepts Plan and Informed Consent Obtained History Surgery Operation Date: 06/28/25 10:40 Proposed Procedures p Right Revision Total Knee Arthroplasty to Hinge Knee - Servando Cramer MD Height/Weight Height: 5 ft 6 in Weight: 63 kg Allergies Allergy/AdvReac Type Severity Reaction Status Date / Time Penicillins Allergy Severe Rash, Verified 06/11/25 08:43 respiratory distress cefadroxil Allergy Intermediate Hives Verified 06/11/25 08:43 codeine Allergy Intermediate Lip Verified 06/11/25 08:43 numbness Iodinated Contrast Media Allergy Intermediate Rash Verified 06/11/25 08:43 hoff Allergy Mild Nausea Verified 06/11/25 08:43 (Garbanzo hoff) sulfamethoxazole Allergy Mild Nausea, Verified 06/11/25 08:43 [From Bactrim] decreased sodium level trimethoprim [From Bactrim] Allergy Mild Nausea, Verified 06/11/25 08:43 decreased sodium level hydrochlorothiazide AdvReac Drug-induced Verified 06/11/25 08:43 hyponatremia (Per cardio records) Medications Home Medications Medication Instructions Recorded Confirmed Last Taken cholecalciferol (vitamin D3) 50 2,000 unit PO PM 01/16/19 06/24/25 06/23/25 mcg (2,000 unit) capsule (Vitamin D3) rosuvastatin 5 mg tablet (Crestor) 5 mg PO HS 01/16/19 06/24/25 06/23/25 famotidine 20 mg tablet 20 mg PO HS 03/10/22 06/24/25 06/23/25 calcium carbonate (Oyster Shell 500 mg PO QAM 02/21/23 06/24/25 06/23/25 Calcium) metoprolol succinate 25 mg 25 mg PO QPM 04/20/23 06/24/25 06/23/25 tablet,extended release 24 hr warfarin 2.5 mg tablet 2.5 mg PO 3XWK 05/20/23 06/24/25 06/21/25 warfarin 5 mg tablet 5 mg PO 4XWK 05/20/23 06/24/25 06/22/25 Germanium Oil 1 dose topical BID 07/04/24 06/24/2525 conjugated estrogens 0.625 mg/gram 0.625 mg vaginal 3XWK 07/04/24 06/24/25 06/22/25 vaginal cream glucosamine sulf dipot 1 cap PO QAM 07/04/24 06/24/25 06/20/25 chlr,msm,chond 550 mg-C 30 mg-cyndee 1 mg capsule (Glucosamine Chondroitin) losartan 50 mg tablet 50 mg PO QAM 11/14/24 06/24/25 06/23/25 clindamycin HCl 300 mg capsule 600 mg (2 x 300 mg) PO ONCE #2 caps 05/03/25 06/24/25 Unknown furosemide 20 mg tablet 20 mg PO 3XWK 05/10/25 06/24/25 06/21/25 meclizine 25 mg tablet 25 mg PO DAILY PRN 05/10/25 06/24/25 Unknown vertigo/dizziness polyethylene glycol 3350 17 17 g PO QDAY constipation 7 days 06/19/25 06/24/25 Unknown gram/dose oral powder #119 grams acetaminophen 500 mg tablet 1,000 mg PO TID PRN pain 06/24/25 06/24/25 06/23/25 (Tylenol Extra Strength) ondansetron 4 mg disintegrating 4 mg PO Q8H PRN nausea 06/24/25 06/24/25 06/22/25 tablet oxycodone 5 mg tablet 5 - 10 mg PO Q6H PRN pain 06/24/25 06/24/25 06/22/25 14:00 Active Medications Generic Name Dose Route Start Last Admin Trade Name Freq PRN Reason Stop Dose Admin Acetaminophen 650 mg 06/24/25 23:56 06/26/25 18:02 Acetaminophen 325 Mg Tab PO 07/24/25 23:55 650 mg Q4H PRN Administration pain/fever Calcium Carbonate 1 tab 06/25/25 09:00 06/27/25 09:05 Calcium Carbonate 1250mg Tab PO 07/25/25 08:59 1 tab QAM NORMA Administration Estrogens Conjugated 1 appln 06/26/25 09:00 06/26/25 08:31 Premarin Vag Crm 14 Appln/30 Gm Tube PV 07/26/25 08:59 Not Given MoWeFr NORMA Famotidine 20 mg 06/25/25 21:00 06/27/25 20:33 Famotidine 20 Mg Tab PO 07/25/25 20:59 20 mg HS NORMA Administration Furosemide 20 mg 06/26/25 09:00 06/26/25 08:11 Furosemide 20 Mg Tab PO 07/26/25 08:59 20 mg MoWeFr NORMA Administration Losartan Potassium 50 mg 06/25/25 09:00 06/27/25 09:06 Losartan Potassium 50 Mg Tab PO 07/25/25 08:59 50 mg QAM NORMA Administration Metoprolol Succinate 25 mg 06/25/25 21:00 06/27/25 20:32 Metoprolol Succ 25mg Ext Rel Tab PO 07/25/25 20:59 25 mg QPM NORMA Administration Oxycodone HCl 5 mg 06/24/25 23:56 06/27/25 20:31 Oxycodone Hcl Ir 5 Mg Tab (Immediate Release) PO 07/08/25 23:55 5 mg Q4H PRN Administration Mod-Sev Pain (Scale 4-10) Rosuvastatin Calcium 5 mg 06/25/25 21:00 06/27/25 20:32 Rosuvastatin Calcium 5 Mg Tab PO 07/25/25 20:59 5 mg HS NORMA Administration Senna/Docusate Sodium 2 tab 06/25/25 21:00 06/27/25 20:31 Docusate Sodium/Senna 50/8.6mg Tab PO 07/25/25 20:59 2 tab HS NORMA Administration Vitamin D 50 mcg 06/25/25 21:00 06/27/25 20:32 Cholecalciferol 25 Mcg (1000 Units) Tab PO 07/25/25 20:59 50 mcg PM NORMA Administration NPO Date Last Intake of Fluids: 06/27/25 Time Last Intake of Fluids: 23:59 Date Last Intake of Solids: 06/27/25 Time Last Intake of Solids: 23:59 Past Medical History Medical History History of surgical site infection Pseudomonas s/p left TKA, resolved s/p wound clinic treatment Hx of vertigo Occasional "I have crystals in my ears" History of skin cancer Nasal region Treated with "a cream" [facility] Presence of pessary Valvular heart disease MV repair + TV repair (2019) Echo 05/17/25: Evidence of prior mitral valve repair and ring annuloplasty. Posterior mitral valve leaflet is restricted in mobility but with free mobile anterior leaflet. Mitral stenosis absent. Evidence of previous tricuspid valve repair. Mild TR. Coronary artery disease Non-obstructive (per [facility] cardio records) Chronic venous insufficiency Bilateral primary osteoarthritis of knee Pulmonary HTN Echo 05/17/25: PASP 40-45mmhg History of pericarditis Age 18 Hypertension Atrial fibrillation Follows with [facility] cardio Artificial cardiac pacemaker Implanted 2022, [employer] per [facility] cardio records Follows with [facility] cardio Tachy-gomez syndrome Osteoporosis GERD (gastroesophageal reflux disease) Hyperlipidemia Exercise / Class Metabolic Activity II 4-5 Yardwork/Stairs/Walk up hill Past Family History Family History Brother Family hx of colon cancer Daughter FHx: breast cancer Mother FHx: breast cancer Grandmother FHx: breast cancer Aunt FHx: breast cancer Other No family history of adverse response to anesthesia Past Surgical History Surgical History History of arthroplasty of left knee Left TKA (08/14/24): SAB at L3-4 (1 attempt) + regional at [facility] Hx of mitral valve repair H/O tricuspid valve repair Status post endovenous radiofrequency ablation of saphenous vein Left leg [place] teeth removed History of open reduction and internal fixation (ORIF) procedure Left wrist History of cholecystectomy History of breast biopsy Left (benign) History of bilateral tubal ligation History of appendectomy History of colonoscopy History of tonsillectomy History of cardiac cath 2019- no stents Past Anesthesia History No Hx of Anesthesia Complications and No Family Hx of Anesthesia Complications History of PONV No Hx of PONV and No Hx of Motion Sickness Social History Smoking Status: Never smoker Do You Dip or Chew Tobacco: No Hx Alcohol Use: No Hx Substance Use: No substance use type: does not use Physical Exam Vital Signs Last Vital Signs Temp 36.9 C 06/28/25 07:06 Pulse 60 06/28/25 07:06 Resp 18 06/28/25 07:06 BP 110/65 06/28/25 07:06 Pulse Ox 95 06/28/25 07:06 O2 Del Method Room Air 06/28/25 07:06 O2 Flow Rate 2 06/25/25 07:05 Constitutional no acute distress ENMT Mouth: no dentition abnormality Thyromental Distance: > or= 3.5 Finger Breadths Mallampati Class: II Neck normal visual inspection Respiratory normal respiratory effort; no respiratory distress Auscultation: lungs clear to auscultation bilaterally Cardiovascular Rate/Rhythm: regular rate and regular rhythm Heart Sounds: no murmur Musculoskeletal Spine: normal cervical ROM Psychiatric Orientation: alert and oriented x 3 Testing Laboratory Results 06/28/25 08:17 06/28/25 08:17 PT 12.2 Seconds (9.0-12.0) H 06/28/25 08:17 INR 1.1 (0.9-1.1) 06/28/25 08:17 Urine Color Dark Yellow 06/24/25 Unknown Urine Appearance Clear (Clear) 06/24/25 Unknown Urine pH 6.0 (4.5-7.5) 06/24/25 Unknown Ur Specific [place] 1.024 (1.000-1.030) 06/24/25 Unknown Urine Protein Trace (Negative) H 06/24/25 Unknown Urine Glucose (UA) Negative (Negative) 06/24/25 Unknown Urine Ketones Trace (Negative) H 06/24/25 Unknown Urine Nitrite Negative (Negative) 06/24/25 Unknown Ur Leukocyte Esterase 1+ (Negative) H 06/24/25 Unknown Urine WBC (Auto) 0-5 /hpf (0-5) 06/24/25 Unknown Urine RBC (Auto) 6-10 /hpf (0-2) H 06/24/25 Unknown U Hyaline Cast (Auto) 0-2 /lpf (0-2) 06/24/25 Unknown U Epithel Cells (Auto) 0-2 /hpf (0-2) 06/24/25 Unknown Urine Bacteria (Auto) None Seen (None Seen) 06/24/25 Unknown Blood Type O Negative 06/26/25 07:11 Antibody Screen NEGATIVE 06/26/25 07:11 Day of Procedure Evaluation. Date of Surgery June 28, 2025 Height/Weight Height: 5 ft 6 in Weight: 63 kg Vital Signs Last Vital Signs Temp 36.9 C 06/28/25 07:06 Pulse 60 06/28/25 07:06 Resp 18 06/28/25 07:06 BP 110/65 06/28/25 07:06 Pulse Ox 95 06/28/25 07:06 O2 Del Method Room Air 06/28/25 07:06 O2 Flow Rate 2 09/16/25 07:05 Allergies Allergy/AdvReac Type Severity Reaction Status Date / Time Penicillins Allergy Severe Rash, Verified 06/11/25 08:43 respiratory distress cefadroxil Allergy Intermediate Hives Verified 06/11/25 08:43 codeine Allergy Intermediate Lip Verified 06/11/25 08:43 numbness Iodinated Contrast Media Allergy Intermediate Rash Verified 06/11/25 08:43 hoff Allergy Mild Nausea Verified 06/11/25 08:43 (Garbanzo hoff) sulfamethoxazole Allergy Mild Nausea, Verified 06/11/25 08:43 [From Bactrim] decreased sodium level trimethoprim [From Bactrim] Allergy Mild Nausea, Verified 06/11/25 08:43 decreased sodium level hydrochlorothiazide AdvReac Drug-induced Verified 06/11/25 08:43 hyponatremia (Per cardio records) Medications Home Medications Medication Instructions Recorded Confirmed Last Taken cholecalciferol (vitamin D3) 50 2,000 unit PO PM 01/16/19 06/24/25 06/23/25 mcg (2,000 unit) capsule (Vitamin D3) rosuvastatin 5 mg tablet (Crestor) 5 mg PO HS 01/16/19 06/24/25 06/23/25 famotidine 20 mg tablet 20 mg PO HS 03/10/22 06/24/25 06/23/25 calcium carbonate (Oyster Shell 500 mg PO QAM 02/21/23 06/24/25 06/23/25 Calcium) metoprolol succinate 25 mg 25 mg PO QPM 04/20/23 06/24/25 06/23/25 tablet,extended release 24 hr warfarin 2.5 mg tablet 2.5 mg PO 3XWK 05/20/23 06/24/25 06/21/25 warfarin 5 mg tablet 5 mg PO 4XWK 05/20/23 06/24/25 06/22/25 Germanium Oil 1 dose topical BID 07/04/24 06/24/25 05/28/25 conjugated estrogens 0.625 mg/gram 0.625 mg vaginal 3XWK 07/04/24 06/24/25 06/22/25 vaginal cream glucosamine sulf dipot 1 cap PO QAM 07/04/24 06/24/25 06/20/25 chlr,msm,chond 550 mg-C 30 mg-cyndee 1 mg capsule (Glucosamine Chondroitin) losartan 50 mg tablet 50 mg PO QAM 11/14/24 06/24/25 06/23/25 clindamycin HCl 300 mg capsule 600 mg (2 x 300 mg) PO ONCE #2 caps 05/03/25 06/24/25 Unknown furosemide 20 mg tablet 20 mg PO 3XWK 05/10/25 06/24/25 06/21/25 meclizine 25 mg tablet 25 mg PO DAILY PRN 05/10/25 06/24/25 Unknown vertigo/dizziness polyethylene glycol 3350 17 17 g PO QDAY constipation 7 days 06/19/25 06/24/25 Unknown gram/dose oral powder #119 grams acetaminophen 500 mg tablet 1,000 mg PO TID PRN pain 06/24/25 06/24/25 06/23/25 (Tylenol Extra Strength) ondansetron 4 mg disintegrating 4 mg PO Q8H PRN nausea 06/24/25 06/24/25 06/22/25 tablet oxycodone 5 mg tablet 5 - 10 mg PO Q6H PRN pain 06/24/25 06/24/25 06/22/25 14:00 Active Medications Generic Name Dose Route Start Last Admin Trade Name Freq PRN Reason Stop Dose Admin Acetaminophen 650 mg 06/24/25 23:56 06/26/25 18:02 Acetaminophen 325 Mg Tab PO 07/24/25 23:55 650 mg Q4H PRN Administration pain/fever Calcium Carbonate 1 tab 06/25/25 09:00 06/27/25 09:05 Calcium Carbonate 1250mg Tab PO 07/25/25 08:59 1 tab QAM NORMA Administration Estrogens Conjugated 1 appln 06/26/25 09:00 06/26/25 08:31 Premarin Vag Crm 14 Appln/30 Gm Tube PV 07/26/25 08:59 Not Given MoWeFr NORMA Famotidine 20 mg 06/25/25 21:00 06/27/25 20:33 Famotidine 20 Mg Tab PO 07/25/25 20:59 20 mg HS NORMA Administration Furosemide 20 mg 06/26/25 09:00 06/26/25 08:11 Furosemide 20 Mg Tab PO 07/26/25 08:59 20 mg MoWeFr NORMA Administration Losartan Potassium 50 mg 06/25/25 09:00 06/27/25 09:06 Losartan Potassium 50 Mg Tab PO 07/25/25 08:59 50 mg QAM NORMA Administration Metoprolol Succinate 25 mg 06/25/25 21:00 06/27/25 20:32 Metoprolol Succ 25mg Ext Rel Tab PO 07/25/25 20:59 25 mg QPM NORMA Administration Oxycodone HCl 5 mg 06/24/25 23:56 06/27/25 20:31 Oxycodone Hcl Ir 5 Mg Tab (Immediate Release) PO 07/08/25 23:55 5 mg Q4H PRN Administration Mod-Sev Pain (Scale 4-10) Rosuvastatin Calcium 5 mg 06/25/25 21:00 06/27/25 20:32 Rosuvastatin Calcium 5 Mg Tab PO 07/25/25 20:59 5 mg HS NORMA Administration Senna/Docusate Sodium 2 tab 06/25/25 21:00 06/27/25 20:31 Docusate Sodium/Senna 50/8.6mg Tab PO 07/25/25 20:59 2 tab HS NORMA Administration Vitamin D 50 mcg 06/25/25 21:00 06/27/25 20:32 Cholecalciferol 25 Mcg (1000 Units) Tab PO 07/25/25 20:59 50 mcg PM NORMA Administration Past Anesthesia History No Hx of Anesthesia Complications and No Family Hx of Anesthesia Complications History of PONV No Hx of PONV and No Hx of Motion Sickness NPO Date Last Intake of Fluids: 06/27/25 Time Last Intake of Fluids: 23:59 Date Last Intake of Solids: 06/27/25 Time Last Intake of Solids: 23:59 Home Medications Home Medications Medication Instructions Recorded Confirmed Last Taken cholecalciferol (vitamin D3) 50 2,000 unit PO PM 01/16/19 06/24/25 06/23/25 mcg (2,000 unit) capsule (Vitamin D3) rosuvastatin 5 mg tablet (Crestor) 5 mg PO HS 01/16/19 06/24/25 06/23/25 famotidine 20 mg tablet 20 mg PO HS 03/10/22 06/24/25 06/23/25 calcium carbonate (Oyster Shell 500 mg PO QAM 02/21/23 06/24/25 06/23/25 Calcium) metoprolol succinate 25 mg 25 mg PO QPM 04/20/23 06/24/25 06/23/25 tablet,extended release 24 hr warfarin 2.5 mg tablet 2.5 mg PO 3XWK 05/20/23 06/24/25 06/21/25 warfarin 5 mg tablet 5 mg PO 4XWK 05/20/23 06/24/25 06/22/25 Germanium Oil 1 dose topical BID 07/04/24 06/24/25 05/28/25 conjugated estrogens 0.625 mg/gram 0.625 mg vaginal 3XWK 07/04/24 06/24/25 06/22/25 vaginal cream glucosamine sulf dipot 1 cap PO QAM 07/04/24 06/24/25 06/20/25 chlr,msm,chond 550 mg-C 30 mg-cyndee 1 mg capsule (Glucosamine Chondroitin) losartan 50 mg tablet 50 mg PO QAM 11/14/24 06/24/25 06/23/25 clindamycin HCl 300 mg capsule 600 mg (2 x 300 mg) PO ONCE #2 caps 05/03/25 06/24/25 Unknown furosemide 20 mg tablet 20 mg PO 3XWK 05/10/25 06/24/25 06/21/25 meclizine 25 mg tablet 25 mg PO DAILY PRN 05/10/25 06/24/25 Unknown vertigo/dizziness polyethylene glycol 3350 17 17 g PO QDAY constipation 7 days 06/19/25 06/24/25 Unknown gram/dose oral powder #119 grams acetaminophen 500 mg tablet 1,000 mg PO TID PRN pain 06/24/25 06/24/25 06/23/25 (Tylenol Extra Strength) ondansetron 4 mg disintegrating 4 mg PO Q8H PRN nausea 06/24/25 06/24/25 06/22/25 tablet oxycodone 5 mg tablet 5 - 10 mg PO Q6H PRN pain 06/24/25 06/24/25 06/22/25 14:00 Active Medications Generic Name Dose Route Start Last Admin Trade Name Freq PRN Reason Stop Dose Admin Acetaminophen 650 mg 06/24/25 23:56 06/26/25 18:02 Acetaminophen 325 Mg Tab PO 07/24/25 23:55 650 mg Q4H PRN Administration pain/fever Calcium Carbonate 1 tab 06/25/25 09:00 06/27/25 09:05 Calcium Carbonate 1250mg Tab PO 07/25/25 08:59 1 tab QAM NORMA Administration Estrogens Conjugated 1 appln 06/26/25 09:00 06/26/25 08:31 Premarin Vag Crm 14 Appln/30 Gm Tube PV 07/26/25 08:59 Not Given MoWeFr NORMA Famotidine 20 mg 06/25/25 21:00 06/27/25 20:33 Famotidine 20 Mg Tab PO 07/25/25 20:59 20 mg HS NORMA Administration Furosemide 20 mg 06/26/25 09:00 06/26/25 08:11 Furosemide 20 Mg Tab PO 07/26/25 08:59 20 mg MoWeFr NORMA Administration Losartan Potassium 50 mg 06/25/25 09:00 06/27/25 09:06 Losartan Potassium 50 Mg Tab PO 07/25/25 08:59 50 mg QAM NORMA Administration Metoprolol Succinate 25 mg 06/25/25 21:00 06/27/25 20:32 Metoprolol Succ 25mg Ext Rel Tab PO 07/25/25 20:59 25 mg QPM NORMA Administration Oxycodone HCl 5 mg 06/24/25 23:56 06/27/25 20:31 Oxycodone Hcl Ir 5 Mg Tab (Immediate Release) PO 07/08/25 23:55 5 mg Q4H PRN Administration Mod-Sev Pain (Scale 4-10) Rosuvastatin Calcium 5 mg 06/25/25 21:00 06/27/25 20:32 Rosuvastatin Calcium 5 Mg Tab PO 07/25/25 20:59 5 mg HS NORMA Administration Senna/Docusate Sodium 2 tab 06/25/25 21:00 06/27/25 20:31 Docusate Sodium/Senna 50/8.6mg Tab PO 07/25/25 20:59 2 tab HS NORMA Administration Vitamin D 50 mcg 06/25/25 21:00 06/27/25 20:32 Cholecalciferol 25 Mcg (1000 Units) Tab PO 07/25/25 20:59 50 mcg PM NORMA Administration Exercise / Class Metabolic Activity Metabolic Activity: II 4-5 Yardwork/Stairs/Walk up hill Physical Exam Constitutional: no acute distress Mouth: no dentition abnormality Thyromental Distance: > or= 3.5 Finger Breadths Mallampati Class: II Neck: + visual inspection normal Respiratory: + respiratory effort normal and + clear to auscultation bilaterally; no respiratory distress Cardiovascular: + regular rate and + regular rhythm; no murmur Musculoskeletal: no limited cervical ROM Psychiatric: + alert and + oriented x 3 ASA ASA3 Proposed Anesthesia Proposed Anesthesia: MAC Spinal Regional Regional Laterality: Right Site: Adductor Canal Risk / Benefits Reviewed With: PT / POA / Parent / Guardian, Accepts Plan and Informed Consent Obtained
[2025-06-28] MEDS ORDERED: HYDROmorphone INJ 1 MG/ML SYRINGE IV PRN (10:41)
[2025-06-28] MEDS ORDERED: ATROPINE SULFATE 0.1 MG/ML 10ML SYR IV PRN (10:41)
[2025-06-28] MEDS ORDERED: PROMETHAZINE HCL 6.25 MG in SODIUM CHLORIDE 0.9% 50 ML IV PRN (10:41)
[2025-06-28] MEDS: LACTATED RINGER'S 1,000 ML IV SCH (10:42)
[2025-06-28] MEDS ORDERED: KETAMINE HCL 10MG/ML SYR ONE (10:45)
[2025-06-28] MEDS ORDERED: PROPOFOL IV EMULSION 10 MG/ML 20 ML VIAL IV ONE (10:45)
[2025-06-28] MEDS: VANCOMYCIN HCL / NSS 1,000 MG/270 ML BAG IV SCH (10:49)
[2025-06-28] MEDS ORDERED: ONDANSETRON INJ 2 MG/ML 2 ML VIAL ONE (10:49)
[2025-06-28] MEDS ORDERED: DEXAMETHASONE SOD INJ 4 MG/ML VIAL ONE (10:49)
[2025-06-28] MEDS ORDERED: GLYCOPYRROLATE 0.2 MG/ML VIAL ONE (12:09)
[2025-06-28] MEDS ORDERED: ePHEDrine sulfate 50 MG/5 ML SYR ONE (12:16)
[2025-06-28] MEDS: ROPIVACAINE 0.5% HCL/PF 246 MG, Ketorolac (*for OR use only*) 30 MG, EPINEPHrine 30MG/3... INFIL SCH (12:48)
[2025-06-28] MEDS: TRANEXAMIC ACID / 0.7% NACL 1,000 MG/100 ML BAG IV ONE (13:30)
[2025-06-28] MEDS: VANCOMYCIN HCL 1000MG/20ML VIAL ONE ×2 (13:46→14:07)
--- NOTE | 2025-06-28 14:36 | Operative Report ---
PG Post Operative Report Pre & Post Diagnosis Operation Date: 06/28/25 10:40 Pre-Op diagnosis: Right periprosthetic femur fracture status post total knee replacement Postop diagnosis: Right periprosthetic distal femur fracture status post total knee replacement I identified the patient and participated in the time-out.: Yes Procedure Operation Date: 06/28/25 10:40 Right total knee replacement revision arthroplasty was converted to a distal femoral replacement and hinged prosthesis Surgeon Servando Cramer MD [employer] Claudio Mott PA-C Estimated Blood Loss 200 Findings Consistent with Post-Op Diagnosis Operative findings revealed a very distal periprosthetic femur fracture just above the implant involving both medial lateral condyles. Specimens Right femur sent for pathology Anesthesia Type Spinal MAC Complications none Disposition Accompanied Patient To Recovery: No Indications Patient is an 85-year-old female who is a little over 2 weeks out from a total knee replacement. She did quite well and was discharged to home. Upon arriving at home she did have a fall shortly thereafter and had difficulty ambulating. She had some home health and asked several days later in the came to the office due to her inability to ambulate. X-rays revealed periprosthetic femur fracture. At that point we began some conservative care as the alignment was fairly good and she did feel like she could tolerate another surgery at that time. Over the next several days she continues to have disabling pain and discomfort which just became too severe with standing. She is admitted to the hospital. Treatment options were explained and we elected proceed with resection of the distal femur, distal femoral placement and hinged knee replacement. The patient was medically optimized preoperatively. Description of Procedure Operative implants consist of: 1. Biomet 7 cm elliptical distal femoral replacement with a 12 x 150 mm Body cemented stem. 2. 67 mm tibial tray with a 160 x 10 mm stem. 3. 20 mm posterior stabilized polyethylene insert. The patient was taken the operating, identified, placed on the operating table in the supine position. All contact areas were appropriately padded. IV anti biotics fibra anesthesia team. A spinal anesthetic and adductor canal block had been bided in holding area. A right thigh tourniquet was then placed. The right lower extremity was then scrubbed with Hibiclens, prepped with ChloraPrep and draped in usual sterile fashion. The right leg was then elevated and exsanguinated with use of an Esmarch and toe was placed at 300 mmHg. An anterior approach of the right knee was then performed using the previous incision extending it somewhat proximally. Sharp dissection was Through subcutaneous tissues down to the level of the extensor mechanism. A medial parapatellar arthrotomy incision was made using the previous incision and removing all the stitches. We did have to extend this proximally. Mild synovectomy was performed as there really was not much synovium to removed. All blood clot was evacuated. I then skeletonized the distal femur. I measured for a 7 cm distal femoral segment and made a bone cut perpendicular to the shaft. We then further skeletonized the distal femur and removed this in multiple pieces. Attention then drawn the tibia. With the use of a ACL sawblade along with a stacked osteotome technique the tibial tray was removed. Unfortunately we removed this and the whole cement portion came out attached to the implant still. I then began preparation. Attention was first drawn to the tibia. We placed the intramedullary guide and then made the proximal tibial cut. I then reamed up to so an 10 mm segment would fit fairly easily. This the implant was placed and fit nicely in appropriate rotation. Attention then drawn the femur. The femur was then reamed with progressively up to a size 14. We got pretty good chatter 14 so we elect to place the tip 12 stem. We then trialed the implants. The 20 mm bearing fit most appropriately. All implants were then removed. I irrigated extensively. We then had 2 different batches of cement. A double batch [place] G cement was mixed with a bottle of vancomycin and injected the tibia and the tibial implant was placed. I then mix an additional 2 pack of cement with a bottle of vancomycin injected the femur and the femoral component was placed. We then connected the 2 and used a 20 mm insert. The knee was brought out in full extension till cement hardened. Once this was complete we injected locally with 100 cc of Ortho mix. Patient did receive 1 g tranexamic acid. The tourniquet was then let down for total tourniquet time 104 minutes. Hemostasis assured with electrocautery. We then irrigated extensively. I then placed 1 g of vancomycin powder into around the deep tissues. We did save a little bit this for the superficial tissues as well. Extensor [place] then closed with a #1 PDS suture in a [id number] fashion. The subcutaneous tissue was then closed with 2-0 Dexon suture in a buried interrupted fashion skin was then closed with skin mary. Leg was then cleaned and dried and a sterile dressing with Xeroform, 4 fourth, sterile cast padding and Lee bandage were applied. The patient then transferred to the recovery room in stable condition. Patient tolerated procedure well and there are no complications. Claudio Mott, my physician audiology assistant, was present for the entire procedure. His assistance was required for proper patient positioning, prepping and draping, surgical exposure, retraction, form the technical details of the operation, closure of the incision site, placement of postoperative sterile bandage. I attest to the content of the Intraoperative Record and any orders documented therein. Any exceptions are noted below.
--- NOTE | 2025-06-28 15:02 | Anesthesiology Progress Note ---
Date of Service June 28, 2025 Anesthesia Post Procedure Vital Signs Vital Signs: Temp Pulse Pulse Resp BP BP Pulse Ox 06/28/25 14:55 82 14 137/75 92 06/28/25 14:45 81 20 121/62 97 06/28/25 14:38 36.0 C L 81 18 110/62 92 06/28/25 10:20 36.9 C 60 20 124/61 96 06/28/25 07:06 36.9 C 60 18 110/65 95 06/27/25 20:27 36.7 C 65 16 109/66 94 06/27/25 16:30 36.8 C 62 108/52 L 96 O2 Del Method O2 Flow Rate 06/28/25 14:55 Nasal Cannula 2 06/28/25 14:45 Nasal Cannula 2 06/28/25 14:38 Room Air 06/28/25 10:20 Room Air 06/28/25 07:06 Room Air 06/27/25 20:27 Room Air 06/27/25 16:30 Room Air Pain Intensity Right Knee: Pain Intensity: 4 Notes Mental Status: alert / awake / arousable Patient Amnestic to Procedure: Yes Nausea / Vomiting: adequately controlled Pain: adequately controlled Airway Patency, RR, SpO2: stable & adequate BP & HR: stable & adequate Hydration State: stable & adequate Neuraxial Anesthesia: was administered and sensory block is resolving Anesthetic Complications: no major complications apparent
--- NOTE | 2025-06-28 15:40 | XRay Report ---
XR knee RT 1 or 2V routine CLINICAL HISTORY: Surgical Post Op COMPARISON: 06/24/2025 FINDINGS: Long-standing right knee prosthesis. No hardware complication. There is expected soft tiss ue gas. Skin mary are present. IMPRESSION: Unremarkable postoperative exam. ACT 112: Negative or not required by law. Electronically signed by: Sukhwinder Rivera M.D. 06/28/2025 3:39 PM
[2025-06-28] MEDS ORDERED: MAGNESIUM HYDROXIDE SUSP 30 ML UDC PO PRN (15:41)
[2025-06-28] MEDS ORDERED: METOCLOPRAMIDE HCL INJ 5 MG/ML 2 ML VIAL IV PRN (15:41)
[2025-06-28] MEDS ORDERED: NALOXONE HCL 0.4 MG/1 ML VIAL/CARP IV PRN (15:41)
[2025-06-28] MEDS ORDERED: ALUMINUM/MAGNESIUM SUSP 30 ML UDC PO PRN (15:41)
[2025-06-28] MEDS ORDERED: HYDROmorphone INJ 0.5 MG/0.5 ML SYR IV PRN (15:41)
[2025-06-28] MEDS ORDERED: ONDANSETRON 4 MG OD TAB PO PRN (15:41)
[2025-06-28] MEDS ORDERED: ONDANSETRON INJ 2 MG/ML 2 ML VIAL IV PRN (15:41)
[2025-06-28] MEDS: POLYETHYLENE (MIRALAX) 17 GM PACK PO SCH (16:32)
[2025-06-28] MEDS: SODIUM CHLORIDE 0.9% 1,000 ML IV SCH (16:33)
--- NOTE | 2025-06-28 16:37 | Electrocardiogram Report ---
Test Reason : Blood Pressure : */* mmHG Vent. Rate : 69 BPM Atrial Rate : * BPM P-R Int : * ms QRS Dur : 82 ms QT Int : 420 ms P-R-T Axes : * -10 -16 degrees QTcB Int : 450 ms Atrial fibrillation with occasional ventricular-paced complexes Inferior infarct , age undetermined T wave abnormality, consider anterior ischemia Abnormal ECG When compared with ECG of 13-Jul-2024 11:28, Sinus rhythm is now with ventricular escape complexes Vent. rate has increased by 5 bpm Confirmed by Kameron Peguero ([id number]) on 06/28/2025 4:37:07 PM Referred By: Henrik De La Cruz Confirmed By: Kameron Peguero
[2025-06-28] MEDS: ASCORBIC ACID 500 MG TAB PO SCH (16:41)
[2025-06-28] MEDS: WARFARIN SOD 5 MG TAB PO ONE (16:41)
[2025-06-28] MEDS: ACETAMINOPHEN 500 MG TAB PO PRN (18:05)
[2025-06-28] MEDS: TRANEXAMIC ACID / 0.7% NACL 1,000 MG/100 ML BAG IV SCH (20:38)
[2025-06-28] MEDS ORDERED: [UNRECOGNIZED DRUG - OTHER] TOP SCH (21:00)
[2025-06-28] MEDS: DOCUSATE SODIUM 100 MG CAP PO SCH (21:28)
[2025-06-28] MEDS: SENNA 8.6 MG TAB PO SCH (21:29)
[2025-06-29] MEDS: VANCOMYCIN HCL 1,000 MG in SODIUM CHLORIDE 0.9% 250 ML IV SCH (00:48)
--- NOTE | 2025-06-29 06:13 | Orthopedic Progress Note ---
Date of Service June 29, 2025 Assessment & Plan (1) Right femoral fracture: Overall she is doing fairly well. She is not having much pain in the right knee. She will be seen by physical therapy today for ambulation and range of motion exercises. She is on Coumadin for DVT prophylaxis. She is orthopedi isaak stable for discharge when medically ready. She will follow-up with orthopedics in 2 weeks. Blanca Beck was seen and examined at bedside this morning. Overall she is doing fairly well. She is not having too much pain in the right knee. She has no complaints.. Review of Systems All systems reviewed & are unremarkable except as noted in HPI & below. Physical Exam On physical exam of the right knee, the dressing is clean and dry. Her leg is out in full extension. She has active dorsiflexion and plantarflexion of her right ankle.. Results & Data Results & Data Laboratory Results . Diagnostic Findings Postoperative x-rays of the right knee show the prosthesis to be in anatomic alignment without any evidence of fracture, dislocation, or loosening.. PG Care Time/CCT Total # of Minutes Spent Total Time Spent with Patient: Total time spent is greater than 50% in coordination of care (as documented) at patient's floor/unit and/or counseling patient: Coding Level of Care Code 76277 Post Operative Follow-Up Diagnoses Right femoral fracture S72.91XA
[2025-06-29 07:14] LABS: Hematocrit (blood only) 28.9 % (37.0-47.0); Hemoglobin 9.7 g/dl (12.0-16.0); Mean Corpuscular Hemoglobin 28.8 pg (25.0-34.0); Mean Corpuscular Volume 85.8 fL (80.0-100.0); Platelet Count 213 K/uL (130-400); RDW Standard Deviation 47.6 fL (36.4-46.3); Red Blood Count 3.37 M/uL (4.20-5.40); White Blood Count 7.18 K/ul (4.8-10.8)
[2025-06-29 07:36] LABS: Anion Gap 4.0 (3-11); Blood Urea Nitrogen 12.0 mg/dl (6-23); Calcium 8.7 mg/dl (8.6-10.3); Carbon Dioxide 29.0 mmol/L (21-32); Chloride 100.0 mmol/L (98-107); Creatinine Clr Calc Pharmacy 65.4 ml/min; Glucose 115.0 mg/dl (70-99(Fasting)); Potassium 4.5 mmol/L (3.5-5.1); Sodium 133.0 mmol/L (136-145)
[2025-06-29 07:52] LABS: INR 1.1 (0.9-1.1); Prothrombin Time 11.8 Seconds (9.0-12.0)
[2025-06-29] MEDS: MULTIVITAMIN TAB PO SCH (07:54)
[2025-06-29] MEDS: dexAMETHasone 10 MG in SYRINGE 0 ML IV SCH (07:54)
--- NOTE | 2025-06-29 14:43 | Hospitalist Progress Note ---
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 Patient had right total knee arthroplasty on 06/11/2025. She did fine after surgery. She ambulated in the hospital okay. Was discharged on 06/12/2025. After going home she was having trouble ambulating. On the same night after discharge patient tried to get up from the bed and fell down. had to help her to get into the bed. Since then she is having a lot of pain in the right leg and not getting out of the bed without help. She followed up with orthopedics on 06/20/2025 and x-rays were done which showed right distal periprosthetic femur fracture. As she is in significant pain and having ambulatory dysfunction she came back to the hospital today. Denies any fevers. Somewhat constipated. Micturating okay. No abdominal pain. No nausea. No chest pain or shortness of breath. No cough. No headache or runny nose. Hemodynamics are okay. Right femoral fracture Right distal femur periprosthetic fracture Recent right knee replacement Postoperative acute blood loss anemia --Knee X ray:Redemonstration of postoperative changes right total knee arthroplasty with extensive soft tissue swelling and inflammatory change and knee effusion. There is a comminuted periprosthetic fracture of the distal femur about the femoral component. This appears unchanged when compared with the prior exam but compared to prior exam there appears to be interval increase in displacement of the medial condylar fracture fragment --S/P Right Revision Total Knee Arthroplasty to Hinge Knee by on 06/28/25 Pain control as needed On Coumadin for anticoagulation Appreciate orthopedics input Fall precautions Continue PT OT May need rehab placement Needs follow-up with orthopedics on discharge No indication for blood transfusion currently Atrial fibrillation Tachybradycardia syndrome Status post pacemaker History of mitral valve and tricuspid valve repair Target INR 2-3 Supratherapeutic INR--resolved Received Vit K Continue metoprolol Resume Coumadin Monitor INR Hypertension BP better Resume losartan Continue metoprolol Monitor Nonobstructive CAD On beta-roscoe, statin History of heart failure with preserved ejection fraction, mild pulmonary hypertension On Lasix 20 mg 3 times a week Monitor volume status Hyperlipidemia On statin Constipation Continue bowel regimen GERD History of esophagitis On famotidine History of venous insufficiency Status post endovenous radiofrequency ablation of the left small saphenous vein and left greater saphenous vein History of status post left total knee replacement August 2024 complicated by nonhealing surgical wound with Pseudomonas infection treated with acetic acid soaks and wound VAC. Subacute bacterial endocarditis prophylaxis Clindamycin prior to dental work DVT prophylaxis Coumadin CODE STATUS Full code Disposition Acute rehab as able Admission and Anticipated Discharge Date Admission Date: June 24, 2025 Subjective Patient is seen and examined at bedside Had OT evaluation earlier today Patient denies any pain at surgical site Family at bedside + Flatus, no BM today Offers no other new complaints Denies any chest pain, dyspnea, nausea, vomiting, abdominal pain Review of Systems Review of Systems: All systems reviewed & are unremarkable except as noted in Subjective Physical Exam Physical Exam: Physical Exam: Vitals signs as noted above General Appearance:Thin, frail, no apparent distress Head: normocephalic, Atraumatic Eyes: normal inspection, EOMI Neck: supple, Trachea midline Respiratory/Chest: Normal breath sounds, CTA, No accessory muscle use Cardiovascular: Irregularly irregular, faint murmur Abdomen/GI:Soft, Non tender, Bowel sounds present Extremities/Musculoskeletal:normal inspection, Trace edema, + right knee surgical dressing Neurologic/Psych:AAOX3, grossly no focal neurological deficits Skin: normal color, warm Results & Data Results & Data Vital Signs (Past 12 Hours) Vital Signs Temp Pulse Resp BP BP Pulse Ox O2 Del Method 06/29/25 08:00 Room Air 06/29/25 07:49 36.6 C 60 18 131/70 98 Room Air 06/29/25 03:03 36.3 C L 64 16 106/60 97 Room Air Laboratory Results Short CBC 06/29/25 Range/Units 06:17 WBC 7.18 (4.8-10.8) K/ul Hgb 9.7 L (12.0-16.0) g/dl Hct 28.9 L (37.0-47.0) % Plt Count 213 (130-400) K/uL BMP 06/29/25 06:17 Sodium 133 L Potassium 4.5 Chloride 100 Carbon Dioxide 29 BUN 12 Creatinine 0.61 Glucose 115 H Calcium 8.7
[2025-06-29] MEDS: WARFARIN SOD 5 MG TAB PO SCH (18:34)
--- NOTE | 2025-06-29 20:17 | Emergency Department Note ---
Impression & Plan Periprosthetic fracture around internal prosthetic knee joint, Status post total right knee replacement, Unable to care for self ED Provider Note CHIEF COMPLAINT: R knee pain, unable to care for self HISTORY OF PRESENT ILLNESS: This 85-year-old female patient past medical history of right periprosthetic fracture after total knee arthroplasty. Patient suffered a fall in her bedroom after surgery and sustained a periprosthetic fracture. She has been made non-weightbearing and has been having difficulty getting around. She states she has been in bed essentially for the last week. Has been contacted the orthopedic surgeon, Dr. Cramer who referred her to the emergency department. Patient will likely require rehab placement. She denies any new falls, fevers, shortness of breath. She is on blood thinners. REVIEW OF SYSTEMS: A review of systems was performed with positives and pertinent negatives listed in the history of present illness. 10 systems were reviewed and are otherwise negative. ALLERGIES: see below MEDICATIONS: see below PMH: see below SOCIAL HISTORY: see below DDx: Inability to care for self, periprosthetic fracture, infectious etiology, dehydration among others. PHYSICAL EXAM: Vital signs reviewed. General: Well-appearing elderly female, in no significant distress. HEENT: No scleral icterus, PERRLA, neck supple. Atraumatic Cardiovascular: Regular rate and rhythm, no extra sounds. Pulmonary: Clear to auscultation bilaterally, normal work of breathing. Abdomen: Soft, nontender, nondistended, positive bowel sounds. Musculoskeletal: Atraumatic, no peripheral edema. Full knee immobilizer and compression noted to be right leg, RENÉ stockings noted to the left leg. Significant bruising noted to the right hip and upper thigh. Neurologic: Patient awake alert and oriented x 3, speech is clear Skin: Warm, dry, bruising as noted above. EMERGENCY DEPARTMENT COURSE/MDM: This patient was evaluated and appeared to be in no significant distress. IV access was obtained and laboratory work was drawn. EKG reveals rate controlled atrial fibrillation. X-ray confirms the periprosthetic fracture of the right leg. Laboratory work is fairly reassuring. The patient will require hospitalization for PT/OT and case management involvement for a rehabilitation stay. She and her are unable to adequately care for her at home. Patient will be evaluated by the hospitalist service for admission and further management. MONITORING: An order for cardiac monitoring was placed and the patient is noted to be in atrial fibrillation at 66 beats per minute. RADIOLOGY: Head CT to my interpretation reveals no evidence of acute intracranial abnormality. Chest x-ray to my interpretation reveals no evidence of focal lung consolidation or failure. Right knee x-ray is significant for TKA hardware and periprosthetic fracture along the femur. EKG: EKG to my interpretation reveals an atrial fibrillation with occasional ventricular paced complexes at 69 bpm. Previous inferior infarct, diffuse T wave inversion QTc of 450. DISPOSITION: Admission Past Med/Surg History Problem List (Updated 06/29/25 @ 20:28 by Khalida Phillips MD) Unable to care for self (Acute) Periprosthetic fracture around internal prosthetic knee joint (Acute) Right femoral fracture Status post total right knee replacement (Acute) Chronic venous insufficiency (Chronic) Abnormal ankle brachial index ([place]) (Acute) Hypertension (Acute) Medical History Encounter for pre-operative examination Right knee DJD History of surgical site infection Pseudomonas s/p left TKA, resolved s/p wound clinic treatment Hx of vertigo Occasional "I have crystals in my ears" History of skin cancer Nasal region Treated with "a cream" [facility] Dermatology Presence of pessary Valvular heart disease MV repair + TV repair (2019) Echo 05/17/25: Evidence of prior mitral valve repair and ring annuloplasty. Posterior mitral valve leaflet is restricted in mobility but with free mobile anterior leaflet. Mitral stenosis absent. Evidence of previous tricuspid valve repair. Mild TR. Coronary artery disease Non-obstructive (per [facility] cardio records) Chronic venous insufficiency Bilateral primary osteoarthritis of knee Pulmonary HTN Echo 05/17/25: PASP 40-45mmhg History of pericarditis Age 18 Hypertension Atrial fibrillation Follows with [facility] cardio Artificial cardiac pacemaker Implanted 2022, [employer] per [facility] cardio records Follows with [facility] cardio Tachy-gomez syndrome Osteoporosis GERD (gastroesophageal reflux disease) Hyperlipidemia Surgical History History of arthroplasty of left knee Left TKA (08/14/24): SAB at L3-4 (1 attempt) + regional at [facility] Hx of mitral valve repair [place] H/O tricuspid valve repair 2019, Status post endovenous radiofrequency ablation of saphenous vein Left leg Ault teeth removed History of open reduction and internal fixation (ORIF) procedure Left wrist History of cholecystectomy History of breast biopsy Left (benign) History of bilateral tubal ligation History of appendectomy History of colonoscopy History of tonsillectomy History of cardiac cath 2020- no stents Family History Brother Family hx of colon cancer Daughter FHx: breast cancer Mother FHx: breast cancer Grandmother FHx: breast cancer Aunt FHx: breast cancer Other No family history of adverse response to anesthesia Social History Smoking Status: Never smoker Second Hand Exposure: No; Do You Dip or Chew Tobacco: No; Hx Alcohol Use: No Hx Substance Use: No Preferred Language: Slovak Communication Ability: Effective Visual Impairment: No Limitations Hearing Ability: Normal Remote Coders Required: No Beliefs That Will Affect Care: None Current Living Situation: Spouse Current Living Situation Comment: home with Other Information That Helps Us Care for You: No Feels Safe at Home: Yes Safety Concerns: Feels Safe At This Time Diet Comment: Low fat caffeine: No Do you think of yourself as: straight/heterosexual Gender Identity: Female Assistive Devices: Walker Assistive Devices Comment: immobilizer Allergies Allergies Allergy/AdvReac Type Severity Reaction Status Date / Time Penicillins Allergy Severe Rash, Verified 06/28/25 10:43 respiratory distress cefadroxil Allergy Intermediate Hives Verified 06/28/25 10:43 codeine Allergy Intermediate Lip Verified 06/28/25 10:43 numbness Iodinated Contrast Media Allergy Intermediate Rash Verified 06/28/25 10:43 hoff Allergy Mild Nausea Verified 06/28/25 10:43 (Garbanzo hoff) sulfamethoxazole Allergy Mild Nausea, Verified 06/28/25 10:43 [From Bactrim] decreased sodium level trimethoprim [From Bactrim] Allergy Mild Nausea, Verified 06/28/25 10:43 decreased sodium level hydrochlorothiazide AdvReac Drug-induced Verified 06/28/25 10:43 hyponatremia (Per cardio records) Home Meds Home Medications Medication Instructions Recorded Confirmed cholecalciferol (vitamin D3) 50 2,000 unit PO PM 01/16/19 06/24/25 mcg (2,000 unit) capsule (Vitamin D3) rosuvastatin 5 mg tablet (Crestor) 5 mg PO HS 01/16/19 06/24/25 famotidine 20 mg tablet 20 mg PO HS 03/10/22 06/24/25 calcium carbonate (Oyster Shell 500 mg PO QAM 02/21/23 06/24/25 Calcium) metoprolol succinate 25 mg 25 mg PO QPM 04/20/23 06/24/25 tablet,extended release 24 hr warfarin 2.5 mg tablet 2.5 mg PO 3XWK 05/20/23 06/24/25 warfarin 5 mg tablet 5 mg PO 4XWK 05/20/23 06/24/25 Germanium Oil 1 dose topical BID 07/04/24 06/24/25 conjugated estrogens 0.625 mg/gram 0.625 mg vaginal 3XWK 07/04/24 06/24/25 vaginal cream glucosamine sulf dipot 1 cap PO QAM 07/04/24 06/24/25 chlr,msm,chond 550 mg-C 30 mg-cyndee 1 mg capsule (Glucosamine Chondroitin) losartan 50 mg tablet 50 mg PO QAM 11/14/24 06/24/25 furosemide 20 mg tablet 20 mg PO 3XWK 05/10/25 06/24/25 meclizine 25 mg tablet 25 mg PO DAILY PRN 05/10/25 06/24/25 vertigo/dizziness acetaminophen 500 mg tablet 1,000 mg PO TID PRN pain 06/24/25 06/24/25 (Tylenol Extra Strength) ondansetron 4 mg disintegrating 4 mg PO Q8H PRN nausea 06/24/25 06/24/25 tablet oxycodone 5 mg tablet 5 - 10 mg PO Q6H PRN pain 06/24/25 06/24/25 Previous Rx's Medication Instructions Recorded clindamycin HCl 300 mg capsule 600 mg (2 x 300 mg) PO ONCE #2 caps 05/03/25 polyethylene glycol 3350 17 17 g PO QDAY constipation 7 days 06/19/25 gram/dose oral powder #119 grams Results & Data (ED) Home Medications Current Medication List: was personally reviewed by me Laboratory Data Attestation: I reviewed the patient's lab results. 06/29/25 06:17 06/29/25 06:17 Lab Results 06/24/25 06/24/25 Range/Units 18:31 20:23 WBC 6.01 (4.8-10.8) K/ul RBC 4.35 (4.20-5.40) M/uL Hgb 12.0 (12.0-16.0) g/dl Hct 37.8 (37.0-47.0) % MCV 86.9 (80.0-100.0) fL MCH 27.6 (25.0-34.0) pg MCHC 31.7 L (32.0-36.0) g/dL RDW Std Deviation 48.2 H (36.4-46.3) fL RDW Coeff of Demarco 15.3 H (11.5-14.5) % Plt Count 307 (130-400) K/uL MPV 10.6 (9.4-12.4) fL Immature Gran % (Auto) 0.2 % Neut % (Auto) 80.8 % Lymph % (Auto) 10.0 % Cooper % (Auto) 6.3 % Eos % (Auto) 2.2 % Baso % (Auto) 0.5 % Neut # (Auto) 4.86 (1.40-6.50) K/uL Lymph # (Auto) 0.60 L (1.20-3.40) K/uL Cooper # (Auto) 0.38 (0.11-0.59) K/uL Eos # (Auto) 0.13 (0.00-0.50) K/uL Baso # (Auto) 0.03 (0.00-0.20) K/uL Immature Gran # (Auto) 0.01 (0.01-0.20) K/uL PT Cancelled 46.4 H INR Cancelled 4.9 H Sodium 136 (136-145) mmol/L Potassium 4.1 (3.5-5.1) mmol/L Chloride 100 (98-107) mmol/L Carbon Dioxide 29 (21-32) mmol/L Anion Gap 7 (3-11) BUN 15 (6-23) mg/dl Creatinine 0.70 (0.6-1.2) mg/dl Est Cr Clr Drug Dosing 57.0 ml/min eGFR 85.76 BUN/Creatinine Ratio 21.4 H (10-20) Glucose 103 H (70-99(Fasting)) mg/dl Calcium 9.6 (8.6-10.3) mg/dl Magnesium 2.1 (1.7-2.4) mg/dl Total Bilirubin 1.6 H (0.2-1.0) mg/dl AST 26 (13-39) U/L ALT 12 (7-52) U/L Alkaline Phosphatase 73 (34-104) U/L Total Protein 7.8 (6.0-8.3) gm/dl Albumin 3.8 (3.4-5.0) gm/dl Globulin 4.0 (2.5-4.0) gm/dl Albumin/Globulin Ratio 1.0 (0.9-2) TSH 0.276 L (0.300-4.500) uIu/ml Free T4 1.65 H (0.61-1.60) ng/dl Administered Medications Acetaminophen (Acetaminophen 500 Mg Tab) 1,000 mg PO TID PRN PRN Reason: pain Stop: 07/28/25 15:40 Last Admin: 06/29/25 18:36 Dose: 1,000 mg Documented By: Admin: 06/29/25 13:16 Dose: 1,000 mg Documented By: Admin: 06/28/25 18:05 Dose: 1,000 mg Documented By: KALPANA Ascorbic Acid (Ascorbic Acid 500 Mg Tab) 500 mg PO BIDM NORMA Stop: 07/28/25 16:59 Last Admin: 06/29/25 18:35 Dose: 500 mg Documented By: Admin: 06/29/25 07:54 Dose: 500 mg Documented By: Admin: 06/28/25 16:41 Dose: 500 mg Documented By: KALPANA Calcium Carbonate (Calcium Carbonate 1250mg Tab) 1 tab PO QAM NORMA Stop: 07/25/25 08:59 Last Admin: 06/29/25 07:53 Dose: 1 tab Documented By: Admin: 06/28/25 16:32 Dose: 1 tab Documented By: Admin: 06/27/25 09:05 Dose: 1 tab Documented By: Admin: 06/26/25 08:11 Dose: 1 tab Documented By: Admin: 06/25/25 07:47 Dose: 1 tab Documented By: Docusate Sodium (Docusate Sodium 100 Mg Cap) 100 mg PO BID NORMA Stop: 07/28/25 20:59 Last Admin: 06/29/25 08:04 Dose: 100 mg Documented By: Admin: 06/28/25 21:28 Dose: Not Given Documented By: ALMarcelino Estrogens Conjugated (Premarin Vag Crm 14 Appln/30 Gm Tube) 1 appln PV MoWeFr NORMA Stop: 07/26/25 08:59 Last Admin: 06/28/25 16:41 Dose: Not Given Documented By: Admin: 06/26/25 08:31 Dose: Not Given Documented By: MTThomas Famotidine (Famotidine 20 Mg Tab) 20 mg PO HS NORMA Stop: 07/25/25 20:59 Last Admin: 06/28/25 21:33 Dose: 20 mg Documented By: Admin: 06/27/25 20:33 Dose: 20 mg Documented By: Admin: 06/26/25 20:02 Dose: 20 mg Documented By: jazzy Admin: 06/25/25 20:09 Dose: 20 mg Documented By: HIREN Furosemide (Furosemide 20 Mg Tab) 20 mg PO MoWeFr NORMA Stop: 07/26/25 08:59 Last Admin: 06/28/25 16:32 Dose: 20 mg Documented By: Admin: 06/26/25 08:11 Dose: 20 mg Documented By: MARGO Lactated Ringer's (Lr) 1,000 mls @ 15 mls/hr IV .Q24H NORMA Stop: 07/01/25 09:59 Last Admin: 06/29/25 09:29 Dose: Not Given Documented By: Infusion: 06/28/25 11:45 Dose: Infused Documented By: Admin: 06/28/25 10:42 Dose: 15 mls/hr Documented By: AZAR Vancomycin HCl (Vancomycin Hcl / Nss) 1,000 mg in 270 mls @ 200 mls/hr IV PREOP NORMA; Protocol Stop: 06/30/25 05:59 Last Infusion: 06/28/25 16:11 Dose: Infused Documented By: Admin: 06/28/25 10:49 Dose: 200 mls/hr Documented By: AZAR Losartan Potassium (Losartan Potassium 50 Mg Tab) 50 mg PO QAM NORMA Stop: 07/25/25 08:59 Last Admin: 06/29/25 07:54 Dose: 50 mg Documented By: Admin: 06/27/25 09:06 Dose: 50 mg Documented By: Admin: 06/26/25 08:11 Dose: 50 mg Documented By: Admin: 06/25/25 07:47 Dose: 50 mg Documented By: RT Metoprolol Succinate (Metoprolol Succ 25mg Ext Rel Tab) 25 mg PO QPM NORMA Stop: 07/25/25 20:59 Last Admin: 06/28/25 21:31 Dose: 25 mg Documented By: Admin: 06/27/25 20:32 Dose: 25 mg Documented By: Admin: 06/26/25 20:12 Dose: 25 mg Documented By: jazzy Admin: 06/25/25 20:09 Dose: 25 mg Documented By: HIREN Multivitamins (Multivitamin Tab) 1 tab PO [facility] Stop: 07/29/25 08:59 Last Admin: 06/29/25 07:54 Dose: 1 tab Documented By: KASH Oxycodone HCl (Oxycodone Hcl Ir 5 Mg Tab (Immediate Release)) 5 mg PO Q4H PRN PRN Reason: Mod-Sev Pain (Scale 4-10) Stop: 07/08/25 23:55 Last Admin: 06/28/25 20:03 Dose: 5 mg Documented By: Admin: 06/27/25 20:31 Dose: 5 mg Documented By: Admin: 06/26/25 20:02 Dose: 5 mg Documented By: jazzy Admin: 06/25/25 20:01 Dose: 5 mg Documented By: Admin: 06/25/25 00:27 Dose: 5 mg Documented By: HIREN Rosuvastatin Calcium (Rosuvastatin Calcium 5 Mg Tab) 5 mg PO [facility] Stop: 07/25/25 20:59 Last Admin: 06/28/25 21:30 Dose: 5 mg Documented By: Admin: 06/27/25 20:32 Dose: 5 mg Documented By: Admin: 06/26/25 20:04 Dose: 5 mg Documented By: jazzy Admin: 06/25/25 20:03 Dose: 5 mg Documented By: HIREN Sennosides (Senna 8.6 Mg Tab) 17.2 mg PO [facility] Stop: 07/28/25 20:59 Last Admin: 06/28/25 21:29 Dose: Not Given Documented By: BRANDON Vitamin D (Cholecalciferol 25 Mcg (1000 Units) Tab) 50 mcg PO PM NORMA Stop: 07/25/25 20:59 Last Admin: 06/28/25 20:41 Dose: 50 mcg Documented By: Admin: 06/27/25 20:32 Dose: 50 mcg Documented By: Admin: 06/26/25 20:04 Dose: 50 mcg Documented By: jazzy Admin: 06/25/25 20:02 Dose: 50 mcg Documented By: KMArian Warfarin Sodium (Warfarin Sod 5 Mg Tab) 5 mg PO DAILY@1600 NORMA Stop: 07/29/25 15:59 Last Admin: 06/29/25 18:34 Dose: 5 mg Documented By: RLYoko Discontinued Medications Acetaminophen (Acetaminophen 325 Mg Tab) 650 mg PO Q4H PRN PRN Reason: pain/fever Stop: 07/24/25 23:55 Last Admin: 06/26/25 18:02 Dose: 650 mg Documented By: Admin: 06/26/25 09:16 Dose: 650 mg Documented By: Admin: 06/25/25 07:46 Dose: 650 mg Documented By: RT Bisacodyl (Bisacodyl 10 Mg Supp) [address] NOW ONE Stop: 06/25/25 08:01 Last Admin: 06/25/25 10:06 Dose: 10 mg Documented By: RT Sodium Chloride (Nss) 1,000 mls @ 75 mls/hr IV .[id number] NORMA Stop: 06/25/25 07:34 Last Infusion: 06/25/25 00:08 Dose: Infused Documented By: Admin: 06/24/25 18:39 Dose: 75 mls/hr Documented By: RANDALL Lactated Ringer's (Lr) 1,000 mls @ 80 mls/hr IV .[id number] COUNTS INCLUDE 234 BEDS AT THE [facility] Stop: 06/25/25 12:25 Last Infusion: 06/25/25 14:14 Dose: Infused Documented By: Admin: 06/25/25 00:09 Dose: 80 mls/hr Documented By: KATLIN Tranexamic Acid (Tranexamic Acid / 0.7% Nacl) 1,000 mg in 100 mls @ 600 mls/hr IV ONE ONE Stop: 06/28/25 10:36 Last Infusion: 06/28/25 14:08 Dose: Infused Documented By: Admin: 06/28/25 13:30 Dose: 600 mls/hr Documented By: [id number] Ropivacaine 246 mg/ Ketorolac Tromethamine 30 mg/Epinephrine HCl 0.5 mg/ Sodium Chloride 100.7 mls @ 0 mls/hr INFIL TODAY@0600 COUNTS INCLUDE 234 BEDS AT THE [facility]; Protocol Stop: 06/28/25 21:00 Last Admin: 06/28/25 12:48 Dose: 100.7 mls/hr Documented By: LESLY Sodium Chloride (Nss) 1,000 mls @ 100 mls/hr IV .Q10H COUNTS INCLUDE 234 BEDS AT THE [facility] Stop: 06/29/25 06:00 Last Admin: 06/29/25 04:19 Dose: Not Given Documented By: Infusion: 06/29/25 03:39 Dose: Infused Documented By: Admin: 06/28/25 16:33 Dose: 100 mls/hr Documented By: KALPANA Vancomycin HCl 1,000 mg/ (Sodium Chloride) 250 mls @ 200 mls/hr IV Q12H COUNTS INCLUDE 234 BEDS AT THE [facility] Stop: 06/29/25 01:59 Last Infusion: 06/29/25 02:21 Dose: Infused Documented By: Admin: 06/29/25 00:48 Dose: 200 mls/hr Documented By: BRANDON Dexamethasone 10 mg/ Syringe 2.5 mls @ 1 mls/min IV TODAY@08 COUNTS INCLUDE 234 BEDS AT THE [facility] Stop: 06/29/25 08:03 Last Admin: 06/29/25 07:54 Dose: 1 mls/min Documented By: KASH Tranexamic Acid (Tranexamic Acid / 0.7% Nacl) 1,000 mg in 100 mls @ 600 mls/hr IV Q6H COUNTS INCLUDE 234 BEDS AT THE [facility] Stop: 06/28/25 20:54 Last Infusion: 06/28/25 21:24 Dose: Infused Documented By: Admin: 06/28/25 20:38 Dose: 600 mls/hr Documented By: BRANDON Lactulose (Lactulose Syrup 20 Gm/30 Ml Udc) 30 gm PO NOW ONE Stop: 06/25/25 08:01 Last Admin: 06/25/25 07:46 Dose: 30 gm Documented By: Phytonadione (Phytonadione 5 Mg Tab) 2.5 mg PO ONE ONE Stop: 06/27/25 09:16 Last Admin: 06/27/25 10:12 Dose: 2.5 mg Documented By: KALPANA Polyethylene Glycol (Polyethylene (Miralax) 17 Gm Pack) 17 gm PO DAILY NORMA Stop: 07/28/25 15:40 Last Admin: 06/29/25 08:03 Dose: 17 gm Documented By: Admin: 06/28/25 16:32 Dose: 17 gm Documented By: KALPANA Senna/Docusate Sodium (Docusate Sodium/Senna 50/8.6mg Tab) 2 tab PO HS NORMA Stop: 07/25/25 20:59 Last Admin: 06/28/25 20:44 Dose: 2 tab Documented By: Admin: 06/27/25 20:31 Dose: 2 tab Documented By: Admin: 06/26/25 20:02 Dose: 2 tab Documented By: jazzy Admin: 06/25/25 20:02 Dose: Not Given Documented By: HIREN Senna/Docusate Sodium (Docusate Sodium/Senna 50/8.6mg Tab) 2 tab PO NOW ONE Stop: 06/24/25 23:57 Last Admin: 06/25/25 00:25 Dose: Not Given Documented By: HIREN Vancomycin HCl (Vancomycin Hcl 1000mg/20ml Vial) Confirm Administered Dose 100 mg .ROUTE .STK-MED ONE Stop: 06/28/25 12:15 Last Admin: 06/28/25 13:46 Dose: 100 mg Documented By: LESLY Vancomycin HCl (Vancomycin Hcl 1000mg/20ml Vial) Confirm Administered Dose 50 mg .ROUTE .STK-MED ONE Stop: 06/28/25 13:52 Last Admin: 06/28/25 14:07 Dose: 50 mg Documented By: LESLY Warfarin Sodium (Warfarin Sod 5 Mg Tab) 5 mg PO DAILY@1600 ONE Stop: 06/28/25 16:16 Last Admin: 06/28/25 16:41 Dose: 5 mg Documented By: KALPANA Discharge Plan Visit Data Chief Complaint: Knee Injury/Pain Stated Complaint: NA ED Provider: Khalida Phillips Discharge Problem: Periprosthetic fracture around internal prosthetic knee joint, Status post total right knee replacement, Unable to care for self Patient Disposition: Admitted As Inpatient Condition: Good Discharge Instructions Interventions: ED Discharge Assessment Last Done: 06/24/25 23:14
[2025-06-29] MEDS: POLYETHYLENE (MIRALAX) 17 GM PACK PO SCH (20:58)
--- NOTE | 2025-06-30 06:32 | Orthopedic Progress Note ---
Date of Service June 30, 2025 Assessment & Plan (1) Periprosthetic fracture around internal prosthetic knee joint: Overall she is doing fairly well. She is not having much pain in the right knee. She has been up and ambulating with therapy. She is on aspirin for DVT prophylaxis. We are awaiting discharge to a rehab facility. She is orthopedically stable for discharge when medically ready. Blanca Beck was seen and examined at bedside this morning. Overall she is doing well. She is not having too much pain in the right knee. She was able to ambulate yesterday with physical therapy. She has no complaints.. Review of Systems All systems reviewed & are unremarkable except as noted in HPI & below. Physical Exam On physical exam of the right knee, the dressing is clean and dry. Her leg is out full extension. She has active dorsiflexion and plantarflexion of the right ankle.. Results & Data Results & Data Laboratory Results . Diagnostic Findings . PG Care Time/CCT Total # of Minutes Spent Total Time Spent with Patient: Total time spent is greater than 50% in coordination of care (as documented) at patient's floor/unit and/or counseling patient: Coding Level of Care Code 40828 Post Operative Follow-Up Diagnoses Periprosthetic fracture around internal prosthetic knee joint M97.8XXA; Z96.659
[2025-06-30 06:37] LABS: Hematocrit (blood only) 28.8 % (37.0-47.0); Hemoglobin 9.6 g/dl (12.0-16.0); Mean Corpuscular Hemoglobin 28.5 pg (25.0-34.0); Mean Corpuscular Volume 85.5 fL (80.0-100.0); Platelet Count 228 K/uL (130-400); RDW Standard Deviation 46.5 fL (36.4-46.3); Red Blood Count 3.37 M/uL (4.20-5.40); White Blood Count 6.11 K/ul (4.8-10.8)
[2025-06-30 07:03] LABS: INR 1.2 (0.9-1.1); Prothrombin Time 12.6 Seconds (9.0-12.0)
[2025-06-30 07:12] LABS: Anion Gap 4.0 (3-11); Blood Urea Nitrogen 15.0 mg/dl (6-23); Calcium 9.3 mg/dl (8.6-10.3); Carbon Dioxide 32.0 mmol/L (21-32); Chloride 99.0 mmol/L (98-107); Creatinine Clr Calc Pharmacy 60.5 ml/min; Glucose 102.0 mg/dl (70-99(Fasting)); Potassium 4.1 mmol/L (3.5-5.1); Sodium 135.0 mmol/L (136-145)
--- NOTE | 2025-06-30 10:53 | XRay Report ---
HISTORY: Constipation. TECHNIQUE: Portable supine AP abdominal radiographs, 2 views. COMPARISON: None. FINDINGS: Large volume of formed stool in the distal colon and rectum. No gas-filled dilated loops of small bowel to suggest small bowel obstruction. Right upper quadrant surgical clips consistent with cholecystectomy. Postsurgical changes of the heart and mediastinum. Lung bases are clear. 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 Degenerative changes of the spine. No acute osseous abnormality. IMPRESSION: 1. No acute findings. 2. Large volume of formed stool in the distal colon and rectum compatible with constipation. Electronically signed by Earnest Omalley 06-30-2025 10:53 AM
--- NOTE | 2025-06-30 14:05 | Hospitalist Progress Note ---
Date of Service June 30, 2025 Assessment & Plan (1) Right femoral fracture: Plan: 85-year-old female with past medical history significant for dyslipidemia, permanent atrial fibrillation, tachybradycardia syndrome status post pacemaker, mitral valve prolapse, mitral valve regurgitation status post mitral valve repair, tricuspid valve disease status post tricuspid valve repair, pulmonary hypertension, CAD, pulmonary hypertension, GERD, uterovaginal prolapse, osteoporosis, who recently had right total knee arthroplasty and after going home had a fall and having a lot of pain in her right leg and ambulatory dysfunction comes back today to the hospital. Patient had right total knee arthroplasty on 06/11/2025. She did fine after surgery. She ambulated in the hospital okay. Was discharged on 06/12/2025. After going home she was having trouble ambulating. On the same night after discharge patient tried to get up from the bed and fell down. had to help her to get into the bed. Since then she is having a lot of pain in the right leg and not getting out of the bed without help. She followed up with orthopedics on 06/20/2025 and x-rays were done which showed right distal periprosthetic femur fracture. As she is in significant pain and having ambulatory dysfunction she came back to the hospital today. Denies any fevers. Somewhat constipated. Micturating okay. No abdominal pain. No nausea. No chest pain or shortness of breath. No cough. No headache or runny nose. Hemodynamics are okay. Right femoral fracture Right distal femur periprosthetic fracture Recent right knee replacement Postoperative acute blood loss anemia --Knee X ray:Redemonstration of postoperative changes right total knee arthroplasty with extensive soft tissue swelling and inflammatory change and knee effusion. There is a comminuted periprosthetic fracture of the distal femur about the femoral component. This appears unchanged when compared with the prior exam but compared to prior exam there appears to be interval increase in displacement of the medial condylar fracture fragment --S/P Right Revision Total Knee Arthroplasty to Hinge Knee by on 06/28/25 Pain control as needed On Coumadin for anticoagulation Appreciate orthopedics input Fall precautions Continue PT OT Needs follow-up with orthopedics on discharge No indication for blood transfusion currently Waiting for rehab placement Atrial fibrillation Tachybradycardia syndrome Status post pacemaker History of mitral valve and tricuspid valve repair Target INR 2-3 Supratherapeutic INR--resolved Received Vit K Continue metoprolol Resume Coumadin Monitor INR 1.2 today Hypertension BP stable Continue losartan, metoprolol Monitor Nonobstructive CAD On beta-roscoe, statin History of heart failure with preserved ejection fraction, mild pulmonary hypertension On Lasix 20 mg 3 times a week Monitor volume status Hyperlipidemia On statin Constipation --KUB: No acute findings. Large volume of formed stool in the distal colon and rectum compatible with constipation. Continue bowel regimen Encouraged to ambulate GERD History of esophagitis On famotidine History of venous insufficiency Status post endovenous radiofrequency ablation of the left small saphenous vein and left greater saphenous vein History of status post left total knee replacement August 2024 complicated by nonhealing surgical wound with Pseudomonas infection treated with acetic acid soaks and wound VAC. Subacute bacterial endocarditis prophylaxis Clindamycin prior to dental work DVT prophylaxis Coumadin CODE STATUS Full code Disposition Acute rehab when accepted Admission and Anticipated Discharge Date Admission Date: June 24, 2025 Subjective Patient is seen and examined at bedside Sitting in chair during encounter States having right knee pain at surgical site Had a small BM today KUB showed no signs of obstruction Family at bedside Offers no other complaints Denies any chest pain, dyspnea, nausea, vomiting, abdominal pain Waiting for rehab placement Review of Systems Review of Systems: All systems reviewed & are unremarkable except as noted in Subjective Physical Exam Physical Exam: Physical Exam: Vitals signs as noted above General Appearance:Thin, frail, no apparent distress Head: normocephalic, Atraumatic Eyes: normal inspection, EOMI Neck: supple, Trachea midline Respiratory/Chest: Normal breath sounds, CTA, No accessory muscle use Cardiovascular: Irregularly irregular, faint murmur Abdomen/GI:Soft, Non tender, Bowel sounds present Extremities/Musculoskeletal:normal inspection, Trace edema, + right knee surgical dressing Neurologic/Psych:AAOX3, grossly no focal neurological deficits Skin: normal color, warm Results & Data Results & Data Vital Signs (Past 12 Hours) Vital Signs Temp Pulse Resp BP Pulse Ox O2 Del Method 06/30/25 08:09 36.5 C 60 18 121/81 96 Room Air Laboratory Results Short CBC 06/30/25 Range/Units 06:13 WBC 6.11 (4.8-10.8) K/ul Hgb 9.6 L (12.0-16.0) g/dl Hct 28.8 L (37.0-47.0) % Plt Count 228 (130-400) K/uL BMP 06/30/25 06:13 Sodium 135 L Potassium 4.1 Chloride 99 Carbon Dioxide 32 BUN 15 Creatinine 0.66 Glucose 102 H Calcium 9.3
--- NOTE | 2025-07-01 07:30 | Orthopedic Progress Note ---
Date of Service July 01, 2025 Assessment & Plan (1) Status post revision of total replacement of right knee: Plan: 85-year-old female now postop day 3 from a revision knee replacement femoral placement/hinged knee replacement. Doing reasonably well. Medically appears stable. Just wait for placement. PlanPlan : Continue DVT prophylaxis with Coumadin. PT OT. She can fully weight-bear as tolerated on this right leg. She is hoping to go to a rehab or fdc facility. She is orthopedically stable anytime medically able and space available. Needs orthopedic follow-up in 2 to 3 weeks. Any orthopedic questions can reactivate . (2) Periprosthetic fracture around internal prosthetic knee joint: Admission and Anticipated Discharge Date Admission Date: June 24, 2025 Subjective 85-year-old female now postop day 3 from right revision knee arthroplasty for periprosthetic femur fracture. She is doing reasonably well this morning. Had some discomfort overnight. No chest pain or shortness of breath. Not feeling dizzy or lightheaded. Physical Exam Physical Exam: Physical examination reveals a pleasant early female. I did wake her this morning. Examination of the right leg reveals leg dressing to be clean dry and intact. She can dorsiflex and plantarflex her foot appropriately. She can do a straight leg raise with some effort with a slight bit of a lag. She is neurologically intact. Results & Data Vital Signs (Past 12 Hours) Vital Signs Temp Pulse Resp BP Pulse Ox O2 Del Method 07/01/25 07:09 36.6 C 60 16 115/72 95 Room Air 06/30/25 20:14 36.7 C 59 L 16 115/73 96 Room Air Laboratory Results Labs are currently pending.
[2025-07-01 07:45] LABS: INR 1.4 (0.9-1.1); Prothrombin Time 14.3 Seconds (9.0-12.0)
--- NOTE | 2025-07-01 13:17 | Hospitalist Progress Note ---
Date of Service July 01, 2025 Assessment & Plan (1) Right femoral fracture: Plan: 85-year-old female with past medical history significant for dyslipidemia, permanent atrial fibrillation, tachybradycardia syndrome status post pacemaker, mitral valve prolapse, mitral valve regurgitation status post mitral valve repair, tricuspid valve disease status post tricuspid valve repair, pulmonary hypertension, CAD, pulmonary hypertension, GERD, uterovaginal prolapse, osteoporosis, who recently had right total knee arthroplasty and after going home had a fall and having a lot of pain in her right leg and ambulatory dysfunction comes back today to the hospital. Patient had right total knee arthroplasty on 06/11/2025. She did fine after surgery. She ambulated in the hospital okay. Was discharged on 06/12/2025. After going home she was having trouble ambulating. On the same night after discharge patient tried to get up from the bed and fell down. had to help her to get into the bed. Since then she is having a lot of pain in the right leg and not getting out of the bed without help. She followed up with orthopedics on 06/20/2025 and x-rays were done which showed right distal periprosthetic femur fracture. As she is in significant pain and having ambulatory dysfunction she came back to the hospital today. Denies any fevers. Somewhat constipated. Micturating okay. No abdominal pain. No nausea. No chest pain or shortness of breath. No cough. No headache or runny nose. Hemodynamics are okay. Right femoral fracture Right distal femur periprosthetic fracture Recent right knee replacement Postoperative acute blood loss anemia --Knee X ray:Redemonstration of postoperative changes right total knee arthroplasty with extensive soft tissue swelling and inflammatory change and knee effusion. There is a comminuted periprosthetic fracture of the distal femur about the femoral component. This appears unchanged when compared with the prior exam but compared to prior exam there appears to be interval increase in displacement of the medial condylar fracture fragment --S/P Right Revision Total Knee Arthroplasty to Hinge Knee by on 06/28/25 Pain control as needed On Coumadin for anticoagulation Appreciate orthopedics input Fall precautions Continue PT OT Needs follow-up with orthopedics on discharge Hemoglobin stable Waiting for rehab placement Atrial fibrillation Tachybradycardia syndrome Status post pacemaker History of mitral valve and tricuspid valve repair Target INR 2-3 Supratherapeutic INR--resolved Received Vit K Continue metoprolol Continue Coumadin Monitor INR 1.4 today Hypertension BP stable Continue losartan, metoprolol Monitor Nonobstructive CAD On beta-roscoe, statin History of heart failure with preserved ejection fraction, mild pulmonary hypertension On Lasix 20 mg 3 times a week Monitor volume status Hyperlipidemia On statin Constipation--resolved --KUB: No acute findings. Large volume of formed stool in the distal colon and r ectum compatible with constipation. Continue bowel regimen Encouraged to ambulate GERD History of esophagitis On famotidine History of venous insufficiency Status post endovenous radiofrequency ablation of the left small saphenous vein and left greater saphenous vein History of status post left total knee replacement August 2024 complicated by nonhealing surgical wound with Pseudomonas infection treated with acetic acid soaks and wound VAC. Subacute bacterial endocarditis prophylaxis Clindamycin prior to dental work DVT prophylaxis Coumadin CODE STATUS Full code Disposition Acute rehab when accepted Admission and Anticipated Discharge Date Admission Date: June 24, 2025 Subjective Patient is seen and examined at bedside States having poor sleep overnight secondary to right knee pain Constipation resolved Family at bedside No new complaints today Denies any chest pain, dyspnea, nausea, vomiting, abdominal pain Waiting for rehab placement Review of Systems Review of Systems: All systems reviewed & are unremarkable except as noted in Subjective Physical Exam Physical Exam: Physical Exam: Vitals signs as noted above General Appearance:Thin, frail, no apparent distress Head: normocephalic, Atraumatic Eyes: normal inspection, EOMI Neck: supple, Trachea midline Respiratory/Chest: Normal breath sounds, CTA, No accessory muscle use Cardiovascular: Irregularly irregular, faint murmur Abdomen/GI:Soft, Non tender, Bowel sounds present Extremities/Musculoskeletal:normal inspection, Trace edema, + right knee surgical dressing Neurologic/Psych:AAOX3, grossly no focal neurological deficits Skin: normal color, warm Results & Data Results & Data Vital Signs (Past 12 Hours) Vital Signs Temp Pulse Resp BP Pulse Ox O2 Del Method 07/01/25 07:09 36.6 C 60 16 115/72 95 Room Air
[2025-07-01] MEDS ORDERED: POLYETHYLENE (MIRALAX) 17 GM PACK PO PRN (13:18)
[2025-07-01 22:38] VITALS: O2SAT 95
[2025-07-02 07:20] VITALS: BP 119/73; PULSE 68; RESP 16; TEMP 97.9
[2025-07-02 07:24] LABS: Hematocrit (blood only) 28.2 % (37.0-47.0); Hemoglobin 9.4 g/dl (12.0-16.0); Mean Corpuscular Hemoglobin 28.7 pg (25.0-34.0); Mean Corpuscular Volume 86.0 fL (80.0-100.0); Platelet Count 221 K/uL (130-400); RDW Standard Deviation 48.2 fL (36.4-46.3); Red Blood Count 3.28 M/uL (4.20-5.40); White Blood Count 4.37 K/ul (4.8-10.8)
[2025-07-02 07:49] LABS: INR 1.8 (0.9-1.1); Prothrombin Time 18.3 Seconds (9.0-12.0)
[2025-07-02 07:52] LABS: Anion Gap 7.0 (3-11); Blood Urea Nitrogen 12.0 mg/dl (6-23); Calcium 8.9 mg/dl (8.6-10.3); Carbon Dioxide 29.0 mmol/L (21-32); Chloride 97.0 mmol/L (98-107); Creatinine Clr Calc Pharmacy 53.9 ml/min; Glucose 96.0 mg/dl (70-99(Fasting)); Potassium 3.7 mmol/L (3.5-5.1); Sodium 133.0 mmol/L (136-145)
--- NOTE | 2025-07-02 08:15 | Orthopedic Progress Note ---
Date of Service July 02, 2025 Assessment & Plan (1) Status post revision of total replacement of right knee: (2) Periprosthetic fracture around internal prosthetic knee joint: Overall she is doing fairly well. She is not having much pain in the right knee. She has been up and ambulating with therapy. She is on coumadin for DVT prophylaxis. We are awaiting discharge to a rehab facility. She is orthopedically stable for discharge when medically ready. * Continue Current Treatment * Disposition: rehab, awaiting bed * Daily treatment: Physical Therapy/ Occupational Therapy per protocol * Weight bearing status: full, as tolerated. * Continue to monitor for ABLA * Pain control * DVT prophylaxis, ASA * Office/hospital f/u 2 weeks for progress check and staple/suture removal * Stable for discharge from ortho standpoint. Subjective .Kiran was seen and examined at bedside this morning. Overall she is doing well. She is not having too much pain in the right knee, states she was taking oxycodone yesterday and last evening and that helped her better than the tylenol. She was able to ambulate yesterday with physical therapy. She has no complaints.. Review of Systems All systems reviewed & are unremarkable except as noted in HPI & below. Physical Exam * General: Alert and oriented, no acute distress * Constitutional: well-developed, well-nourished. * Respiratory: Normal respiratory effort, no distress * Gastrointestinal: No tenderness to palpation, no rigidity or guarding. * Skin: No rash or lesion. * Neurologic: Grossly normal * Musculoskeletal: Right knee surgical dressing with a small amount of blood drainage near inferior portion. Surgical with intact mary no erythema or active drainage. Otherwise no obvious deformity or overlying skin changes RLE. Diffuse TTP distal thigh and knee region. Otherwise no specific tenderness of proximal thigh, lower leg, foot/ankle. AROM knee flexion 80 degrees, leg resting in full extension. AROM foot/ankle intact. Sensation intact plantar/dorsal foot. Brisk capillary refill. . Results & Data Results & Data Laboratory Results Laboratory Results - last 24 hr 07/02/25 06:43 WBC 4.37 L RBC 3.28 L Hgb 9.4 L Hct 28.2 L MCV 86.0 MCH 28.7 MCHC 33.3 RDW Std Deviation 48.2 H RDW Coeff of Demarco 15.4 H Plt Count 221 MPV 12.1 PT 18.3 H INR 1.8 H Sodium 133 L Potassium 3.7 Chloride 97 L Carbon Dioxide 29 Anion Gap 7 BUN 12 Creatinine 0.74 Est Cr Clr Drug Dosing 53.9 eGFR 80.23 BUN/Creatinine Ratio 16.2 Glucose 96 Calcium 8.9 . Diagnostic Findings . PG Care Time/CCT Total # of Minutes Spent Total Time Spent with Patient: Total time spent is greater than 50% in coordination of care (as documented) at patient's floor/unit and/or counseling patient: Coding Level of Care Code 71944 Post Operative Follow-Up Diagnoses Status post revision of total replacement of right knee Z96.651 Periprosthetic fracture around internal prosthetic knee joint M97.8XXA; Z96.659
--- NOTE | 2025-07-02 11:24 | Hospitalist Progress Note ---
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 Patient had right total knee arthroplasty on 06/11/2025. She did fine after surgery. She ambulated in the hospital okay. Was discharged on 06/12/2025. After going home she was having trouble ambulating. On the same night after discharge patient tried to get up from the bed and fell down. had to help her to get into the bed. Since then she is having a lot of pain in the right leg and not getting out of the bed without help. She followed up with orthopedics on 06/20/2025 and x-rays were done which showed right distal periprosthetic femur fracture. As she is in significant pain and having ambulatory dysfunction she came back to the hospital today. Denies any fevers. Somewhat constipated. Micturating okay. No abdominal pain. No nausea. No chest pain or shortness of breath. No cough. No headache or runny nose. Hemodynamics are okay. Right femoral fracture Right distal femur periprosthetic fracture Recent right knee replacement Postoperative acute blood loss anemia --Knee X ray:Redemonstration of postoperative changes right total knee arthroplasty with extensive soft tissue swelling and inflammatory change and knee effusion. There is a comminuted periprosthetic fracture of the distal femur about the femoral component. This appears unchanged when compared with the prior exam but compared to prior exam there appears to be interval increase in displacement of the medial condylar fracture fragment --S/P Right Revision Total Knee Arthroplasty to Hinge Knee by on 06/28/25 Pain control as needed On Coumadin for anticoagulation Appreciate orthopedics input Fall precautions Continue PT OT Hemoglobin stable Discharged to rehab facility today Advised to follow-up with orthopedics on discharge Atrial fibrillation Tachybradycardia syndrome Status post pacemaker History of mitral valve and tricuspid valve repair Target INR 2-3 Supratherapeutic INR--resolved Received Vit K Continue metoprolol Continue Coumadin Monitor INR 1.8 today Hypertension BP stable Continue losartan, metoprolol Monitor Nonobstructive CAD On beta-roscoe, statin History of heart failure with preserved ejection fraction, mild pulmonary hypertension On Lasix 20 mg 3 times a week Monitor volume status Hyperlipidemia On statin Constipation--resolved --KUB: No acute findings. Large volume of formed stool in the distal colon and rectum compatible with constipation. Continue bowel regimen Encouraged to ambulate Resolved GERD History of esophagitis On famotidine History of venous insufficiency Status post endovenous radiofrequency ablation of the left small saphenous vein and left greater saphenous vein History of status post left total knee replacement August 2024 complicated by nonhealing surgical wound with Pseudomonas infection treated with acetic acid soaks and wound VAC. Subacute bacterial endocarditis prophylaxis Clindamycin prior to dental work DVT prophylaxis Coumadin CODE STATUS Full code Disposition Acute rehab (2) Status post revision of total replacement of right knee: Admission and Anticipated Discharge Date Admission Date: June 24, 2025 Subjective Patient is seen and examined at bedside Knee pain is slightly better today No other new complaints today Family at bedside Denies any chest pain, dyspnea, nausea, vomiting, abdominal pain Plan to discharge to rehab facility today Review of Systems Review of Systems: All systems reviewed & are unremarkable except as noted in Subjective Physical Exam Physical Exam: Physical Exam: Vitals signs as noted above General Appearance:Thin, frail, no apparent distress Head: normocephalic, Atraumatic Eyes: normal inspection, EOMI Neck: supple, Trachea midline Respiratory/Chest: Normal breath sounds, CTA, No accessory muscle use Cardiovascular: Irregularly irregular, faint murmur Abdomen/GI:Soft, Non tender, Bowel sounds present Extremities/Musculoskeletal:normal inspection, Trace edema, + right knee surgical dressing Neurologic/Psych:AAOX3, grossly no focal neurological deficits Skin: normal color, warm Results & Data Results & Data Vital Signs (Past 12 Hours) Vital Signs Temp Pulse Resp BP Pulse Ox O2 Del Method 07/02/25 07:08 36.6 C 68 16 119/73 95 Room Air
--- NOTE | 2025-07-02 14:20 | Discharge Summary ---
Date of Service July 02, 2025 Admission HPI Per Admitting Provider 85-year-old female with past medical history significant for dyslipidemia, permanent atrial fibrillation, tachybradycardia syndrome status post pacemaker, mitral valve prolapse, mitral valve regurgitation status post mitral valve repair, tricuspid valve disease status post tricuspid valve repair, pulmonary hypertension, CAD, pulmonary hypertension, GERD, uterovaginal prolapse, osteoporosis, who recently had right total knee arthroplasty and after going home had a fall and having a lot of pain in her right leg and ambulatory dysfunction comes back today to the hospital. Patient had right total knee arthroplasty on 06/11/2025. She did fine after surgery. She ambulated in the hospital okay. Was discharged on 06/12/2025. After going home she was having trouble ambulating. On the same night after discharge patient tried to get up from the bed and fell down. had to help her to get into the bed. Since then she is having a lot of pain in the right leg and not getting out of the bed without help. She followed up with orthopedics on 06/20/2025 and x-rays were done which showed right distal periprosthetic femur fracture. As she is in significant pain and having ambulatory dysfunction she came back to the hospital today. Denies any fevers. Somewhat constipated. Micturating okay. No abdominal pain. No nausea. No chest pain or shortness of breath. No cough. No headache or runny nose. Hemodynamics are okay. Past medical history. As mentioned above. Past surgical history. Bilateral knee arthroplasty. Left breast biopsy. Colonoscopy. Colonoscopy with biopsy. Incision biopsy right silveira. Left breast aspiration 1989. Laparoscopic cholecystectomy. Ligation oviducts. Pacemaker placement. Valvuloplasty of mitral valve with prosthetic ring and bypass in 2019. Appendectomy. Tonsillectomy and adenoidectomy. Valvuloplasty tricuspid valve with ring in 2019. Vein ablation of left extremity. Wrist arthroscopy. Social history. . No smoking. No alcohol use. No drug use. Family history. Father had atrial fibrillation. Mother had atrial fibrillation. Maternal aunt breast cancer. Cousin had breast cancer. Daughter had breast cancer. Maternal grandmother had breast cancer. Mother had breast cancer. Brother had colon and liver cancer. Father had hypertension. Emphysema. Son had esophageal stricture. Admission Exam Per Admitting Provider General-Not in distress Head- atraumatic Eyes- PERRL. ENT- oropharynx clear Neck- supple, no JVD. Lungs- clear to auscultation no wheezing or crackles Heart- regular rhythm; no murmur, no gallop. Abdomen- normal bowel sounds, soft, nontender, no distension Extremities-right knee surgery site no erythema or drainage seen. mary intact. right knee area somewhat swollen and some bruises seen Neuro- alert, oriented PERRL, no facial palsy; no dysarthria; moves extremities Principal Diagnosis Right distal femur periprosthetic fracture S/P Right Revision Total Knee Arthroplasty Postoperative acute blood loss anemia Supratherapeutic INR--resolved Constipation Discharge Data Allergies Allergy/AdvReac Type Severity Reaction Status Date / Time Penicillins Allergy Severe Rash, Verified 06/28/25 10:43 respiratory distress cefadroxil Allergy Intermediate Hives Verified 06/28/25 10:43 codeine Allergy Intermediate Lip Verified 06/28/25 10:43 numbness Iodinated Contrast Media Allergy Intermediate Rash Verified 06/28/25 10:43 hoff Allergy Mild Nausea Verified 06/28/25 10:43 (Garbanzo hoff) sulfamethoxazole Allergy Mild Nausea, Verified 06/28/25 10:43 [From Bactrim] decreased sodium level trimethoprim [From Bactrim] Allergy Mild Nausea, Verified 06/28/25 10:43 decreased sodium level hydrochlorothiazide AdvReac Drug-induced Verified 06/28/25 10:43 hyponatremia (Per cardio records) Consultations 06/25/25 08:00 Consult Orthopedic Surgery Routine Procedures Performed Operation Date: 06/28/25 10:40 Actual Procedures p Right Revision Total Knee Arthroplasty to Hinge Knee(Right) - Servando Cramer MD Ordered Studies Laboratory Results WBC 4.37 K/ul (4.8-10.8) L 07/02/25 06:43 RBC 3.28 M/uL (4.20-5.40) L 07/02/25 06:43 Hgb 9.4 g/dl (12.0-16.0) L 07/02/25 06:43 Hct 28.2 % (37.0-47.0) L 07/02/25 06:43 MCV 86.0 fL (80.0-100.0) 07/02/25 06:43 MCH 28.7 pg (25.0-34.0) 07/02/25 06:43 MCHC 33.3 g/dL (32.0-36.0) 07/02/25 06:43 RDW Std Deviation 48.2 fL (36.4-46.3) H 07/02/25 06:43 RDW Coeff of Demarco 15.4 % (11.5-14.5) H 07/02/25 06:43 Plt Count 221 K/uL (130-400) 07/02/25 06:43 MPV 12.1 fL (9.4-12.4) 07/02/25 06:43 Immature Gran % (Auto) 0.4 % 06/25/25 06:49 Neut % (Auto) 75.7 % 06/25/25 06:49 Lymph % (Auto) 11.9 % 06/25/25 06:49 [place] % (Auto) 7.4 % 06/25/25 06:49 Eos % (Auto) 4.2 % 06/25/25 06:49 Baso % (Auto) 0.4 % 06/25/25 06:49 Neut # (Auto) 4.28 K/uL (1.40-6.50) 06/25/25 06:49 Lymph # (Auto) 0.67 K/uL (1.20-3.40) L 06/25/25 06:49 [place] # (Auto) 0.42 K/uL (0.11-0.59) 06/25/25 06:49 Eos # (Auto) 0.24 K/uL (0.00-0.50) 06/25/25 06:49 Baso # (Auto) 0.02 K/uL (0.00-0.20) 06/25/25 06:49 Immature Gran # (Auto) 0.02 K/uL (0.01-0.20) 06/25/25 06:49 PT 18.3 Seconds (9.0-12.0) H 07/02/25 06:43 INR 1.8 (0.9-1.1) H 07/02/25 06:43 Sodium 133 mmol/L (136-145) L 07/02/25 06:43 Potassium 3.7 mmol/L (3.5-5.1) 07/02/25 06:43 Chloride 97 mmol/L (98-107) L 07/02/25 06:43 Carbon Dioxide 29 mmol/L (21-32) 07/02/25 06:43 Anion Gap 7 (3-11) 07/02/25 06:43 BUN 12 mg/dl (6-23) 07/02/25 06:43 Creatinine 0.74 mg/dl (0.6-1.2) 07/02/25 06:43 Est Cr Clr Drug Dosing 53.9 ml/min 07/02/25 06:43 eGFR 80.23 07/02/25 06:43 BUN/Creatinine Ratio 16.2 (10-20) 07/02/25 06:43 Glucose 96 mg/dl (70-99(Fasting)) 07/02/25 06:43 Calcium 8.9 mg/dl (8.6-10.3) 07/02/25 06:43 Magnesium 1.9 mg/dl (1.7-2.4) 06/25/25 06:49 Total Bilirubin 1.6 mg/dl (0.2-1.0) H 06/24/25 18:31 AST 26 U/L (13-39) 06/24/25 18:31 ALT 12 U/L (7-52) 06/24/25 18:31 Alkaline Phosphatase 73 U/L (34-104) 06/24/25 18:31 Total Protein 7.8 gm/dl (6.0-8.3) 06/24/25 18:31 Albumin 3.8 gm/dl (3.4-5.0) 06/24/25 18:31 Globulin 4.0 gm/dl (2.5-4.0) 06/24/25 18:31 Albumin/Globulin Ratio 1.0 (0.9-2) 06/24/25 18:31 Procalcitonin 0.10 ng/ml (0-0.5) 06/27/25 07:20 TSH 0.429 uIu/ml (0.300-4.500) 06/26/25 07:11 Free T4 1.65 ng/dl (0.61-1.60) H 06/24/25 18:31 Urine Color Dark Yellow 06/24/25 Unknown Urine Appearance Clear (Clear) 06/24/25 Unknown Urine pH 6.0 (4.5-7.5) 06/24/25 Unknown Ur Specific [place] 1.024 (1.000-1.030) 06/24/25 Unknown Urine Protein Trace (Negative) H 06/24/25 Unknown Urine Glucose (UA) Negative (Negative) 06/24/25 Unknown Urine Ketones Trace (Negative) H 06/24/25 Unknown Urine Blood Negative (Negative) 06/24/25 Unknown Urine Nitrite Negative (Negative) 06/24/25 Unknown Urine Bilirubin Negative (Negative) 06/24/25 Unknown Urine Urobilinogen Negative (Negative) 06/24/25 Unknown Ur Leukocyte Esterase 1+ (Negative) H 06/24/25 Unknown Urine WBC (Auto) 0-5 /hpf (0-5) 06/24/25 Unknown Urine RBC (Auto) 6-10 /hpf (0-2) H 06/24/25 Unknown U Hyaline Cast (Auto) 0-2 /lpf (0-2) 06/24/25 Unknown U Epithel Cells (Auto) 0-2 /hpf (0-2) 06/24/25 Unknown Urine Bacteria (Auto) None Seen (None Seen) 06/24/25 Unknown Urine Comment 06/24/25 Unknown Blood Type O Negative 06/26/25 07:11 Antibody Screen NEGATIVE 06/26/25 07:[address] 06/24/25 18:17 CT head without contrast History: Trauma Comparison: None Technique: Using multidetector thin collimation helical acquisition technique, axial, coronal and sagittal CT images from the skull base to the vertex were obtained without intravenous contrast. Dose reduction techniques were achieved by using automatic exposure control and/or adjustment of mA and/or kV according to patient size and/or use of iterative reconstruction technique. Findings: No intracranial hemorrhage, mass-effect, or midline shift. The ventricles are proportionate to the cerebral sulci. The villafana to white matter differentiation of the cerebral hemispheres is preserved. The basal cisterns are patent. The visualized paranasal sinuses are clear. Mastoid air cells are clear. Impression: No acute intracranial pathology. Electronically signed by Julio Mott 06-24-2025 7:52 PM Chest X-Ray 06/27/25 07:00 EXAM: XR chest 1V portable CLINICAL HISTORY: Cough. TECHNIQUE: An X-ray image of the chest was obtained in AP projection. COMPARISON: 06/24/2025 CR. FINDINGS: Pulmonary Parenchyma: There are increased bronchovascular markings, due to vascular congestion. There is no evidence of consolidation, collapse, or focal opacities. No pulmonary nodules are identified. There is a minimally blunted left costophrenic angle. There is no evidence of right pleural effusion or pleural thickening. Heart and Mediastinum: Cardiomegaly is present. There is no mediastinal widening or masses. No hilar or mediastinal lymphadenopathy is identified. Aortic calcifications are present. Bony Thorax: Median sternotomy wires are present. Soft Tissues: A left pacemaker is present. A valve replacement is noted. IMPRESSION: 1. There is a blunted left costophrenic angle, suggesting a mild left effusion. Unchanged. 2. There is no focal consolidation or collapse. 3. A left ICD device with lead is in place. 4. No interval changes. Electronically signed by Osman Perez 06-27-2025 08:13 AM Knee X-Ray 06/28/25 14:43 XR knee RT 1 or 2V routine CLINICAL HISTORY: Surgical Post Op COMPARISON: 06/24/2025 FINDINGS: Long-standing right knee prosthesis. No hardware complication. There is expected soft tissue gas. Skin mary are present. IMPRESSION: Unremarkable postoperative exam. ACT 112: Negative or not required by law. Electronically signed by: Sukhwinder Rivera M.D. 06/28/2025 3:39 PM KUB X-Ray 06/30/25 10:09 HISTORY: Constipation. TECHNIQUE: Portable supine AP abdominal radiographs, 2 views. COMPARISON: None. FINDINGS: Large volume of formed stool in the distal colon and rectum. No gas-filled dilated loops of small bowel to suggest small bowel obstruction. Right upper quadrant surgical clips consistent with cholecystectomy. Postsurgical changes of the heart and mediastinum. Lung bases are clear. 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 Degenerative changes of the spine. No acute osseous abnormality. IMPRESSION: 1. No acute findings. 2. Large volume of formed stool in the distal colon and rectum compatible with constipation. Electronically signed by Earnest Omalley 06-30-2025 10:53 AM Hospital Course (1) Right femoral fracture: 85-year-old female with past medical history significant for dyslipidemia, permanent atrial fibrillation, tachybradycardia syndrome status post pacemaker, mitral valve prolapse, mitral valve regurgitation status post mitral valve repair, tricuspid valve disease status post tricuspid valve repair, pulmonary hypertension, CAD, pulmonary hypertension, GERD, uterovaginal prolapse, osteoporosis, who recently had right total knee arthroplasty and after going home had a fall and having a lot of pain in her right leg and ambulatory dysfunction comes back today to the hospital. Patient had right total knee arthroplasty on 06/11/2025. She did fine after surgery. She ambulated in the hospital okay. Was discharged on 06/12/2025. After going home she was having trouble ambulating. On the same night after discharge patient tried to get up from the bed and fell down. had to help her to get into the bed. Since then she is having a lot of pain in the right leg and not getting out of the bed without help. She followed up with orthopedics on 06/20/2025 and x-rays were done which showed right distal periprosthetic femur fracture. As she is in significant pain and having ambulatory dysfunction she came back to the hospital today. Denies any fevers. Somewhat constipated. Micturating okay. No abdomin al pain. No nausea. No chest pain or shortness of breath. No cough. No headache or runny nose. Hemodynamics are okay. Right femoral fracture Right distal femur periprosthetic fracture Recent right knee replacement Postoperative acute blood loss anemia --Knee X ray:Redemonstration of postoperative changes right total knee arthroplasty with extensive soft tissue swelling and inflammatory change and knee effusion. There is a comminuted periprosthetic fracture of the distal femur about the femoral component. This appears unchanged when compared with the prior exam but compared to prior exam there appears to be interval increase in displacement of the medial condylar fracture fragment --S/P Right Revision Total Knee Arthroplasty to Hinge Knee by on 06/10 07/04 Pain control as needed On Coumadin for anticoagulation Appreciate orthopedics input Fall precautions Continue PT OT Hemoglobin stable Discharged to rehab facility today Advised to follow-up with orthopedics on discharge Atrial fibrillation Tachybradycardia syndrome Status post pacemaker History of mitral valve and tricuspid valve repair Target INR 2-3 Supratherapeutic INR--resolved Received Vit K Continue metoprolol Continue Coumadin Monitor INR 1.8 today Hypertension BP stable Continue losartan, metoprolol Monitor Nonobstructive CAD On beta-roscoe, statin History of heart failure with preserved ejection fraction, mild pulmonary hypertension On Lasix 20 mg 3 times a week Monitor volume status Hyperlipidemia On statin Constipation--resolved --KUB: No acute findings. Large volume of formed stool in the distal colon and rectum compatible with constipation. Continue bowel regimen Encouraged to ambulate Resolved GERD History of esophagitis On famotidine History of venous insufficiency Status post endovenous radiofrequency ablation of the left small saphenous vein and left greater saphenous vein History of status post left total knee replacement August 2024 complicated by nonhealing surgical wound with Pseudomonas infection treated with acetic acid soaks and wound VAC. Subacute bacterial endocarditis prophylaxis Clindamycin prior to dental work DVT prophylaxis Coumadin CODE STATUS Full code Disposition Acute rehab (2) Status post revision of total replacement of right knee: Total Time Total Time Spent Total Time Spent (In Minutes): 52 minutes Discharge Plan Discharge Items Patient Disposition: Transfer [facility] Reason For Visit: RIGHT LEG PAIN, PERIPROSTHETIC FRACTURE Discharge Diagnosis: Right distal femur periprosthetic fracture S/P Right Revision Total Knee Arthroplasty Postoperative acute blood loss anemia Supratherapeutic INR--resolved Constipation Condition on Discharge: Good Activity: Per Instructions section Exercise/Sports: Gradually increase as tolerated Non-emergency contact: Primary Care Provider and Surgeon Call non-emergency contact if: you have any medication questions, your symptoms worsen, your pain is concerning for you and you have a fever Follow-up/Referrals: Servando Cramer MD [Physician] - Henrik De La Cruz, [Primary Care Provider] - Diet: Heart Healthy Linda Attending Provider Instructions: -- Follow-up with your primary care physician Dr. Henrik De La Cruz in 1 week upon discharge from rehab facility --Follow-up with your orthopedic surgeon Dr. Servando Cramer in 2 weeks -- Monitor your PT/INR in 2 days and adjust Coumadin dose to keep target INR 2-3 Your INR on 07/02/25 is 1.8. --Continue bowel regimen to prevent constipation Seek immediate medical attention if your symptoms reoccur or worsen Please review medication list provided on discharge for any medication changes as instructed. Please call if you have any questions or problems. You can reach a [facility] hospitalist on duty at [facility] 24 hours a day by calling [phone] Linda Executive Director Of Marketing Provider Instructions: ACTIVITY RECOMMENDATIONS: Diet: * You may resume previous diet. Physical Therapy: * You will go to physical therapy three times each week for four to six weeks after your surgery in order to regain your knee range of motion and to retrain your knee to work properly. * It is just as important to make sure you are getting your knee perfectly stra ight as it is to regain your knee bend. * Taking a pain pill an hour before therapy can help you have a more productive and comfortable therapy session. Home Exercise: * You were shown a series of exercises (heel props, heel slides, etc.) in the hospital. Do these exercises three to four times each day including the exercises you were shown in physical therapy. Walking: * Get up and walk several times each day. For the first four weeks, try not to stand or walk for more than one hour at a time. If you do stand or walk for more than one hour, you will not hurt anything, but your knee and leg will likely swell. * As you feel comfortable, you may change from the walker or crutches to a cane and then to independent walking. MEDICATIONS: New Medicine: * You will likely be taking one or more of these medications: 1. Oxycodone - A quick and shorter-acting pain medication. Take one to two tablets every six hours to lessen your pain. 2. Coumadin - Thins your blood to lessen the chance of forming a blood clot. * The most common side effects of pain medicine and iron are nausea and constipation. If nausea or constipation is too much of a problem or if you have any questions about your new medicines or doses, call [facility] at . We will try to help you manage these issues. "VERY IMPORTANT TO READ AND REVIEW" Pain: * The immediate post-operative period after knee replacement surgery is often quite painful. * You are given a prescription for pain medicine. You should take it, as dire cted, when you need it, especially before physical therapy and before going to bed. Pain that interferes with sleep is very common and can last several months. * You will likely need pain medicine for the first four to six weeks. It will not stop all of the pain. The pain will lessen and as you feel better, you may change to milder pain medicine such as Tylenol. * The most common side effects of pain medicine are nausea and constipation, so don't take more than you need. SPECIAL CARE INSTRUCTIONS: TEDs/Elastic Stockings: * The white elastic stockings help limit swelling and prevent blood clots from forming in your legs. The more you wear them, the more they work. * Wear them for six weeks after knee replacement surgery and four weeks after partial knee replacement. Incision Site Care: * Remove dressing postoperative day 2 and then shower. Keep direct shower pressure off the incision site. * After showering, cover mary with dry gauze and change daily or more frequently if the dressing is getting saturated with drainage. * Use the RENÉ stockings to hold dressing in place. DO NOT apply tape on the skin. * May completely stop using bandage if wound is dry and no drainage * Mary are removed between 2 and 3 weeks post-op. If your follow-up appointment is made before 2 weeks, please have your appointment re- scheduled. It is too early to remove the mary. Prevention of Infection: * Take antibiotics one hour before any dental cleaning, dental work, urological procedure, gastrointestinal procedure or any invasive surgery in order to prevent your new joint from getting infected. * You may get the antibiotics from the doctor performing the procedure or you may call our office at [phone] before and we will call in a prescription to the pharmacy of your choice. Things to Watch For: * Drainage from the incision site that occurs more than one week after your surgery. * Severely increased knee/leg pain or swelling. * Increased redness at the incision site. * Fever above 102 degrees Fahrenheit. * Unusual chest pain or shortness of breath. * Unusual pain or burning with urination. Call [facility] at [phone] with any of the above problems or if you have any questions about your medicines or recovery. FOLLOW UP VISIT: Make an appointment to see your doctor for approximately two weeks after surgery for a progress check and staple removal by calling the office at [phone]. Pending Studies at Discharge: No Stand-Alone Forms: My [facility] Skilled Items Patient informed of condition?: Yes DNR: No Discharge Level of Care: Skilled Communicable Disease: No Discharge Prognosis: Stable Lines: None Urinary Catheter: No Medications and DC Order Prescriptions: New ascorbic acid (vitamin C) [Vitamin C] 500 mg Tablet 500 mg PO BIDM Qty: 30 0RF docusate sodium 100 mg Capsule 100 mg PO BID Qty: 60 0RF multivitamin with folic acid [Daily-Andrea (with folic acid)] 400 mcg Tablet 1 tab PO QAM Qty: 30 0RF Continued calcium carbonate [Oyster Shell Calcium] 500 mg calcium (1,250 mg) tablet 500 mg PO QAM clindamycin HCl 300 mg capsule 600 mg PO ONCE Qty: 2 3RF Rx Instructions: take both pills one hour before dental procedure polyethylene glycol 3350 17 gram/dose powder 17 g PO QDAY 7 Days Qty: 119 0RF Rx Instructions: Mix 17g (one heaping teaspoon) with 4-8 ounces of water once daily. rosuvastatin [Crestor] 5 mg Tablet 5 mg PO HS cholecalciferol (vitamin D3) [Vitamin D3] 2,000 unit Capsule 2,000 unit PO PM warfarin 5 mg tablet 5 mg PO [id number] Rx Instructions: Tuesday, Tuesday, Tuesday, losartan 50 mg tablet 50 mg PO QAM metoprolol succinate 25 mg Tablet Extended Release 24 Hr 25 mg PO QPM warfarin 2.5 mg tablet 2.5 mg PO 3XWK Rx Instructions: Tuesday, Tuesday, Tuesday famotidine 20 mg Tablet 20 mg PO HS Glucosamine Chondroitin 550-30-1 mg Capsule 1 cap PO QAM Germanium Oil 1 dose topical BID Patient Comments: nasal bid for prevention of nose bleeds Rx Instructions: in nose conjugated estrogens 0.625 mg/gram Cream 0.625 mg VAGINAL 3XWK Rx Instructions: off 5 days; repeat cycle meclizine 25 mg Tablet 25 mg PO DAILY PRN (Reason: vertigo/dizziness) furosemide 20 mg Tablet 20 mg PO 3XWK Patient Comments: takes Tuesday/Tuesday/Tuesday Rx Instructions: Tuesday, Tuesday and Tuesday acetaminophen [Tylenol Extra Strength] 500 mg tablet 1,000 mg PO TID PRN (Reason: pain) Rx Instructions: Take 3 times per day to lessen pain. ondansetron 4 mg tablet,disintegrating 4 mg PO Q8H PRN (Reason: nausea) Rx Instructions: Take as needed for nausea Changed oxycodone 5 mg tablet 5 - 10 mg PO Q6H PRN (Reason: pain) Qty: 12 0RF Rx Instructions: Take as needed for pain Discharge Orders: Discharge Order (Routine); Ordered 07/02/25 Ordered By: Woodrow Benavides Admission Data Admit Date/Time: 06/24/25 21:20 Attending Provider: Woodrow Benavides Admit Provider: Allen Delgado Primary Care Provider: Henrik De La Cruz Other Providers: Aleshia,Home Health; Sarthak,[facility]; [facility]; Servando Cramer Other Interventions: Discharge Summary Assessment (RN) Last Done: 07/02/25 12:16
--- NOTE | 2025-07-03 08:12 | Coding Query ---
To promote full compliance with coding requirements relating to patient care, physician participation is requested in all cases of collateral clerk uncertainty. Please assist us with the question(s) below: Coding Question(s): It was noted throughout the record that the patient has/is suspected to have osteoporosis. According to coding guidelines "a code for osteoporotic fracture, and not a traumatic fracture, should be used for any patient with known osteoporosis who suffers a fracture, even if the patient had a minor fall or trauma, if that fall or trauma would not usually break a normal, healthy bone." Please indicate below the type of fracture: Physician's Response(s): ( x ) Osteoporotic fracture of - Periprosthetic Right Distal Femur ( ) Traumatic fracture of - Periprosthetic Right Distal Femur ( ) Other type of fracture of - Periprosthetic Right Distal Femur. Please Specify the other type of fracture: MTDD
== END 2025-07-02 12:48 | DRG 467 ==
LOC: ED 17:47 → 3N 21:20 → SUATTDRO 21:20 → 3N 23:14